=== PATIENT | male | born 1985 | race Caucasian/White ===

== ENCOUNTER 2018-10-12 03:17 | Emergency (ER) | payer BC, SELFPAY ==
[2018-10-12 03:19] VITALS: BP 129/82; PULSE 65; RESP 16; TEMP 36.4; O2SAT 100; BMI 25.7
--- NOTE | 2018-10-12 03:38 | EKG12_ITS ---
Test Reason : DIZZINESS Blood Pressure : / mmHG Vent. Rate : 054 BPM Atrial Rate : 054 BPM P-R Int : 188 ms QRS Dur : 098 ms QT Int : 406 ms P-R-T Axes : 065 078 052 degrees QTc Int : 385 ms Sinus bradycardia Early repolarization Otherwise normal ECG Confirmed by ALONSO SANDERS, SUNDAY ([id number]), tape editor SELENA JOSEPH ([id number]) on 10/14/2018 1:39:24 PM Referred By: GEENA Confirmed By:SUNDAY GUPTA MD
--- NOTE | 2018-10-12 03:41 | ED.RN ---
NO OLD EKGS IN MUSE
[2018-10-12 03:47] VITALS: BP 124/66; BP 125/67; BP 99/59; PULSE 58; PULSE 64; PULSE 65
[2018-10-12] MEDS: Cephalexin 250 MG Capsule 500 MG PO (03:52)
[2018-10-12] MEDS: Smz/Tmp Ds Tablet 1 TABLET PO (03:52)
[2018-10-12 03:56] LABS: Bedside Glucose 111 mg/dL (70-110)
--- NOTE | 2018-10-12 03:59 | ED.VISSUMM ---
- ER Visit Summary Date of Service: 10/12/18 Chief Complaint: Nausea History of Present Illness: The patient is a 33 M who presents with nausea and lumps in his right groin. While at the gym he noticed some lumps in his right groin. After getting home he began to complain of feeling dizzy and nauseated. He also noticed a small boil on his right thigh. Physical Examination: Afebrile vitals normal Resting comfortably no distress Moist mucous membranes Heart regular rate and rhythm Lungs clear Patient has tender right inguinal lymphadenopathy There is a small abscess in the medial right thigh Test Results: EKG shows normal sinus rhythm at a rate of 54. Blood glucose 111. Orthostatic vital signs negative. Emergency Department Course and Treatment: Patient was treated here with Keflex and Bactrim. He appears to have a small early abscess on his right thigh that I believe is a good candidate for antibiotic treatment alone. I do not believe there is sufficient fluctuance for incision and drainage. In regards to his dizziness EKG orthostatics and blood glucose are all normal. He was advised on supportive care. He was discharged. Treatment Plan: [] Disposition: Discharge Impression: Right thigh abscess Reactive lymphadenopathy Dizziness This note was generated with [employer] dictation software. It may contain incorrect words, spelling, and punctuation that were not noted in review of the chart prior to signing ED Disposition - Plan for ED Patient: Chief Complaint: Abd Pain Referrals: Natty Isaac PA [Primary Care Provider] -
--- NOTE | 2018-10-12 04:01 | ED.DEP ---
ED Disposition - Plan for ED Patient: Chief Complaint: Abd Pain Instructions: ED Staph Infec Abx Tx Only, ED Dizziness UKO Prescriptions: Cephalexin [Keflex] 500 mg PO Q6 #40 cap Smz/Tmp Ds [Bactrim Ds] 1 tab PO BID #14 tab Referrals: Natty Isaac PA [Primary Care Provider] -
[2018-10-12 04:35] VITALS: RESP 14
== END 2018-10-12 04:37 | disposition home or self-care (01) ==
PROVIDERS: Emergency Provider Emergency Medicine; Family Provider Physician Assistant; PCP Physician Assistant
DX: L02.415 Cutaneous abscess of right lower limb (principal); R42 Dizziness and giddiness; R59.1 Generalized enlarged lymph nodes
CPT/HCPCS: 82962; 93005; 99284

== ENCOUNTER 2018-10-13 14:07 | Emergency (ER) | payer BC, SELFPAY ==
[2018-10-12 03:19] VITALS: BMI 25.7
[2018-10-13 14:08] VITALS: BP 138/70; PULSE 83; RESP 16; TEMP 36.4; O2SAT 99; BMI 28.0
[2018-10-13] MEDS: Ondansetron 4 MG/2 ML Vial IV (14:44)
[2018-10-13 14:53] LABS: Absolute Lymphocyte Count 1.55 X10^3/ul (0.83-4.51); Absolute Neutrophil Count 4.2 X10^3/uL (2.0-7.7); Basophil# 0.01 X10^3/uL; Basophil% 0.2 % (0-1); Eosinophil# 0.03 X10^3/uL; Eosinophils% 0.5 % (0-5); Hematocrit 44.1 % (40-54); Hemoglobin 14.9 g/dl (13.0-16.5); Lymphocyte # 1.55 X10^3/ul (4.0); Lymphocyte % 24.4 % (19-41); Mean Corp Hgb Conc 33.8 g/gl (32-36); Mean Corpuscular Hgb 28.9 pg (27.0-32.0); Mean Corpuscular Volume 85.6 fL (80-94); Mean Platelet Vol. 9.3 fl (6.2-12.0); Monocyte% 9.4 % (0-10); Neutrophil # 4.16 X10^3/uL (2.7-7.7); Neutrophil % 65.3 % (47-70); Platelet Count 279 K/mm3 (150-450); RBC Distribution Width CV 13.8 % (11.6-14.6); RBC Distribution Width SD 43.3 fl (35.1-43.9); Red Blood Count 5.15 M/mm3 (4.6-6.2); White Blood Count 6.4 K/mm3 (4.4-11.0)
[2018-10-13 14:54] LABS: POSITIVE COUNT NO; POSITIVE DIFFERENTIAL NO; POSITIVE MORPHOLOGY NO
[2018-10-13 15:04] LABS: BUN 18 mg/dL (7-18); Creatinine, Serum 1.07 mg/dL (0.70-1.30); EST Glomerular Filtration Rate 86 mL/min (>60); Estimated Creatinine Clearance 93.52 ml/min; Glucose 97 mg/dL (74-106)
--- NOTE | 2018-10-13 15:04 | ED.DCSUM_ITS ---
- ER Visit Summary Date of Service: 10/13/18 Chief Complaint: Nausea, vomiting, diarrhea, and lightheadedness History of Present Illness: The patient is a 33 M who presents with nausea, vomiting, diarrhea, and lightheadedness that began today. Patient was seen here yesterday morning for an abscess in his right medial thigh. Patient was given a prescription for Keflex. Patient states he has been taking this as prescribed. Patient states he started developing nausea, vomiting, diarrhea today. Patient denies any melena or hematochezia. Patient admits to subjective fevers. Patient denies any dysuria or hematuria. Physical Examination: Vital signs are stable. Patient is afebrile. Patient is in no acute distress. Oral mucosa is pink and moist. Neck is supple. Trachea is midline. There is no JVD noted. Heart was regular rate and rhythm. Lungs are clear and equal bilateral. There is good respiratory effort noted. Abdomen is soft. Bowel sounds are normal. There is mild diffuse tenderness. There is no rebound or guarding noted. Skin is warm and dry. There is a small indurated area over the right medial thigh. There is no erythema. There is no fluctuance. There is no discharge or drainage. Cranial nerves II through XII are intact. There are no focal motor or sensory deficits noted. The remaining physical exam is within normal limits. Test Results: CBC and basic metabolic profile were obtained and were within normal limits. Emergency Department Course and Treatment: Patient was given Zofran here. Patient was given a prescription for Zofran. Patient was given a note for work for today. Patient was instructed to drink plenty of fluids. Patient was instructed to follow-up with his primary care physician in 5-7 days. Patient understood and was agreeable with the plan. All questions were answered. Disposition: Discharge home Impression: Nausea, vomiting, diarrhea This note was generated with [employer] dictation software. It may contain incorrect words, spelling, and punctuation that were not noted in review of the chart prior to signing ED Disposition - Plan for ED Patient: Disposition: Home or Assisted Living Chief Complaint: Abscess Diagnosis: Nausea vomiting and diarrhea Instructions: ED Diet Vomiting Diarrhea Prescriptions: Ondansetron [Zofran Odt] 4 mg PO Q8H PRN PRN #10 tab PRN Reason: Nausea Referrals: Natty Isaac PA [Primary Care Provider] -
[2018-10-13 15:05] LABS: Anion Gap 7 (5-15); BUN/Creat Ratio 16.8 RATIO (10-20); Chloride 106 mmol/L (98-107); Est Glom Filt Rate - Afr Amer 104 mL/min (>60); Potassium 4.2 mmol/L (3.5-5.1); Sodium Level 138 mmol/L (136-145)
== END 2018-10-13 15:47 | disposition home or self-care (01) ==
PROVIDERS: Emergency Provider Emergency Medicine; Family Provider Physician Assistant; PCP Physician Assistant
DX: R19.7 Diarrhea, unspecified (principal); R11.2 Nausea with vomiting, unspecified; R42 Dizziness and giddiness; L02.415 Cutaneous abscess of right lower limb; K21.9 Gastro-esophageal reflux disease without esophagitis; Z79.899 Other long term (current) drug therapy
CPT/HCPCS: 80048; 85025; 96374; 99283; A4216; J2405

== ENCOUNTER 2019-03-18 11:30 | Emergency (ER) | payer BC, SELFPAY ==
[2019-03-18 11:30] VITALS: BP 151/58; PULSE 52; RESP 16; TEMP 36.4; O2SAT 100; BMI 27.2
--- NOTE | 2019-03-18 11:49 | CT_ITS ---
STUDY: CT ABDOMEN AND PELVIS WITH CONTRAST REASON FOR EXAM: Male, 33 years old. Left lower quadrant pain and rectal bleeding for 2 days. RADIATION DOSAGE (If Supplied By Facility): CTDIvol = ( 11.50 ) mGy, DLP = ( 728.67 ) mGycm TECHNIQUE: Transaxial images were obtained from the dome of the diaphragm to the symphysis pubis with oral contrast. 100 IV/Oral Isovue 300 was administered. Sagittal and coronal images were reconstructed. Individualized dose optimization techniques were used for this CT. COMPARISON: None. FINDINGS: The visualized lung bases are unremarkable. The visualized portions of the heart are within normal limits. There is decreased attenuation of the liver consistent with steatosis. Normal gallbladder and extrahepatic biliary system. Normal spleen. Normal pancreas. Normal bilateral adrenal glands. Normal right kidney. Normal left kidney. There is a small hiatal hernia. Normal small intestine. There are multiple colonic diverticula consistent with diverticulosis. The appendix is visualized and appears normal. Normal abdominal aorta. Normal inferior vena cava. Normal retroperitoneum. Normal urinary bladder. Normal abdominal wall. Normal osseous structures. CT/Abdomen/Pelvis WITH Contrast IMPRESSION: Sigmoid diverticulosis. No radiologic evidence of diverticulitis. Electronically Signed: Jose Francisco Trotter, at 13:44 EDT , Service support ,
[2019-03-18] MEDS: 0.9% Normal Saline 1,000 ML 125 ML IV (12:20)
[2019-03-18 12:25] LABS: Absolute Lymphocyte Count 1.65 X10^3/ul (0.83-4.51); Absolute Neutrophil Count 3.2 X10^3/uL (2.0-7.7); Basophil# 0.01 X10^3/uL; Basophil% 0.2 % (0-1); Eosinophil# 0.04 X10^3/uL; Eosinophils% 0.8 % (0-5); Hematocrit 41.4 % (40-54); Lymphocyte # 1.65 X10^3/ul (4.0); Lymphocyte % 31.1 % (19-41); Mean Corp Hgb Conc 33.8 g/gl (32-36); Mean Corpuscular Hgb 28.8 pg (27.0-32.0); Mean Corpuscular Volume 85.2 fL (80-94); Mean Platelet Vol. 10.1 fl (6.2-12.0); Monocyte% 7.5 % (0-10); Neutrophil % 60.2 % (47-70); Platelet Count 236 K/mm3 (150-450); RBC Distribution Width CV 14.1 % (11.6-14.6); Red Blood Count 4.86 M/mm3 (4.6-6.2); White Blood Count 5.3 K/mm3 (4.4-11.0)
[2019-03-18 12:29] LABS: POSITIVE COUNT NO; POSITIVE DIFFERENTIAL NO; POSITIVE MORPHOLOGY NO
[2019-03-18 12:44] LABS: Anion Gap 6 (5-15); BUN 19 mg/dL (7-18); Chloride 109 mmol/L (98-107); Creatinine, Serum 0.95 mg/dL (0.70-1.30); EST Glomerular Filtration Rate 98 mL/min (>60); Est Glom Filt Rate - Afr Amer 118 mL/min (>60); Estimated Creatinine Clearance 116.33 ml/min; Glucose 95 mg/dL (74-106); Potassium 4.5 mmol/L (3.5-5.1); Sodium Level 141 mmol/L (136-145)
[2019-03-18] MEDS: Ondansetron 4 MG/2 ML Vial IV (13:10)
[2019-03-18 14:55] VITALS: BP 131/57; PULSE 60; RESP 16; O2SAT 100
--- NOTE | 2019-03-18 14:57 | ED.VISSUMM ---
- ER Visit Summary Date of Service: 03/18/19 Chief Complaint: Rectal bleeding [] History of Present Illness: The patient is a 33 M [presents the emergency department with rectal bleeding for 3 to 4 days. Patient states that he notices that when he goes to the bathroom there is bright red blood mixed in the toilet bowl and the stool as well as on the toilet paper. Patient also complains of some lower abdominal discomfort that is pretty uncomfortable. He denies any fevers. There is no family history of inflammatory bowel disease. He denies feeling lightheaded or dizzy. He denies recent antibiotic usage. Patient also states that he thinks he may have a little bit of a staph infection in the left groin as he has been seen for this in the past and was treated in the past with antibiotics.] Physical Examination: [HEENT-PERRLA, EOMI. Cranial nerves II through XII grossly intact. TMs clear. Mucous membranes moist. No adenopathy. Cardiovascular-regular rate and rhythm without murmur or ectopy Lungs-clear to auscultation, chest wall stable without crepitus or subcu emphysema Abdomen-normoactive bowel sounds, soft. Patient has diffuse tenderness over left lower quadrant with some guarding. There is no rebound, rigidity, or perineal signs. In the left inguinal area there is a small area of erythema when compressed small amount of purulent discharge expresses from it. Suspect patient may have a small abscess. Rectal exam-no masses palpated in the rectal vault. No hemorrhoids noted. There was brown stool in the rectal vault that was Hemoccult negative. Just lateral to the rectum on the left buttock there is a pinpoint area of defect in the skin that is oozing small amount of blood. Extremities-intact ?4, normal range of motion, normal pulses, atraumatic.] Test Results: [CBC with differential showing a 5.3, hemoglobin 14, hematocrit 41, placed 236. Chemistries unremarkable. Hemoccult was negative. CT flank showed sigmoid diverticulosis but no diverticulitis otherwise nothing acute.] Emergency Department Course and Treatment: [Patient initially was just given normal saline.] Treatment Plan: [Patient will be referred to general surgery for follow-up if symptoms do not resolve he may require colonoscopy. The small bleeding skin lesion etiology is unclear. It is unclear if this is a small vein that is eroded to the surface and is bleeding or potentially a small abscess that may be draining.] Disposition: Discharged home in stable condition. Patient advised to return if persistent heavy bleeding worsening abdominal pain, fever, or conditions worsen anyway.] Impression: [Rectal bleeding-stable Soft tissue abscess left lower abdomen] This note was generated with [employer] dictation software. It may contain incorrect words, spelling, and punctuation that were not noted in review of the chart prior to signing ED Disposition - Plan for ED Patient: Referrals: Natty Isaac PA [Primary Care Provider] -
--- NOTE | 2019-03-18 15:02 | ED.DEP ---
ED Disposition - Plan for ED Patient: Instructions: ED Hematochezia Stable Prescriptions: Clindamycin HCl [Cleocin] 300 mg PO Q6H #40 cap Referrals: Natty Isaac PA [Primary Care Provider] - Karely Brewer MD [STAFF PHYSICIAN] - 3-5 Days
[2019-03-18 15:16] VITALS: BP 131/57; PULSE 60; RESP 16; O2SAT 100
[2019-03-18] MEDS: Clindamycin HCl 150 MG Capsule 300 MG PO (15:18)
== END 2019-03-18 15:19 | disposition home or self-care (01) ==
PROVIDERS: Emergency Provider Emergency Medicine; Family Provider Physician Assistant; PCP Physician Assistant
DX: K62.5 Hemorrhage of anus and rectum (principal); K57.30 Diverticulosis of large intestine without perforation or abscess without bleeding; L02.211 Cutaneous abscess of abdominal wall
CPT/HCPCS: 74177; 80048; 82274; 85025; 96361; 96374; 99284; J7030; Q9967; A4216; J2405

== ENCOUNTER 2019-03-21 15:56 | Emergency (ER) | payer BC, SELFPAY ==
[2019-03-21 15:57] VITALS: BP 140/70; PULSE 72; RESP 18; TEMP 36.9; O2SAT 100; BMI 25.8
--- NOTE | 2019-03-21 17:17 | ED.VISSUMM ---
- ER Visit Summary Date of Service: 03/21/19 Chief Complaint: Abdominal pain and blood in stool History of Present Illness: The patient is a 33 M who presents for 5 days of lower abdominal pain, now with diarrhea that is black and concerning for blood in his stool. Patient was evaluated 3 days ago for the same complaint, except at that time he was having bright red blood per rectum. He was diagnosed with concern for a possible draining abscess at the rectal area and was placed on clindamycin. Patient states for the last 2 days he has had black diarrhea. He is not on any Pepto-Bismol. He uses naproxen daily for back pain. His abdominal pain is no different from when he presented initially. It is in the bilateral lower quadrants and the right lower back. Patient denies any medical problems. He has not followed up with a doctor for a colonoscopy. Physical Examination: Vital signs: afebrile, hemodynamically stable, no hypoxia on room air General: well nourished, well developed, in no distress Skin: warm, dry, no rash, no pallor HEENT: normocephalic and atraumatic; PERRL, EOMI, moist mucous membranes Cardiovascular: regular rate and rhythm without murmurs, no peripheral edema, 2+ pulses all distal extremities Respiratory: No increased work of breathing, lungs are clear to auscultation bilaterally, no rales, rhonchi or wheezing Abdominal: Abdomen is soft, tender in the lower quadrants r with normoactive bowel sounds, no guarding or rebound, no masses: Brown stool noted on glove, guaiac negative, no external hemorrhoids or fissures noted MSK: Moves all extremities, no deformities, normal strength Neuro: Awake and alert, oriented ?4. No facial droop, sensation and motor function intact and symmetric Test Results: Abnormal Lab Results 03/21/19 03/21/19 03/21/19 17:55 17:55 18:00 WBC 8.3 RBC 5.33 Hgb 15.6 Hct 45.5 MCV 85.4 MCH 29.3 MCHC 34.3 RDW 13.9 RDW Differential 43.5 Plt Count 290 MPV 10.0 Immature Gran % (Auto) 0.100 Neut % (Auto) 72.1 H Lymph % (Auto) 21.3 [place] % (Auto) 6.2 Eos % (Auto) 0.2 Baso % (Auto) 0.1 Absolute Neuts (auto) 6.0 Absolute Lymphs (auto) 1.78 Total Counted Not Reportable Sodium Cancelled Potassium Cancelled Chloride Cancelled Carbon Dioxide Cancelled Anion Gap Cancelled BUN Cancelled Creatinine Cancelled Estim Creat Clear Calc Cancelled Est GFR (MDRD) Af Amer Cancelled Est GFR (MDRD) Non-Af Cancelled BUN/Creatinine Ratio Cancelled Glucose Cancelled Calcium Cancelled Total Bilirubin Cancelled AST Cancelled ALT Cancelled Alkaline Phosphatase Cancelled Total Protein Cancelled Albumin Cancelled Globulin Cancelled Albumin/Globulin Ratio Cancelled Urine Color Yellow Urine Clarity Sl. Cloudy Urine pH 5.0 Ur Specific [place] 1.025 Urine Protein Negative Urine Glucose (UA) Normal Urine Ketones Negative Urine Occult Blood Negative Urine Nitrite Negative Urine Bilirubin Negative Urine Urobilinogen Normal Ur Leukocyte Esterase 25 H Urine RBC 0 SEEN Urine WBC 0-5 SEEN Ur Squamous Epith Cells 0-5 SEEN Urine Bacteria 0 SEEN Urine Mucus 1+ 03/21/19 18:37 WBC RBC Hgb Hct MCV MCH MCHC RDW RDW Differential Plt Count MPV Immature Gran % (Auto) Neut % (Auto) Lymph % (Auto) [place] % (Auto) Eos % (Auto) Baso % (Auto) Absolute Neuts (auto) Absolute Lymphs (auto) Total Counted Sodium 143 Potassium 4.1 Chloride 111 H Carbon Dioxide 26.0 Anion Gap 6 BUN 15 Creatinine 0.89 Estim Creat Clear Calc 124.17 Est GFR (MDRD) Af Amer 128 Est GFR (MDRD) Non-Af 106 BUN/Creatinine Ratio 16.9 Glucose 93 Calcium 8.6 Total Bilirubin 0.40 AST 13 L ALT 29 Alkaline Phosphatase 57 Total Protein 6.6 Albumin 4.0 Globulin 2.6 Albumin/Globulin Ratio 1.5 Urine Color Urine Clarity Urine pH Ur Specific [place] Urine Protein Urine Glucose (UA) Urine Ketones Urine Occult Blood Urine Nitrite Urine Bilirubin Urine Urobilinogen Ur Leukocyte Esterase Urine RBC Urine WBC Ur Squamous Epith Cells Urine Bacteria Urine Mucus Medications Given Discontinued Medications Dicyclomine HCl (Bentyl) 20 mg PO X1 ONE Stop: 03/21/19 17:17 Last Admin: 03/21/19 18:04 Dose: 20 mg Sodium Chloride () 1,000 mls @ 1,000 mls/hr IV .Q1H ONE Stop: 03/21/19 18:15 Last Admin: 03/21/19 18:03 Dose: 1,000 mls/hr Emergency Department Course and Treatment: Patient was given IV fluids and Bentyl for his abdominal pain. He had a CT scan at his prior visit that showed no acute findings. His stool is guaiac negative this time and there was no evidence of melena on his exam. CBC showed no decline in his hemoglobin. No other lab derangements. On reevaluation patient was feeling somewhat better. He was given a prescription for Zofran and Bentyl and was strongly encouraged to follow-up with surgery for colonoscopy, as he was advised at his prior visit. Patient was noted to be on clindamycin, and his diarrhea may be secondary to the antibiotic use. He has no findings on physical exam or based on his description of the diarrhea this is concerning for C. difficile. Patient was discharged home in improved condition. Treatment Plan: [] Disposition: [] Impression: Abdominal pain, diarrhea This note was generated with [employer] dictation software. It may contain incorrect words, spelling, and punctuation that were not noted in review of the chart prior to signing ED Disposition - Plan for ED Patient: Disposition: Home or Assisted Living Instructions: ED Abdominal Pain Unkn Cause, ED Vomiting Diarrhea Nonspecific Ad Prescriptions: Ondansetron [Zofran Odt] 4 mg PO Q8H PRN PRN #20 tab PRN Reason: Nausea RX: Dicyclomine HCl [Bentyl] 20 mg PO TIDAC #40 cap Referrals: Natty Isaac PA [Primary Care Provider] - As soon as possible Additional Instructions: Keep your appointment as you were previously referred with the surgeon for colonoscopy. Take the medications as needed for symptom control. Please follow-up with your doctor for further work-up of your ongoing abdominal pain. The antibiotic you are taking from your prior visit may be causing the diarrhea. If you have any worsening of your condition or any new concerning symptoms, please return immediately to the emergency department for another evaluation.
[2019-03-21] MEDS: 0.9% Normal Saline 1,000 ML 1000 ML IV (18:03)
[2019-03-21] MEDS: Dicyclomine 10 MG Capsule 20 MG PO (18:04)
[2019-03-21 18:09] LABS: Absolute Lymphocyte Count 1.78 X10^3/ul (0.83-4.51); Basophil# 0.01 X10^3/uL; Basophil% 0.1 % (0-1); Eosinophil# 0.02 X10^3/uL; Eosinophils% 0.2 % (0-5); Hematocrit 45.5 % (40-54); Hemoglobin 15.6 g/dl (13.0-16.5); Lymphocyte # 1.78 X10^3/ul (4.0); Lymphocyte % 21.3 % (19-41); Mean Corp Hgb Conc 34.3 g/gl (32-36); Mean Corpuscular Hgb 29.3 pg (27.0-32.0); Mean Corpuscular Volume 85.4 fL (80-94); Monocyte# 0.52 X10^3/uL; Monocyte% 6.2 % (0-10); Neutrophil % 72.1 % (47-70); Platelet Count 290 K/mm3 (150-450); RBC Distribution Width CV 13.9 % (11.6-14.6); RBC Distribution Width SD 43.5 fl (35.1-43.9); Red Blood Count 5.33 M/mm3 (4.6-6.2); White Blood Count 8.3 K/mm3 (4.4-11.0)
[2019-03-21 18:11] LABS: POSITIVE COUNT NO; POSITIVE DIFFERENTIAL NO; POSITIVE MORPHOLOGY NO
[2019-03-21 18:59] LABS: Bacteria 0 SEEN /hpf (None Seen); Red Blood Cells-Urine 0 SEEN /hpf (0-5)
[2019-03-21 19:03] LABS: Color, Urine Yellow (Yellow); Glucose, Dipstick Normal (Normal); Ketone-Dipstick Negative (Negative); Leukocyte Esterase-Dipstick 25 /ul (Negative); Nitrite-Dipstick Negative (Negative); Occult Blood-Urine Negative /ul (Negative); Protein-Dipstick Negative (Negative); Specific Gravity, Urine 1.025 (1.002-1.030); Urine Bilirubin Dipstick Negative (Negative); Urine Clarity Sl. Cloudy (Clear); Urine Urobilinogen Normal (Normal)
[2019-03-21 19:08] LABS: ALB/GLOB Ratio 1.5 RATIO (0.9-2.4); AST(SGOT) 13 U/L (15-37); Alanine Aminotransfer ALT/SGPT 29 U/L (16-61); Alkaline Phosphatase 57 U/L (45-117); Anion Gap 6 (5-15); BUN 15 mg/dL (7-18); BUN/Creat Ratio 16.9 RATIO (10-20); Calcium,Total 8.6 mg/dL (8.5-10.1); Chloride 111 mmol/L (98-107); Creatinine, Serum 0.89 mg/dL (0.70-1.30); EST Glomerular Filtration Rate 106 mL/min (>60); Est Glom Filt Rate - Afr Amer 128 mL/min (>60); Estimated Creatinine Clearance 124.17 ml/min; Globulin 2.6 g/dL (2.2-4.2); Glucose 93 mg/dL (74-106); Potassium 4.1 mmol/L (3.5-5.1); Protein, Total 6.6 g/dL (6.4-8.2); Sodium Level 143 mmol/L (136-145)
[2019-03-21 19:14] LABS: Mucous, Urine 1+ /hpf (<or=2+); Squamous Epithelial Cells - UA 0-5 SEEN /hpf (0-5); White Blood Cells 0-5 SEEN /hpf (0-5)
[2019-03-21 20:01] VITALS: BP 119/57; PULSE 51; RESP 17; O2SAT 99
== END 2019-03-21 20:02 | disposition home or self-care (01) ==
PROVIDERS: Emergency Provider Emergency Medicine; Family Provider Physician Assistant; PCP Physician Assistant
DX: R10.31 Right lower quadrant pain (principal); R10.32 Left lower quadrant pain; R19.7 Diarrhea, unspecified
CPT/HCPCS: 80053; 81001; 82274; 85025; 96360; 96361; 99285; J7030; A4216

== ENCOUNTER 2019-04-08 08:36 | Day surgery (SDC) | payer BC, SELFPAY ==
[2019-03-28 10:30] VITALS: BMI 25.8
--- NOTE | 2019-03-30 10:32 | HP_ITS ---
Intake Vital Signs 03/28/19 Body Mass Index (BMI) 25.8 03/28/19 Height 5 ft 10 in 03/28/19 Weight: 190 lb 03/28/19 Body Mass Index (BMI) 27.2 03/28/19 Blood Pressure 114/75 03/28/19 Blood Pressure Location Lt brachial 03/28/19 Blood Pressure Position Sitting 03/28/19 Respiratory Rate 18 Intake Visit Reasons: Hospital F/U 03/11 [facility] Blood in stool Top Screw Required: No Is patient in pain?: Yes (lower abdomen) Allergies sulfamethoxazole [From Bactrim] Allergy (Mild, Verified 03/28/19 10:28) Unknown trimethoprim [From Bactrim] Allergy (Mild, Verified 03/28/19 10:28) Unknown Medications Ondansetron [Zofran Odt] 4 mg PO Q8H PRN PRN #10 tab 10/13/18 [Rx Confirmed 03/28/19] Dicyclomine HCl [Bentyl] 20 mg PO TIDAC #40 cap 03/21/19 [Rx Confirmed 03/28/19] Ondansetron [Zofran Odt] 4 mg PO Q8H PRN PRN #20 tab 03/21/19 [Rx Confirmed 03/28/19] omeprazole 20 mg capsule,delayed release 20 mg PO DAILY #60 cap 03/28/19 [Rx Confirmed 03/28/19] sucralfate 1 gram tablet 1 g PO QACHS #120 tab 03/28/19 [Rx Confirmed 03/28/19] PFSH Medical History Abdominal pain (Acute) Acid reflux disease (Acute) Diarrhea (Acute) Nausea & vomiting (Acute) Surgical History Status post right knee surgery (Acute) Social History Smoking Status: Heavy Smoker (>10/day) alcohol intake: current alcohol intake frequency: a few times a week HPI HPI HPI: EULALIO JAMES, is a 33 M who presents to the office today for HPI HPI Surgical H&P: Yes HPI: EULALIO JAMES, is a 33 M who presents to the office today for abdominal pain. Patient reports he has had 2 weeks of bilateral lower quadrant pain. He is also experiencing diarrhea and cramping. He is also had blood in his stool and black tarry diarrhea. He said he has been taking a lot of ibuprofen for his back up to 2 times per day. This is been going on for a few months. ROS General General: Yes weight change and fatigue Musc Musculoskeletal: Yes back problems Cardio Cardiovascular: No murmur, pacemaker, heart disease, atrial fibrillation, high blood pressure, heart attack, heart stent, palpitations, shortness of breat with exertion or chest pain Psych Psychiatric: No depression or anxiety Resp Respiratory: Yes shortness of breath, No sleep apnea, No cough, No COPD, No asthma, No emphysema, No wheezing Gastro Gastrointestinal: Yes abdominal pain, Yes nausea or vomiting, Yes diarrhea, No constipation, Yes blood in stool, No acid reflux, No hemorrhoids, No ulcers, No gallbladder problem, Yes black,tarry stools Wang Hematologic: No blood thinners Exam Const General: cooperative Orientation: alert, oriented x3 Resp Effort & Inspection: normal respiratory effort Auscultation: clear to auscultation bilaterally Cardio Rate: regular rate Rhythm: regular rhythm Heart Sounds: no murmurs GI Inspection: non-distended Palpation: soft, tender in the LLQ and in the RLQ Assessment & Plan Problems 1. Gastrointestinal hemorrhage with melena K92.1 2. Melena K92.1 Plan The patient has history of ibuprofen use and alternating blood in his stool and melena. He also has left lower quadrant and right lower quadrant pain. I recommend EGD and colonoscopy to evaluate for peptic ulcer disease and other sources of GI bleeding. I also recommend the patient start taking Tylenol and stop taking ibuprofen. I have also started the patient on a PPI and Carafate. I explained endoscopy in detail to the patient. I explained the risks including but not limited to stroke or heart attack with anesthesia, perforation of the GI tract, bleeding, infection. I explained that any of these could necessitate further emergency surgery. The patient understands and all questions were answered sufficiently. The patient wishes to proceed with procedure. Harpreet Card MD Pager: [facility] [address] [place] [address], [address] [place] [address] Office: Orders Orders: Colonoscopy 03/28/19 K92.2 EGD 03/28/19 K92.2, T39.395A Medications New: omeprazole 20 mg PO DAILY 60 caps 1RF sucralfate (Carafate) 1 g PO QACHS 120 tabs 0RF Discontinued: esomeprazole magnesium Discontinued Reason: Discontinued by PCP/other physicians 20 mg PO DAILY clindamycin HCl Discontinued Reason: Duplicate Order 300 mg PO Q6H 40 caps 0RF Coding Level of Care Code Off vis,new,level 3 Diagnoses Gastrointestinal hemorrhage with melena K92.1 ??GI bleed type/associated pathology: melena Melena K92.1 03/30/19 0823 <Electronically signed by Harpreet Card MD> Date Harpreet Card MD I have re-examined the patient. There are no clinical changes since date of exam.
[2019-04-08] VITALS (7 sets, daily range): BP systolic 88–119; BP diastolic 39–53; PULSE 47–57; RESP 16–18; TEMP 36.1–36.6; O2SAT 97–100; BMI 25.9
--- NOTE | 2019-04-08 10:30 | IMM_PTH ---
PATIENT: EULALIO JAMES LOC: [facility] U#:[id number] AGE/SX: 33/M ROOM: RE04/08/[address]: Dr. Harpreet Card MD : 1985 BED: DIS: 04/08/2019 SPEC #: [id number] RECD: 04/08/19 15:20 STATUS: CRISSY RERafiq #: [id number] SHOAIB: 04/08/19 10:[address]: Harpreet Card DEPT: IMMUNOHISTOCHEMISTRY RECD BY: Tamara Ferro ENTERED: 04/08/19 15:20 SP TYPE: IMMUNO OTHR DR: JULITO Hannah Tissues: A - Stomach, NOS Procedures: H Pylori (initial) PHYSICIAN & INSTITUTION [place] [address] SPECIMEN INFORMATION: Tissue Source: A - Antrum biopsy Clinical Info: GI hemorrhage with melena Specimen Number: [id number] CPT code: 82166 METHODOLOGY: Deparaffinized sections of prefer/formalin-fixed tissue or PAP/DQ stained slides are incubated with monoclonal/polyclonal antibodies/oligonucleotide probes. Localization is made via biotin free immunoperoxidase method. Appropriate controls are performed and reacted as expected. Results on target cell population are indicated in the following table: RESULTS: ANTIBODY / CLONE RESULT Block A H Pylori (polyclonal) negative These tests were developed and their performance characteristics determined by [facility]. They may not have been cleared or approved by the U.S. Food and Drug Administration. The FDA has determined that such clearance or approval is not necessary. INTERPRETATION: A. Antrum biopsy: Negative for Helicobacter pylori organisms. AM:maggi 04/11/19
--- NOTE | 2019-04-08 10:30 | EGD_PTH ---
PATIENT: EULALIO JAMES LOC: EN U#:[id number] AGE/SX: 33/M ROOM: RE04/08/[address]: Dr. Harpreet Card MD : 1985 BED: DIS: 04/08/2019 SPEC #: [id number] RECD: 04/08/19 12:16 STATUS: CRISSY ERMA #: [id number] SHOAIB: 04/08/19 10:[address]: Harpreet Card DEPT: SURGICAL PATHOLOGY RECD BY: Declan Hernandez ENTERED: 04/08/19 14:49 SP TYPE: EGD BIOPSY OTHR DR: JULITO Hannah Tissues: A - Gastric mucous membrane B - Ileum, NOS C - COLON BIOPSY Procedures: Surgery Specimen Level IV HEADER OPERATION: Colonoscopy, EGD ([facility]) PRE-OP DIAGNOSIS: Gastrointestinal hemorrhage with melena TISSUE SUBMITTED: A - Antrum biopsy for H. pylori and path, B - Terminal ileum biopsy, C - Random colon biopsies MICROSCOPIC DIAGNOSIS A. Gastric antrum, biopsy: Mild chronic gastritis. See comment. B. Terminal ileum, biopsy: No pathologic diagnosis. C. Random colon biopsy: No pathologic diagnosis. See comment. AM:maggi 04/11/19 COMMENT A. The results of immunohistochemistry for Helicobacter pylori will be reported separately ([id number]). C. A single fragment of unremarkable small bowel is also present. Clinical correlation is suggested. MICROSCOPIC DESCRIPTION Slides are reviewed. GROSS DESCRIPTION A - Received in fixative is one container labeled with the patient's name and designated antrum biopsy. The specimen consists of one irregular fragment of light [place] soft tissue that measures 0.5 x 0.5 x 0.1 cm. The specimen is totally submitted in one cassette. B - Received in fixative is one container labeled with the patient's name and designated terminal ileum. The specimen consists of one irregular fragment of light [place] soft tissue that measures 0.5 x 0.2 x 0.1 cm. The specimen is totally submitted in one cassette. C - Received in fixative is one container labeled with the patient's name and designated random colon biopsy. The specimen consists of multiple irregular fragments of light [place] soft tissue that in aggregate measure 1 x 0.7 x 0.1 cm. The specimen is totally submitted in one cassette. / AM:maggi 04/08/19 TC:3 CPT: 76448 x3
--- NOTE | 2019-04-08 11:12 | OP.ENDO_ITS ---
04/08/2019 Natty Isaac Re : Upper GI endoscopy procedure for Chapito Isaac This procedure was performed on Monday, April 08, 2019. My impressions and recommendations are as follows: Impressions : - Normal esophagus. - Normal stomach. - Normal examined duodenum. - Biopsies were taken with a cold forceps for Helicobacter pylori testing. Recommendations : - Discharge patient to home. - Resume previous diet. - Continue present medications. My findings are described in the full procedure note, which is enclosed. If I can be of further assistance, please feel free to contact me at Doctor phone number(s): , Work: . Sincerely, Harpreet Card MD 04/08/2019 11:12:03 AM This report has been signed electronically.
--- NOTE | 2019-04-08 11:14 | OP.ENDO_ITS ---
04/08/2019 Natty Isaac Re : Colonoscopy procedure for Chapito Isaac This procedure was performed on Monday, April 08, 2019. My impressions and recommendations are as follows: Impressions : - The entire examined colon is normal on direct and retroflexion views. - Biopsies were taken with a cold forceps from the entire colon for evaluation of microscopic colitis. - Biopsy was performed in the terminal ileum. Recommendations : - Discharge patient to home. - Resume previous diet. - Continue present medications. - Await pathology results. - Repeat colonoscopy at age 52 for screening purposes. My findings are described in the full procedure note, which is enclosed. If I can be of further assistance, please feel free to contact me at Doctor phone number(s): , Work: . Sincerely, Harpreet Card MD 04/08/2019 11:14:09 AM This report has been signed electronically.
== END 2019-04-08 12:22 | disposition home or self-care (01) ==
LOC: EN 08:37 → AC 08:38
PROVIDERS: Family Provider Physician Assistant; PCP Physician Assistant; Referring Provider Physician Assistant; Visit Provider Surgery
PROC: 0DJD8ZZ Inspection of Lower Intestinal Tract, Via Natural or Artificial Opening Endoscopic (ICD-10-PCS; CPT 45378; principal; 2019-04-08 10:25)
DX: K29.50 Unspecified chronic gastritis without bleeding (principal); K92.1 Melena; R10.31 Right lower quadrant pain; R10.32 Left lower quadrant pain; K21.9 Gastro-esophageal reflux disease without esophagitis; Z87.891 Personal history of nicotine dependence
CPT/HCPCS: 43239; 45380; 88305; 88342; J7120; A4216

== ENCOUNTER → 2019-05-05 16:08 | Outpatient (CLI) | payer BC, SELFPAY ==
[2019-04-08 08:56] VITALS: BMI 25.9
--- NOTE | 2019-05-05 16:11 | US_ITS ---
HISTORY:TESTICLE AND GROIN PAIN AND SWELLING BILAT TESTICLE AND GROIN PAIN AND SWELLING BILAT EXAMINATION: US Scrotum (Contents) TECHNIQUE: Realtime ultrasound of the testicles was performed with grayscale, Color Doppler and spectral Doppler analysis. COMPARISON: None FINDINGS: RIGHT: TESTIS: 5.4 x 3.3 x 2.0 cm. Normal in size and echotexture, without focal lesion. COLOR DOPPLER: Normal arterial flow present in the testicle with monophasic waveforms. EPIDIDYMIS: Normal in size and echotexture, without focal lesion. It measures 1.0 x 1.1 x 0.8 cm Normal color Doppler flow pattern in the epididymis. HYDROCELE: None. VARICOCELE: None. LEFT: TESTIS: 4.6 x 2.5 x 1.9 cm. Normal in size and echotexture, without focal lesion. COLOR DOPPLER: Normal arterial flow present in the testicle with monophasic waveforms. EPIDIDYMIS: Normal in size and echotexture, without focal lesion. Measuring 0.9 x 1.1 x 0.8 cm Normal color Doppler flow pattern in the epididymis. HYDROCELE: None. VARICOCELE: None. Incidental note is made of bilateral inguinal lymph nodes the largest on the right measuring 1.6 x 0.6 x 0.3 cm and on the left measuring 0.9 x 0.8 x 0.3 cm US/Testicular with Arterial Flow IMPRESSION: Unremarkable bilateral testicular ultrasound. Enlarged right inguinal lymph nodes at 1909 Reported and signed by: Kendal Helms DO Electronically Signed: Kendal Helms DO at 19:08 EDT Tel , Service support ,
== END ==
LOC: US 16:10
PROVIDERS: Family Provider Physician Assistant; PCP Physician Assistant; Referring Provider Physician Assistant; Visit Provider Physician Assistant
DX: N50.819 Testicular pain, unspecified (principal); R10.30 Lower abdominal pain, unspecified
CPT/HCPCS: 76870; 93976

== ENCOUNTER 2019-06-02 06:14 | Day surgery (SDC) | payer BC, SELFPAY ==
[2019-05-24 14:54] VITALS: BMI 25.9
[2019-06-02] VITALS (8 sets, daily range): BP systolic 97–122; BP diastolic 54–77; PULSE 51–64; RESP 16–18; TEMP 36.3–36.7; O2SAT 96–100; BMI 27.5
--- NOTE | 2019-06-02 | LIP_PTH ---
PATIENT: EULALIO JAMES LOC: [facility] – [place] U#:[id number] AGE/SX: 33/M ROOM: RE06/02/[address]: Dr. Harpreet Card MD : 1985 BED: DIS: 06/02/2019 SPEC #: [id number] RECD: 06/02/19 12:35 STATUS: CRISSY ERMA #: [id number] SHOAIB: 06/02/19 00:[address]: Harpreet Card DEPT: SURGICAL PATHOLOGY RECD BY: Pascual Paez ENTERED: 06/02/19 12:36 SP TYPE: LIPOMA OTHR DR: JULITO Hannah Tissues: LIPOMA OF CORD Procedures: Surgery Specimen Level III HEADER OPERATION: Lap robotic bilateral inguinal hernia repair PRE-OP DIAGNOSIS: Right inguinal hernia TISSUE SUBMITTED: Lipoma of right upper cord MICROSCOPIC DIAGNOSIS Lipoma of right upper cord: Mature adipose tissue, consistent with lipoma. SJ:maggi 06/03/19 MICROSCOPIC DESCRIPTION Slides are reviewed. GROSS DESCRIPTION Received in fixative is one container labeled with the patient's name and designated lipoma of right upper cord. The specimen consists of yellow adipose tissue measuring 5.5 x 4.5 x 1 cm. Sections reveal yellow adipose cut surfaces without area of hemorrhage, necrosis or cystic degeneration. Deposition Reporter sections are submitted in one cassette. / SJ:rg 06/02/19 TC:1 CPT: 34222
--- NOTE | 2019-06-02 07:30 | HP.PCM_ITS ---
Problem List (1) Right inguinal hernia Status: Acute History and Physical Date of Admission: 06/02/19 Intake Vital Signs 05/24/19 Body Mass Index (BMI) 25.9 05/24/19 Height 5 ft 10 in 05/24/19 Weight: 190 lb 05/24/19 Body Mass Index (BMI) 27.2 05/24/19 Blood Pressure 112/70 05/24/19 Blood Pressure Location Rt brachial 05/24/19 Blood Pressure Position Sitting 05/24/19 Respiratory Rate 18 05/24/19 Pulse Rate 70 05/24/19 Pulse Source Monitor 05/24/19 Temperature 97.8 F 05/24/19 Temperature Source Oral 05/24/19 Pulse Ox 98 05/24/19 Oxygen Delivery Method room air 05/24/19 Body Mass Index (BMI) 25.9 Intake Visit Reasons: Inguinal Lymphadenopathy [facility] [place] 05/05 Home Care Manager Rn Required: No Is patient in pain?: No Allergies sulfamethoxazole [From Bactrim] Allergy (Mild, Verified 05/31/19 08:08) Unknown trimethoprim [From Bactrim] Allergy (Mild, Verified 05/31/19 08:08) Unknown Medications Ondansetron [Zofran Odt] 4 mg PO Q8H PRN PRN #10 tab 10/13/18 [Rx Confirmed 05/31/19] Dicyclomine HCl [Bentyl] 20 mg PO TIDAC #40 cap 03/21/19 [Rx Confirmed 05/31/19] omeprazole 40 mg capsule,delayed release 40 mg PO DAILY 05/24/19 [History Confirmed 05/31/19] rifaximin 200 mg tablet 200 mg PO TID 05/24/19 [History Confirmed 05/31/19] PFSH Medical History Anxiety (Acute) Abdominal pain (Acute) Acid reflux disease (Acute) Diarrhea (Acute) Nausea & vomiting (Acute) Surgical History Status post right knee surgery (Acute) Social History (Updated 06/02/19 @ 07:29 by Harpreet Card MD) Smoking Status: Former smoker alcohol intake: current alcohol intake frequency: a few times a week substance use type: does not use HPI HPI HPI: EULALIO JAMES, is a 33 M who presents to the office today for HPI HPI HPI: EULALIO JAMES, is a 33 M who presents to the office today for right groin pain. Patient also reports intermittent pain left groin. He says this is especially bad when lifting. He says he experiences bulging that he has to push back in. He says this started about 1 month ago. ROS General General: Yes weight change and fatigue; no appetite, colon cancer, breast cancer or weakness HEENT HEENT: No difficulty swallowing, eye injury, eye surgery, swollen glands or hoarseness Endo Endocrine: No thyroid disease, diabetes mellitus, thyroid cancer, Hair loss, heat intolerance or cold intolerance Skin Skin: No rash or changing moles Breast Breast: No left breast lump, right breast lump, nipple discharge, breast pain, abnormal mammogram, abnormal US or breast enlargement Musc Musculoskeletal: Yes back problems; no arthritis, rheumatoid arthritis, gout or joint pain Cardio Cardiovascular: No murmur, pacemaker, heart disease, atrial fibrillation, high blood pressure, heart attack, heart stent, palpitations, shortness of breat with exertion or chest pain Psych Psychiatric: Yes anxiety; no depression or hearing voices Resp Respiratory: No shortness of breath, No sleep apnea, Yes cough, No COPD, No asthma, No emphysema, No wheezing Gastro Gastrointestinal: Yes abdominal pain, Yes nausea or vomiting, Yes diarrhea, No constipation, No blood in stool, Yes acid reflux, No hemorrhoids, No ulcers, No gallbladder problem, No black,tarry stools Wang Hematologic: No blood thinners, No blood disorders, No bleeding, No anemia, No blood clots Neuro Neurologic: No system reviewed and no additional complaints, except as docu, No as per HPI, No abnormal walking, No abnormal hearing, No abnormal movements, No abnormal speech, No behavioral changes, No burning sensations, No confusion, No seizure-like activity, No unsteadiness, No dizziness, No localized weakness, No frequent falls, No headache(s), No lack of coordination, No loss of vision, No memory loss, No numbness, No other visual disturbances, No radiating pain, No restless legs, No sensory deficit, No fainting, No tingling, No tremor(s), No weakness, No other Exam Const General: cooperative Orientation: alert, oriented x3 Chest Breast Palpation: No nipple discharge Resp Effort & Inspection: normal respiratory effort Auscultation: clear to auscultation bilaterally Cardio Rate: regular rate Rhythm: regular rhythm Heart Sounds: no murmurs GI Inspection: non-distended Palpation: soft, nontender Other: The patient does appear to have herniated contents in the right groin and possibly in the left groin. This appears to be direct hernias bilaterally. Easily reducible. Assessment & Plan Problems 1. Bilateral inguinal hernia without obstruction or gangrene, recurrence not specified K40.20 Plan The patient is having pain in both inguinal regions. He has an appreciable direct hernia on the right side and possibly on the left. I explained robotic assisted laparoscopic inguinal hernia repair to the patient in detail. I explained that we would repair the right side and inspect the left. If the left side includes a hernia I would repair the other side at the same time. I explained the risks of the procedure including but not limited to bleeding, infection, chronic groin pain, recurrence of hernia, bowel or bladder injury. I also explained the placement of mesh in the inguinal region. Patient understands all the risks and is willing to proceed with surgery. Harpreet Card MD Pager: [facility] [address] [place] [address], [address] [place] [address] Office:
[2019-06-02] MEDS: Cefazolin 2 GM in 0.9% Normal Saline 100 ML IV (08:10)
[2019-06-02] MEDS: Bupivacaine 0.5% PF 10 ML VIAL (10:00)
--- NOTE | 2019-06-02 10:07 | PCM.OPRPT ---
Problem List (1) Right inguinal hernia Status: Acute Report of Operation Date of Procedure: 06/02/19 Pre-Operative Diagnosis: Right inguinal hernia Post-Operative Diagnosis: Bilateral inguinal hernias Surgery/Procedure Performed:: Robotic assisted laparoscopic bilateral inguinal hernia repair with mesh Description of Surgical Findings:: Patient had indirect defect bilaterally with large lipoma the cord on the left side Specimen's removed: Left cord lipoma Description of Procedure: Patient was brought back to the operating room and general anesthesia was induced. Abdomen was prepped and draped in usual sterile fashion. Incision was made superior to the umbilicus and deepened to the fascia. The fascia was grasped and elevated and a Veress needle was placed into the abdomen and a drop test was performed. The abdomen was insufflated to 15 mmHg. The Veress needle was removed and a camera port was placed into this incision. The camera was then placed this incision to inspect for any injuries and there were none. Next under direct visualization a right and left 8 mm port were placed in the lateral abdominal sidewalls. Next inspection of the inguinal canals was performed. Patient had an indirect hernia on the right side and a indirect hernia on the left. Next the patient was placed in steep Trendelenburg position and the robot was docked. Using scissors and cautery the right inguinal peritoneum was incised and dissected down to the hernia sac. The hernia sac was reduced and dissected free and dissection was carried posteriorly. Once there was a large enough pocket a piece of pro-experimental plastics fabricator mesh was trimmed and placed into the right inguinal canal and unfolded. This adequately cover the direct and indirect spaces. Next the peritoneum was reapproximated using a running 3-0V lock suture. There was a small hole in the peritoneum which was closed with a [id number] 4-0 Vicryl suture. Next attention was paid to the left side. In the same fashion the left inguinal peritoneum was incised and dissected free using electrocautery and scissors. The patient had a large lipoma in the left cord which was reduced into the abdomen and dissected free. This was placed in the pelvis. Pro-experimental plastics fabricator mesh was then placed in the left inguinal canal and unfolded and placed over the inguinal region. The left peritoneum was reapproximated using 3-0V lock suture. Both measures were completely covered at the end of the case and appeared with no folds or cramping. Next the robot was undocked and the camera port in the midline was removed. A Endo Catch bag was placed through this incision and the lipoma was placed into the bag. The lipoma was then removed using Endo Catch bag. Next the midline fascia was closed with a [id number]-tzjen 0 Vicryl suture. All the incisions were then anesthetized with lidocaine and the skin incisions were closed with interrupted 4-0 Monocryl sutures and Steri-Strips and bandages. Patient tolerated the procedure well was brought back in stable condition. Scrotum was checked at the end the case and testicles were present. Grafts/Implants Used: Pro-experimental plastics fabricator mesh bilaterally - Admit VTE Documentation VTE Mechan Device Prophylaxis: SCD's
--- NOTE | 2019-06-02 10:11 | PCM.DC.HER ---
Discharge Diet: Light diet - advance as tolerated Discharge Activity: Return to Normal Activity, May Not Drive - for 2-3 days or while taking narcotic pain meds., May Shower - with the bandage in place 1-2 days after surgery. Lifting Restrictions: 20 pounds for 4 weeks. Additional Activity Instructions:: Climbing stairs is fine, walking is encouraged. Sitting in bed may be uncomfortable. Sitting up using your lateral muscles (sitting up sideways) is usually more comfortable. Do not drive, work heavy equipment of sign legal documents for 24 hours. If your hernia repair was an ingunial repair, you may have scrotal swelling, an ice pack and/or athletic support can provide more comfort. Pain medications may cause nausea, you should typically eat light foods as you take your pain medications. Pain medications may also cause constipation. If you have difficulty with this, discuss with your doctor. Call your doctor if your incision/area has: Continuous Slow Oozing, Sudden Increased Bleeding, Increased Pain/ Swelling, Increased Redness, Foul Smelling Discharge Call your doctor if you observe: Fever of 101 or Higher Suture Line Care: Avoid Pulling/Pushing, Avoid Pinching/Bending Change Dressing in (Days):: 3 - Leave steri-strips for 1 week. May protect with a guaze bandaid. Cleanse incision/area with: Keep Dressing Clean & Dry Allergies/Adverse Reactions: Allergies sulfamethoxazole [From Bactrim] Allergy (Mild, Verified 05/31/19 08:08) Unknown trimethoprim [From Bactrim] Allergy (Mild, Verified 05/31/19 08:08) Unknown Medications to take at Discharge Ondansetron [Zofran Odt] 4 mg PO Q8H PRN PRN #10 tab 10/13/18 Dicyclomine HCl [Bentyl] 20 mg PO TIDAC #40 cap 03/21/19 omeprazole 40 mg capsule,delayed release 40 mg PO DAILY 05/24/19 rifaximin 200 mg tablet 200 mg PO TID 05/24/19 Oxycodone HCl/Acetaminophen [Percocet 5/325] 1 - 2 tablet PO Q4H PRN PRN 7 Days #20 tablet 06/02/19 The following prescriptions were given: Oxycodone HCl/Acetaminophen [Percocet 5/325] 1 - 2 tablet PO Q4H PRN PRN 7 Days #20 tablet PRN Reason: Pain Transmission Status: Sent to [facility] Primary Care Physician: Natty Isaac PA [Primary Care Provider] - Test Results: Test results from this visit will be discussed in further detail at your follow-up appointment, if applicable. Please Follow Up With: Harpreet Card MD When: Please call to schedule 2 week follow up appointment. [phone]
[2019-06-02] MEDS: Acetaminophen 325 MG Tablet PO (11:49)
[2019-06-02] MEDS: oxyCODONE 5 MG Tablet PO (11:49)
== END 2019-06-02 13:06 | disposition home or self-care (01) ==
LOC: SDC 06:14 → AC 06:15
PROVIDERS: Family Provider Physician Assistant; PCP Physician Assistant; Referring Provider Surgery; Visit Provider Surgery
PROC: (CPT 49650; principal; 2019-06-02 07:40)
DX: K40.20 Bilateral inguinal hernia, without obstruction or gangrene, not specified as recurrent (principal); D17.6 Benign lipomatous neoplasm of spermatic cord; K21.9 Gastro-esophageal reflux disease without esophagitis; Z87.891 Personal history of nicotine dependence
CPT/HCPCS: 00840; 49650; S2900; 88304; J7120; A4216; J2405

== ENCOUNTER 2019-06-05 00:16 | Emergency (ER) | payer BC, SELFPAY ==
[2019-06-02 06:39] VITALS: BMI 27.5
[2019-06-05 00:17] VITALS: BP 132/77; PULSE 80; RESP 15; TEMP 36.6; O2SAT 100; BMI 26.5
--- NOTE | 2019-06-05 00:44 | ED.VIS.GEN ---
History of Present Illness Chief Complaint: Abd Pain Informant: Patient Onset: Today Narrative: 3 days postop laparoscopic right inguinal hernia repair by Dr. Card. Presents with increasing abdominal pain throughout the day. Prescribed 20 tabs of Percocet 1-2 tabs every 4 hours last dose was this morning. Reports to use 800 mg of ibuprofen 4 hours ago. Pain worse with movement. Denies any increasing lifting or activities today. States pain medicines did help control his pain. No nausea or vomiting. Normal bowel movements. No fevers. Prior similar symptoms: No Past Medical History - Allergies and Home Meds Allergies/Adverse Reactions: Allergies sulfamethoxazole [From Bactrim] Allergy (Mild, Verified 06/05/19 00:20) Unknown trimethoprim [From Bactrim] Allergy (Mild, Verified 06/05/19 00:20) Unknown Primary Care Physician: Natty Isaac PA [Primary Care Provider] - Smoking Status: Former smoker Review of Systems General: Denies: Chills, Fever, Sweats Eyes: Denies: Visual changes - bilaterally, Diplopia ENT: Denies: Rhinorrhea, Sore throat Cardiovascular: Denies: Chest pain, Palpitations Respiratory: Denies: Dyspnea, Cough, Dyspnea on exertion Gastrointestinal: Reports: Abdominal pain. Denies: Nausea, Vomiting, Diarrhea, Melena, Hematochezia Genitourinary: Denies: Dysuria, Hematuria, Frequency Musculoskeletal: Denies: Back pain, Extremity Pain Skin: Denies: Rash, Wounds Neurological: Denies: Headache, Weakness, Numbness Physical Exam Vital Signs/Narrative: Vital Signs Temp Pulse Resp BP Pulse Ox 06/05/19 00:17 97.8 F 80 15 132/77 H 100 Inital Vital Signs reviewed: Yes General: Well nourished, Well developed, - - Uncomfortable, nontoxic Head: Normocephalic, Atraumatic Eyes: Perrl, EOMI ENT: Moist mucous membranes, No rhinorrhea Neck: Supple, Nontender Cardiovascular: Regular rate, Regular rhythm, No murmurs Respiratory: No distress, CTA bilaterally, Chest nontender Abdomen: Soft, Nondistended, Normal bowel sounds, - - 3 laparoscopic incision dressings upper abdomen, small dry blood, no soaked dressing, no exudates. Mild tenderness palpation of abdomen without guarding or rebound. Back: Nontender, Normal Inspection Extremities: Nontender, No edema Skin: Normal color, No rash Neurological: Alert, Oriented x3, Cranial nerves II-XII grossly intact, Normal Strength, Normal Sensation Psychological: Normal affect, Normal Mood Diagnostic/Tx/Re-eval - Medical Decision Making Patient present with postop pain, vitals stable with normal bowel movement no vomiting. Discussed with covering surgeon Dr. López at 0049, updated. To be written prescription for Percocet for 3 days, he will continue Motrin at 600 mg every 6 hours. He will follow-up as an outpatient. All questions were answered. ED Disposition - Plan for ED Patient: Disposition: Home or Assisted Living Diagnosis: Postoperative abdominal pain Instructions: POST OP WOUND CHECK, Pain Prescriptions: Oxycodone HCl/Acetaminophen [Percocet 5/325] 1 tablet PO Q6H PRN PRN 3 Days #12 tablet PRN Reason: Pain Referrals: Natty Isaac PA [Primary Care Provider] - Harpreet Card MD [STAFF PHYSICIAN] - 3-5 Days
[2019-06-05] MEDS: oxyCODONE 5 MG Tablet 10 MG PO (00:48)
== END 2019-06-05 01:40 | disposition home or self-care (01) ==
LOC: ED 01:37
PROVIDERS: Emergency Provider Emergency Medicine; Family Provider Physician Assistant; PCP Physician Assistant
DX: R10.9 Unspecified abdominal pain (principal); G89.18 Other acute postprocedural pain; Z87.891 Personal history of nicotine dependence
CPT/HCPCS: 99283

== ENCOUNTER → 2019-06-21 08:52 | Outpatient (CLI) | payer BC, SELFPAY ==
[2019-06-16 15:15] VITALS: BMI 26.5
--- NOTE | 2019-06-21 08:54 | CT_ITS ---
STUDY: CT ABDOMEN AND PELVIS WITH CONTRAST REASON FOR EXAM: Male, 33 years old. Groin pain following bilateral inguinal hernia repair. RADIATION DOSAGE (If Supplied By Facility): CTDIvol = ( 17.20 ) mGy, DLP = ( 1222.26 ) mGycm TECHNIQUE: Transaxial images were obtained from the dome of the diaphragm to the symphysis pubis with oral contrast. 100 IV/Oral Isovue 300 was administered. Sagittal and coronal images were reconstructed. Individualized dose optimization techniques were used for this CT. COMPARISON: March 27, 2019. FINDINGS: The visualized lung bases are unremarkable. The visualized portions of the heart are within normal limits. Normal liver. Normal gallbladder and extrahepatic biliary system. Normal spleen. Normal pancreas. Normal bilateral adrenal glands. Normal right kidney. Normal left kidney. Normal ureters. Normal visualized stomach. Normal small intestine. Normal colon. The appendix is visualized and appears normal. Normal abdominal aorta. Normal inferior vena cava. Normal retroperitoneum. Normal urinary bladder. Prostate is minimally enlarged with central calcifications. There are phleboliths in the pelvis without lymphadenopathy. No free air or free fluid is seen within the peritoneal cavity. There is a small right inguinal hernia of omental fat. Abdominal wall appears otherwise grossly unremarkable. Normal osseous structures. CT/Abdomen/Pelvis WITH Contrast IMPRESSION: 1. Small right inguinal hernia of omental fat. This appears essentially unchanged from previous examination. 2. No evidence for acute intra-abdominal or pelvic abnormality or other interval change. Electronically Signed: Cj Guzman DO at 17:06 EDT Tel [phone], Service support ,
== END ==
PROVIDERS: Family Provider Physician Assistant; PCP Physician Assistant; Referring Provider Surgery; Visit Provider Surgery
DX: R10.31 Right lower quadrant pain (principal); R10.32 Left lower quadrant pain
CPT/HCPCS: 74177; Q9967

== ENCOUNTER 2019-07-01 12:54 | Day surgery (SDC) | payer BC, SELFPAY ==
[2019-06-16 15:15] VITALS: BMI 26.5
--- NOTE | 2019-06-30 14:36 | PCM.HP.BLA ---
Problem List (1) Lipoma, spermatic cord Status: Acute History and Physical Date of Admission: 06/30/19 Intake Intake Visit Reasons: Recheck Hernia per Patient Chief Complaint: post hernia repair Allergies sulfamethoxazole [From Bactrim] Allergy (Mild, Verified 06/08/19 09:26) Unknown trimethoprim [From Bactrim] Allergy (Mild, Verified 06/08/19 09:26) Unknown [facility] Medical History (Updated 06/30/19 @ 14:32 by Harpreet Card MD) Abdominal pain (Acute) Acid reflux disease (Acute) Anxiety (Acute) Diarrhea (Acute) Nausea & vomiting (Acute) Surgical History (Updated 06/08/19 @ 09:26 by Leelee Middleton) History of right inguinal hernia repair (Acute) Status post right knee surgery (Acute) Social History (Updated 06/30/19 @ 14:34 by Harpreet Card MD) Smoking Status: Never smoker alcohol intake: current alcohol intake frequency: a few times a week substance use type: does not use HPI HPI HPI: EULALIO JAMES, is a 34 M who presents to the office today for HPI HPI HPI: EULALIO JAMES, is a 34 M who presents to the office today for right groin pain. The patient is now 4 weeks post robotic assisted laparoscopic bilateral inguinal hernia repair with mesh. The patient is complaining of right groin pain. He is also feeling a small bulge. He does not complain of any pain at the incisions or in the left groin. He has point tenderness over the bulge. ROS General General: No weight change or fatigue Cardio Cardiovascular: No murmur, pacemaker, heart disease, atrial fibrillation, high blood pressure, heart attack, heart stent, palpitations, shortness of breat with exertion or chest pain Psych Psychiatric: No depression or anxiety Resp Respiratory: No shortness of breath, No sleep apnea, No cough, No COPD, No asthma, No emphysema, No wheezing Gastro Gastrointestinal: Yes abdominal pain, No nausea or vomiting, No diarrhea, No constipation, No blood in stool, No acid reflux, No hemorrhoids, No ulcers, No gallbladder problem, No black,tarry stools Additional Details: Right groin pain Wang Hematologic: No blood thinners Exam Const General: cooperative Orientation: alert, oriented x3 Resp Effort & Inspection: normal respiratory effort Auscultation: clear to auscultation bilaterally Cardio Rate: regular rate Rhythm: regular rhythm Heart Sounds: no murmurs GI Inspection: non-distended Palpation: soft, nontender Assessment & Plan Problems 1. Bilateral inguinal hernia without obstruction or gangrene, recurrence not specified K40.20 2. 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 He reports now that most of his pain is gone and it is centered in the right groin where he is feeling a bulging. There is point tenderness. He had a CT scan which showed no recurrence of hernia but that he did still have a lipoma of the right cord. I explained that the patient may be having nerve entrapment and this may not be the cause of his pain. The patient would like it removed despite this fact if there is any chance that it may improve his pain. I explained that there was likely a chance that his pain would remain despite the lipoma being removed. I explained the risks of groin expiration such as bleeding, infection, nerve entrapment, spermatic cord injury, chronic groin pain. The patient understands and would like to proceed with lipoma excision. Harpreet Card MD Pager: [facility] [address] [place] [address], [address] [place] [address] Office:
--- NOTE | 2019-07-01 | IMM_PTH ---
PATIENT: EULALIO [place] [facility] [id number] AGE/SX: 34/M ROOM: RE07/01/[address]: Dr. Harpreet Card MD : 1985 BED: DIS: 07/01/2019 SPEC #: [id number] RECD: 07/05/19 12:24 STATUS: CRISSY ERMA #: [id number] SHOAIB: 07/01/19 00:[address]: Harpreet Card DEPT: IMMUNOHISTOCHEMISTRY RECD BY: Ambika Jorgensen ENTERED: 07/05/19 12:25 SP TYPE: IMMUNO OTHR DR: JULITO Hannah Tissues: LIPOMA OF CORD Procedures: CD138 (add) CD20 (add) CD3 (add) CD45 (add) CD5 (add) CD79A (add) Pankeratin (initial) PHYSICIAN & INSTITUTION [place] [id number] SPECIMEN INFORMATION: Tissue Source: Lipoma of right spermatic cord Clinical Info: Bilateral inguinal hernia Specimen Number: [id number] Block 2 CPT code: 50828, 31774 x6 METHODOLOGY: Deparaffinized sections of prefer/formalin-fixed tissue or PAP/DQ stained slides are incubated with monoclonal/polyclonal antibodies/oligonucleotide probes. Localization is made via biotin free immunoperoxidase method. Appropriate controls are performed and reacted as expected. Results on target cell population are indicated in the following table: RESULTS: ANTIBODY / CLONE RESULT Block 2 AE1-3 (AE1/AE3/PCK26) negative CD3 (PS1) positive CD5 (SP10) positive CD20 (L26) positive CD45 (RP2/18) positive CD79a (11E3) positive CD138 (B-A38) positive, focal These tests were developed and their performance characteristics determined by [facility]. They may not have been cleared or approved by the U.S. Food and Drug Administration. The FDA has determined that such clearance or approval is not necessary. INTERPRETATION: Lymph node in cored lipoma: - Polytypic (benign) lymphoid tissue AM:mark anthony 07/06/19 *
[2019-07-01 14:05] VITALS: BP 127/72; PULSE 63; RESP 16; TEMP 36.8; O2SAT 99; BMI 28.2
[2019-07-01] MEDS: Lactated Ringers 1,000 ML 75 ML IV (14:16)
[2019-07-01] MEDS: Cefazolin 2 GM in 0.9% Normal Saline 100 ML IV (14:30)
--- NOTE | 2019-07-01 14:30 | LIP_PTH ---
PATIENT: EULALIO JAMES [place] [facility] [place][id number] AGE/SX: 34/M ROOM: RE07/01/[address]: Dr. Harpreet Card MD : 1985 BED: DIS: 07/01/2019 SPEC #: [id number] RECD: 07/01/19 15:54 STATUS: CRISSY ERMA #: [id number] SHOAIB: 07/01/19 14:[address]: Harpreet Card DEPT: SURGICAL PATHOLOGY RECD BY: Declan Hernandez ENTERED: 07/04/19 12:58 SP TYPE: LIPOMA OTHR DR: JULITO Hannah Tissues: Spermatic cord, NOS Procedures: Surgery Specimen Level III HEADER OPERATION: Excision, lipoma, spermatic cord PRE-OP DIAGNOSIS: Bilateral inguinal hernia without obstruction or gangrene, recurrence not specified K4.20. Lipoma, spermatic cord D17.6 TISSUE SUBMITTED: Lipoma of right spermatic cord MICROSCOPIC DIAGNOSIS Soft tissue or right spermatic cord, excision: Mature adipose tissue consistent with lipoma of cord. Lymph node tissue with reactive change. See comment AM:nena 07/05/19 COMMENT Immunohistochemistry ([id number]) supports the above diagnosis. Case has been reviewed in consultation with Dr. Prasad who concurs with the above diagnosis. SANDRO:JALIL MICROSCOPIC DESCRIPTION Slides are reviewed. GROSS DESCRIPTION Received in fixative is one container labeled with the patient's name and designated lipoma right spermatic cord. The specimen consists of a piece of yellow-adipose tissue measuring 7 x 2.5 x 1 cm. Sections reveal yellow adipose cut surface without area of hemorrhage, necrosis or cystic degeneration. An indurated tissue fragment measuring 0.8 cm in greatest dimension is also present. Auditor Supervisor sections are submitted in 2 cassettes as follows: 1 - adipose tissue; 2 - Indurated tissue, submitted in entirety. /SJ:nena 07/04/19 TC: 1 CPT: 72827
--- NOTE | 2019-07-01 14:31 | PCM.DC.HER ---
Discharge Diet: Light diet - advance as tolerated Discharge Activity: Return to Normal Activity, May Not Drive - for 2-3 days or while taking narcotic pain meds., May Shower - with the bandage in place 1-2 days after surgery. Additional Activity Instructions:: Climbing stairs is fine, walking is encouraged. Sitting in bed may be uncomfortable. Sitting up using your lateral muscles (sitting up sideways) is usually more comfortable. Do not drive, work heavy equipment of sign legal documents for 24 hours. If your hernia repair was an ingunial repair, you may have scrotal swelling, an ice pack and/or athletic support can provide more comfort. Pain medications may cause nausea, you should typically eat light foods as you take your pain medications. Pain medications may also cause constipation. If you have difficulty with this, discuss with your doctor. Call your doctor if your incision/area has: Continuous Slow Oozing, Sudden Increased Bleeding, Increased Pain/ Swelling, Increased Redness, Foul Smelling Discharge Call your doctor if you observe: Fever of 101 or Higher Suture Line Care: Avoid Pulling/Pushing, Avoid Pinching/Bending Cleanse incision/area with: Soap & Water Allergies/Adverse Reactions: Allergies sulfamethoxazole [From Bactrim] Allergy (Mild, Verified 07/01/19 13:55) Unknown trimethoprim [From Bactrim] Allergy (Mild, Verified 07/01/19 13:55) Unknown Medications to take at Discharge Ondansetron [Zofran Odt] 4 mg PO Q8H PRN PRN #10 tab 10/13/18 omeprazole 40 mg capsule,delayed release 40 mg PO DAILY 05/24/19 gabapentin 300 mg capsule 300 mg PO BID #60 cap 06/16/19 Oxycodone HCl/Acetaminophen [Percocet 5/325] 1 - 2 tablet PO Q4H PRN PRN 4 Days #15 tablet 07/01/19 The following prescriptions were given: Oxycodone HCl/Acetaminophen [Percocet 5/325] 1 - 2 tablet PO Q4H PRN PRN 4 Days #15 tablet PRN Reason: Pain Transmission Status: Sent to [facility] Primary Care Physician: Natty Isaac PA [Primary Care Provider] - Test Results: Test results from this visit will be discussed in further detail at your follow-up appointment, if applicable. Please Follow Up With: Harpreet Card MD When: Please call to schedule 1 week follow up appointment. [phone]
[2019-07-01] MEDS: Bupivacaine Mpf 0.5% 30 ML VIAL (14:50)
[2019-07-01 15:05] VITALS: BP 127/72; BP 145/74; PULSE 79; RESP 16; TEMP 37.3; O2SAT 100
--- NOTE | 2019-07-01 15:08 | PCM.OPRPT ---
Problem List (1) Lipoma, spermatic cord Status: Acute Report of Operation Date of Procedure: 07/01/19 Pre-Operative Diagnosis: Lipoma of right spermatic cord and groin pain Post-Operative Diagnosis: Same Surgery/Procedure Performed:: Excision of right spermatic cord lipoma Specimen's removed: Right cord lipoma Description of Procedure: After obtaining signed consent the patient was brought back to the operating room and general anesthesia was induced. The right groin was prepped and draped in usual sterile fashion. An incision was made between the pubic symphysis and ASIS. This incision was then injected with Marcaine and an incision was made with a scalpel. Using electrocautery this was deepened to the external aponeurosis. The external aponeurosis was injected with Marcaine and a small ban was made with a scalpel. Hemostats were used to elevate both sides of it and scissors were used to divide the external aponeurosis down to the external opening of the inguinal canal. The spermatic cord was identified and elevated. The contents were inspected and there was a lipoma. The lipoma was dissected free to the internal ring. It was then amputated using electrocautery. The spermatic cord was then inspected. There was no indirect hernia sac. The floor the inguinal canal appeared intact with no direct hernia. The inguinal canal was irrigated and suctioned. The external hypnosis was then reapproximated starting at the lateral edge using a running 3-0 Vicryl suture. Next the subcutaneous tissue was closed with interrupted 3-0 Vicryl sutures. The skin was anesthetized once more and closed with a running 4-0 Monocryl suture and glue. Patient tolerated the procedure well. - Admit VTE Documentation VTE Mechan Device Prophylaxis: SCD's
[2019-07-01 15:15] VITALS: BP 121/60; BP 127/72; PULSE 75; RESP 16; O2SAT 100
[2019-07-01 15:30] VITALS: BP 127/72; BP 127/76; PULSE 58; RESP 16; O2SAT 100
[2019-07-01 15:36] VITALS: BP 127/72; BP 127/76; PULSE 58; RESP 16; TEMP 37.2; O2SAT 100
[2019-07-01 15:57] VITALS: BP 127/72
== END 2019-07-01 16:03 | disposition home or self-care (01) ==
LOC: SDC 12:55 → AC 12:56
PROVIDERS: Family Provider Physician Assistant; PCP Physician Assistant; Referring Provider Surgery; Visit Provider Surgery
PROC: (CPT 55520; principal; 2019-07-01 14:15)
DX: D17.6 Benign lipomatous neoplasm of spermatic cord (principal); K21.9 Gastro-esophageal reflux disease without esophagitis; Z87.891 Personal history of nicotine dependence
CPT/HCPCS: 00860; 55520; 88304; 88341; 88342; J7120; J2405

== ENCOUNTER 2019-07-04 17:06 | Emergency (ER) | payer BC, SELFPAY ==
[2019-07-04 17:07] VITALS: BP 113/59; PULSE 89; RESP 16; TEMP 36.7; O2SAT 97; BMI 28.2
--- NOTE | 2019-07-04 17:44 | ED.VIS.GEN ---
History of Present Illness Chief Complaint: Other, Pain/Inj Informant: Patient Onset: Days Context: Gradual Onset Timing: Continuous Current Severity: Moderate Maximum Severity: Moderate Narrative: The patient presents to the emergency department postoperative pain. Patient had a resection of a spermatic cord lipoma on Thursday with Dr. Mayers. He has been taking his Percocet as prescribed. His prescription ran out today. He states he is been having a lot of pain at the area. He denies any fevers or chills. He denies any nausea or vomiting. He states this is the same pain is had since the surgery. He is under difficulty with urination. He is otherwise been in his normal state of health. Prior similar symptoms: No Recent Illness/Hospitalization: No Past Medical History - Allergies and Home Meds Allergies/Adverse Reactions: Allergies sulfamethoxazole [From Bactrim] Allergy (Mild, Verified 07/04/19 17:11) Unknown trimethoprim [From Bactrim] Allergy (Mild, Verified 07/04/19 17:11) Unknown Primary Care Physician: Natty Isaac PA [Primary Care Provider] - Prior records reviewed: Yes Surgical History: herniorrhaphy Lives: With Family Smoking Status: Former smoker Alcohol: None Drugs: None Review of Systems General: Denies: Chills, Fever, Sweats Eyes: Denies: Visual changes - bilaterally, Diplopia ENT: Denies: Rhinorrhea, Sore throat Cardiovascular: Denies: Chest pain, Palpitations Respiratory: Denies: Dyspnea, Cough, Dyspnea on exertion Gastrointestinal: Reports: Abdominal pain. Denies: Nausea, Vomiting, Diarrhea, Melena, Hematochezia Genitourinary: Denies: Dysuria, Hematuria, Frequency Musculoskeletal: Denies: Back pain, Extremity Pain Skin: Denies: Rash, Wounds Neurological: Denies: Headache, Weakness, Numbness Physical Exam Vital Signs/Narrative: Vital Signs Temp Pulse Resp BP Pulse Ox 07/04/19 17:07 98.0 F 89 16 113/59 L 97 Inital Vital Signs reviewed: Yes General: Well nourished, Well developed, No Acute Distress Head: Normocephalic, Atraumatic Eyes: Perrl, EOMI ENT: Moist mucous membranes, No rhinorrhea Neck: Supple, Nontender Cardiovascular: Regular rate, Regular rhythm, No murmurs Respiratory: No distress, CTA bilaterally, Chest nontender Abdomen: Soft, Nondistended, Normal bowel sounds, Tender - Tenderness over the incision. No erythema. No fluctuance. Questionable seroma. No fevers or chills. Back: Nontender, Normal Inspection Extremities: Nontender, No edema Skin: Normal color, No rash Neurological: Alert, Oriented x3, Cranial nerves II-XII grossly intact, Normal Strength, Normal Sensation Psychological: Normal affect, Normal Mood Diagnostic/Tx/Re-eval The patient was discussed with Dr. Phillips from, on-call for Dr. Mayers. At this point, I really have no suspicion for postoperative infection. The patient has no evidence of bowel obstruction or drainage process. At this point, his pain will be addressed and he will be seen in the office tomorrow by his surgeon. He is comfortable with this plan of care. Impression 1. Postoperative incision pain ED Disposition - Plan for ED Patient: Instructions: POST OP WOUND CHECK, Pain Prescriptions: Oxycodone HCl/Acetaminophen [Percocet 5/325] 1 tab PO Q6H PRN PRN 3 Days #10 tab PRN Reason: Pain Prescription Printed Referrals: Harpreet Card MD [STAFF PHYSICIAN] - 1 Day
[2019-07-04] MEDS: oxyCODONE 5 MG Tablet 10 MG PO (17:58)
== END 2019-07-04 18:08 | disposition home or self-care (01) ==
LOC: ED 17:20
PROVIDERS: Emergency Provider Emergency Medicine; Family Provider Physician Assistant; PCP Physician Assistant
DX: G89.18 Other acute postprocedural pain (principal); Z87.891 Personal history of nicotine dependence
CPT/HCPCS: 99283

== ENCOUNTER → 2019-08-09 15:00 | Outpatient (CLI) | payer BC, SELFPAY ==
[2019-08-09 17:58] LABS: CRP < 2.90 mg/L (0.0-3.0)
[2019-08-11 20:07] LABS: Endomysial Antibody IgA Negative (Negative)
[2019-08-12 12:46] LABS: Immunoglobulin A 136 mg/dL (90-386); t-Transglutaminase IgA <2 U/mL (0-3)
== END ==
PROVIDERS: Family Provider Physician Assistant; PCP Physician Assistant; Referring Provider Internal Medicine Gastroenterology; Visit Provider Internal Medicine Gastroenterology
DX: R19.7 Diarrhea, unspecified (principal)
CPT/HCPCS: 36415; 82784; 83516; 86140; 86255

== ENCOUNTER → 2019-08-22 08:39 | Outpatient (CLI) | payer BC, SELFPAY ==
--- NOTE | 2019-08-22 08:42 | RAD_ITS ---
PROCEDURE: SMALL BOWEL SERIES DATE OF EXAMINATION: August 22, 2019. INDICATION: Male, 34 years old. 4 month history of abdominal pain and diarrhea. PHYSICIAN: Jose Francisco Trotter M.D. FLUOROSCOPY TIME (if supplied): (0:09) minutes/seconds TECHNIQUE: Radiographic and fluoroscopic images were taken of the small intestine following the ingestion of barium. COMPARISON: None. FINDINGS: A preliminary supine KUB was obtained. There is an unremarkable bowel gas pattern. Fecal material is present throughout the colon. Phleboliths are present within the pelvis. The lung bases are unremarkable. The osseous structures are normal. The patient orally ingested approximately 12 ounces of thin barium Normal visualized fundus, body, and antrum of the stomach. Normal duodenal bulb, C-loop, and proximal jejunum. Normal visualized mucosal folds of the jejunum and ileum. There are no demonstrated dilatations, strictures, or masses of the small intestine. There is no mass displacement of the loops of small intestine. There is a normal motor pattern with barium reaching the colon within approximately 45 minutes. Spot films under fluoroscopic observation demonstrated a normal terminal ileum and ileocecal valve. RAD/Small Bowel Series Only IMPRESSION: Normal small bowel series. Electronically Signed: Jose Francisco Trotter, at 11:03 EDT , Service support ,
== END ==
PROVIDERS: Family Provider Physician Assistant; PCP Physician Assistant; Referring Provider Internal Medicine Gastroenterology; Visit Provider Internal Medicine Gastroenterology
DX: R10.9 Unspecified abdominal pain (principal); R19.7 Diarrhea, unspecified
CPT/HCPCS: 74250

== ENCOUNTER 2019-09-26 14:17 | Emergency (ER) | payer BC, SELFPAY ==
[2019-09-26 14:18] VITALS: BP 151/80; PULSE 84; RESP 18; TEMP 36.4; O2SAT 97; BMI 25.8
--- NOTE | 2019-09-26 15:03 | US_ITS ---
STUDY: SCROTUM ULTRASOUND REASON FOR EXAM: Male, 34 years old. Inguinal hernia repair. Groin pain, lipoma removed on the right. Right-sided pain. TECHNIQUE: Ultrasound evaluation of the scrotum was performed with color Doppler and static wilson-scale imaging. COMPARISON: 05/05/2019. FINDINGS: RIGHT TESTICLE INTRATESTICULAR: There is a normal size of the right testicle. The right testicle measures 5.1 x 1.9 x 3.2 cm. There is a homogenous echotexture. There is normal arterial and normal venous vascularity. There is no demonstrated right testicular mass or cyst. EXTRATESTICULAR: The epididymis is normal in size. The epididymis head measures 0.8 x 0.8 x 1 cm. There is normal vascularity of the epididymis. There is no demonstrated epididymal cystic structure. There is no demonstrated hydrocele. There is no demonstrated varicocele. There is no demonstrated extratesticular mass or cyst. LEFT TESTICLE INTRATESTICULAR: There is a normal size of the left testicle. The left testicle measures 4.4 x 1.8 x 2.8 cm. There is a homogenous echotexture. There is normal arterial and normal venous vascularity. There is no demonstrated left testicular mass or cyst. EXTRATESTICULAR: The epididymis is normal in size. The epididymis head measures 1.2 x 0.7 x 0.9 cm. There is normal vascularity of the epididymis. There is no demonstrated epididymal cystic structure. There is no demonstrated hydrocele. There is no demonstrated varicocele. There is no demonstrated extratesticular mass or cyst. Scrotal wall is normal in thickness measuring 2 mm bilaterally. 1.3 x 0.4 x 1 cm node in the right groin is within normal limits. 0.9 x 0.4 x 0.6 cm node in the left groin is within normal limits. US/Testicular with Arterial Flow IMPRESSION: Normal bilateral testicles. Electronically Signed: Wendy Olsen MD at 17:10 EST Tel , Service support ,
--- NOTE | 2019-09-26 15:08 | ED.VIS.GEN ---
History of Present Illness Chief Complaint: Nausea/Vomiting/Diarrhea Detail of Chief Complaint: Pain, nausea, vomiting, diarrhea, back pain, right testicle pain Onset: - - Acute on chronic Current Severity: Moderate Maximum Severity: Moderate Narrative: Patient has had ongoing abdominal pain with nausea for some time. Has been following with GI doctors in [place] as well as recently with Dr. Villanueva. Patient states this flare worsened over the past several days. He is also had increased right testicle pain for the past couple of days. He had a right inguinal hernia repair and a spermatic cord lipoma removed 1 or [address] Card. Patient states he initially had improvement in his pain but now seems to be worsened again. Has had no difficulty with urination. No penile discharge or lesions. - Past Medical History (1) GERD (gastroesophageal reflux disease) Status: Chronic (2) Lipoma, spermatic cord Status: Chronic (3) Right inguinal hernia Status: Chronic Past Medical History - Allergies and Home Meds Allergies/Adverse Reactions: Allergies sulfamethoxazole [From Bactrim] Allergy (Mild, Verified 09/26/19 14:18) Unknown trimethoprim [From Bactrim] Allergy (Mild, Verified 09/26/19 14:18) Unknown Primary Care Physician: Natty Isaac PA [Primary Care Provider] - Doctors: Dr. Card, Dr. Villanueva Prior records reviewed: Yes Surgical History: herniorrhaphy Lives: With Family Smoking Status: Never smoker Review of Systems General: Denies: Chills, Fever Eyes: Denies: Visual changes - bilaterally ENT: Denies: Bilateral ear pain Cardiovascular: Denies: Chest pain Respiratory: Denies: Dyspnea, Cough Gastrointestinal: Reports: Abdominal pain, Nausea, Vomiting, Diarrhea Genitourinary: Denies: Dysuria, Hematuria Musculoskeletal: Reports: Back pain Skin: Denies: Rash Neurological: Denies: Headache, Weakness, Parasthesia Hematologic: Denies: Easy bruising Allergy: Denies: Uticaria Physical Exam Vital Signs/Narrative: Vital Signs Temp Pulse Resp BP Pulse Ox 09/26/19 14:18 97.6 F L 84 18 151/80 H 97 Inital Vital Signs reviewed: Yes General: Well nourished, Well developed Head: Normocephalic ENT: Moist mucous membranes Neck: Supple Cardiovascular: Regular rate, Regular rhythm Respiratory: No distress, CTA bilaterally Abdomen: Soft, Tender - Mid abdominal tenderness to palpation., Hypoactive bowel sounds. Negative for: Guarding, Rebound tenderness : - - Tenderness palpation along the inguinal canal. No masses appreciated. Skin: Normal color Neurological: Alert, Oriented x3 Psychological: Normal affect Diagnostic/Tx/Re-eval Impressions Testicular Ultrasound 09/26/19 15:03 IMPRESSION: Normal bilateral testicles. Electronically Signed: Wendy Olsen MD at 17:10 EST Tel , Service support , 09/26/19 15:03 US Testicular [Testicular with Arterial Flow] [US] Stat Laboratory Results 09/26/19 09/26/19 15:55 15:55 WBC 8.9 RBC 5.23 Hgb 15.0 Hct 45.1 MCV 86.2 MCH 28.7 MCHC 33.3 RDW Std Deviation 41.8 RDW Coeff of Giana 13.2 Plt Count 292 MPV 10.1 Immature Gran % (Auto) 0.300 Neut % (Auto) 76.6 H Lymph % (Auto) 16.1 L [place] % (Auto) 6.6 Eos % (Auto) 0.1 Baso % (Auto) 0.3 Absolute Neuts (auto) 6.8 Absolute Lymphs (auto) 1.43 Nucleated RBC % 0 Sodium 139 Potassium 3.9 Chloride 109 H Carbon Dioxide 23.0 Anion Gap 7 BUN 13 Creatinine 0.94 Estim Creat Clear Calc 116.49 Est GFR (MDRD) Af Amer 119 Est GFR (MDRD) Non-Af 98 BUN/Creatinine Ratio 13.8 Glucose 98 Calcium 9.5 Total Bilirubin 0.60 Direct Bilirubin 0.13 AST 20 ALT 38 Alkaline Phosphatase 73 Total Protein 7.6 Albumin 4.2 Globulin 3.4 Lipase 92 - Medical Decision Making Patient was given morphine and Zofran for pain and nausea. On repeat evaluation he still reports ongoing pain. He does take Viberzi which does block opioid receptors, however patient states he has not taken a dose since yesterday morning. He will be given a dose of Toradol and another dose of morphine. Test results are back at this time are discussed with the patient. Testicular ultrasound is unremarkable. He has a lymph node noted in the groin but is within normal limits. They do not see sign of abscess or hematoma. This is discussed with the patient. He may still have scar tissue and some inflammation in the area, but there is no sign of serious post surgical complication. Patient does have back pain with some radiation of pain to his testicle. We do need to check a urinalysis to make sure there is no evidence of hematuria which may indicate a kidney stone. This will be signed out to oncoming physician for repeat evaluation. ED Disposition - Plan for ED Patient: Referrals: Natty Isaac PA [Primary Care Provider] -
[2019-09-26] MEDS: 0.9% Normal Saline 1,000 ML 150 ML IV (15:58)
[2019-09-26] MEDS: Morphine 4 MG/ML Syringe IV ×2 (15:59→18:06)
[2019-09-26] MEDS: Ondansetron 4 MG/2 ML Vial IV (15:59)
[2019-09-26 16:36] LABS: AST(SGOT) 20 U/L (15-37); Alanine Aminotransfer ALT/SGPT 38 U/L (16-61); Albumin, Serum 4.2 g/dL (3.2-5.0); Alkaline Phosphatase 73 U/L (45-117); Anion Gap 7 (5-15); BUN 13 mg/dL (7-18); BUN/Creat Ratio 13.8 RATIO (10-20); Bilirubin, Direct 0.13 mg/dL (0.00-0.30); Calcium,Total 9.5 mg/dL (8.5-10.1); Chloride 109 mmol/L (98-107); Creatinine, Serum 0.94 mg/dL (0.70-1.30); EST Glomerular Filtration Rate 98 mL/min (>60); Est Glom Filt Rate - Afr Amer 119 mL/min (>60); Estimated Creatinine Clearance 116.49 ml/min; Globulin 3.4 g/dL (2.2-4.2); Glucose 98 mg/dL (74-106); Lipase 92 U/L (73-393); Potassium 3.9 mmol/L (3.5-5.1); Protein, Total 7.6 g/dL (6.4-8.2); Sodium Level 139 mmol/L (136-145)
[2019-09-26 16:49] LABS: Absolute Lymphocyte Count 1.43 X10^3/uL (0.83-4.51); Absolute Neutrophil Count 6.8 X10^3/uL (2.0-7.7); Basophil# 0.03 X10^3/uL; Basophil% 0.3 % (0-1); Eosinophil# 0.01 X10^3/uL; Eosinophils% 0.1 % (0-5); Hematocrit 45.1 % (40-54); Lymphocyte # 1.43 X10^3/ul (4.0); Lymphocyte % 16.1 % (19-41); Mean Corp Hgb Conc 33.3 g/dL (32-36); Mean Corpuscular Hgb 28.7 pg (27.0-32.0); Mean Corpuscular Volume 86.2 fL (80-94); Mean Platelet Vol. 10.1 fl (6.2-12.0); Monocyte# 0.59 X10^3/uL; Monocyte% 6.6 % (0-10); NRBC Flagged by Analyzer 0 % (0-5); Neutrophil % 76.6 % (47-70); Platelet Count 292 K/mm3 (150-450); RBC Distribution Width CV 13.2 % (11.6-14.6); RBC Distribution Width SD 41.8 fl (35.1-43.9); Red Blood Count 5.23 M/mm3 (4.6-6.2); White Blood Count 8.9 K/mm3 (4.4-11.0)
[2019-09-26] MEDS: proMETHazine 25 MG/ML Syringe 12.5 MG IV (18:05)
[2019-09-26] MEDS: Ketorolac 30 MG/ML Syringe IV (18:05)
[2019-09-26 18:17] VITALS: BP 129/73; PULSE 70; RESP 16; O2SAT 98
[2019-09-26 18:38] LABS: Bacteria 0 SEEN /hpf (None Seen); Color, Urine Yellow (Yellow); Glucose, Dipstick Normal (Normal); Ketone-Dipstick 5 mg/dl (Negative); Leukocyte Esterase-Dipstick Negative /ul (Negative); Nitrite-Dipstick Negative (Negative); Occult Blood-Urine Negative /ul (Negative); Protein-Dipstick Negative (Negative); Specific Gravity, Urine 1.025 (1.002-1.030); Squamous Epithelial Cells - UA 0 SEEN /hpf (0-5); Urine Bilirubin Dipstick Negative (Negative); Urine Clarity Clear (Clear); Urine Urobilinogen Normal (Normal); White Blood Cells 0 SEEN /hpf (0-5)
[2019-09-26 18:45] LABS: Mucous, Urine 2+ /hpf (<or=2+); Red Blood Cells-Urine 0-5 SEEN /hpf (0-5)
--- NOTE | 2019-09-26 19:17 | ED.VISSUMM ---
- ER Visit Summary Date of Service: 09/26/19 Chief Complaint: [] History of Present Illness: The patient is a 34 M [] Physical Examination: [] Test Results: [] Emergency Department Course and Treatment: [] Treatment Plan: [] Disposition: [] Impression: [] This note was generated with SumAllation software. It may contain incorrect words, spelling, and punctuation that were not noted in review of the chart prior to signing ED Disposition - Plan for ED Patient: Instructions: ABDOMINAL PAIN, Unkown Cause, (Male) Prescriptions: Hydrocodone Bitart/Apap 5-325 [[place] 5MG-325MG] 1 tablet PO Q4H PRN PRN 2 Days #10 tablet PRN Reason: Pain Referrals: Koby Villanueva MD [NON-STAFF] - As soon as possible Harpreet Card MD [STAFF PHYSICIAN] - 1-2 Weeks
== END 2019-09-26 19:54 | disposition home or self-care (01) ==
LOC: ED 15:09
PROVIDERS: Emergency Provider Emergency Medicine; Family Provider Physician Assistant; PCP Physician Assistant
DX: R10.9 Unspecified abdominal pain (principal); R11.2 Nausea with vomiting, unspecified; R19.7 Diarrhea, unspecified; N50.811 Right testicular pain; K21.9 Gastro-esophageal reflux disease without esophagitis
CPT/HCPCS: 76870; 80048; 80076; 81001; 83690; 85025; 93976; 96361; 96374; 96375; 96376; 99285; J7030; A4216; J2405

== ENCOUNTER → 2019-10-26 12:04 | Outpatient (CLI) | payer BC, SELFPAY ==
[2019-10-06 13:57] VITALS: BMI 25.8
== END ==
PROVIDERS: Family Provider Physician Assistant; PCP Physician Assistant; Referring Provider Internal Medicine Gastroenterology; Visit Provider Internal Medicine Gastroenterology
DX: K59.1 Functional diarrhea (principal); R11.2 Nausea with vomiting, unspecified

== ENCOUNTER → 2019-12-07 16:50 | Outpatient (CLI) | payer BC, SELFPAY ==
[2019-10-06 13:57] VITALS: BMI 25.8
== END ==
PROVIDERS: Family Provider Physician Assistant; PCP Physician Assistant; Referring Provider Internal Medicine Gastroenterology; Visit Provider Internal Medicine Gastroenterology
DX: R11.2 Nausea with vomiting, unspecified (principal); K59.1 Functional diarrhea

== ENCOUNTER → 2019-12-08 09:24 | Outpatient (CLI) | payer BC, SELFPAY ==
[2019-10-06 13:57] VITALS: BMI 25.8
[2019-12-09 19:29] LABS: Fats, Neutral Normal (.); Fats, Total Normal (.)
== END ==
PROVIDERS: PCP Physician Assistant; Referring Provider Internal Medicine Gastroenterology; Visit Provider Internal Medicine Gastroenterology
DX: R19.7 Diarrhea, unspecified (principal)
CPT/HCPCS: 82705

== ENCOUNTER → 2019-12-19 11:27 | Outpatient (CLI) | payer BC, SELFPAY ==
[2019-12-19 11:25] VITALS: BMI 25.8
--- NOTE | 2019-12-19 11:27 | RAD_ITS ---
STUDY: X-RAY CHEST REASON FOR EXAM: Male, 34 years old. COUGH, COLD LIKE SYMPTOMS X 2 WKS TECHNIQUE: PA and lateral views of the chest. COMPARISON: None. FINDINGS: The lungs are clear and expanded. Scattered calcified granulomas. There is no demonstrated pleural abnormality. Normal size heart. Normal mediastinum and gloria. Normal visualized pulmonary arteries. Normal visualized aortic arch and descending thoracic aorta. Normal visualized thoracic spine. Normal visualized ribs, clavicles, and shoulders. There is no demonstrated abnormality of the visualized soft tissue structures of the upper abdomen. RAD/Chest PA and Lateral IMPRESSION: Calcified granulomas. No acute abnormality is seen. Electronically Signed: Jose Francisco Trotter, at 12:35 EST , Service support ,
== END ==
PROVIDERS: PCP Physician Assistant; Referring Provider Physician Assistant Surgical; Visit Provider Physician Assistant Surgical
DX: R05 Cough (principal)
CPT/HCPCS: 71046

== ENCOUNTER 2021-06-12 07:24 | Emergency (ER) | payer SELFPAY ==
[2019-12-19 11:25] VITALS: BMI 25.8
[2021-06-12 07:25] VITALS: BP 146/92; PULSE 75; RESP 20; TEMP 36.6; O2SAT 100; BMI 27.2
--- NOTE | 2021-06-12 07:42 | RAD_ITS ---
STUDY: X-RAY - UNILATERAL RIBS ( RIGHT ) WITH CHEST REASON FOR EXAM: Male, 35 years old. injury TECHNIQUE - RIBS: 4 view(s) of the ribs. TECHNIQUE - CHEST: Single PA view of the chest. COMPARISON: None. FINDINGS: Cardiac silhouette unremarkable. Pulmonary vascularity unremarkable. Aorta unremarkable. No focal patchy airspace opacities. No pleural effusions. Upper abdomen unremarkable. Osseous structures intact. No pneumothorax. RAD/Ribs Uni Min 3V w/PA Chest IMPRESSION: No acute cardiopulmonary findings Ribs intact Electronically Signed: Salvatore Rangel DO at 8:32 EDT Tel , Service support ,
--- NOTE | 2021-06-12 07:43 | EDS_ITS ---
HPI History of Present Illness Chief Complaint: Chest Other Detail of Chief Complaint: Injury to right chest that occurred 5 days ago Informant: patient Onset/Context/Timing Mechanism/Context: Fall Current Severity: Severe Worsened by: Movement, cough, and deep breath Narrative Narrative: Patient presents to the emergency department complaint of right rib pain that started 5 days ago after a fall. Patient states that he was on a 6 foot ladder when he fell and landed with his ribs onto a dumbbell weight. Patient complains of pain with cough and movement. He states he is having hard time sleeping at night. Denies any shortness of breath. He denies hemoptysis. He denies fever. Denies recent illness. Denies any other injuries. [facility] Medical History (Updated 06/12/21 @ 08:[address] Willis Vargas DO) Abdominal pain Acid reflux disease Anxiety Diarrhea Nausea & vomiting Home Medications hydrocodone-acetaminophen 1 tab PO Q4H PRN PRN 2 Days #10 tablet 06/12/21 [Rx Last Taken Unknown] pantoprazole 40 mg PO DAILY 06/12/21 [History Last Taken Unknown] Allergy/AdvReac Type Severity Reaction Status Date / Time sulfamethoxazole Allergy Mild Unknown Verified 06/12/21 07:27 [From Bactrim] trimethoprim [From Bactrim] Allergy Mild Unknown Verified 06/12/21 07:27 Surgical History History of right inguinal hernia repair Status post right knee surgery Social History (Updated 12/19/19 @ 15:06 by JULITO Bullard) Smoking Status: Former smoker alcohol intake: current alcohol intake frequency: a few times a week substance use type: does not use ROS ROS ED Constitutional Constitutional ED: Reports systems reviewed and no addt'l complaints, except as documented; Denies body ache(s), change in weight or chills Eyes Eyes: Denies acute decrease in peripheral vision, change in vision, double vision or loss of vision ENT ENT ED: Reports none; Denies ear pain, lip swelling, loss taste/smell, neck pain, otalgia or sore throat Cardiovascular Cardiovascular: Reports none; Denies abdominal pain, chest pain with activity, leg edema, lightheadedness, palpitations, rapid heart rate or syncope Respiratory/Chest Respiratory/Chest: Reports none and other Details: Chest wall pain ; Denies change in mental status, dry cough, dyspnea, hemoptysis, shortness of breath at rest or shortness of breath with exertion Gastrointestinal Gastrointestinal: Reports none; Denies abdominal pain, change in stool character, diarrhea, hematemesis, hematochezia, melena, rectal bleeding or vomiting Genitourinary Genitourinary ED: Reports none; Denies abdominal discomfort, anuria, dysuria, genital pain or polyuria Musculoskeletal Musculoskeletal: Reports none; Denies arthralgias, back pain, difficulty walking, extremity pain, muscle weakness or myalgias Integumentary Reports none; Denies abscess or rash Neurologic Neurologic: Reports none; Denies abnormal gait, confusion, focal weakness, frequent falls, headache(s), loss of vision, numbness, paresthesias, radicular pain, vertigo or weakness Psychiatric Psychiatric: Reports systems reviewed and no addt'l complaints, except as documented and none; Denies behavioral changes, confusion, difficulty concentrating, hallucinations, suicidal ideation, tactile hallucinations or visual hallucinations Endocrine Endocrinology: Denies none, cold intolerance, excessive sweating, fatigue or heat intolerance Hematologic/Lymphatic Hematologic/Lymphatic: Reports none; Denies anemia, easy bleeding or easy bruising Allergic/Immunologic Allergic/Immunologic ED: Denies as per HPI, none, lip swelling, mouth swelling, throat swelling, tongue swelling or hives EXAM Physical Exam Const Vital Signs: 06/12/21 07:25 Temperature 97.9 F Temperature Source Temporal Pulse Rate 75 Respiratory Rate 20 H Blood Pressure 146/92 H Blood Pressure Mean 110 Pulse Ox 100 Oxygen Delivery Method Room Air Positive well nourished and well developed General Appearance ED: well developed and NAD HEENT Reports TM's clear and moist mucous membranes normocephalic and atraumatic; Negative for trauma or tenderness Tympanic Membrane ED: Yes TM's clear Eyes PERRL and EOMs intact bilaterally General Eye ED: Negative for pale conjunctiva or scleral icterus Neck no lymphadenopathy, supple and no JVD General: Negative for tenderness Chest Wall inspection of chest normal Chest Narrative: Patient has tenderness palpation over the right upper ribs in the midaxillary line. No crepitus or subcu emphysema noted. There is no ecchymosis or bruising noted. Chest: Negative for tenderness Resp normal respiratory effort and clear to auscultation bilaterally Effort and Inspection: Negative for respiratory distress or pain with movement Auscultation: Negative for rhonchi, wheezes or diminished lung sounds Cardio regular rate, regular rhythm, S1 normal heart sound, S2 normal heart sound and no murmurs Peripheral Pulses: pulses 2+ throughout GI normal to inspection, nondistended, normoactive bowel sounds, soft to palpation, non-tender, non-distended and no masses Back/Spine no CVA tenderness and no thoracic nor lumbar tenderness Extremity normal to inspection General Extremety ED: Negative for edema General Extremity: Negative for edema Neuro oriented x3, CN's II-XII intact bilaterally, no sensory deficits noted and gait normal Sensorium / Orientation: awake, alert, oriented to person, oriented to place and oriented to time Motor Exam: strength 5/5 throughout and strength abnormal Psych mental status grossly normal Skin no rashes or lesions noted and no wounds MDM MDM MDM Narrative Medical decision making narrative: Patient was given 1 [place] in the department. At this point I suspect chest wall contusion versus nondisplaced rib fracture. I advised to follow-up with primary care physician 5 to 7 days. Patient to return if worsening pain, increasing shortness of breath, hemoptysis, or condition should worsen anyway. Radiography Diagnostic Testing: Radiology Impression Ribs w/Chest X-Ray 06/12/21 07:42 IMPRESSION: No acute cardiopulmonary findings Ribs intact Electronically Signed: Salvatore Rangel DO at 8:32 EDT Tel , Service support , 4 view x-rays of right ribs and chest obtained interpreted by myself as no acute fractures and no evidence of pneumothorax. Radiology in agreement. Discharge Plan Triage Chief Complaint: Chest Other ED Provider: Willis Vargas Dx/Rx/DC Orders Clinical Impression: Chest wall contusion Instructions: ED Chest Wall Contusion Prescriptions: New hydrocodone-acetaminophen [hydrocodone-acetaminophen] 1 TABLET tablet 1 tab PO Q4H PRN PRN (Reason: Pain) 2 Days Qty: 10 RF: 0 No Action pantoprazole 40 mg Tablet,Delayed Release (Dr/Ec) 40 mg PO DAILY RF: 0 Primary Care Provider: Natty Isaac Referrals: Natty Isaac PA [Primary Care Provider] - 5-7 Days Disposition Disposition: Home, Self Care
[2021-06-12] MEDS: HYDROcodone Bitartrate/Apap 5/325 Tablet PO (08:13)
== END 2021-06-12 08:51 | disposition home or self-care (01) ==
PROVIDERS: Emergency Provider Emergency Medicine; PCP Physician Assistant
DX: S20.219A Contusion of unspecified front wall of thorax, initial encounter (principal); K21.9 Gastro-esophageal reflux disease without esophagitis; Z87.891 Personal history of nicotine dependence; Z79.899 Other long term (current) drug therapy; W19.XXXA Unspecified fall, initial encounter
CPT/HCPCS: 71101; 99283

== ENCOUNTER 2021-07-04 08:35 | Emergency (ER) | payer SELFPAY ==
[2021-07-04 08:36] VITALS: BP 126/77; PULSE 78; RESP 16; TEMP 36.5; O2SAT 100; BMI 28.4
[2021-07-04 09:02] VITALS: O2SAT 98
--- NOTE | 2021-07-04 09:50 | EDS_ITS ---
HPI HPI - Fall History of Present Illness Chief Complaint: Fall Informant: patient Narrative Narrative: Patient is a 36-year-old male who presents to the emergency department for laceration to lip. He states that he tripped yesterday hitting his face. He believes that the tooth caught his lower lip. He thought that it potentially would need a stitch today. He denies any loose teeth. No painful jaw opening. He denies a headache or loss of consciousness. No neck or back pain. He denies any other injury. [facility] Medical History Abdominal pain Acid reflux disease Anxiety Diarrhea Nausea & vomiting Home Medications pantoprazole 40 mg PO DAILY 06/12/21 [History Last Taken Unknown] Allergy/AdvReac Type Severity Reaction Status Date / Time sulfamethoxazole Allergy Mild Unknown Verified 07/04/21 08:35 [From Bactrim] trimethoprim [From Bactrim] Allergy Mild Unknown Verified 07/04/21 08:35 Surgical History History of right inguinal hernia repair Status post right knee surgery Social History Smoking Status: Former smoker alcohol intake: current alcohol intake frequency: a few times a week substance use type: does not use ROS ROS ED Constitutional Constitutional ED: Denies chills or fever(s) Eyes Eyes: Denies change in vision ENT ENT ED: Denies epistaxis or rhinorrhea Cardiovascular Cardiovascular: Denies chest pain Respiratory/Chest Respiratory/Chest: Denies cough or dyspnea Gastrointestinal Gastrointestinal: Denies abdominal pain, nausea or vomiting Musculoskeletal Musculoskeletal: Denies back pain or neck pain Integumentary Denies rash Neurologic Neurologic: Denies dizziness, headache(s) or weakness EXAM Physical Exam Const Vital Signs: 07/04/21 08:36 07/04/21 09:02 Temperature 97.7 F L Temperature Source Temporal Pulse Rate 78 Respiratory Rate 16 Respiratory Effort Normal Non-Labored Respiratory Depth Normal Respiratory Pattern Normal Blood Pressure 126/77 H Blood Pressure Mean 93 Pulse Ox 100 98 Oxygen Delivery Method Room Air Room Air Positive well nourished and well developed General Appearance ED: well developed and NAD HEENT Reports normocephalic and moist mucous membranes HEENT Narrative: 1 cm linear laceration to lower lip. No foreign body. This does appear to already start healing. No evidence of surrounding infection. Eyes PERRL and EOMs intact bilaterally Neck supple General: Negative for tenderness Chest Wall inspection of chest normal Resp normal respiratory effort and clear to auscultation bilaterally Auscultation: Negative for rales, rhonchi or wheezes Cardio regular rate, regular rhythm and no murmurs Extremity normal to inspection General Extremety ED: Negative for edema or tenderness General Extremity: Negative for edema Neuro oriented x3, CN's II-XII intact bilaterally and no sensory deficits noted Sensorium / Orientation: alert Motor Exam: strength 5/5 throughout Psych mental status grossly normal Skin no rashes or lesions noted MDM MDM MDM Narrative Medical decision making narrative: Patient presents the ED for lower lip laceration after fall yesterday. On arrival to the ED vital signs within normal limits. Laceration does not appear to need any repair. This will likely heal up well on its own. He is to monitor for evidence of infection. Return precautions are reviewed with him. He understands and is agreeable this plan. All questions answered. Discharge Plan Triage Chief Complaint: Fall ED Provider: Miles Villalobos Dx/Rx/DC Orders Clinical Impression: Laceration of lip Instructions: ED Laceration, Lip or Mouth Prescriptions: No Action pantoprazole 40 mg Tablet,Delayed Release (Dr/Ec) 40 mg PO DAILY RF: 0 Primary Care Provider: Natty Isaac Referrals: Natty Isaac PA [Primary Care Provider] - 1 Week Disposition Disposition: Home, Self Care Discharge Date/Time: 07/04/21 09:54
== END 2021-07-04 09:54 | disposition home or self-care (01) ==
LOC: ED 09:48
PROVIDERS: Emergency Provider Emergency Medicine; PCP Physician Assistant
DX: S01.511A Laceration without foreign body of lip, initial encounter (principal); K21.9 Gastro-esophageal reflux disease without esophagitis; W18.40XA Slipping, tripping and stumbling without falling, unspecified, initial encounter; Z87.891 Personal history of nicotine dependence; Z79.899 Other long term (current) drug therapy
CPT/HCPCS: 99282

== ENCOUNTER 2022-06-02 19:58 | Emergency (ER) | payer SELFPAY ==
[2022-06-02 19:59] VITALS: BP 124/62; PULSE 100; RESP 16; TEMP 36; O2SAT 100; BMI 25.8
--- NOTE | 2022-06-02 20:08 | RAD_ITS ---
EXAM: XR RIGHT FOOT COMPLETE, 3 OR MORE VIEWS CLINICAL INDICATION: INJURY TECHNIQUE: Frontal, lateral and oblique views of the right foot. This report was created using [employer] report generation technology. COMPARISON: None. FINDINGS: BONES/JOINTS: There is a fracture of the proximal fifth phalanx. Preservation of the joint space. No sclerotic or destructive changes observed. SOFT TISSUES: Unremarkable. No soft tissue swelling or gas. No radiopaque foreign body. RAD/Foot min 3 Views IMPRESSION: Fracture of the proximal fifth phalanx. Electronically Signed: Fredis Ragsdale MD at 20:49 EDT ,
--- NOTE | 2022-06-02 21:01 | ED.VIS.LOWEX ---
HPI History of Present Illness Chief Complaint: Lower Extremity Injury Informant: patient Narrative Narrative: 37-year-old male notes pain in his fifth toe and foot due to injury. Injury occurred yesterday. No open wounds. [facility] Medical History Abdominal pain Acid reflux disease Anxiety Diarrhea Nausea & vomiting Home Medications pantoprazole 40 mg tablet,delayed release 40 mg PO DAILY 06/12/21 [History Last Taken Unknown] hydrocodone-acetaminophen 5-325mg 5mg-325mg 1 tab PO Q6H PRN PRN Pain 3 days #12 TABLETS 06/02/22 [Rx Last Taken Unknown] Allergy/AdvReac Type Severity Reaction Status Date / Time sulfamethoxazole Allergy Mild Unknown Verified 06/02/22 20:01 [From Bactrim] trimethoprim [From Bactrim] Allergy Mild Unknown Verified 06/02/22 20:01 Surgical History History of right inguinal hernia repair Status post right knee surgery Social History Smoking Status: Former smoker alcohol intake: current alcohol intake frequency: a few times a week substance use type: does not use ROS ROS ED Constitutional Constitutional ED: Denies chills or weight loss Eyes Eyes: Denies change in vision or diplopia ENT ENT ED: Denies ear pain, rhinorrhea or sore throat Cardiovascular Cardiovascular: Denies chest pain, orthopnea, palpitations or racing heartbeat Respiratory/Chest Respiratory/Chest: Denies cough, dyspnea or orthopnea Gastrointestinal Gastrointestinal: Denies abdominal pain, diarrhea, nausea or vomiting Genitourinary Genitourinary ED: Denies dysuria, hematuria or urinary frequency Musculoskeletal Musculoskeletal: Reports other Details: See history of present illness ; Denies arthralgias or myalgias Integumentary Denies abscess or rash Neurologic Neurologic: Denies headache(s) or weakness Psychiatric Psychiatric: Denies anxiety, depression, suicidal ideation or suicidal thoughts Endocrine Endocrinology: Denies polydipsia, polyphagia or polyuria Allergic/Immunologic Allergic/Immunologic ED: Denies mouth swelling, tongue swelling or urticaria EXAM Physical Exam Const Vital Signs: 06/02/22 19:59 Temperature 96.8 F L Temperature Source Temporal Pulse Rate 100 Respiratory Rate 16 Blood Pressure 124/62 H Blood Pressure Mean 82 Pulse Ox 100 Oxygen Delivery Method Room Air Positive well nourished and well developed General Appearance ED: well developed HEENT Reports normocephalic, head/scalp atraumatic and moist mucous membranes Eyes PERRL and EOMs intact bilaterally Neck no lymphadenopathy, supple and no JVD Resp normal respiratory effort and clear to auscultation bilaterally Cardio regular rate, regular rhythm and no murmurs GI normal to inspection, nondistended, normoactive bowel sounds and non-tender Palpation: soft Back/Spine no CVA tenderness and normal ROM Extremity Extremity Narrative: Fifth toe tenderness and swelling ecchymosis. Neurovascularly intact. General Extremety ED: Negative for edema General Extremity: Negative for edema Neuro oriented x3 and CN's II-XII intact bilaterally Sensorium / Orientation: alert Motor Exam: strength 5/5 throughout Psych mental status grossly normal Mood & Affect: Negative for depressed or tearful Skin no rashes or lesions noted and no wounds MDM MDM MDM Narrative Medical decision making narrative: My interpretation of the x-ray is there is a fracture of the proximal phalanx. Patient will be placed in a postop shoe and given pain medication. Radiography Diagnostic Testing: Clinical Impression(s) from Imaging Studies Foot X-Ray 06/02/22 20:08 IMPRESSION: Fracture of the proximal fifth phalanx. Electronically Signed: Fredis Ragsdale MD at 20:49 EDT Reading Location ID and State: [facility] / [place] Tel , Service support , Discharge Plan Triage Chief Complaint: Lower Extremity Injury ED Provider: Cole Adam Dx/Rx/DC Orders Clinical Impression: Fracture of toe of right foot, Pain in toe of right foot Instructions: ED Fracture, Toe, Closed Prescriptions: New hydrocodone-acetaminophen [hydrocodone-acetaminophen] 1 TABLET tablet 1 tab PO Q6H PRN PRN (Reason: Pain) 3 Days Qty: 12 0RF No Action pantoprazole 40 mg Tablet,Delayed Release (Dr/Ec) 40 mg PO DAILY Primary Care Provider: Natty Isaac Referrals: Natty Isaac PA [Primary Care Provider] - 1-2 Weeks Disposition Disposition: Home, Self Care Discharge Date/Time: 06/02/22 21:38
== END 2022-06-02 21:38 | disposition home or self-care (01) ==
LOC: ED 21:18
PROVIDERS: Emergency Provider Emergency Medicine; PCP Physician Assistant; Visit Provider Emergency Medicine
DX: S92.911A Unspecified fracture of right toe(s), initial encounter for closed fracture (principal); Z87.891 Personal history of nicotine dependence; X58.XXXA Exposure to other specified factors, initial encounter
CPT/HCPCS: 73630; 99283

== ENCOUNTER 2023-02-17 13:35 | Emergency (ER) | payer SELFPAY ==
[2023-02-17 13:36] VITALS: BP 145/76; PULSE 86; RESP 18; TEMP 36.6; O2SAT 98; BMI 27.8
--- NOTE | 2023-02-17 13:56 | EDS_ITS ---
HPI <LESLIE Mancera - Last Filed: 02/17/23 14:20> History of Present Illness Chief Complaint: Upper Extremity Injury Narrative Narrative: Patient is a 37-year-old male with no significant medical history presents to the emergency department after sustaining a fall and head injury. Patient states he was carrying a TV when he tripped and fell injuring his right hand as well as his left side of his face. Patient has pain to his right thumb as well as to his left side of his nose. He does have some ecchymosis around his the left side of his nose. Patient denies any LOC. Patient is currently on a anticoagulation medicine. PFSH <LESLIE Mancera - Last Filed: 02/17/23 14:20> [facility] Medical History (Updated 02/17/23 @ 14:[address] Jr Jeffery MD) Abdominal pain Acid reflux disease Anxiety Diarrhea Nausea & vomiting Home Medications pantoprazole 40 mg tablet,delayed release 40 mg PO DAILY 06/12/21 [History Last Taken Unknown] hydrocodone-acetaminophen 5-325mg 5mg-325mg 1 tab PO Q6H PRN PRN Pain 3 days #12 TABLETS 06/02/22 [Rx Last Taken Unknown] naproxen 500 mg tablet (Naprosyn) 500 mg PO BID PRN pain #20 tabs 02/17/23 [Rx Last Taken Unknown] Allergy/AdvReac Type Severity Reaction Status Date / Time sulfamethoxazole Allergy Mild Unknown Verified 02/17/23 13:38 [From Bactrim] trimethoprim [From Bactrim] Allergy Mild Unknown Verified 02/17/23 13:38 Surgical History History of right inguinal hernia repair Status post right knee surgery Social History Smoking Status: Former smoker alcohol intake: current alcohol intake frequency: a few times a week substance use type: does not use ROS <LESLIE Mancera - Last Filed: 02/17/23 14:20> ROS ED ROS Narrative Constitutional: Negative for fever, chills, weight loss, weakness Eyes: Negative for vision loss, vision change, double vision ENT: Negative for any sore throat, ear pain, congestion. Positive for left- sided nasal pain Cardiovascular: Negative for any chest pain, tightness, palpitations Respiratory: Negative for any cough, sputum production, hemoptysis, dyspnea, dyspnea on exertion, orthopnea Gastrointestinal: Negative for any abdominal pain, nausea, vomiting, diarrhea, constipation, blood in stool, blood in vomit : Negative for any urinary frequency, dysuria, retention, blood in urine Muscle skeletal: Negative for any muscle joint pain, stiffness, myalgias, arthralgias, neck pain, back pain. Positive for right hand pain Neurological: Negative for any headache, syncope, numbness or tingling, dizziness Skin: Negative for any rashes, lumps, itching, abrasions, lacerations Psychiatric: Negative for any depression, anxiety, stress, suicidal ideation, homicidal ideation Hematologic: Negative for any easy bruising, excessive bruising, easy bleeding Allergies: Negative for any eczema, hives, rash EXAM <LESLIE Mancera - Last Filed: 02/17/23 14:20> Physical Exam Narrative Exam Narrative: Vital signs reviewed. HEET: Head normocephalic atraumatic, TMs clear bilaterally. Posterior pharynx is clear, moist mucous membranes. Nares clear bilaterally. Pupils are equal round react to light, patient does have a subconjunctival hemorrhage to the left lateral eye. Pupils are equal round reactive to light. Negative for any hemotympanum or galvez sign. Patient has slight ecchymosis underneath the left eye. No step-off deformity. Neck: Supple with no lymphadenopathy or tenderness. No signs of meningismus, negative jolt sign. Cardiac: Regular rate and rhythm no murmurs gallops or rubs, equal peripheral pulses bilaterally. Respiratory: Lungs clear to auscultation bilaterally. No chest tenderness. Abdomen: Soft, nontender, nondistended. No abdominal bruit or pulsatile masses. No hepatosplenomegaly Extremities: No peripheral edema, no signs of gross trauma or deformity. Active full range of motion of all extremities. Patient has full range of motion of left hand able to flex and extend however patient does have pain to palpation along the MCP joint. Patient has no snuffbox tenderness. No neurological focal deficit, +2 radial pulse. Neuro: Cranial nerves II through XII intact, no focal neurological deficits. Skin: Clean dry and intact with no rash, purpura, petechiae, vesicles or pustules. Backs/flank: No CVA tenderness, no midline spinal tenderness, no deformity. Psych: Normal mood and affect. No SI, HI or acute psychosis. Const Vital Signs: 02/17/23 13:36 Temperature 98 F Temperature Source Temporal Pulse Rate 86 Respiratory Rate 18 Blood Pressure 145/76 H Blood Pressure Mean 99 Pulse Ox 98 Oxygen Delivery Method Room Air Positive well nourished and well developed General Appearance ED: well developed [facility] <LESLIE Mancera - Last Filed: 02/17/23 14:20> [facility] Treatment and Re-Evaluation Narrative: All radiologic examinations were read, reviewed by the emergency department attending. From these reads, a plan of care will be put in place. Patient appears generally well, patient appears nontoxic, vital signs are stable. Patient presents emergency department after a fall as well as being struck by a TV to the left side of his face. Patient did receive x-rays of the right hand, these were negative for any acute osseous abnormality. However patient does have worsening pain along the ulnar collateral ligament. This is consistent with gamekeeper's thumb. Patient's facial x-rays was negative for any orbital bone fracture, no nasal bone fracture. At this time, patient was placed in a thumb spica, will be given a prescription for anti-inflammatories. He is happy with the plan of care, there is no evidence to suspect any orbital bone fracture, hand fracture. All questions answered. <Dr. Jr Jeffery MD - Last Filed: 02/17/23 14:25> [facility] Narrative Medical decision making narrative: I have personally performed a face to face assessment of the patient and have reviewed the ELYSE Note. I performed a substantive portion of the visit including all aspects of the following. My bah findings include: History is remarkable for blunt trauma to face and injury to right hand. Patient is right-hand dominant. He denies paresthesia, anesthesia or motor his in his right upper extremity. He denies loss of conscious. He denies change in vision. Eyes ringing's ears. Denies double vision. He denies numbness upper left teeth. He denies neck pain. He states injury is due to blunt trauma from TV to his face and fall down a flight of steps. Patient denies chest pain. No shortness of breath. He denies abdominal pain. Denies lower back pain. Immunization will need to be assessed. Exam is patient has no clinical signs of basilar skull fracture. There is no septal deviation or hematoma. There is no hyperesthesia of the infraorbital nerve. There is no step-off with palpation in the infraorbital rim on the left or right. He has no diplopia with central gaze or upward gaze. He does have a subconjunctival hemorrhage on the left. There is no TMJ tenderness. There is no evidence of dental trauma. Trachea is midline. There is no pain ovation of the posterior neck. Examination of right upper extremity reveals swelling of the right hand and specifically over the thenar eminence. Has pain ovation over the first metacarpal bone. There is no pain the patient over the distal radius or ulna. There is no pain ovation over the phalanges of the fingers. There is no subungual hematoma of any digit right hand. Median, radial and ulnar function intact. Radial pulses palpable. Lungs are clear to auscultation. There are symmetric breath sounds. Heart is regular. Abdomen soft nontender. There is no pain ovation of the pelvis. There is no injury to the left upper extremity or the lower extremities. GCS is 15. Medical Decision Making x-ray of the hand was obtained to evaluate for contusion versus fracture. X-ray of the face was obtained to evaluate for possible facial bone fracture. Suspect contusion. Other additions or changes: Three-view x-ray of the right hand reveals 2 metallic foreign bodies consistent with wire. Patient was unaware that he had wire in his finger and has had no recent injury. Suspect this is old. 3 views were obtained. There is no evidence of fracture, subluxation dislocation. 3 views of the facial bones were obtained. There is no evidence of fracture. There is no air-fluid level noted in the right or left maxillary sinus. This too was independently reviewed interpreted by me at 1418. Discharge Plan Triage Chief Complaint: Upper Extremity Injury ED Midlevel Provider: Keenan Angel ED Provider: Jr Jeffery Dx/Rx/DC Orders Clinical Impression: Fall, Head injury, Sprain of ulnar collateral ligament, Subconjunctival hemorrhage, Foreign body of right little finger Instructions: Treating?Strains and Sprains, Black Eye, ED Subconjunctival Hemorrhage Prescriptions: New naproxen [Naprosyn] 500 mg tablet 500 mg PO BID PRN (Reason: pain) Qty: 20 0RF No Action pantoprazole 40 mg Tablet,Delayed Release (Dr/Ec) 40 mg PO DAILY hydrocodone-acetaminophen [hydrocodone-acetaminophen] 1 TABLET tablet 1 tab PO Q6H PRN PRN (Reason: Pain) 3 Days Qty: 12 0RF Primary Care Provider: Natty Isaac Referrals: Natty Isaac PA [Primary Care Provider] - Activity Restrictions/Additional Instructions: Use the thumb spica as needed. Ensure to ice and elevate. Take anti- inflammatories as needed. Disposition Disposition: Home, Self Care
--- NOTE | 2023-02-17 14:05 | RAD_ITS ---
STUDY: X-RAY - FACIAL BONES REASON FOR STUDY: Male, 37 years old. Trauma TECHNIQUE: 3 view(s) of the facial bones. COMPARISON: None. FINDINGS: Normal bilateral frontozygomatic and zygomatic-temporal arches. Normal bilateral medial and inferior orbital strong. Normal bilateral orbits. Normal visualized nasal bones. Normal anterior nasal spine. The remaining visualized osseous structures are normal. Normal visualized paranasal sinuses. RAD/Facial Bones min 3 Views IMPRESSION: Normal x-ray examination of the facial bones. Electronically Signed: Joe Rivera MD at 14:17 EDT ,
--- NOTE | 2023-02-17 14:05 | RAD_ITS ---
STUDY: X-RAY - RIGHT HAND REASON FOR EXAM: Male, 37 years old. Injury TECHNIQUE: 3 view(s) of the hand. COMPARISON: None. FINDINGS: Normal radiocarpal articulation. Normal distal radioulnar joint. Normal visualized carpal bones. Normal carpal articulations Normal carpometacarpal articulation of the thumb. Normal second through fifth carpometacarpal joints. Normal metacarpi. Normal metacarpophalangeal joint of the thumb. Normal interphalangeal joint of the thumb. Normal proximal and distal phalanges of the thumb. Normal metacarpophalangeal joints of the second through fifth fingers. Normal proximal and distal interphalangeal joints of the second through fifth fingers. Normal phalanges of the second through fifth fingers. Radiopaque foreign bodies noted in the soft tissues lateral to the proximal and middle phalanx of the fifth digit. RAD/Hand Min 3 Views IMPRESSION: No demonstrated fracture or joint space abnormality Radiopaque foreign bodies in the soft tissues medial to the proximal and middle phalanx of the fifth digit with soft tissue swelling Electronically Signed: Joe Rivera MD at 14:17 EDT ,
== END 2023-02-17 15:30 | disposition home or self-care (01) ==
PROVIDERS: Emergency Provider Emergency Medicine; PCP Physician Assistant; Visit Provider Emergency Medicine
DX: S09.90XA Unspecified injury of head, initial encounter (principal); S53.441A Ulnar collateral ligament sprain of right elbow, initial encounter; H11.32 Conjunctival hemorrhage, left eye; S60.456A Superficial foreign body of right little finger, initial encounter; W01.0XXA Fall on same level from slipping, tripping and stumbling without subsequent striking against object, initial encounter; Z87.891 Personal history of nicotine dependence
CPT/HCPCS: 70150; 73130; 99282

== ENCOUNTER 2023-02-18 23:32 | Emergency (ER) | payer SELFPAY ==
[2023-02-18 23:32] VITALS: BP 138/95; PULSE 80; RESP 16; TEMP 36.4; O2SAT 99; BMI 28.3
--- NOTE | 2023-02-19 00:54 | EX.ED.GENINJ ---
HPI History of Present Illness Chief Complaint: Other, Pain/Inj Narrative Narrative: 37-year-old male presenting with priapism. He states he had an erection for about 24 hours. He took trazodone which is for sleep. Patient states he tried ice packs and cold baths. Nothing is worked. Denies using anything else that would cause an erection. PFSH PFS Medical History Abdominal pain Acid reflux disease Anxiety Diarrhea Nausea & vomiting Home Medications pantoprazole 40 mg tablet,delayed release 40 mg PO DAILY 06/12/21 [History Last Taken 02/17/23] hydrocodone-acetaminophen 5-325mg 5mg-325mg 1 tab PO Q6H PRN PRN Pain 3 days #12 TABLETS 06/02/22 [Rx Last Taken Unknown] naproxen 500 mg tablet (Naprosyn) 500 mg PO BID PRN pain #20 tabs 02/17/23 [Rx Last Taken Unknown] Allergy/AdvReac Type Severity Reaction Status Date / Time sulfamethoxazole Allergy Mild Unknown Verified 02/18/23 23:35 [From Bactrim] trimethoprim [From Bactrim] Allergy Mild Unknown Verified 02/18/23 23:35 Surgical History History of right inguinal hernia repair Status post right knee surgery Social History Smoking Status: Current every day smoker tobacco type: e-cigarettes alcohol intake: current alcohol intake frequency: a few times a week substance use type: does not use ROS ROS ED Constitutional Constitutional ED: Denies chills, fever(s) or sweats Eyes Eyes: Denies blurry vision or change in vision ENT ENT ED: Denies ear pain or sore throat Cardiovascular Cardiovascular: Denies chest pain, palpitations or racing heartbeat Respiratory/Chest Respiratory/Chest: Denies cough, dyspnea or sputum Gastrointestinal Gastrointestinal: Denies abdominal pain, constipation, diarrhea, nausea or vomiting Genitourinary Genitourinary ED: Reports other Details: Priapism ; Denies dysuria, hematuria or urinary frequency Musculoskeletal Musculoskeletal: Denies arthralgias, myalgias or neck pain Integumentary Denies abscess, Abrasions or rash Neurologic Neurologic: Denies headache(s), paresthesias or weakness Psychiatric Psychiatric: Denies anxiety, depression, suicidal ideation or suicidal thoughts Endocrine Endocrinology: Denies polydipsia or polyuria EXAM Physical Exam Const Vital Signs: 02/18/23 23:32 Temperature 97.6 F L Temperature Source Temporal Pulse Rate 80 Respiratory Rate 16 Blood Pressure 138/95 H Blood Pressure Mean 109 Pulse Ox 99 Oxygen Delivery Method Room Air Positive well nourished General Appearance ED: NAD HEENT atraumatic Resp normal respiratory effort Cardio regular rhythm Narrative: Erection noted. Neuro oriented x3 and CN's II-XII intact bilaterally Sensorium / Orientation: alert and oriented to person Motor Exam: strength 5/5 throughout Psych mental status grossly normal Skin no rashes or lesions noted MDM MDM MDM Narrative Medical decision making narrative: Patient presenting with priapism. He is tried at home relief without success. Dorsum of the penis was cleaned with Betadine. This was left dry. 2 injections made with lidocaine with epinephrine into the dorsal nerves bilaterally. Approximately 5 cc was instilled. After about 10 minutes patient's penis became flaccid. He states the pain is improved. Recommended to him that he stop using trazodone. He will be given follow-up with urology. Return precautions discussed. Impression: 1. Priapism Discharge Plan Triage Chief Complaint: Other, Pain/Inj ED Provider: Gabriele Nunez Dx/Rx/DC Orders Instructions: ED Priapism Prescriptions: No Action pantoprazole 40 mg Tablet,Delayed Release (Dr/Ec) 40 mg PO DAILY hydrocodone-acetaminophen [hydrocodone-acetaminophen] 1 TABLET tablet 1 tab PO Q6H PRN PRN (Reason: Pain) 3 Days Qty: 12 0RF naproxen [Naprosyn] 500 mg tablet 500 mg PO BID PRN (Reason: pain) Qty: 20 0RF Primary Care Provider: Natty Isaac Referrals: Dashawn Lemus MD [Med Staff - Active Staff] - Natty Isaac PA [Primary Care Provider] - Disposition Disposition: Home, Self Care
[2023-02-19] MEDS: Lidocaine 1% /Epi 1:100 (20ml) 20 ML Vial INFILT (01:08)
== END 2023-02-19 01:09 | disposition home or self-care (01) ==
PROVIDERS: Emergency Provider Student in an Organized Health Care Education/Training Program; PCP Physician Assistant; Visit Provider Student in an Organized Health Care Education/Training Program
DX: N48.30 Priapism, unspecified (principal); F17.290 Nicotine dependence, other tobacco product, uncomplicated
CPT/HCPCS: 99282

== ENCOUNTER 2023-03-23 16:06 | Inpatient (IN) | payer MEDICAID, SELFPAY ==
[2023-03-23 16:07] VITALS: BP 132/77; PULSE 61; RESP 24; TEMP 37.1; O2SAT 98; BMI 31.8
[2023-03-23 16:11] VITALS: BP 132/77
--- NOTE | 2023-03-23 16:34 | PCM.HP.STD ---
HPI - General General Date of Admission: 03/23/23 Date of Service: 03/23/23 HPI Narrative EULALIO JAMES, is a 37 M with a PMH as outlined who presents via the ED on 03/23/2023 for acute opioid withdrawal. He uses fentanyl and meth. He was originally using meth, but says he started using fentanyl as it was mixed in with the meth. He says he took a bit too much of the meth mixed with fentanyl a few days ago and said he overdosed, and had to be given Narcan. He said he realised he could from drugs and so went to [facility] for help. He was directed to the ED for help with fentanyl. He had no active complaints. Review of systems was otherwise negative. Vitals were temp of 96.8F, NJ of 61, BP of 132/77, RR of 24 and pulse ox of 98% on room air. CBC and BMP were unremarkable. Urine tox was positive for amphetamines and MDMA, and serum alcohol level was < 3. He is being admitted to be managed for acute opioid withdrawal. COUNTS INCLUDE 234 BEDS AT THE [facility] Medical History (Updated 03/23/23 @ 16:[address] Cristi Sullivan MD) Abdominal pain Acid reflux disease Anxiety Diarrhea Nausea & vomiting Home Medications pantoprazole 40 mg tablet,delayed release 40 mg PO DAILY GERD 06/12/21 [History Last Taken 02/17/23] trazodone 50 mg tablet 50 mg PO QHS ADJUSTMENT DISORDER 03/23/23 [History Last Taken Unknown] Allergy/AdvReac Type Severity Reaction Status Date / Time sulfamethoxazole Allergy Mild Unknown Verified 02/18/23 23:35 [From Bactrim] trimethoprim [From Bactrim] Allergy Mild Unknown Verified 02/18/23 23:35 Surgical History History of right inguinal hernia repair Status post right knee surgery Social History Smoking Status: Current every day smoker tobacco type: e-cigarettes alcohol intake: current alcohol intake frequency: a few times a week substance use type: does not use ROS Constitutional Constitutional: Denies anorexia, chills, fatigue, fever(s), malaise or night sweats Eyes Eyes: Denies change in vision ENT HEENT: Denies headache(s) Cardiovascular Cardiovascular: Denies chest pain, dyspnea on exertion, edema, lightheadedness, orthopnea, palpitations, rapid heart rate or syncope Respiratory/Chest Respiratory/Chest: Denies cough, productive cough, shortness of breath at rest or shortness of breath with exertion Gastrointestinal Gastrointestinal: Denies nausea or vomiting Genitourinary Genitourinary: Denies burning urination Neurologic Neurologic: Denies confusion, dizziness, focal weakness, headache(s), seizures or syncope Psychiatric Psychiatric: Denies anxiety or depression Vital Signs Vital Signs Vital Signs: 03/23/23 16:07 03/23/23 16:11 Temperature 98.8 F Temperature Source Temporal Pulse Rate 61 Respiratory Rate 24 H Blood Pressure 132/77 H 132/77 H Blood Pressure Mean 95 95 Pulse Ox 98 Oxygen Delivery Method Room Air Weight Weight: 221 lb 14.4 oz Body Mass Index (BMI) 31.8 Physical Exam Const alert, oriented x3 and no apparent distress HEENT normocephalic, head/scalp atraumatic, hearing grossly normal bilaterally and moist oral mucous membranes Mouth: oral and palatal mucosa normal Eyes PERRL, EOMs intact bilaterally and conjunctivae normal Neck no lymphadenopathy and supple Resp normal respiratory effort, no retractions, no use of accessory muscles and clear to auscultation bilaterally Cardio regular rate, regular rhythm, S1 normal heart sound, S2 normal heart sound and no murmurs GI normal to inspection, nondistended, normoactive bowel sounds, soft to palpation, non-tender and non-distended Extremity normal to inspection, full ROM and no clubbing, cyanosis or edema Neuro oriented x3, CN's II-XII intact bilaterally, moves all extremities and no focal motor deficits Sensorium / Orientation: awake and alert Motor Exam: strength 5/5 throughout Psych affect normal Results Lab / Micro Data Result Diagrams: 03/23/23 16:15 03/23/23 16:15 Assessment & Plan Assessment/Plan (1) Desire for detoxification: PLAN: Plan #Acute opioid withdrawal admit to med surg. start on opioid withdrawal protocol with buprenorphine adjunctive meds for symptomatic relief #Methamphetamine abuse counseled to quit. follow up at [facility] on outpatient basis #Nicotine dependence: says he vapes or smokes half a pack of cigarettes. Counseled to quit. Nicotine patch 21mg daily. DVT prophylaxis; low risk, encourage to quit Charges/Coding Visit Charges Inpatient E&M: 99694 Init Hosp L3
--- NOTE | 2023-03-23 16:35 | EX.ED.SAOD ---
HPI History of Present Illness Chief Complaint: Substance Abuse Informant: patient Narrative Narrative: Patient was referred by [facility] for fentanyl withdrawal treatment. Patient states he uses meth a lot. But it has fentanyl in it. He had an episode 2 weeks ago where he had to be brought back with Narcan. This scared him. He wants to get off fentanyl and meth. He does not drink alcohol. He states if it was just methamphetamine he would do this as an outpatient through [facility] but they recommended inpatient treatment for the fentanyl. Patient used to be on benzodiazepines but he tapered himself off this 1 or 2 months ago. He does inject the fentanyl and meth. He has never had an infection. He does not have fevers or chills. He does not drink alcohol. He does vape. [facility] Medical History (Updated 03/23/23 @ 16:[address] Cristi Sullivan MD) Abdominal pain Acid reflux disease Anxiety Diarrhea Nausea & vomiting Home Medications pantoprazole 40 mg tablet,delayed release 40 mg PO DAILY GERD 06/12/21 [History Last Taken 02/17/23] trazodone 50 mg tablet 50 mg PO QHS ADJUSTMENT DISORDER 03/23/23 [History Last Taken Unknown] Allergy/AdvReac Type Severity Reaction Status Date / Time sulfamethoxazole Allergy Mild Unknown Verified 02/18/23 23:35 [From Bactrim] trimethoprim [From Bactrim] Allergy Mild Unknown Verified 02/18/23 23:35 Surgical History History of right inguinal hernia repair Status post right knee surgery Social History Smoking Status: Current every day smoker tobacco type: e-cigarettes alcohol intake: current alcohol intake frequency: a few times a week substance use type: does not use ROS ROS ED ROS Narrative A complete review of systems was performed and is negative except as documented in the history of present illness. Some specific details below. Constitutional: No recent fevers or chills. No recent infections. EYE: No discharge, visual complaints ENT: No difficulty swallowing. No vomiting CV: No chest pain or palpitations. No history of valve infections. Respiratory: No coughing or trouble breathing. He does vape GI: No abdominal pain. No nausea vomiting diarrhea. No blood in stool. He has had diarrhea with withdrawal before but is not having any now. : No frequency dysuria or hematuria. Musculoskeletal: No recent trauma. No pains. No swelling. Skin: No rash. Nondiaphoretic. He has injection sites but none are inflamed or painful. Neuro: No weakness or numbness. Endocrine: No polyuria or polydipsia. EXAM Physical Exam Narrative Exam Narrative: CONSTITUTIONAL: Patient is nontoxic in appearance. The patient looks comfortable. Work of breathing looks normal. HEENT: No notable trauma. Mucous membranes moist. EYES: No conjunctival injection. No icterus noted NECK:No JVD. No stridor. CARDIOVASCULAR: Regular rate. Regular rhythm. No notable murmur. No JVD. RESPIRATORY: No respiratory distress. Breathing is unlabored. No wheezes. GASTROINTESTINAL: Not distended. Bowel sounds are normal. No tenderness. GENITOURINARY: No tenderness over the bladder. No CVA tenderness. MUSCULOSKELETAL: Atraumatic. No peripheral edema. He does have multiple injection sites scattered throughout the forearms. None of these look infected. NEUROLOGICAL: Patient is alert and appropriate. No focal deficit noted. SKIN: No noted rashes. No diaphoresis. PSYCHIATRIC: Patient is mildly anxious. But no flight of ideas. Const Vital Signs: 03/23/23 16:07 03/23/23 16:11 Temperature 98.8 F Temperature Source Temporal Pulse Rate 61 Respiratory Rate 24 H Blood Pressure 132/77 H 132/77 H Blood Pressure Mean 95 95 Pulse Ox 98 Oxygen Delivery Method Room Air MDM MDM MDM Narrative Medical decision making narrative: I did discuss the case in his history directly with the hospitalist. Plan will be admission but we will check some basic lab first to make sure there are not any marked abnormalities. These are pending at this time. Patient CBC shows no marked abnormalities. Patient's electrolytes are overall normal. Patient's liver function test are overall normal. Patient's alcohol level is less than 3. His talk screen is pending. Since he has overall normal blood work, he will be admitted to the floor at this time. Lab Data Attestation: I reviewed the patient's lab results. Labs: Laboratory Results - last 24 hr 03/23/23 03/23/23 03/23/23 16:15 16:15 16:15 WBC 10.6 RBC 5.18 Hgb 14.6 Hct 44.4 MCV 85.7 MCH 28.2 MCHC 32.9 RDW Std Deviation 45.5 H RDW Coeff of Giana 14.5 Plt Count 424 MPV 9.2 Immature Gran % (Auto) 0.200 Neut % (Auto) 73.9 H Lymph % (Auto) 18.7 L [place] % (Auto) 6.4 Eos % (Auto) 0.2 Baso % (Auto) 0.6 Absolute Neuts (auto) 7.9 H Absolute Lymphs (auto) 1.98 Nucleated RBC % 0 Sodium 137 Potassium 3.6 Chloride 103 Carbon Dioxide 22.0 Anion Gap 12 BUN 15 Creatinine 0.92 Estim Creat Clear Calc 115.72 Est GFR (MDRD) Af Amer 119 Est GFR (MDRD) Non-Af 99 BUN/Creatinine Ratio 16.3 Glucose 100 Calcium 9.4 Total Bilirubin 0.60 AST 10 L ALT 21 Alkaline Phosphatase 92 Total Protein 7.9 Albumin 4.3 Globulin 3.6 Albumin/Globulin Ratio 1.2 Ethyl Alcohol < 3.0 Management Discussion w/another healthcare provider: Hospitalist Discharge Plan Dx/Rx/DC Orders Clinical Impression: Opioid abuse, Methamphetamine abuse, Desire for detoxification Disposition Disposition: Acute Care Hospital [facility] Discharge Date/Time: 03/23/23 17:34
[2023-03-23 17:02] LABS: Absolute Lymphocyte Count 1.98 X10^3/uL (0.83-4.51); Absolute Neutrophil Count 7.9 X10^3/uL (2.0-7.7); Basophil# 0.06 X10^3/uL; Basophil% 0.6 % (0-1); Eosinophil# 0.02 X10^3/uL; Eosinophils% 0.2 % (0-5); Hematocrit 44.4 % (40-54); Hemoglobin 14.6 g/dL (13.0-16.5); Lymphocyte # 1.98 X10^3/ul (0.83-4.51); Lymphocyte % 18.7 % (19-41); Mean Corp Hgb Conc 32.9 g/dL (32-36); Mean Corpuscular Hgb 28.2 pg (27.0-32.0); Mean Corpuscular Volume 85.7 fL (80-94); Mean Platelet Vol. 9.2 fl (6.2-12.0); Monocyte# 0.68 X10^3/uL; Monocyte% 6.4 % (0-10); NRBC Flagged by Analyzer 0 % (0-5); Neutrophil # 7.85 X10^3/uL (2.7-7.7); Neutrophil % 73.9 % (47-70); Platelet Count 424 K/mm3 (150-450); RBC Distribution Width CV 14.5 % (11.6-14.6); RBC Distribution Width SD 45.5 fl (35.1-43.9); Red Blood Count 5.18 M/mm3 (4.6-6.2); White Blood Count 10.6 K/mm3 (4.4-11.0)
[2023-03-23 17:23] LABS: ALB/GLOB Ratio 1.2 RATIO (0.9-2.4); AST(SGOT) 10 U/L (15-37); Alanine Aminotransfer ALT/SGPT 21 U/L (16-61); Albumin, Serum 4.3 g/dL (3.2-5.0); Alkaline Phosphatase 92 U/L (45-117); Anion Gap 12 (5-15); BUN 15 mg/dL (7-18); BUN/Creat Ratio 16.3 RATIO (10-20); Calcium,Total 9.4 mg/dL (8.5-10.1); Chloride 103 mmol/L (98-107); Creatinine, Serum 0.92 mg/dL (0.70-1.30); EST Glomerular Filtration Rate 99 mL/min (>60); Est Glom Filt Rate - Afr Amer 119 mL/min (>60); Estimated Creatinine Clearance 115.72 ml/min; Globulin 3.6 g/dL (2.2-4.2); Glucose 100 mg/dL (74-106); Potassium 3.6 mmol/L (3.5-5.1); Protein, Total 7.9 g/dL (6.4-8.2); Sodium Level 137 mmol/L (136-145)
[2023-03-23 17:25] VITALS: BP 130/79; PULSE 68; RESP 18; TEMP 36.7; O2SAT 100
[2023-03-23 17:42] LABS: Alcohol, Blood (Medical)-Serum < 3.0 mg/dL
[2023-03-23 17:51] VITALS: BMI 26.2
[2023-03-23 18:22] VITALS: BP 135/77; PULSE 86; RESP 16; TEMP 36.6; O2SAT 100
[2023-03-23 18:50] LABS: Amphetamine Urine VISTA POSITIVE (<1000 ng/mL); Barbiturate Urine VISTA NEGATIVE (< 200 ng/mL); Benzodiazepine Urine VISTA NEGATIVE (< 200 ng/mL); Cocaine Urine VISTA NEGATIVE (< 300 ng/mL); Ecstacy Urine VISTA POSITIVE (< 500 ng/mL); Methadone Urine VISTA NEGATIVE (< 300 ng/mL); PCP Urine VISTA NEGATIVE (< 25 ng/mL); THC Urine VISTA NEGATIVE (< 50 ng/mL); Vista UDS pH Range 5
[2023-03-23 20:28] VITALS: BP 134/75; PULSE 82; RESP 16; TEMP 36.6; O2SAT 100
[2023-03-24 00:37] VITALS: BP 116/43; PULSE 71; RESP 16; TEMP 36.7; O2SAT 100
[2023-03-24 05:21] VITALS: BP 131/71; PULSE 75; RESP 16; TEMP 36.4; O2SAT 100
--- NOTE | 2023-03-24 07:21 | PCM.PN.HOSP ---
Reason for Visit Reason for Visit: Opiate detox Subjective Subjective Patient is a 37-year-old white male who presents emergency department was prehospital on 03/23/2023 requesting opiate detox. He was referred by [facility] for fentanyl withdrawal. Patient states he uses a lot of meth and it has fentanyl in it. He reported on presentation he had a an overdose about 2 weeks ago at which time he had a be given Narcan. This event scared him and that made him decide want to get off drugs. He used to utilize benzodiazepines but tapered himself off of these about 1 to 2 months ago. His uses IV. Signs were unremarkable upon presentation. Labs were unremarkable. Toxicology screen was positive for amphetamines. Alcohol level was negative. He was admitted to medical floor and started on a Subutex taper per [facility] protocol along with supportive medication for withdrawal symptom treatment. Patient states he is now starting to get some withdrawal symptoms including anxiety, some mild nausea, and some myalgias. Objective Data Objective Data Vital Signs: Vital Signs Temp Pulse Resp BP Pulse Ox O2 Del Method 97.5 F L 75 16 131/71 H 100 Room Air 03/24/23 05:21 03/24/23 05:21 03/24/23 05:21 03/24/23 05:21 03/24/23 05:21 03/24/23 05:21 Oxygen Delivery Method Room Air Weight: 82.9 kg Body Mass Index (BMI) 26.2 Intake & Output: Intake and Output for Last 24 Hours 03/22/23 03/23/23 03/24/23 23:59 23:59 23:59 Intake Total 1400 / 1400 Balance 1400 / 1400 Lab / Micro Data Result Diagrams: 03/23/23 16:15 03/23/23 16:15 Labs: Laboratory Results - last 24 hr 03/23/23 16:15: WBC 10.6, RBC 5.18, Hgb 14.6, Hct 44.4, MCV 85.7, MCH 28.2, MCHC 32.9, RDW Std Deviation 45.5 H, RDW Coeff of Giana 14.5, Plt Count 424, MPV 9.2, Immature Gran % (Auto) 0.200, Neut % (Auto) 73.9 H, Lymph % (Auto) 18.7 L, [place] % (Auto) 6.4, Eos % (Auto) 0.2, Baso % (Auto) 0.6, Absolute Neuts (auto) 7.9 H, Absolute Lymphs (auto) 1.98, Nucleated RBC % 0 03/23/23 16:15: Sodium 137, Potassium 3.6, Chloride 103, Carbon Dioxide 22.0, Anion Gap 12, BUN 15, Creatinine 0.92, Estim Creat Clear Calc 115.72, Est GFR (MDRD) Af Amer 119, Est GFR (MDRD) Non-Af 99, BUN/Creatinine Ratio 16.3, Glucose 100, Calcium 9.4, Total Bilirubin 0.60, AST 10 L, ALT 21, Alkaline Phosphatase 92, Total Protein 7.9, Albumin 4.3, Globulin 3.6, Albumin/Globulin Ratio 1.2 03/23/23 16:15: Ethyl Alcohol < 3.0 03/23/23 18:17: Urine Opiates Screen NEGATIVE, Urine Methadone Screen NEGATIVE, Ur Barbiturates Screen NEGATIVE, Ur Phencyclidine Scrn NEGATIVE, Ur Amphetamines Screen POSITIVE H, MDMA (Ecstasy) Screen POSITIVE H, U Benzodiazepines Scrn NEGATIVE, Urine Cocaine Screen NEGATIVE, U Cannabinoids Screen NEGATIVE, Ur Drug Screen Comment Physical Exam Const alert, oriented x3, no apparent distress, average body habitus, healthy appearing and well nourished Constitutional Narrative: Pleasant, middle-aged, white male, lying in bed, appears comfortable nontoxic HEENT head/scalp atraumatic and moist oral mucous membranes Head and Scalp: normocephalic Resp normal respiratory effort, no retractions, no use of accessory muscles and clear to auscultation bilaterally Auscultation: Negative for rales, rhonchi or wheezes Cardio regular rate, regular rhythm, S1 normal heart sound, S2 normal heart sound, no murmurs, no rub, no gallops and no clicks GI normal to inspection, nondistended, normoactive bowel sounds and soft to palpation Extremity no clubbing, cyanosis or edema Neuro oriented x3, moves all extremities and no focal motor deficits Speech: speech normal Psych affect normal Psych Narrative: Eye contact is good, patient is pleasant and appropriate Assessment & Plan Assessment/Plan (1) Opioid abuse: PLAN: Plan Acute opiate withdrawal/opiate abuse -Predominant use is fentanyl -Continue Subutex taper per [facility] protocol -Continue supportive medication for symptomatic relief -Check HIV and Hepatitis C status -[facility] consultation for recommendations with regards to disposition and discharge Hepatitis C infection -Antibody positive -Check viral load to see if patient has cleared infection Methamphetamine abuse -Recommend cessation -[facility] follow-up at discharge History of polysubstance abuse -See above Tobacco abuse -Continue nicotine patch but decrease from 21 mics to 14 mics daily as he only smokes half a pack of cigarettes daily DVT prophylaxis -Low risk -Early ambulation protocol CODE STATUS -Full code Charges/Coding Visit Charges Inpatient E&M: 27319 Subs Hosp L2
[2023-03-24] MEDS: Methocarbamol 750 MG Tablet 1500 MG PO ×2 (09:10→21:02)
[2023-03-24] MEDS: hydrOXYzine PAM 25 MG Capsule 50 MG PO ×2 (09:10→17:10)
[2023-03-24] MEDS: Dicyclomine 10 MG Capsule 20 MG PO ×2 (09:10→17:10)
[2023-03-24] MEDS: Gabapentin 300 MG Capsule PO ×2 (09:10→17:10)
[2023-03-24] MEDS: Pantoprazole Sodium 40 MG Tablet PO (09:11)
[2023-03-24 09:27] LABS: HIV - WCH Non-Reactive (Nonreactive); Hepatitis C Antibody Preliminary Reactive (Nonreactive)
[2023-03-24] MEDS: Buprenorphine HCl 2 MG TAB.SUBL SL ×2 (10:13→17:10)
--- NOTE | 2023-03-24 11:26 | ADDICTION ---
This verse writer met with PT to conduct ASAM, MSE, AUDIT, DUDIT assessments and to plan for d/c. PT A+Ox4 and participated actively. All assessments completed and placed in PT's chart. PT plans to f/u with [facility] for follow-up in patient treatment services on or Thursday morning, whenever he is ready. [facility] will transport to treatment.
[2023-03-24 13:27] VITALS: BP 129/72; PULSE 76; RESP 18; TEMP 37; O2SAT 100
--- NOTE | 2023-03-24 14:27 | CHAPLAIN ---
Type of Pastoral Visit _x__ Initial Visit ___ Follow-up Visit ___ On-call Visit ___ General Patient Visit ___ Spiritual Assessment ___ Family Conference ___ Bereavement ___ Rapid Response ___ Code Blue ___ Other (describe below) Pastoral Care Referral From _x__ Patient ___ Family ___ Nurse ___ Physician ___ Chemical Production Engineer ___ Manufacturer ___ Other (describe below) Sacrament/Intervention _x__ Active listening ___ Anointing ___ Jew ___ Bereavement ___ Communion _x__ Becka exploration ___ _x__ Life review _x__ Prayer ___ Reconciliation ___ Sacrament of Sick _x__ Supportive presence ___ Wedding ___ Other (describe below) Pastoral Comments patient is very welcoming and identifies self as a Religion that relapsed after four years of being clean; pt has had recent divorce which has had impact on his decisions to use again; pt was very talkative and open about his life and had many questions on spiritual and emotional level; pt was tearful at times; pt speaks of many inner struggles and personal note which directs conversation toward finding more healing than just through addiction recovery; pt asks about spiritual growth; pt welcomes prayer and would accept a Bible; pt requests a follow up visit before he is discharged
[2023-03-24 17:11] VITALS: BP 125/61; PULSE 70; RESP 18; TEMP 36.7; O2SAT 100
[2023-03-24 20:53] VITALS: BP 134/68; PULSE 68; RESP 18; TEMP 36.6; O2SAT 99
[2023-03-24] MEDS: cloNIDine HCl 0.1 MG Tablet PO (21:02)
[2023-03-25] MEDS: traZODone 50 MG Tablet PO ×2 (00:34→23:58)
[2023-03-25] MEDS: Ondansetron 8 MG Tablet PO (00:34)
[2023-03-25] MEDS: Buprenorphine HCl 2 MG TAB.SUBL SL ×3 (00:34→17:40)
[2023-03-25] MEDS: hydrOXYzine PAM 25 MG Capsule 50 MG PO ×2 (00:34→19:03)
[2023-03-25 02:45] VITALS: BP 111/54; PULSE 68; RESP 18; TEMP 36.3; O2SAT 93
[2023-03-25 09:13] VITALS: BP 91/41; PULSE 74; RESP 16; TEMP 36.7; O2SAT 96
[2023-03-25] MEDS: Pantoprazole Sodium 40 MG Tablet PO (09:21)
--- NOTE | 2023-03-25 09:46 | PCM.PN.HOSP ---
Subjective Subjective Well, no issues overnight Cina score of 4 Objective Data Objective Data Vital Signs: Vital Signs Temp Pulse Resp BP Pulse Ox O2 Del Method 98.1 F 74 16 91/41 L 96 Room Air 03/25/23 09:13 03/25/23 09:13 03/25/23 09:13 03/25/23 09:13 03/25/23 09:13 03/25/23 09:13 Oxygen Delivery Method Room Air Weight: 182 lb 12.211 oz Body Mass Index (BMI) 26.2 Intake & Output: Intake and Output for Last 24 Hours 03/24/23 03/25/23 03/26/23 03:59 03:59 03:59 Intake Total 1000 / 1000 3050 / 3050 1000 / 1000 Balance 1000 / 1000 3050 / 3050 1000 / 1000 Lab / Micro Data Result Diagrams: 03/23/23 16:15 03/23/23 16:15 Physical Exam Narrative General: Alert, Oriented x3, Cooperative, No apparent distress HEENT: Atraumatic, PERRLA, EOMI, Normocephalic Oral: Moist Mucosa Neck: Supple, No JVD Lungs: Clear to auscultation, Normal air movement, No rhonchi, No wheeze, No rales Cardiovascular: Regular rate, Regular Rhythm, Normal S1, Normal S2, No murmurs Abdomen: Soft, Non Tender, Non-Distended, No Hepato-splenomegaly Extremities: No edema, Capillary Refill Less than 3 Seconds Skin: No rashes, No breakdown Musculoskeletal: No Tenderness to Palpation of Joints or Extremities Neurological: Cranial nerves II-XII grossly intact, Motor Exam 5/5 strength throughout, Sensory exam intact to light touch and pain Psych/Mental Status: Normal Affect, Appropriate Assessment & Plan Assessment/Plan (1) Desire for detoxification: PLAN: Plan 1. Acute opiate withdrawal/methamphetamine abuse/hepatitis C infection/polysubstance abuse/tobacco abuse ? Continue with the opiate withdrawal protocol ? We will check hepatitis C panel ? Continue with [facility], plan for inpatient treatment on discharge ? Counseled tobacco and methamphetamine cessation ? Continue with nicotine patch DVT: Ambulation Charges/Coding Visit Charges Inpatient E&M: 83351 Subs Hosp L2
[2023-03-25 14:12] VITALS: BP 125/69; PULSE 79; RESP 16; TEMP 37; O2SAT 96
[2023-03-25] MEDS: Dicyclomine 10 MG Capsule 20 MG PO (14:22)
[2023-03-25] MEDS: Gabapentin 300 MG Capsule PO ×2 (14:22→23:58)
[2023-03-25 16:10] LABS: HCV Quant. RNA PCR HCV Not Detected IU/mL (.)
[2023-03-25 20:00] VITALS: BP 98/77; PULSE 80; RESP 16; TEMP 37.2; O2SAT 94
[2023-03-25] MEDS: Methocarbamol 750 MG Tablet 1500 MG PO (23:58)
[2023-03-26] MEDS: Buprenorphine HCl 2 MG TAB.SUBL SL ×2 (01:32→09:43)
[2023-03-26 05:14] VITALS: BP 109/69; PULSE 81; RESP 16; TEMP 37.1; O2SAT 96
[2023-03-26 06:56] VITALS: BP 122/63; PULSE 79; RESP 16; TEMP 37.1; O2SAT 100
[2023-03-26] MEDS: Pantoprazole Sodium 40 MG Tablet PO (09:43)
[2023-03-26] MEDS: Methocarbamol 750 MG Tablet 1500 MG PO (09:52)
[2023-03-26] MEDS: Gabapentin 300 MG Capsule PO (09:52)
[2023-03-26] MEDS: hydrOXYzine PAM 25 MG Capsule 50 MG PO (09:52)
[2023-03-26 09:55] VITALS: BP 108/67; PULSE 74; RESP 16; TEMP 36.9; O2SAT 98
--- NOTE | 2023-03-26 11:25 | DCINST_ITS ---
Discharge Instructions Diet Discharge Diet: No restrictions Activity Discharge Activity: Return to Normal Activity Dressing / Incision Call your doctor if you observe: Fever of 101 or Higher, Shortness of breath, Dizziness, Fainting spells, Swelling in the ankles, Chest pain and Increased palpitations (irregular heartbeat) Follow Up Care Test Results: Test results from this visit will be discussed in further detail at your follow- up appointment, if applicable. Discharge Plan Admission Admit Date/Time: 03/23/23 16:51 Attending Provider: Korey Guerrier Primary Care Provider: Natty Isaac Consulting Providers: Denice Bueno ; Geovanna Rivas Discharge Orders/Prescriptions Prescriptions: Continued pantoprazole 40 mg Tablet,Delayed Release (Dr/Ec) 40 mg PO DAILY trazodone 50 mg tablet 50 mg PO QHS Label Comments: TAKE 1 TABLET BY MOUTH AT BEDTIME NEEDED FOR INSOMNIA Referrals / Follow Up: Natty Isaac PA [Primary Care Provider] - Disposition Disposition (needs filled in before D/C Order can be placed): DC/Tx to Another Type of HCF
--- NOTE | 2023-03-26 11:26 | DS.PCM_ITS ---
Providers Date of Admission: 03/23/23 Primary Care Physician: JULITO Hannah Reason For Visit: ACUTE OPOID WITHDRAWAL Diagnosis Discharge Diagnosis (1) Desire for detoxification: Status: Acute Plan 1. Acute opiate withdrawal/methamphetamine abuse/hepatitis C infe ction/polysubstance abuse/tobacco abuse ? Continue with the opiate withdrawal protocol ? We will check hepatitis C panel ? Continue with [facility], plan for inpatient treatment on discharge ? Counseled tobacco and methamphetamine cessation ? Continue with nicotine patch DVT: Ambulation Medications at Discharge Home Medications pantoprazole 40 mg tablet,delayed release 40 mg PO DAILY GERD 06/12/21 trazodone 50 mg tablet 50 mg PO QHS ADJUSTMENT DISORDER 03/23/23 Hospital Course Operations None Procedures None Summary of Care Provided Minutes Spent on Discharge: 32 Hospital Course: Per HPI: EULALIO JAMES, is a 37 M with a PMH as outlined who presents via the ED on 03/23/2023 for acute opioid withdrawal. He uses fentanyl and meth. He was originally using meth, but says he started using fentanyl as it was mixed in with the meth. He says he took a bit too much of the meth mixed with fentanyl a few days ago and said he overdosed, and had to be given Narcan. He said he realised he could from drugs and so went to [facility] for help. He was directed to the ED for help with fentanyl. He had no active complaints. Review of systems was otherwise negative. Vitals were temp of 96.8F, OH of 61, BP of 132/77, RR of 24 and pulse ox of 98% on room air. CBC and BMP were unremarkable. Urine tox was positive for amphetamines and MDMA, and serum alcohol level was < 3. He is being admitted to be managed for acute opioid withdrawal. Hospital Course: 1. Acute opiate withdrawal/methamphetamine abuse/hepatitis C infection/polysubstance abuse/tobacco abuse?37-year-old male presents to the hospital requesting detox. He has gone through detox before but has agreed that he needs to go to an inpatient facility in order to be successful. Today his Cina score was 3 and he was ready to be discharged. Discussed the case with [facility] who will be able to accept him to their inpatient detox facility this afternoon. He did have hepatitis C infection in the past and his antibodies are still positive however hepatitis C RNA was negative indicating no current infection at this time. We did counseling on tobacco cessation and he did require nicotine patch while in this facility which will likely be [facility] at the [facility] as [facility]. I discussed with him the plan for discharge today he expressed understanding of the risk benefits going to detox and would like to go today. Physical Exam Narrative General: Alert, Oriented x3, Cooperative, No apparent distress HEENT: Atraumatic, PERRLA, EOMI, Normocephalic Oral: Moist Mucosa Neck: Supple, No JVD Lungs: Clear to auscultation, Normal air movement, No rhonchi, No wheeze, No rales Cardiovascular: Regular rate, Regular Rhythm, Normal S1, Normal S2, No murmurs Abdomen: Soft, Non Tender, Non-Distended, No Hepato-splenomegaly Extremities: No edema, Capillary Refill Less than 3 Seconds Skin: No rashes, No breakdown Musculoskeletal: No Tenderness to Palpation of Joints or Extremities Neurological: Cranial nerves II-XII grossly intact, Motor Exam 5/5 strength throughout, Sensory exam intact to light touch and pain Psych/Mental Status: Normal Affect, Appropriate Weight / BMI Weight Weight: 182 lb 12.211 oz Body Mass Index (BMI) 26.2 ABG / Lab / Microbiology Data Result Diagrams: 03/23/23 16:15 03/23/23 16:15 Laboratory: Laboratory Results - last 24 hr 03/23/23 16:15: HCV RNA Quant (PCR) HCV Not Detected, HCV RNA (PCR) IU log10 TNP, HCV RNA PCR Test Info Comment D/C Instructions Discharge Diet: No restrictions Call your doctor if you observe: Fever of 101 or Higher, Shortness of breath, Dizziness, Fainting spells, Swelling in the ankles, Chest pain and Increased palpitations (irregular heartbeat) Meaningful Use Info Meaningful Use Diagnoses (Choose all that apply): None applicable Discharge Plan Admission Admit Date/Time: 03/23/23 16:51 Attending Provider: Korey Guerrier Primary Care Provider: Natty Isaac Consulting Providers: Denice Bueno ; Geovanna Rivas Discharge Orders/Prescriptions Prescriptions: Continued pantoprazole 40 mg Tablet,Delayed Release (Dr/Ec) 40 mg PO DAILY trazodone 50 mg tablet 50 mg PO QHS Label Comments: TAKE 1 TABLET BY MOUTH AT BEDTIME NEEDED FOR INSOMNIA Referrals / Follow Up: Isaac,Natty PA, PA [Primary Care Provider] - Disposition Disposition (needs filled in before D/C Order can be placed): DC/Tx to Another Type of HCF Charges/Coding Visit Charges Inpatient E&M: 37765 Disch Hosp >30min
[2023-03-26 12:28] VITALS: BP 116/75; PULSE 84; RESP 16; TEMP 36.6; O2SAT 97
== END 2023-03-26 12:28 | DRG 773 ==
LOC: ED 17:09 → MS3 17:29
PROVIDERS: Internal Medicine; Admitting Provider Student in an Organized Health Care Education/Training Program; Emergency Provider Emergency Medicine; PCP Physician Assistant; Visit Provider Family Medicine
DX: F11.23 Opioid dependence with withdrawal (principal); B19.20 Unspecified viral hepatitis C without hepatic coma; F15.10 Other stimulant abuse, uncomplicated; F17.210 Nicotine dependence, cigarettes, uncomplicated; F17.290 Nicotine dependence, other tobacco product, uncomplicated
CPT/HCPCS: 36415; 80053; 80307; 82077; 85025; 86703; 86803; 87522; 97802; 99283

== ENCOUNTER 2025-02-04 18:25 | Emergency (ER) | payer OTHER, MEDICAID, SELFPAY ==
[2025-02-04 18:25] VITALS: PULSE 82; RESP 16; TEMP 36.6; O2SAT 100; BMI 26.4
[2025-02-04 18:30] VITALS: BP 111/71
--- NOTE | 2025-02-04 18:42 | CT_ITS ---
PROCEDURE: ABDOMEN/PELVIS W IV CONT ONLY 02/04/2025 REASON FOR EXAM: LOWER ABD AND SUPRAPUBIC PAIN TECHNIQUE: Abdomen and pelvis CT with intravenous contrast. Coronal and Sagittal reconstruction series were provided. One or more dose reduction techniques were used (e.g., Automated exposure control, adjustment of the mA and/or kV according to patient size, use of iterative reconstruction technique. COMPARISON: 06/21/2019 FINDINGS: Lower chest: Unremarkable. Liver: Unremarkable. Biliary/gallbladder: Unremarkable. Pancreas: Unremarkable. Spleen: Unremarkable. Adrenal glands: Unremarkable. Kidneys: Unremarkable. Gastrointestinal/peritoneum: No acute abnormality.The appendix is unremarkable.No free air or free fluid. Vascular: Unremarkable. Lymph nodes: No enlarged lymph nodes by CT size criteria. Pelvic organs: Unremarkable. Bladder: The bladder is minimally distended, which limits evaluation. Bones: Unremarkable. Soft tissues: Unremarkable. CT/Abdomen/Pelvis W IV Cont ONLY IMPRESSION: No acute abnormality of the abdomen and pelvis. Reading Location: [facility]
--- NOTE | 2025-02-04 18:46 | EX.ED.DYSGE1 ---
HPI <LESLIE Mancera - Last Filed: 02/04/25 20:43> History of Present Illness Chief Complaint: Abd Pain Narrative Narrative: Patient is a 39-year-old male with history of drug abuse, GERD, history of hernia repair presenting to the emergency department with complaints of lower abdominal pain. Pay states 4 days ago he was doing curls at the gym, he then felt a pain to his lower abdomen. Pay states it was not as bad have the last 24 hours the pain is getting increasingly worse. Patient states the pain is now making him nauseous, he is here for evaluation. PFS <LESLIE Mancera - Last Filed: 02/04/25 20:43> [facility] Medical History (Updated 02/04/25 @ 23:[address] Renan Fuentes DO) Methamphetamine abuse Opioid abuse Anxiety Diarrhea Nausea & vomiting Acid reflux disease Abdominal pain Home Medications ?Medication ?Instructions ?Recorded ?Last Taken ?Type pantoprazole 40 mg tablet,delayed 40 mg PO DAILY GERD 06/12/21 02/17/23 History release doxycycline hyclate 100 mg capsule 100 mg PO BID #14 caps 02/04/25 Unknown Rx Allergy/AdvReac Type Severity Reaction Status Date / Time sulfamethoxazole (From Allergy Mild Unknown Verified 02/04/25 18:26 Bactrim) trimethoprim (From Bactrim) Allergy Mild Unknown Verified 02/04/25 18:26 Surgical History History of right inguinal hernia repair Status post right knee surgery Social History Smoking Status: Current every day smoker tobacco type: e-cigarettes alcohol intake: current alcohol intake frequency: a few times a week substance use type: does not use ROS <LESLIE Mancera - Last Filed: 02/04/25 20:43> ROS ED ROS Narrative Constitutional: Negative for fever, chills, weight loss, weakness Eyes: Negative for vision loss, vision change, double vision ENT: Negative for any sore throat, ear pain, congestion Cardiovascular: Negative for any chest pain, tightness, palpitations Respiratory: Negative for any cough, sputum production, hemoptysis, dyspnea, dyspnea on exertion, orthopnea Gastrointestinal: Negative for any nausea, vomiting, diarrhea, constipation, blood in stool, blood in vomit. Positive for lower abdominal pain : Negative for any urinary frequency, dysuria, retention, blood in urine Muscle skeletal: Negative for any neck pain, back pain Neurological: Negative for any headache, syncope, dizziness Skin: Negative for any rashes, itching, abrasions, lacerations Psychiatric: Negative for any depression, anxiety, stress, suicidal ideation, homicidal ideation Hematologic: Negative for any excessive bruising, easy bleeding EXAM <LESLIE Mancera - Last Filed: 02/04/25 20:43> Physical Exam Narrative Exam Narrative: Vital signs reviewed. HEET: Head normocephalic atraumatic, TMs clear bilaterally. Posterior pharynx is clear, moist mucous membranes. Nares clear bilaterally. Neck: Supple with no lymphadenopathy or tenderness. No signs of meningismus. Cardiac: Regular rate and rhythm no murmurs gallops or rubs, equal peripheral pulses bilaterally. Respiratory: Lungs clear to auscultation bilaterally. No chest tenderness. Abdomen: Soft, patient does have pain to the lower abdomen more to the suprapubic area worse on the right side.. No abdominal bruit or pulsatile masses. No hepatosplenomegaly. I did have the patient stand up, patient does have slight more puffiness to the right suprapubic area no significant change when coughing. Patient's testicles are unremarkable, there is no significant testicle swelling, there is no signs of erythema, no peritoneal signs. Extremities: No peripheral edema, no signs of gross trauma or deformity. Active full range of motion of all extremities. Neuro: Cranial nerves II through XII intact, no focal neurological deficits. Skin: Clean dry and intact with no rash, purpura, petechiae, vesicles or pustules. Backs/flank: No CVA tenderness, no midline spinal tenderness, no deformity. Psych: Normal mood and affect. No SI, HI or acute psychosis. Const Vital Signs: 02/04/25 18:25 02/04/25 18:30 02/04/25 20:10 Temperature 98 F Temperature Source Oral Pulse Rate 82 78 Respiratory Rate 16 16 Blood Pressure 111/71 110/70 Blood Pressure Mean 84 83 Pulse Ox 100 98 Oxygen Delivery Method Room Air Room Air 02/04/25 20:51 Temperature 98.1 F Temperature Source Pulse Rate 56 L Respiratory Rate 18 Blood Pressure 107/60 Blood Pressure Mean 75 Pulse Ox 100 Oxygen Delivery Method <Dr. Renan Fuentes DO - Last Filed: 02/04/25 23:54> Physical Exam Const Vital Signs: 02/04/25 18:25 02/04/25 18:30 02/04/25 20:10 Temperature 98 F Temperature Source Oral Pulse Rate 82 78 Respiratory Rate 16 16 Blood Pressure 111/71 110/70 Blood Pressure Mean 84 83 Pulse Ox 100 98 Oxygen Delivery Method Room Air Room Air 02/04/25 20:51 Temperature 98.1 F Temperature Source Pulse Rate 56 L Respiratory Rate 18 Blood Pressure 107/60 Blood Pressure Mean 75 Pulse Ox 100 Oxygen Delivery Method MDM <KATHERINE ManceraC - Last Filed: 02/04/25 20:43> [facility] Lab Data Labs: Laboratory Results - last 24 hr 02/04/25 02/04/25 18:54 18:58 WBC 11.5 H RBC 5.19 Hgb 15.0 Hct 44.2 MCV 85.2 MCH 28.9 MCHC 33.9 RDW Std Deviation 42.4 RDW Coeff of Giana 13.5 Plt Count 377 MPV 9.4 Immature Gran % (Auto) 0.300 Neut % (Auto) 58.9 Lymph % (Auto) 33.1 Rock % (Auto) 6.9 Eos % (Auto) 0.4 Baso % (Auto) 0.4 Absolute Neuts (auto) 6.7 Absolute Lymphs (auto) 3.79 Nucleated RBC % 0 Sodium 141 Potassium 4.0 Chloride 106 Carbon Dioxide 22.7 Anion Gap 12 BUN 18 Creatinine 0.96 Estim Creat Clear Calc 108.78 Est GFR (MDRD) Non-Af 105 BUN/Creatinine Ratio 18.4 Glucose 90 Calcium 9.6 Total Bilirubin 0.18 AST 21 ALT 15 Alkaline Phosphatase 62 Total Protein 6.9 Albumin 4.4 Globulin 2.5 Albumin/Globulin Ratio 1.7 Urine Color Yellow Urine Clarity Clear Urine pH 6.0 Ur Specific [place] 1.020 Urine Protein 30 H Urine Glucose (UA) Normal Urine Ketones Negative Urine Occult Blood Negative Urine Nitrite Negative Urine Bilirubin Negative Urine Urobilinogen Normal Ur Leukocyte Esterase 100 H Urine RBC 0-5 SEEN Urine WBC 10-25 SEEN Ur Squamous Epith Cells 0 SEEN Urine Bacteria RARE Urine Mucus 0 SEEN Radiography Diagnostic Testing: Clinical Impression(s) from Imaging Studies Abdomen/Pelvis CT 02/04/25 18:42 IMPRESSION: No acute abnormality of the abdomen and pelvis. Reading Location: [facility] Testicular Ultrasound 02/04/25 18:49 IMPRESSION: NORMAL SCROTAL ULTRASOUND. Reading Location: [facility] Treatment and Re-Evaluation :: Differential diagnosis includes however is not limited to: Epididymitis, inguinal hernia, stomach wall strain, GC/chlamydia, hydrocele, diverticulitis, appendicitis Patient appears generally well, vital signs are stable, patient is nontoxic-appearing. Presenting to the emergency department for complaints of lower abdominal pain, testicular pain. This has been ongoing for the last 3 to 4 days much worse over the last 24 hours. Patient will receive a CT scan of the pelvis with IV contrast as well as a ultrasound of the testicles. Basic laboratory values will be drawn. Patient be given IV Toradol. All radiologic examinations were read, reviewed by the emergency department attending. From these reads, a plan of care will be put in place. Patient CBC shows slight leukocytosis with white blood count 1.5, chemistries are unremarkable. Patient's urinalysis was positive for 10-25 white blood cells, underside leukoesterase, 30 protein. Secondary the patient having new sexual partners, the patient did have GC/chlamydia sent for culture, as well as a urine culture. CT scan of the abdomen pelvis shows no acute abnormality of the abdomen and pelvis. Testicular ultrasound shows normal scrotal ultrasound. At this time, is no evidence of any epididymitis, torsion, ruptured hernia. Patient will be diagnosed with lower abdominal strain. He is instructed return for any worsening symptoms, stable for discharge. Second of the patient's positive white blood cells in the urine, patient will receive IM Rocephin as well as 100 mg doxycycline. Will take the entire dose of doxycycline. <Dr. Renan Fuentes, DO - Last Filed: 02/04/25 23:54> [facility] Lab Data Labs: Laboratory Results - last 24 hr 02/04/25 02/04/25 18:54 18:58 WBC 11.5 H RBC 5.19 Hgb 15.0 Hct 44.2 MCV 85.2 MCH 28.9 MCHC 33.9 RDW Std Deviation 42.4 RDW Coeff of G[place] 13.5 Plt Count 377 MPV 9.4 Immature Gran % (Auto) 0.300 Neut % (Auto) 58.9 Lymph % (Auto) 33.1 Rock % (Auto) 6.9 Eos % (Auto) 0.4 Baso % (Auto) 0.4 Absolute Neuts (auto) 6.7 Absolute Lymphs (auto) 3.79 Nucleated RBC % 0 Sodium 141 Potassium 4.0 Chloride 106 Carbon Dioxide 22.7 Anion Gap 12 BUN 18 Creatinine 0.96 Estim Creat Clear Calc 108.78 Est GFR (MDRD) Non-Af 105 BUN/Creatinine Ratio 18.4 Glucose 90 Calcium 9.6 Total Bilirubin 0.18 AST 21 ALT 15 Alkaline Phosphatase 62 Total Protein 6.9 Albumin 4.4 Globulin 2.5 Albumin/Globulin Ratio 1.7 Urine Color Yellow Urine Clarity Clear Urine pH 6.0 Ur Specific [place] 1.020 Urine Protein 30 H Urine Glucose (UA) Normal Urine Ketones Negative Urine Occult Blood Negative Urine Nitrite Negative Urine Bilirubin Negative Urine Urobilinogen Normal Ur Leukocyte Esterase 100 H Urine RBC 0-5 SEEN Urine WBC 10-25 SEEN Ur Squamous Epith Cells 0 SEEN Urine Bacteria RARE Urine Mucus 0 SEEN Radiography Diagnostic Testing: Clinical Impression(s) from Imaging Studies Abdomen/Pelvis CT 02/04/25 18:42 IMPRESSION: No acute abnormality of the abdomen and pelvis. Reading Location: [facility] Testicular Ultrasound 02/04/25 18:49 IMPRESSION: NORMAL SCROTAL ULTRASOUND. Reading Location: [facility] Treatment and Re-Evaluation :: Differential diagnosis includes however is not limited to: Epididymitis, inguinal hernia, stomach wall strain, GC/chlamydia, hydrocele, diverticulitis, appendicitis Patient appears generally well, vital signs are stable, patient is nontoxic-appearing. Presenting to the emergency department for complaints of lower abdominal pain, testicular pain. This has been ongoing for the last 3 to 4 days much worse over the last 24 hours. Patient will receive a CT scan of the pelvis with IV contrast as well as a ultrasound of the testicles. Basic laboratory values will be drawn. Patient be given IV Toradol. All radiologic examinations were read, reviewed by the emergency department attending. From these reads, a plan of care will be put in place. Patient CBC shows slight leukocytosis with white blood count 1.5, chemistries are unremarkable. Patient's urinalysis was positive for 10-25 white blood cells, underside leukoesterase, 30 protein. Secondary the patient having new sexual partners, the patient did have GC/chlamydia sent for culture, as well as a urine culture. CT scan of the abdomen pelvis shows no acute abnormality of the abdomen and pelvis. Testicular ultrasound shows normal scrotal ultrasound. At this time, is no evidence of any epididymitis, torsion, ruptured hernia. Patient will be diagnosed with lower abdominal strain. He is instructed return for any worsening symptoms, stable for discharge. Second of the patient's positive white blood cells in the urine, patient will receive IM Rocephin as well as 100 mg doxycycline. Will take the entire dose of doxycycline. Attending note: I have personally performed a face to face assessment of the patient and have reviewed the ELYSE note. I personally made/approved the management plan and take responsibility for the patient management. I performed a substantive portion of the visit including all aspects of the following. My bah findings include: 3-day history of pain right testicle rating up to his groin into his abdomen worse in the last couple days. No fevers. Normal bowel movements. Urine discomfort. Sexually active multiple apartments. No history of STDs. Exam right middle tenderness no inguinal hernias palpated. Right lower quadrant tenderness. Nontoxic. Treated for symptoms CT scan with a normal appendix ultrasound negative clinically with epididymitis GC chlamydia pending. Urine with leukocytes and slight WBCs culture sent. Sexually active multiple partners risk factors. Discussed treatment for STDs for which she agreed. Rocephin IM doxycycline for 7 days. Discharge Plan Triage Chief Complaint: Abd Pain ED Midlevel Provider: Keenan Angel ED Provider: Renan Fuentes Dx/Rx/DC Orders Clinical Impression: Abdominal muscle pain, Bacteria in urine, Urethritis, Epididymitis, right Instructions: Urethritis in Men, ED Pain, Acute, Uncertain Cause Prescriptions: New doxycycline hyclate 100 mg capsule 100 mg PO BID Qty: 14 0RF No Action pantoprazole 40 mg Tablet,Delayed Release (Dr/Ec) 40 mg PO DAILY Primary Care Provider: Natty Isaac Referrals: Natty Isaac PA [Primary Care Provider] - Activity Restrictions/Additional Instructions: Please take the antibiotics until finished. Print Language: Bulgarian Disposition Disposition: Home, Self Care Discharge Date/Time: 02/04/25 21:16
--- NOTE | 2025-02-04 18:49 | US_ITS ---
PROCEDURE: TESTICULAR WITH ARTERIAL FLOW 02/04/2025 REASON FOR EXAM: RIGHT SCROTAL PAIN TECHNIQUE: Ash scale imaging of the scrotum with color and spectral Doppler analysis. COMPARISON: 09/26/2019 FINDINGS: RIGHT testicle: 4.7 x 3.6 x 2.1 cm Normal echotexture and vascularity. Normal arterial/venous spectral Doppler waveforms. Right epididymis: 0.9 x 1.0 x 0.8 cm Normal echotexture and vascularity. LEFT testicle: 4.3 x 2.3 x 2.1 cm Normal echotexture and vascularity. Normal arterial/venous spectral Doppler waveforms. Left epididymis: 0.6 x 1.0 x 0.9 cm. Normal echotexture and vascularity. Other findings: No hydrocele or large varicocele. US/Testicular with Arterial Flow IMPRESSION: NORMAL SCROTAL ULTRASOUND. [facility]
[2025-02-04] MEDS: Ketorolac 15 MG/ML Vial IV (18:57)
[2025-02-04] MEDS: Ondansetron 4 MG/2 ML Vial IV ×2 (18:57→20:06)
[2025-02-04 19:05] LABS: Absolute Lymphocyte Count 3.79 X10^3/uL (0.83-4.51); Absolute Neutrophil Count 6.7 X10^3/uL (2.0-7.7); Basophil# 0.05 X10^3/uL; Basophil% 0.4 % (0-1); Eosinophil# 0.05 X10^3/uL; Eosinophils% 0.4 % (0-5); Hematocrit 44.2 % (40-54); Lymphocyte # 3.79 X10^3/ul (0.83-4.51); Lymphocyte % 33.1 % (19-41); Mean Corp Hgb Conc 33.9 g/dL (32-36); Mean Corpuscular Hgb 28.9 pg (27.0-32.0); Mean Corpuscular Volume 85.2 fL (80-94); Mean Platelet Vol. 9.4 fl (6.2-12.0); Monocyte# 0.79 X10^3/uL; Monocyte% 6.9 % (0-10); NRBC Flagged by Analyzer 0 % (0-5); Neutrophil # 6.74 X10^3/uL (2.7-7.7); Neutrophil % 58.9 % (47-70); Platelet Count 377 K/mm3 (150-450); RBC Distribution Width CV 13.5 % (11.6-14.6); RBC Distribution Width SD 42.4 fl (35.1-43.9); Red Blood Count 5.19 M/mm3 (4.6-6.2); White Blood Count 11.5 K/mm3 (4.4-11.0)
[2025-02-04 19:07] LABS: Mucous, Urine 0 SEEN /hpf (<or=2+); Squamous Epithelial Cells - UA 0 SEEN /hpf (0-5)
[2025-02-04 19:24] LABS: ALB/GLOB Ratio 1.7 RATIO (0.9-2.4); AST(SGOT) 21 U/L (<=37); Alanine Aminotransfer ALT/SGPT 15 U/L (<=46); Albumin, Serum 4.4 g/dL (3.5-5.0); Alkaline Phosphatase 62 U/L (40-129); Anion Gap 12 (5-15); BUN 18 mg/dL (4-19); BUN/Creat Ratio 18.4 RATIO (10-20); Calcium,Total 9.6 mg/dL (7.6-11.0); Carbon Dioxide 22.7 mmol/L (21.0-32.0); Chloride 106 mmol/L (98-108); Creatinine, Serum 0.96 mg/dL (0.70-1.20); EST Glomerular Filtration Rate 105 (>60); Estimated Creatinine Clearance 108.78 ml/min (50-250); Globulin 2.5 g/dL (2.2-4.2); Glucose 90 mg/dL (70-99); Protein, Total 6.9 g/dL (5.9-8.4); Sodium Level 141 mmol/L (133-145); Total Bilirubin 0.18 mg/dL (0.00-1.30)
[2025-02-04 19:28] LABS: Color, Urine Yellow (Yellow); Glucose, Dipstick Normal (Normal); Ketone-Dipstick Negative (Negative); Leukocyte Esterase-Dipstick 100 /ul (Negative); Nitrite-Dipstick Negative (Negative); Occult Blood-Urine Negative /ul (Negative); Protein-Dipstick 30 mg/dl (Negative); Urine Bilirubin Dipstick Negative (Negative); Urine Clarity Clear (Clear); Urine Urobilinogen Normal (Normal)
[2025-02-04 19:37] LABS: Bacteria RARE /hpf (None Seen); Red Blood Cells-Urine 0-5 SEEN /hpf (0-5); White Blood Cells 10-25 SEEN /hpf (0-5)
[2025-02-04] MEDS: Morphine 4 MG/ML Syringe IV (20:05)
[2025-02-04 20:10] VITALS: BP 110/70; PULSE 78; RESP 16; O2SAT 98
[2025-02-04] MEDS: Doxycycline 100 MG CAPSULE PO (20:47)
[2025-02-04 20:51] VITALS: BP 107/60; PULSE 56; RESP 18; TEMP 36.7; O2SAT 100
[2025-02-04] MEDS: Ceftriaxone 500 MG Vial IM (20:52)
== END 2025-02-04 21:16 | disposition home or self-care (01) ==
PROVIDERS: Nurse Practitioner; Emergency Provider Emergency Medicine; PCP Physician Assistant; Visit Provider Emergency Medicine
DX: R10.30 Lower abdominal pain, unspecified (principal); R82.71 Bacteriuria; N34.2 Other urethritis; N45.1 Epididymitis; F17.290 Nicotine dependence, other tobacco product, uncomplicated; Z79.899 Other long term (current) drug therapy
CPT/HCPCS: 74177; 76870; 80053; 81001; 85025; 87086; 87491; 87591; 93976; 96372; 96374; 96375; 96376; 99284; Q9967; A4216; J2405

== ENCOUNTER 2025-05-18 21:14 | Inpatient (IN) | payer BC, SELFPAY ==
[2025-05-18 21:15] VITALS: BP 120/90; PULSE 75; RESP 18; TEMP 36.1; O2SAT 100; BMI 25.4
[2025-05-18 23:01] LABS: Barbiturate Urine NEGATIVE (< 200 ng/mL); Benzodiazepine Urine NEGATIVE (< 200 ng/mL); PCP Urine NEGATIVE (< 25 ng/mL); THC Urine PRESUMPTIVE POSITIVE (< 50 ng/mL)
[2025-05-18 23:02] LABS: Alcohol, Blood (Medical)-Serum < 10.1 mg/dL (<=10.0)
[2025-05-18 23:03] LABS: AST(SGOT) 17 U/L (<=37); Alanine Aminotransfer ALT/SGPT 21 U/L (<=46); Albumin, Serum 4.1 g/dL (3.5-5.0); Alkaline Phosphatase 69 U/L (40-129); Anion Gap 11 (5-15); BUN 21 mg/dL (4-19); BUN/Creat Ratio 25.5 RATIO (10-20); Calcium,Total 9.4 mg/dL (7.6-11.0); Carbon Dioxide 21.6 mmol/L (21.0-32.0); Chloride 107 mmol/L (98-108); Estimated Creatinine Clearance 125.82 ml/min (50-250); Globulin 2.5 g/dL (2.2-4.2); Glucose 101 mg/dL (70-99); Potassium 4.3 mmol/L (3.3-5.1)
--- NOTE | 2025-05-18 23:11 | EDS_ITS ---
HPI History of Present Illness Chief Complaint: Substance Abuse Detail of Chief Complaint: Fentanyl and amphetamine use Informant: patient Onset/Context/Timing Onset: Month(s) Context: Sudden Onset Timing: Continuous Quality: Daily use of fentanyl and amphetamine Location: Snorts Current Severity: Patient has no symptoms of withdrawal presently Worsened by: Not applicable Relieved by: Nothing Associated Symptoms Associated Symptoms: Nausea and diarrhea Narrative Narrative: Patient is a 39-year-old male. He has history of drug dependency. He has been through the [email or web address] program.He underwent detox he underwent detox March 2023. He was treated at [facility] for fentanyl withdrawal. Today he presents because of using fentanyl and amphetamine for the past several months. He snorts. He last snorted fentanyl and amphetamine this morning. He denies headache. He denies double vision blurred vision loss of vision. Nu[place] trouble with speech or swallowing. He denies paresthesia, anesthesia or motor weakness upper or lower extremity. He does endorse nausea and diarrhea. Prior similar symptoms: Yes Recent Illness/Hospitalization: No [facility] Medical History (Updated 05/18/25 @ 23:[address] Jr Jeffery MD) Methamphetamine abuse Opioid abuse Anxiety Diarrhea Nausea & vomiting Acid reflux disease Abdominal pain Home Medications ?Medication ?Instructions ?Recorded ?Last Taken ?Type pantoprazole 40 mg tablet,delayed 40 mg PO DAILY GERD 06/12/21 02/17/23 History release Allergy/AdvReac Type Severity Reaction Status Date / Time sulfamethoxazole (From Allergy Mild Unknown Verified 05/18/25 21:15 Bactrim) trimethoprim (From Bactrim) Allergy Mild Unknown Verified 05/18/25 21:15 Surgical History History of right inguinal hernia repair Status post right knee surgery Social History Smoking Status: Current every day smoker tobacco type: e-cigarettes alcohol intake: current alcohol intake frequency: a few times a week substance use type: does not use ROS ROS ED Constitutional Constitutional ED: Denies chills, fever(s), subjective, sweats or weight loss Eyes Eyes: Denies blurry vision or change in vision ENT ENT ED: Denies ear pain, rhinorrhea or sore throat Cardiovascular Cardiovascular: Denies chest pain or palpitations Respiratory/Chest Respiratory/Chest: Denies cough, dyspnea or dyspnea on exertion Gastrointestinal Gastrointestinal: Reports abdominal pain, diarrhea and nausea; Denies constipation, melena or vomiting Genitourinary Genitourinary ED: Denies dysuria, hematuria or urinary frequency Musculoskeletal Musculoskeletal: Denies arthralgias, back pain or myalgias Integumentary Denies abscess or rash Neurologic Neurologic: Denies headache(s) or paresthesias Hematologic/Lymphatic Hematologic/Lymphatic: Reports systems reviewed and no addt'l complaints, except as documented EXAM Physical Exam Const Vital Signs: 05/18/25 21:15 Temperature 97 F L Temperature Source Temporal Pulse Rate 75 Respiratory Rate 18 Blood Pressure 120/90 H Blood Pressure Mean 100 Pulse Ox 100 Oxygen Delivery Method Room Air Positive well nourished and well developed Constitutional Narrative: Vital signs are unremarkable. General Appearance ED: well developed and NAD; Negative for pallor HEENT Reports moist mucous membranes HEENT Narrative: Head is atraumatic and normocephalic. Ears are normal. Nares are patent. Posterior pharynx is normal. Eyes PERRL and EOMs intact bilaterally General Eye ED: Negative for pale conjunctiva or scleral icterus Neck no lymphadenopathy, supple and no JVD Chest Wall inspection of chest normal Resp normal respiratory effort and clear to auscultation bilaterally Cardio regular rate, regular rhythm, S1 normal heart sound, S2 normal heart sound and no murmurs GI normal to inspection, nondistended, normoactive bowel sounds, non-tender, non- distended and no masses; Negative for hepatosplenomegaly Back/Spine no CVA tenderness Extremity normal to inspection General Extremety ED: Negative for edema General Extremity: Negative for edema Neuro oriented x3 and CN's II-XII intact bilaterally Sensorium / Orientation: alert Psych mental status grossly normal Skin no rashes or lesions noted, no wounds and skin turgor normal General Skin Exam: elasticity normal; Negative for jaundice or pallor MDM MDM MDM Narrative Medical decision making narrative: Patient states he does speedball this morning. He uses fentanyl and amphetamine. He was through detox program. He started using that several months ago. He presents to detox from opiates specifically fentanyl and amphetamine. He has no history of hepatitis C. He has no history of HIV. Order set for ED addiction medicine was initiated. CBC was obtained to assess w conner count differential as well as H&H. Comprehensive metabolic panel to assess renal function electrolytes. Talk screen was obtained as well. Lab Data Attestation: I reviewed the patient's lab results. Lab results narrative: Comprehensive metabolic panel is remarkable slight elevated glucose of 101 otherwise normal. Tox screen was positive presumptively for fentanyl, amphetamines and cannabis. Alcohol was nondetected. Labs: Laboratory Results - last 24 hr 05/18/25 05/18/25 21:32 22:11 Sodium 140 Potassium 4.3 Chloride 107 Carbon Dioxide 21.6 Anion Gap 11 BUN 21 H Creatinine 0.83 Estim Creat Clear Calc 125.82 Est GFR (MDRD) Non-Af 115 BUN/Creatinine Ratio 25.5 H Glucose 101 H Calcium 9.4 Total Bilirubin 0.18 AST 17 ALT 21 Alkaline Phosphatase 69 Total Protein 6.6 Albumin 4.1 Globulin 2.5 Albumin/Globulin Ratio 1.7 Urine Opiates Screen NEGATIVE U Buprenorphine Qual NEGATIVE Ur Oxycodone Screen NEGATIVE Urine Methadone Screen NEGATIVE Urine Fentanyl Screen PRESUMPTIVE POSITIVE Ur Barbiturates Screen NEGATIVE Ur Phencyclidine Scrn NEGATIVE Ur Amphetamines Screen PRESUMPTIVE POSITIVE U Benzodiazepines Scrn NEGATIVE Urine Cocaine Screen NEGATIVE U Cannabinoids Screen PRESUMPTIVE POSITIVE Ethyl Alcohol < 10.1 Management Discussion w/another healthcare provider: Hospitalist (Dr. Blanco was paged for admission to [facility] for detox. Will discuss case and inform of patient's history physical and laboratory results.) Discharge Plan Dx/Rx/DC Orders Clinical Impression: Fentanyl use disorder, mild, abuse, Opiate dependence, Amphetamine use, Cannabis use disorder Disposition Disposition: Acute Care Hospital [facility]
[2025-05-18 23:15] VITALS: BP 119/69
--- NOTE | 2025-05-18 23:24 | PCM.HP.STD ---
HPI - General General Date of Admission: 05/18/25 Date of Service: 05/18/25 Chief Complaint: Opiate detox HPI Narrative EULALIO JAMES, is a 39 M who presented to [facility] ED on 05/18/2025 for opiate detox. I saw the patient at bedside in the ED. Patient last went through opiate detox here back in March 2023. States he had been doing well until a few months ago when he hurt his shoulder and began using opiates again. He has been snorting fentanyl and amphetamines now on a regular basis. Last use was this morning. He is reporting some withdrawal symptoms currently. States he tolerated the Subutex taper well last time he was here. He denies any other pain or discomfort currently. Will be admitted for further management. [facility] Medical History (Updated 05/18/25 @ 23:[address] Jr Jeffery MD) Methamphetamine abuse Opioid abuse Anxiety Diarrhea Nausea & vomiting Acid reflux disease Abdominal pain Home Medications ?Medication ?Instructions ?Recorded ?Last Taken ?Type pantoprazole 40 mg tablet,delayed 40 mg PO DAILY GERD 06/12/21 02/17/23 History release Allergy/AdvReac Type Severity Reaction Status Date / Time sulfamethoxazole (From Allergy Mild Unknown Verified 05/18/25 21:15 Bactrim) trimethoprim (From Bactrim) Allergy Mild Unknown Verified 05/18/25 21:15 Surgical History History of right inguinal hernia repair Status post right knee surgery Social History Smoking Status: Current every day smoker tobacco type: e-cigarettes alcohol intake: current alcohol intake frequency: a few times a week substance use type: does not use ROS Constitutional Constitutional: Reports fatigue; Denies chills, fever(s) or weakness Eyes Eyes: Denies change in vision Cardiovascular Cardiovascular: Denies chest pain Respiratory/Chest Respiratory/Chest: Denies shortness of breath at rest Gastrointestinal Gastrointestinal: Reports nausea; Denies abdominal pain or vomiting Musculoskeletal Musculoskeletal: Reports myalgias; Denies arthralgias Vital Signs Vital Signs Vital Signs: 05/18/25 21:15 Temperature 97 F L Temperature Source Temporal Pulse Rate 75 Respiratory Rate 18 Blood Pressure 120/90 H Blood Pressure Mean 100 Pulse Ox 100 Oxygen Delivery Method Room Air Weight Weight: 80.6 kg Body Mass Index (BMI) 25.4 Physical Exam Const alert, oriented x3, no apparent distress, average body habitus, healthy appearing and well nourished Constitutional Narrative: Young middle-age male, mildly fatigued appearing but otherwise sitting back comfortably in bed, conversing normally, in no acute distress. General Appearance: cooperative, comfortable, well kempt and well developed HEENT normocephalic, head/scalp atraumatic, hearing grossly normal bilaterally, nasal mucous membranes and turbinates normal and moist oral mucous membranes Eyes PERRL, EOMs intact bilaterally and conjunctivae normal Neck full ROM Chest inspection of chest normal Resp normal respiratory effort, normal air movement, no use of accessory muscles and clear to auscultation bilaterally Cardio regular rate, regular rhythm, no murmurs and peripheral pulses 2+ throughout GI normal to inspection, nondistended, normoactive bowel sounds, soft to palpation, non-tender and non-distended Back/Spine normal ROM Extremity normal to inspection, full ROM and no pedal edema Skin no rashes or lesions noted Psych mental status grossly normal Mood & Affect: anxious Results Lab / Micro Data 05/18/25 22:11 Labs: Laboratory Results - last 24 hr 05/18/25 21:32: Urine Opiates Screen NEGATIVE, U Buprenorphine Qual NEGATIVE, Ur Oxycodone Screen NEGATIVE, Urine Methadone Screen NEGATIVE, Urine Fentanyl Screen PRESUMPTIVE POSITIVE, Ur Barbiturates Screen NEGATIVE, Ur Phencyclidine Scrn NEGATIVE, Ur Amphetamines Screen PRESUMPTIVE POSITIVE, U Benzodiazepines Scrn NEGATIVE, Urine Cocaine Screen NEGATIVE, U Cannabinoids Screen PRESUMPTIVE POSITIVE 05/18/25 22:11: Sodium 140, Potassium 4.3, Chloride 107, Carbon Dioxide 21.6, Anion Gap 11, BUN 21 H, Creatinine 0.83, Estim Creat Clear Calc 125.82, Est GFR (MDRD) Non-Af 115, BUN/Creatinine Ratio 25.5 H, Glucose 101 H, Calcium 9.4, Total Bilirubin 0.18, AST 17, ALT 21, Alkaline Phosphatase 69, Total Protein 6.6, Albumin 4.1, Globulin 2.5, Albumin/Globulin Ratio 1.7, Ethyl Alcohol < 10.1 Assessment & Plan Assessment/Plan (1) Opiate dependence: (2) Desire for detoxification: PLAN: Plan Patient is a 39-year-old male who presented to [facility] ED on 05/18/2025 for opiate detox. 1. Opiate abuse with withdrawal and desire for detox, polysubstance abuse ? Admit under inpatient status to [facility]. Case management consulted. Urine drug screen positive for opiates, fentanyl and amphetamines. Has been snorting fentanyl and amphetamines, last use on morning of admission. Will treat with Subutex taper and other as needed medications per opiate withdrawal order set. 2. GERD ? Continue home PPI. DVT prophylaxis: Low risk, ambulate CODE STATUS: Full code, unverified Expected disposition: TBD Total clinical time spent by myself addressing the patient's medical issues, reviewing all the data, and collaborating with patient's care team: 55 minutes. Charges/Coding Visit Charges Inpatient E&M: 90012 Init Hosp L2
[2025-05-18 23:34] LABS: Hematocrit 41.1 % (40-54); Hemoglobin 14.2 g/dL (13.0-16.5); Immature Granulocytes Count 0.040 X10^3/uL (0.0-0.0); Mean Corp Hgb Conc 34.5 g/dL (32-36); Mean Corpuscular Volume 84.4 fL (80-94); Mean Platelet Vol. 9.8 fl (6.2-12.0); NRBC Flagged by Analyzer 0 % (0-5); Platelet Count 349 K/mm3 (150-450); RBC Distribution Width CV 13.5 % (11.6-14.6); RBC Distribution Width SD 41.8 fl (35.1-43.9); Red Blood Count 4.87 M/mm3 (4.6-6.2); White Blood Count 10.0 K/mm3 (4.4-11.0)
[2025-05-18 23:39] VITALS: BP 119/69; PULSE 61; RESP 16; TEMP 35.1; O2SAT 97
--- OUTSIDE RECORDS SUMMARY | 2025-05-18 23:45 | XMS RPT_ITS | CCD ---
Author Organization [facility] Care Team Providers Care Spot Welder Line Name Role Phone ISAAC, NATTY J Unavailable Unavailable ISAAC, NATTY J Unavailable Unavailable ISAAC, NATTY J Unavailable Unavailable ISAAC, NATTY J Unavailable Unavailable PROVIDER, UNKNOWN Unavailable Unavailable JEVON, ROGER E Unavailable Unavailable JEVON, ROGER E Unavailable Unavailable ISAAC, NATTY J Unavailable Unavailable JEVON, ROGER E Unavailable Unavailable ISAAC, NATTY J Unavailable Unavailable PROVIDER, UNKNOWN Unavailable Unavailable ISAAC, NATTY J Unavailable Unavailable ISAAC, NATTY J Unavailable Unavailable ISAAC, NATTY J Unavailable Unavailable ISAAC, NATTY J Unavailable Unavailable PROVIDER, UNKNOWN Unavailable Unavailable JEVON, ROGER E Unavailable Unavailable JEVON, ROGER E Unavailable Unavailable JEVON, ROGER E Unavailable Unavailable ISAAC, NATTY J Unavailable Unavailable PROVIDER, UNKNOWN Unavailable Unavailable CATY RODRIGUEZ Attending Unavailable SYSTEM, PROVIDER NOT IN Primary Care Unavaila Kenan Jolly Primary Care Provider Kenan Bailey Primary Care Provider KENAN BAILEY Primary Care Jannette BAILEY, KENAN ZULUAGA Primary Care Natty Jesus Primary Care Provider [phone] Dr. Renan Fuentes DO Emergency Provider Renan Fuentes Attending Unavailable Natty Gallegos Primary Care Unavailable Allergies Allergy Classification Reported Allergen(s) Allergy Type Date of Onset Reaction(s) Facility (7 sources) Sulfamethoxazole; Translations: [SULFAMETHOXAZOLE] Drug Allergy 9 Unknown [facility] (7 sources) Trimethoprim; Translations: [TRIMETHOPRIM] Drug Allergy 9 Unknown [facility] (3 sources) Sulfamethoxazole / Trimethoprim; Translations: [SULFAMETHOXAZOLE-TR IMETHOPRIM] Drug Allergy 9 [facility] (1 source) Sulfamethoxazole Drug Allergy 5 [facility] Repository (1 source) Trimethoprim Drug Allergy 5 [facility] Repository Medications Current Medications Medication Drug Class(es) Dates Sig (Normalized) Sig (Original) acetaminophen 325 mg / HYDROcodone bitartrate 5 mg oral tablet (7 sources) Opioid Agonist Start: 06-02-2022 take 1 tablet by mouth every six hours as needed Hydrocodone-Aceta minophen Active 1 TABLET PO EVERY 6 HOURS NEEDED 12 3 June 02, 2022 Start: 09-26-2019 End: 09-28-2019 Hydrocodone-Acetaminophen 1 TABLET tablet Discontinued 1 {tbl} PO EVERY 4 HOURS NEEDED as needed for Pain 10 September 26, 2019 September 27, 2019 1:00am September 28, 2019 1:08am Start: 09-26-2019 End: 09-28-2019 take 1 tablet by mouth every four hours as needed Hydrocodone-Acetaminophen Discontinued 1 TABLET PO EVERY 4 HOURS NEEDED 10 2 September 26, 2019 September 28, 2019 1:08am doxycycline hyclate 100 mg oral capsule (2 sources) Tetracycline-class Drug Start: 02-04-2025 take 1 capsule by mouth twice daily Doxycycline Hyclate 100 mg capsule Active 100 mg PO TWICE A DAY February 04, 2025 12:00am Start: 10-21-2023 End: 10-28-2023 take 1 tablet by mouth twice daily doxycycline (VIBRA-TABS) 100 mg tablet Indications: Sinobronchitis Take 1 tablet by mouth two times a day for 7 days. 14 tablet 0 10/21/2023 10/28/2023 Active Comment on above: Take 1 tablet by haylie two times a day for 7 days. naproxen 500 mg oral tablet (2 sources) Nonsteroidal Anti-inflammatory Drug Start: 02-18-20 23 take 1 tablet by mouth twice daily Naproxen (Naprosyn) 500 mg tablet Active 500 MG PO TWICE A DAY February 17, 2023 12:00am pantoprazole 40 mg delayed release oral tablet (4 sources) Proton Pump Inhibitor Start: 06-12-20 21 take 1 tablet by mouth once daily Pantoprazole 40 mg Tablet,Delayed Release (Dr/Ec) Active 40 mg PO DAILY June 12, 2021 12:00am predniSONE 10 mg oral tablet (1 source) Start: 10-21-20 End: 10-30-20 predniSONE (DELTASONE) 10 mg tablet Indications: Sinobronchitis Take 4 tabs daily for 3 days, then 2 tabs daily for 3 days, then 1 tab daily for 3 days with food. 21 tablet 0 10/21/2023 10/30/2023 Active Comment on above: Take 4 tabs daily fo r 3 days, then 2 tabs daily for 3 days, then 1 tab daily for 3 days with food. Completed/Discontinued Medications Medication Drug Class(es) Dates Sig (Normalized) Sig (Original) acetaminophen 325 mg / oxyCODONE hydrochloride 5 mg oral tablet (16 sources) Opioid Agonist Start: 07-04-2019 End: 07-09-2019 Oxycodone-Acetamino phen 1 TABLET tablet Discontinued 1 {tbl} PO EVERY 6 HOURS NEEDED as needed for Pain 10 3 July 04, 2019 July 06, 2019 12:00am July 09, 2019 12:09am Start: 07-04-2019 End: 07-09-2019 take 1 tablet by mouth every six hours as needed Oxycodone-Acetaminophen Discontinued 1 TABLET PO EVERY 6 HOURS NEEDED 10 July 04, 2019 July 09, 2019 12:09am Start: 07-01-2019 End: 07-09-2019 Oxycodone-Acetaminophen 1 TA BLET tablet Discontinued 1 - 2 {tbl} PO EVERY 4 HOURS NEEDED as needed for Pain 15 4 July 01, 2019 July 04, 2019 12:00am July 09, 2019 12:08am Start: 07-01-2019 End: 07-09-2019 take 1 tablet by mouth every four hours as needed Oxycodone-Acetaminophen Discontinued 1 - 2 TABLET PO EVERY 4 HOURS NEEDED 15 July 01, 2019 July 09, 2019 12:08am Start: 06-05-2019 End: 06-11-2019 Oxycodone-Acetaminophen 1 TA BLET tablet Discontinued 1 {tbl} PO EVERY 6 HOURS NEEDED as needed for Pain 12 3 June 05, 2019 June 07, 2019 12:00am June 11, 2019 12:08am Start: 06-05-2019 End: 06-11-2019 take 1 tablet by mouth every six hours as needed Oxycodone-Acetaminophen Discontinued 1 TABLET PO EVERY 6 HOURS NEEDED 12 June 05, 2019 June 11, 2019 12:08am Start: 06-02-2019 End: 06-11-2019 Oxycodone-Acetaminophen 1 TA BLET tablet Discontinued 1 - 2 {tbl} PO EVERY 4 HOURS NEEDED as needed for Pain 28 05June 02, 2019 June 08, 2019 12:00am June 11, 2019 12:08am Start: 06-02-2019 End: 06-11-2019 take 1 tablet by mouth every four hours as needed Oxycodone-Acetaminophen Discontinued 1 - 2 TABLET PO EVERY 4 HOURS NEEDED 28 05June 02, 2019 June 11, 2019 12:08am amoxicillin 875 mg / clavulanate 125 mg oral tablet (4 sources) Penicillin-class Antibacterial Start: 12-13-2019 End: 12-23-2019 Amoxicillin-Pot Clavulanate (Augmentin) 875-125 mg tablet Discontinued 1 {tbl} PO Q12H 28 08December 13, 2019 1:00am December 22, 2019 1:00am December 23, 2019 1:09am amylase [id number] unt / lipase [id number] unt / protease [id number] unt delayed release oral capsule (4 sources) Start: 09-26-2019 End: 12-19-2019 Dejjgl-Ftnuowmc-Khkrjg e 1 EACH capsule,delayed release(DR/EC) Discontinued 1 NMA PO THREE TIMES A DAY September 26, 2019 1:00am December 19, 2019 12:27pm Start: 09-26-2019 End: 12-19-2019 Lfsywd-Tgrckuyl-Atqcbdu Disc ontinued 1 EACH PO THREE TIMES A DAY September 26, 2019 1:00am December 19, 2019 12:27pm azithromycin 250 mg oral tablet (4 sources) Macrolide Antimicrobial Start: 10-06-2019 End: 12-13-2019 Azithromycin 250 mg tablet Discontinued 0 PO .COMPLEX October 06, 2019 1:00am December 13, 2019 3:22pm Take two tablets by mouth on day one then one tablet by mouth on days 2-5 cephalexin 500 mg oral capsule (4 sources) Cephalosporin Antibacterial Start: 10-12-2018 End: 03-28-2019 take 1 capsule by mouth every six hours Cephalexin 500 MG capsule Discontinued 500 mg PO EVERY 6 HOURS October 12, 2018 1:00am March 28, 2019 10:29am clindamycin 300 mg oral capsule (4 sources) Lincosamide Antibacterial Start: 03-18-2019 End: 03-28-2019 take 1 capsule by mouth every six hours Clindamycin Hcl 300 MG capsule Discontinued 300 mg PO EVERY 6 HOURS 40 March 18, 2019 12:00am March 28, 2019 10:35am dicyclomine hydrochloride 10 mg oral capsule (4 sources) Anticholinergic Start: 09-26-2019 End: 12-19-2019 take 1 capsule by mouth three times daily before mealtime Dicyclomine 10 MG capsule Discontinued 10 mg PO THREE TIMES DAILY BEFORE MEALS September 26, 2019 1:00am December 19, 2019 12:27pm eluxadoline 75 mg oral tablet (4 sources) mu-Opioid Receptor Agonist Start: 09-26-2019 End: 10-06-2019 take 1 tablet by mouth once daily Eluxadoline 75 MG tablet Discontinued 75 mg PO DAILY September 26, 2019 1:00am October 06, 2019 2:44pm esomeprazole 20 mg delayed release oral capsule (4 sources) Proton Pump Inhibitor Start: 10-12-2018 End: 03-28-2019 take 1 capsule by mouth once daily Esomeprazole Magnesium 20 MG capsule,delayed release(DR/EC) Discontinued 20 mg PO DAILY October 12, 2018 1:00am March 28, 2019 10:35am FLUoxetine 10 mg oral capsule (2 sources) Serotonin Reuptake Inhibitor Start: 06-05-2023 FLUoxetine (PROZAC) 10 mg capsule fluticasone propionate 0.05 mg/actuat metered dose nasal spray (1 source) Corticosteroid Start: 10-21-2023 take 2 spray(s) by mouth once daily fluticasone (FLONASE) 50 mcg/actuation nasal spray Indications: Sinobronchitis Use 2 Sprays in each nostril once daily. Rinse mouth after use. 1 Each 0 10/21/2023 Active Comment on above: Use 2 Sprays in each nostril once daily. Rinse mouth after use. methylPREDNISolone 4 mg oral tablet (8 sources) Corticosteroid Start: 12-19-2019 End: 12-24-2019 take 1 tablet by mouth once Methylprednisolone (Medrol (Jakob)) 4 mg tablets,dose pack Discontinued 4 mg PO per package directions 21 5 December 19, 2019 1:00am December 23, 2019 1:00am December 24, 2019 1:09am Start: 10-06-2019 End: 12-13-2019 take 1 tablet by mouth once Methylprednisolone (Medrol (Jakob)) 4 mg tablets,dose pack Discontinued 0 PO per package directions October 06, 2019 1:00am December 13, 2019 3:22pm PO PER PKG DIR omeprazole 40 mg delayed release oral capsule (8 sources) Proton Pump Inhibitor Start: 05-24-2019 End: 12-19-2019 take 1 capsule by mouth once daily Omeprazole 40 mg capsule,delayed release(DR/EC) Discontinued 40 mg PO DAILY May 24, 2019 12:00am December 19, 2019 12:27pm Start: 03-28-2019 End: 05-24-2019 take 1 capsule by mouth once daily Omeprazole 20 mg capsule,delayed release(DR/EC) Discontinued 20 mg PO DAILY March 28, 2019 12:00am May 24, 2019 2:52pm ondansetron 4 mg disintegrating oral tablet (4 sources) Serotonin-3 Receptor Antagonist Start: 10-13-2018 End: 12-19-2019 take 1 tablet by mouth every eight hours as needed for nausea Ondansetron 4 MG tablet Discontinued 4 mg PO EVERY 8 HOURS NEEDED as needed for Nausea October 13, 2018 1:00am December 19, 2019 12:27pm promethazine hydrochloride 25 mg oral tablet (4 sources) Phenothiazine Start: 09-26-2019 End: 12-19-2019 take 1 tablet by mouth four times daily as needed for nausea Promethazine 25 MG tablet Discontinued 25 mg PO 4 TIMES DAILY NEEDED as needed for Nausea September 26, 2019 1:00am December 19, 2019 12:27pm propranolol hydrochloride 10 mg oral tablet (2 sources) beta-Adrenergic Awais Start: 06-11-2023 propranolol (INDERAL) 10 mg tablet QUEtiapine 200 mg oral tablet (2 sources) Atypical Antipsychotic Start: 06-11-2023 QUEtiapine (SEROQUEL) 200 mg tablet rifAXIMin 550 mg oral tablet (4 sources) Rifamycin Antibacterial Start: 09-26-2019 End: 10-06-2019 take 1 tablet by mouth three times daily Rifaximin 550 MG tablet Discontinued 550 mg PO THREE TIMES A DAY September 26, 2019 1:00am October 06, 2019 2:44pm sucralfate 1000 mg oral tablet (4 sources) Aluminum Complex Start: 03-28-2019 End: 05-24-2019 take 1 tablet by mouth at bedtime Sucralfate (Carafate) 1 gram tablet Discontinued 1 g PO before meals and at bedtime 120 March 28, 2019 12:00am May 24, 2019 2:53pm sulfamethoxazole 800 mg / trimethoprim 160 mg oral tablet (4 sources) Dihydrofolate Reductase Inhibitor Antibacterial, Sulfonamide Antimicrobial Start: 10-12-2018 End: 03-28-2019 Sulfamethoxazole- Trimethoprim 1 TABLET tablet Discontinued 1 {tbl} PO TWICE A DAY October 12, 2018 1:00am March 28, 2019 10:30am Start: 10-12-2018 End: 03-28-2019 take 1 tablet by mouth twice daily Sulfamethoxazole-Trimethoprim Discontinu ed 1 TABLET PO TWICE A DAY October 12, 2018 1:00am March 28, 2019 10:30am traZODone hydrochloride 50 mg oral tablet (1 source) Serotonin Reuptake Inhibitor Start: 03-23-2023 End: 02-04-2025 take 1 tablet by mouth at bedtime Trazodone 50 mg tablet Discontinued 50 mg PO AT BEDTIME March 23, 2023 12:00am February 04, 2025 7:25pm Problems Problem Classification Problem Date Documented Da te Episodic/Chronic Abdominal hernia (8 sources) Right inguinal hernia ; Translations: [Unilateral inguinal hernia, without obstruction or gangrene, not specified as recurrent] 09-26-2019 Episodic Abdominal pain (12 sources) Right upper quadrant pain; Translations: [Right lower quadrant pain] Onset: 8 06-06-2019 Episodic Acute bronchitis (4 sources) Acute bronchitis; Translations: [Acute bronchitis, unspecified] 12-19-2019 Episodic E Codes: Fall (3 sources) Fall; Translations: [Unspecified fall, initial encounter] 02-17-2023 Episodic Esophageal disorders (4 sources) Gastroesophageal reflux disease; Translations: [Gastro-esophageal reflux disease without esophagitis] 09-26-2019 Chronic Fluid and electrolyte disorders (1 source) Dehydration; Translations: [Dehydration] Onset: 8 Episodic Fracture of lower limb (4 sources) Fracture of phalanx of foot; Translations: [Unspecified fracture of right toe(s), initial encounter for closed fracture] 06-02-2022 Episodic Genitourinary symptoms and ill-defined conditions (1 source) Bacteriuria; Translations: [Bacteriuria] 02-04-2025 Episodic Immunizations and screening for infectious disease (1 source) Contact with or exposure to other viral diseases; Translations: [Suspected COVID-19 virus infection] Episodic Nausea and vomiting (4 sources) Nausea, vomiting and diarrhea; Translations: [Nausea with vomiting, unspecified] 10-14-2018 Episodic Open wounds of head; neck; and trunk (4 sources) Laceration of lip ; Translations: [Laceration without foreign body of lip, initial encounter] 07-04-2021 Episodic Other and unspecified benign neoplasm (4 sources) Lipoma of spermatic cord; 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] 09-26-2019 Episodic Other connective tissue disease (4 sources) Pain in toe; Translations: [Pain in right toe(s)] 06-10-2022 Episodic Other connective tissue disease (1 source) Abdominal muscle pain; Translations: [Myalgia, other site] 02-04-2025 Episodic Other ear and sense organ disorders (1 source) Impacted cerumen in left ear; Translations: [Impacted cerumen, left ear] 07-20-2023 Episodic Other eye disorders (3 sources) Subconjunctival hemorrhage; Translations: [Conjunctival hemorrhage, unspecified eye] 02-17-2023 Episodic Other gastrointestinal disorders (2 sources) Diarrhea, unspecified; Translations: [Diarrhea, unspecified] Onset: Episodic Other injuries and conditions due to external causes (3 sources) Injury of head; Translations: [Unspecified injury of head, initial encounter] 02-17-2023 Episodic Other lower respiratory disease (4 sources) Cough; Translations: [Cough] 12-19-2019 Episodic Other upper respiratory infections (1 source) Chronic sinusitis; Translations: [Chronic sinusitis, unspecified] 10-21-2023 Chronic Other upper respiratory infections (4 sources) Acute sinusitis; Translations: [Acute sinusitis, unspecified] 12-13-2019 Episodic Otitis media and related conditions (1 source) Dysfunction of left eustachian tube; Translations: [Unspecified Eustachian tube disorder, left ear] 10-21-2023 Episodic Sprains and strains (3 sources) Sprain, elbow joint, medial collateral ligament; Translations: [Ulnar collateral ligament sprain of unspecified elbow, initial encounter] 02-17-2023 Episodic Substance-related disorders (3 sources) Nicotine dependence, unspecified, uncomplicated; Translations: [Methamphetamine abuse] Onset: 8 04-03-2023 Chronic Superficial injury; contusion (7 sources) Contusion of chest; Translations: [Contusion of unspecified front wall of thorax, initial encounter] 06-12-2021 Episodic Unclassified (1 source) Readiness finding 03-23-2023 Urinary tract infections (1 source) Urethritis; Translations: [Other urethritis] 02-04-2025 Episodic Results Test Name Value Interpretation Reference Range Facility Urine Cultureon 02-05-2025 [facility] Culture exhibits no growth. Normal [facility] Comment on above: Performed By: #### M 100.2200 #### [facility] Laboratory [address] [place], [place], [address] Abdomen/Pelvis W IV Cont ONL Yon 02-04-2025 Abdomen/Pelvis W IV Cont ONLY [facility] Services [address] [place], [place] [id number] Abdomen/Pelvis W IV Cont ONLY MR#: [id number] Acct: [id number] Name: EULALIO JAMES Rep #: [id number] : 1985 M 39 From: Edyta Gagnon MD PCP: JULITO Hannah Status: REG ER Study: Abdomen/Pelvis W IV Cont ONLY Date of Exam: Exam# [id number] Ordering Dr: Keenan Angel [employer]SEM[employer] BENCH-C PROCEDURE: ABDOMEN/PELVIS W IV CONT ONLY 02/04/2025 REASON FOR EXAM: LOWER ABD AND SUPRAPUBIC PAIN TECHNIQUE: Abdomen and pelvis CT with intravenous contrast. Coronal and Sagittal reconstruction series were provided. One or more dose reduction techniques were used (e.g., Automated exposure control, adjustment of the mA and/or kV according to patient size, use of iterative reconstruction technique. COMPARISON: 06/21/2019 FINDINGS: Lower chest: Unremarkable. Liver: Unremarkable. Biliary/gallbladder: Unremarkable. Pancreas: Unremarkable. Spleen: Unremarkable. Adrenal glands: Unremarkable. Kidneys: Unremarkable. Gastrointestinal/periton eum: No acute abnormality.The appendix is unremarkable.No free air or free fluid. Vascular: Unremarkable. Lymph nodes: No enlarged lymph nodes by CT size criteria. Pelvic organs: Unremarkable. Bladder: The bladder is minimally distended, which limits evaluation. Bones: Unremarkable. Soft tissues: Unremarkable. CT/Abdomen/Pelvis W IV Cont ONLY IMPRESSION: No acute abnormality of the abdomen and pelvis. Reading Location: [facility] CC: LESLIE Angel; UJLITO [facility] [employer] Breakfast Attendant: Signed Normal [facility] Absolute neutrophil countOrd ered By: Keenan Angel on 02-04-2025 Neutrophils (Bld) [#/Vol] 6.7 10*3/uL 2.0-7.7 [facility] Anion gap in Serum or Plasma Ordered By: Keenan Angel on 02-04-2025 Anion gap [Moles/Vol] 12 mmol/L 5-15 [facility] BUN/creatinine ratioOrdered By: Keenan Angel on 02-04-2025 Urea nitrogen/Creatinine [Mass ratio] 18.4 mg/mg 10-20 [facility] Bacteria LM.HPF (Urine sed) [#/Area]Ordered By: Keenan Angel on 02-04-2025 Urine Bacteria RARE /hpf None Seen [facility] Basophil percentageOrdered B y: Keenan Angel on 02-04-2025 Basophils/100 WBC (Bld) 0.4 % 0-1 [facility] Bilirubin Test strip Ql (U)O rdered By: Keenan Angel on 02-04-2025 Bilirubin Ql (U) Negative Negative [facility] Bilirubin, totalOrdered By: Keenan Angel on 02-04-2025 Bilirubin [Mass/Vol] 0.18 mg/dL 0.00-1.30 [facility] CBC W/Diff, Automatedon 01-08 Absolute Lymph 3.79 X10 3/uL Normal 0.83-4.51 [facility] Comment on above: Performed By: #### L 500.4050, L100.0100 #### [facility] Laboratory [facility] [place], [address] Absolute Neut 6.7 X10 3/uL Normal 2.0-7.7 [facility] Comment on above: Performed By: #### L 500.4050, L100.0100 #### [facility] [address] [place], [address] Basophils/100 WBC (Bld) 0.4 % Normal 0-1 [facility] Comment on above: Performed By: #### L 500.4050, L100.0100 #### [facility] [address] [place], [address] Eosinophils/100 WBC (Bld) 0.4 % Normal 0-5 [facility] Comment on above: Performed By: #### L 500.4050, L100.0100 #### [facility] [address] [place], [address] Erythrocyte distribution width (RBC) [Ratio] 13.5 % Normal 11.6-14.6 [facility] Comment on above: Performed By: #### L 500.4050, L100.0100 #### [facility] [address] [place], [address] Hematocrit (Bld) [Volume fraction] 44.2 % Normal 40-54 [facility] Comment on above: Performed By: #### L [id number], L100.0100 #### [facility] [address] [place], [address] Hemoglobin (Bld) [Mass/Vol] 15.0 g/dL Normal 13.0-16.5 [facility] Comment on above: Performed By: #### L 500.4050, L100.0100 #### [facility] [address] [place], [address] IG% 0.300 Normal 0.0-0.9 [facility] Comment on above: Result Comment: IG% - Immature Granulocytes (promyelocytes, myelocytes and metamyelocytes) > 1% indicates that a LEFT SHIFT is Present. Performed By: #### L 500.4050, L100.0100 #### [facility] [address] [place], [address] Lymphocytes/100 WBC (Bld) 33.1 % Normal 19-41 [facility] Comment on above: Performed By: #### L 500.4050, L100.0100 #### [facility] [address] [place], [address] MCH (RBC) [Entitic mass] 28.9 pg Normal 27.0-32.0 [facility] Comment on above: Performed By: #### L [id number], L100.0100 #### [facility] [address] [place], [address] MCHC (RBC) [Mass/Vol] 33.9 g/dL Normal 32-36 [facility] Comment on above: Performed By: #### L 500.4050, L100.0100 #### [facility] [address] [place], [address] MCV (RBC) [Entitic vol] 85.2 fL Normal 80-94 [facility] Comment on above: Performed By: #### L 500.4050, L100.0100 #### [facility] [address] [place], [address] Monocytes/100 WBC (Bld) 6.9 % Normal 0-10 [facility] Comment on above: Performed By: #### L 500.4050, L100.0100 #### [facility] [address] [place], [address] Neutrophils/100 WBC (Bld) 58.9 % Normal 47-70 [facility] Comment on above: Performed By: #### L 500.4050, L100.0100 #### [facility] [address] [place], [address] Nucleated RBC (Bld) [#/Vol] 0 10*3/uL Normal 0-5 [facility] Comment on above: Performed By: #### L 500.4050, L100.0100 #### [facility] [address] [place], [address] Platelet mean volume (Bld) [Entitic vol] 9.4 fL Normal 6.2-12.0 [facility] Comment on above: Performed By: #### L 500.4050, L100.0100 #### [facility] [address] [place], [address] Platelets (Bld) [#/Vol] 377 10*3/uL Normal 150-450 [facility] Comment on above: Performed By: #### L 500.4050, L100.0100 #### [facility] [address] [place], [address] RBC (Bld) [#/Vol] 5.19 10*6/uL Normal 4.6-6.2 [facility] Comment on above: Performed By: #### L 500.4050, L100.0100 #### [facility] [address] [place], [address] RDW SD 42.4 fl Normal 35.1-43.9 [facility] Comment on above: Performed By: #### L 500.4050, L100.0100 #### [facility] [address] [place], [address] WBC (Bld) [#/Vol] 11.5 10*3/uL High 4.4-11.0 [facility] Comment on above: Performed By: #### L 500.4050, L100.0100 #### [facility] [address] [place], [address] Carbon dioxide, total [Moles /volume] in Central venous bloodOrdered By: Keenan Angel on 02-04-2025 CO2 [Moles/Vol] 22.7 mmol/L 21.0-32.0 [facility] Chlamydia and Neisseria gono rrhoeae detection by PCROrdered By: Renan Fuentes on 02-04-2025 Chlamydia/Neisseria (PCR) [facility] Chloride assayOrdered By: Julito Angel on 02-04-2025 Chloride [Moles/Vol] 106 mmol/L 98-108 [facility] Comprehensive Metabolic Prof ilon 02-04-2025 Albumin [Mass/Vol] 4.4 g/dL Normal 3.5-5.0 [facility] Comment on above: Performed By: #### L 500.4050, L100.0100 #### [facility] [address] [place], [address] Albumin/Globulin [Mass ratio] 1.7 {ratio} Normal 0.9-2.4 [facility] Comment on above: Performed By: #### L 500.4050, L100.0100 #### [facility] [address] [place], [address] ALK PHOS 62 U/L Normal 40-129 [facility] Comment on above: Performed By: #### L 500.4050, L100.0100 #### [facility] [address] [place], [address] ALT [Catalytic activity/Vol] 15 U/L Normal <=46 [facility] Comment on above: Performed By: #### L 500.4050, L100.0100 #### [facility] [address] [place], [address] AST [Catalytic activity/Vol] 21 U/L Normal <=37 [facility] Comment on above: Performed By: #### L 500.4050, L100.0100 #### [facility] [address] [place], [address] Bilirubin [Mass/Vol] 0.18 mg/dL Normal 0.00-1.30 [facility] Comment on above: Performed By: #### L 500.4050, L100.0100 #### [facility] [address] [place], [address] BUN/CRE 18.4 RATIO Normal 10-20 [facility] Comment on above: Performed By: #### L 500.4050, L100.0100 #### [facility] [address] [place], [address] Calcium [Mass/Vol] 9.6 mg/dL Normal 7.6-11.0 [facility] Comment on above: Performed By: #### L 500.4050, L100.0100 #### [facility] [address] [place], [address] Chloride [Moles/Vol] 106 mmol/L Normal 98-108 [facility] Comment on above: Performed By: #### L 500.4050, L100.0100 #### [facility] [address] [place], [address] CO2 [Moles/Vol] 22.7 mmol/L Normal 21.0-32.0 [facility] Comment on above: Performed By: #### L 500.4050, L100.0100 #### [facility] [address] [place], [address] Creatinine [Mass/Vol] 0.96 mg/dL Normal 0.70-1.20 [facility] Comment on above: Performed By: #### L 500.4050, L100.0100 #### [facility] [address] [place], [address] ECRCL 108.78 ml/min Normal 50-250 [facility] Comment on above: Performed By: #### L 500.4050, L100.0100 #### [facility] [address] [place], [address] GAP 12 Normal 5-15 [facility] Comment on above: Performed By: #### L 500.4050, L100.0100 #### [facility] [address] [place], [address] GFR/1.73 sq M.predicted among non-blacks MDRD (S/P/Bld) [Vol rate/Area] 105 mL/min/{1.73_m2} Normal >60 [facility] Comment on above: Result Comment: mL/m in/1.73m2 CKD-EPI Creatinine Equation (2020) Performed By: #### L 500.4050, L100.0100 #### [facility] [address] [place], [address] Globulin (S) [Mass/Vol] 2.5 g/dL Normal 2.2-4.2 [facility] Comment on above: Performed By: #### L 500.4050, L100.0100 #### [facility] [address] [place], [address] Glucose [Mass/Vol] 90 mg/dL Normal 70-99 [facility] Comment on above: Performed By: #### L 500.4050, L100.0100 #### [facility] [address] [place], [address] Potassium [Moles/Vol] 4.0 mmol/L Normal 3.3-5.1 [facility] Comment on above: Performed By: #### L 500.4050, L100.0100 #### [facility] [address] [place], [address] Sodium [Moles/Vol] 141 mmol/L Normal 133-145 [facility] Comment on above: Performed By: #### L 500.4050, L100.0100 #### [facility] [address] [place], [address] T PROT 6.9 g/dL Normal 5.9-8.4 [facility] Comment on above: Performed By: #### L 500.4050, L100.0100 #### [facility] [address] [place], [place], [address] Urea nitrogen [Mass/Vol] 18 mg/dL Normal 4-19 [facility] Comment on above: Performed By: #### L 500.4050, L100.0100 #### [facility] [address] [place], [address] Emergency Department Summary on 02-04-2025 Emergency Department Summary [facility] Medical Records Department [address] [facility] [place] [address] Emergency Department Summary 02/04/25 MR#: [id number] Acct: [id number] Name: EULALIO JAMES Rep #: [id number] : 1985 39 From: Renan Franco PCP: JULITO Hannah Status:DEP ER Location: ED HPI History of Present Illness Chief Complaint: Abd Pain Narrative Narrative: Patient is a 39-year-old male with history of drug abuse, GERD, history of hernia repair presenting to the emergency department with complaints of lower abdominal pain. Pay states 4 days ago he was doing curls at the gym, he then felt a pain to his lower abdomen. Pay states it was not as bad have the last 24 hours the pain is getting increasingly worse. Patient states the pain is now making him nauseous, he is here for evaluation. [facility] Medical History (Updated 02/04/25 @ 23:[address] Renan Fuentes DO) Methamphetamine abuse Opioid abuse Anxiety Diarrhea Nausea vomiting Acid reflux disease Abdominal pain Home Medications ???Medication ???Instructions ???Recorded ???Last Taken ???Type pantoprazole 40 mg tablet,delayed 40 mg PO DAILY GERD 06/12/2102/07 History release doxycycline hyclate 100 mg capsule 100 mg PO BID #14 caps 02/04/25 Unknown Rx Allergy/AdvReac Type Severity Reaction Status Date / Time sulfamethoxazole (From Allergy Mild Unknown Verified 02/04/25 18:26 Bactrim) trimethoprim (From Bactrim) Allergy Mild Unknown Verified 02/04/25 18:26 Surgical History History of right inguinal hernia repair Status post right knee surgery Social History Smoking Status: Current every day smoker tobacco type: e-cigarettes alcohol intake: current alcohol intake frequency: a few times a week substance use type: does not use ROS ROS ED ROS Narrative Constitutional: Negative for fever, chills, weight loss, weakness Eyes: Negative for vision loss, vision change, double vision ENT: Negative for any sore throat, ear pain, congestion Cardiovascular: Negative for any chest pain, tightness, palpitations Respiratory: Negative for any cough, sputum production, hemoptysis, dyspnea, dyspnea on exertion, orthopnea Gastrointestinal: Negative for any nausea, vomiting, diarrhea, constipation, blood in stool, blood in vomit. Positive for lower abdominal pain : Negative for any urinary frequency, dysuria, retention, blood in urine Muscle skeletal: Negative for any neck pain, back pain Neurological: Negative for any headache, syncope, dizziness Skin: Negative for any rashes, itching, abrasions, lacerations Psychiatric: Negative for any depression, anxiety, stress, suicidal ideation, homicidal ideation Hematologic: Negative for any excessive bruising, easy bleeding EXAM Physical Exam Narrative Exam Narrative: Vital signs reviewed. HEET: Head normocephalic atraumatic, TMs clear bilaterally. Posterior pharynx is clear, moist mucous membranes. Nares clear bilaterally. Neck: Supple with no lymphadenopathy or tenderness. No signs of meningismus. Cardiac: Regular rate and rhythm no murmurs gallops or rubs, equal peripheral pulses bilaterally. Respiratory: Lungs clear to auscultation bilaterally. No chest tenderness. Abdomen: Soft, patient does have pain to the lower abdomen more to the suprapubic area worse on the right side.. No abdominal bruit or pulsatile masses. No hepatosplenomegaly. I did have the patient stand up, patient does have slight more puffiness to the right suprapubic area no significant change when coughing. Patient's testicles are unremarkable, there is no significant testicle swelling, there is no signs of erythema, no peritoneal signs. Extremities: No peripheral edema, no signs of gross trauma or deformity. Active full range of motion of all extremities. Neuro: Cranial nerves II through XII intact, no focal neurological deficits. Skin: Clean dry and intact with no rash, purpura, petechiae, vesicles or pustules. Backs/flank: No CVA tenderness, no midline spinal tenderness, no deformity. Psych: Normal mood and affect. No SI, HI or acute psychosis. Const Vital Signs: 02/04/25 18:25 02/04/25 18:30 02/04/25 20:10 Temperature 98 F Temperature Source Oral Pulse Rate 82 78 Respiratory Rate 16 16 Blood Pressure 111/71 110/70 Blood Pressure Mean 84 83 Pulse Ox 100 98 Oxygen Delivery Method Room Air Room Air 02/04/25 20:51 Temperature 98.1 F Temperature Source Pulse Rate 56 L Respiratory Rate 18 Blood Pressure 107/60 Blood Pressure Mean 75 Pulse Ox 100 Oxygen Delivery Method Physical Exam Const Vital Signs: 02/04/25 18:25 02/04/25 18:30 02/04/25 20:10 Temperature 98 F Mcdermitt (more content not included)... Normal [facility] Eosinophil percentageOrdered By: Keenan Angel on 02-04-2025 Eosinophils/100 WBC (Bld) 0.4 % 0-5 [facility] Epithelial cells.squamous LM Ql (Urine sed)Ordered By: Keenan Angel on 02-04-2025 Epithelial cells.squamous LM.HPF (Urine sed) [#/Area] 0 /[HPF] 0-5 [facility] Erythrocyte distribution wid th ratioOrdered By: Keenan Angel on 02-04-2025 Erythrocyte distribution width (RBC) [Ratio] 13.5 % 11.6-14.6 [facility] Erythrocyte distribution wid th standard deviationOrdered By: Keenan Angel on 02-04-2025 Erythrocyte distribution width (RBC) [Entitic vol] 42.4 fL 35.1-43.9 [facility] Estimation of creatinine richar aranceOrdered By: Keenan Angel on 02-04-2025 Estimated Creatinine Clearance Calc 108.78 ml/min 50-250 [facility] GFR/1.73 sq M.predicted oksana g non-blacks MDRD (S/P/Bld) [Vol rate/Area]Ordered By: Keenan Angel on 02-04-2025 Estimated GFR (MDRD) Non-Af Amer 105 >60 [facility] Comment on above: mL/min/1.73m2 CKD-EP I Creatinine Equation (2020) Glucose Ql (U)Ordered By: Julito Angel on 02-04-2025 Urine Glucose (UA) Normal mg/dl Normal [facility] Hematocrit Auto (Bld) [Volum e fraction]Ordered By: Keenan Angel on 02-04-2025 Hematocrit (Bld) [Volume fraction] 44.2 % 40-54 [facility] Hemoglobin measurementOrdere d By: Keenan Angel on 02-04-2025 Hemoglobin (Bld) [Mass/Vol] 15.0 g/dL 13.0-16.5 [facility] Immature granulocytes/100 WB C Auto (Bld)Ordered By: Keenan Angel on 02-04-2025 Immature granulocytes/100 WBC (Bld) 0.300 % 0.0-0.9 [facility] Comment on above: IG% - Immature Granu locytes (promyelocytes, myelocytes and metamyelocytes) > 1% indicates that a LEFT SHIFT is Present. Ketones Test strip Ql (U)Ord ered By: Keenan Angel on 02-04-2025 Ketones Ql (U) Negative Negative [facility] Laboratory - Chemistry and C hemistry - challengeOrdered By: Keenan Angel on 02-04-2025 AST [Catalytic activity/Vol] 21 U/L <38 [facility] Lymphocytes Auto (Unsp spec) [#/Vol]Ordered By: Keenan Angel on 02-04-2025 Lymphocytes (Bld) [#/Vol] 3.79 10*3/uL 0.83-4.51 [facility] Lymphocytes/100 WBC Auto (Un sp spec)Ordered By: Keenan Angel on 02-04-2025 Lymphocytes/100 WBC (Bld) 33.1 % 19-41 [facility] M8200.2203on 02-04-2025 M8200.2203 Pending Chlamydia Trachomatis PCR NEGATIVE for Chlamydia trachomatis N. gonorrhoeae PCR Negative for N. gonorrhoeae Normal [facility] Comment on above: Performed By: #### M 8200.2203 #### [facility] [address] [place], [address] MCV (mean corpuscular volume ) determinationOrdered By: Keenan Angel on 02-04-2025 MCV (RBC) [Entitic vol] 85.2 fL 80-94 [facility] Mean corpuscular hemoglobin (MCH) determinationOrdered By: Keenan Angel on 02-04-2025 MCH (RBC) [Entitic mass] 28.9 pg 27.0-32.0 [facility] Mean corpuscular hemoglobin concentration (MCHC) determinationOrdered By: Keenan Angel on 02-04-2025 MCHC (RBC) [Mass/Vol] 33.9 g/dL 32-36 [facility] Mean platelet volume determi nationOrdered By: Keenan Angel on 02-04-2025 Platelet mean volume (Bld) [Entitic vol] 9.4 fL 6.2-12.0 [facility] Microscopic analysis of urin e for red blood cells (RBC)Ordered By: Keenan Angel on 02-04-2025 Urine RBC 0-5 SEEN /hpf 0-5 [facility] Monocyte percentageOrdered B y: Keenan Angel on 02-04-2025 Monocytes/100 WBC (Bld) 6.9 % 0-10 [facility] Mucus LM Ql (Urine sed)Order ed By: Keenan Angel on 02-04-2025 Mucus Ql (Urine sed) 0 SEEN /hpf [facility] Neutrophil percentageOrdered By: Keenan Angel on 02-04-2025 Neutrophils/100 WBC (Bld) 58.9 % 47-70 [facility] Nitrite Test strip Ql (U)Ord ered By: Keenan Angel on 02-04-2025 Nitrite Ql (U) Negative Negative [facility] Nucleated red blood cell per centageOrdered By: Keenan Angel on 02-04-2025 Nucleated RBC/100 WBC (Bld) [Ratio] 0 % 0-5 [facility] Platelet countOrdered By: Julito Angel on 02-04-2025 Platelets (Bld) [#/Vol] 377 10*3/uL 150-450 [facility] Potassium (Unsp spec) [Mass/ Vol]Ordered By: Keenan Angel on 02-04-2025 Potassium [Moles/Vol] 4.0 mmol/L 3.3-5.1 [facility] Protein Test strip Ql (U)Ord ered By: Keenan Angel on 02-04-2025 Protein Ql (U) 30 mg/dl High Negative [facility] RBC Auto (Bld) [#/Vol]Ordere d By: Keenan Angel on 02-04-2025 RBC (Bld) [#/Vol] 5.19 10*6/uL 4.6-6.2 [facility] Serum creatinine measurement (mass/volume)Ordered By: Keenan Angel on 02-04-2025 Creatinine [Mass/Vol] 0.96 mg/dL 0.70-1.20 [facility] Serum globulin measurementOr dered By: Keenan Angel on 02-04-2025 Globulin (S) [Mass/Vol] 2.5 g/dL 2.2-4.2 [facility] Serum glucose measurement (m ass/volume)Ordered By: Keenan Angel on 02-04-2025 Glucose [Mass/Vol] 90 mg/dL 70-99 [facility] Serum or plasma alanine monroe otransferase (ALT) measurementOrdered By: Keenan Angel on 02-04-2025 ALT [Catalytic activity/Vol] 15 U/L <47 [facility] Serum or plasma albumin joey urement (mass/volume)Ordered By: Keenan Angel on 02-04-2025 Albumin [Mass/Vol] 4.4 g/dL 3.5-5.0 [facility] Serum or plasma albumin/glob ulin mass ratioOrdered By: Keenan Angel on 02-04-2025 Albumin/Globulin [Mass ratio] 1.7 {ratio} 0.9-2.4 [facility] Serum or plasma alkaline christie sphatase measurementOrdered By: Keenan nAgel on 02-04-2025 ALP [Catalytic activity/Vol] 62 U/L 40-129 [facility] Serum or plasma calcium joey urement (mass/volume)Ordered By: Keenan Angel on 02-04-2025 Calcium [Mass/Vol] 9.6 mg/dL 7.6-11.0 [facility] Serum or plasma urea nitroge n measurement (mass/volume)Ordered By: Keenan Angel on 02-04-2025 Urea nitrogen [Mass/Vol] 18 mg/dL 4-19 [facility] Sodium levelOrdered By: Keenan Angel on 02-04-2025 Sodium [Moles/Vol] 141 mmol/L 133-145 [facility] Testicular with Arterial Dylan won 02-04-2025 Testicular with Arterial Flow [facility] Imaging Services [address] [place], [place] [address] Testicular with Arterial Flow MR#: [id number] Acct: [id number] Name: EULALIO JAMES Rep #: [id number] : 1985 M 39 From: Edyta Gagnon MD PCP: JULITO Hannah Status: REG ER Study: Testicular with Arterial Flow Date of Exam: Exam# [id number] Ordering Dr: Renan Fuentes DO PROCEDURE: TESTICULAR WITH ARTERIAL FLOW 02/04/2025 REASON FOR EXAM: RIGHT SCROTAL PAIN TECHNIQUE: Ash scale imaging of the scrotum with color and spectral Doppler analysis. COMPARISON: 09/26/2019 FINDINGS: RIGHT testicle: 4.7 x 3.6 x 2.1 cm Normal echotexture and vascularity. Normal arterial/venous spectral Doppler waveforms. Right epididymis: 0.9 x 1.0 x 0.8 cm Normal echotexture and vascularity. LEFT testicle: 4.3 x 2.3 x 2.1 cm Normal echotexture and vascularity. Normal arterial/venous spectral Doppler waveforms. Left epididymis: 0.6 x 1.0 x 0.9 cm. Normal echotexture and vascularity. Other findings: No hydrocele or large varicocele. US/Testicular with Arterial Flow IMPRESSION: NORMAL SCROTAL ULTRASOUND. [facility] CC: Dr. Renan Fuentes DO; JULITO Hannah [employer] Attendant: Signed Normal [facility] Total proteinOrdered By: Radha Angel on 02-04-2025 Protein [Mass/Vol] 6.9 g/dL 5.9-8.4 [facility] Urinalysis, Completeon 02-04 BACTERIA RARE Normal None Seen [facility] Comment on above: Order Comment: CLEAN CATCH Performed By: #### L 400.0001 #### [facility] Laboratory [address] [place], [address] RBC 0-5 SEEN Normal 0-5 [facility] Comment on above: Order Comment: CLEAN CATCH Performed By: #### L 400.0001 #### [facility] [address] [place], [address] WBC 10-25 SEEN Normal 0-5 [facility] Comment on above: Order Comment: CLEAN CATCH Performed By: #### L 400.0001 #### [facility] [address] [place], [address] EPI,SQUAMOUS 0 SEEN Normal 0-5 [facility] Comment on above: Order Comment: CLEAN CATCH Performed By: #### L 400.0001 #### [facility] [address] [place], [address] Mucus Ql (Urine sed) 0 SEEN Normal [facility] Comment on above: Order Comment: CLEAN CATCH Performed By: #### L 400.0001 #### [facility] [address] [place], [address] Urine blood detectionOrdered By: Keenan Angel on 02-04-2025 Urine Occult Blood Negative Negative [facility] Urine clarityOrdered By: Radha Angel on 02-04-2025 Clarity (U) Clear Clear [facility] Urine color determinationOrd ered By: Keenan Angel on 02-04-2025 Color (U) Yellow Yellow [facility] Urine leukocyte esterase det ection by dipstickOrdered By: Keenan Angel on 02-04-2025 Leukocyte esterase Test strip Ql (U) 100 /ul High Negative [facility] Urine pHOrdered By: Keenan clemons on 02-04-2025 pH (U) 6.0 [pH] 5.0 - 8.0 [facility] Urine specific gravity measu rementOrdered By: Keenan Angel on 02-04-2025 Specific gravity (U) [Rel density] 1.020 1.002-1.030 [facility] Urobilinogen Ql (U)Ordered B y: Keenan Angel on 02-04-2025 Urine Urobilinogen Normal mg/dl Normal [facility] White blood cell (WBC) count Ordered By: Keenan Angel on 02-04-2025 WBC (Bld) [#/Vol] 11.5 10*3/uL High 4.4-11.0 [facility] White blood cell countOrdere d By: Keenan Angel on 02-04-2025 Urine WBC 10-25 SEEN /hpf 0-5 [facility] CNOVon 10-21-2023 CNOV Office Visit (UCWSTR ) -------- EULALIO JAMES ([id number]) 1985 M Date Time Provider Department 10/21/23 1:[address] [facility] During your visit today, we recorded the following information about you: Temperature Pulse Respiration Blood pressure 98.9 degrees 88/minute 16/minute 122/80 Weight 98 kg Renetta Gonzalez APRN.FINANCIAL ASSISTANT 10/21/2023 2:06 PM Signed Subjective HPI HPI Eulalio James is a 38 year old male who presents today for CC of sinus pressure, cough, left ear popping. This started 3 weeks ago. Has tried otc medication for relief. Symptoms are worsened by nothing. Risk factors smoker. .Patient presents with: Sinus Problem: sinus pressure, drainage, ear pressure and cough x 3 weeks No past medical history on file. No past surgical history on file. ALLERGIES Sulfamethoxazole-Trimeth oprim, Sulfamethoxazole, and Trimethoprim MEDICATIONS FLUoxetine (PROZAC) 10 mg capsule (Patient not taking: Reported on 10/21/2023) QUEtiapine (SEROQUEL) 200 mg tablet (Patient not taking: Reported on 10/21/2023) propranolol (INDERAL) 10 mg tablet No family history on file. Social History Tobacco Use Smoking status: Every Day Types: Pipe Passive exposure: Current Smokeless tobacco: Never Review of Systems Constitutional: Negative for fever. HENT: Positive for congestion, ear pain and sinus pain. Negative for ear discharge, nosebleeds and sore throat. Respiratory: Positive for cough and sputum production. Negative for shortness of breath and wheezing. Musculoskeletal: Negative for neck pain. Neurological: Positive for headaches. Objective Blood pressure 122/80, pulse 88, temperature 37.2 ?C (98.9 ?F), resp. rate 16, weight 98 kg (216 lb), SpO2 97%. Physical Exam Constitutional: General: He is not in acute distress. Appearance: He is not toxic-appearing or diaphoretic. HENT: Head: Normocephalic and atraumatic. Right Ear: Hearing, tympanic membrane, ear canal and external ear normal. Left Ear: Hearing, tympanic membrane, ear canal and external ear normal. Nose: Right Sinus: Frontal sinus tenderness present. Mouth/Throat: Pharynx: Uvula midline. No pharyngeal swelling, oropharyngeal exudate, posterior oropharyngeal erythema or uvula swelling. Eyes: General: Lids are normal. No scleral icterus. Right eye: No discharge. Left eye: No discharge. Conjunctiva/sclera: Conjunctivae normal. Pupils: Pupils are equal, round, and reactive to light. Neck: Trachea: Trachea normal. Cardiovascular: Rate and Rhythm: Normal rate and regular rhythm. Heart sounds: Normal heart sounds. Pulmonary: Effort: Pulmonary effort is normal. Breath sounds: Wheezing (scattered bilat) present. No decreased breath sounds, rhonchi or rales. Musculoskeletal: Cervical back: Normal range of motion and neck supple. Lymphadenopathy: Cervical: No cervical adenopathy. Right cervical: No superficial cervical adenopathy. Left cervical: No superficial cervical adenopathy. Skin: Findings: No rash. Neurological: Mental Status: He is alert and oriented to person, place, and time. ASSESSMENT/PLAN: 1. Sinobronchitis - ICD9: 473.9, 490, ICD10: J32.9, J40 (primary diagnosis) - Will begin treatment with as per antibiotic as written, see orders - Supportive care with plenty of fluids, rest, and analgesia prn. - Follow up in 3-5 days if symptoms persist or worsen. - DOXYCYCLINE HYCLATE 100 MG TABLET - PREDNISONE 10 MG TABLET - FLUTICASONE PROPIONATE 50 MCG/ACTUATION NASAL SPRAY,SUSPENSION 2. Dysfunction of left eustachian tube - ICD9: 381.81, ICD10: H69.92 -use medication as prescribed -follow up if symptoms persist, worsen, change Smoking cessation discussed Renetta Gonzalez APRN.CNP Allergies As of Date: 10/21/2023 Noted Allergy Reaction SULFAMETHOXAZOLE-TRIMETH OPRIM 04/15/2019 8 - GI Upset SULFAMETHOXAZOLE 04/06/2019 16 - Unknown TRIMETHOPRIM 04/06/2019 16 - Unknown Date Reviewed: 10/21/2023 Reviewed by: Renetta Gonzalez APRN.CNP - Fully Assessed Reason for Visit: Sinus Problem [99] Cmt: sinus pressure, drainage, ear pressure and cough x 3 weeks Primary Visit Diagnosis:Sinobronchitis [J32.9, J40] Other Visit Diagnosis:Dysfunction of left eustachian tube [H69.92] Order(s):doxycycline (VIBRA-TABS) 100 mg tabletTake 1 tablet by mouth two times a day for 7 days.Disp: 14 tabletRfl: 0 predniSONE (DELTASONE) 10 mg tabletTake 4 tabs daily for 3 days, then 2 tabs daily for 3 days, then 1 tab daily for 3 days with food.Disp: 21 tabletRfl: 0 fluticasone (FLONASE) 50 mcg/actuation nasal sprayUse 2 Sprays in each nostril once daily. Rinse mouth after use.Disp: 1 EachRfl: 0 Prescriptions as of 10/21/2023 - doxycycline (VIBRA-TABS) 100 mg tablet Take 1 tablet by mouth two times a day for 7 days. - predniSONE (DELTASONE) 10 mg tablet Take 4 tabs daily for 3 days, then 2 tabs daily for 3 (more content not included)... Normal [facility] CNOVon 07-20-2023 CNOV Office Visit (UCWSTR ) -------- EULALIO JAMES ([id number]) 1985 M Date Time Provider Department 07/20/23 12:45 PM RENETTA GONZALEZ During your visit today, we recorded the following information about you: Temperature Pulse Respiration Blood pressure 97.9 degrees 67/minute 21/minute 120/78 Weight 99.4 kg Kelley Calix MA 07/20/2023 1:06 PM Signed Ambulatory Ear Lavage Pre-treatment: Warm water Treatment: Left ear Equipment and Irrigation solution and Volume used: Single use syringe with single use irrigation tip Water Return flow appearance: Brown Patient tolerated procedure: yes Tympanic membrane assessment: Tympanic membrane assessed by LIP pre and post procedure Renetta Gonzalez APRN.Renetta Vasques APRN.CNP 07/20/2023 1:39 PM Signed Subjective HPI HPI Eulalio James is a 38 year old male who presents today for CC of left hear wax buildup, sounds crackly. This started few days ago after using qtips. Has tried otc medications for relief. Symptoms are worsened by nothing. Risk factors uses qtips in ears. Denies recent uri. .Patient presents with: Earwax: Left ear build up No past medical history on file. No past surgical history on file. ALLERGIES Sulfamethoxazole-Trimeth oprim, Sulfamethoxazole, and Trimethoprim MEDICATIONS FLUoxetine (PROZAC) 10 mg capsule QUEtiapine (SEROQUEL) 200 mg tablet propranolol (INDERAL) 10 mg tablet No family history on file. Social History Tobacco Use Smoking status: Every Day Types: Pipe Passive exposure: Current Smokeless tobacco: Never Review of Systems Constitutional: Negative for fever. HENT: Negative for congestion, ear discharge and ear pain. Respiratory: Negative for cough, shortness of breath and wheezing. Musculoskeletal: Negative for neck pain. Skin: Negative for itching and rash. Objective Blood pressure 120/78, pulse 67, temperature 36.6 ?C (97.9 ?F), resp. rate 21, weight 99.4 kg (219 lb 3.2 oz), SpO2 98 %. Physical Exam Constitutional: General: He is not in acute distress. Appearance: He is not toxic-appearing or diaphoretic. HENT: Head: Normocephalic and atraumatic. Right Ear: Hearing, tympanic membrane, ear canal and external ear normal. Left Ear: Hearing and external ear normal. Ears: Comments: Initially unable to see left tm d/t cerumen impaction. Procedure: Nurse/lavage After procedure left canal clear and left tm normal Nose: Nose normal. Pulmonary: Effort: Pulmonary effort is normal. No accessory muscle usage or respiratory distress. Lymphadenopathy: Cervical: No cervical adenopathy. Right cervical: No superficial cervical adenopathy. Left cervical: No superficial cervical adenopathy. Neurological: Mental Status: He is alert and oriented to person, place, and time. ASSESSMENT/PLAN: 1. Impacted cerumen of left ear - ICD9: 380.4, ICD10: H61.22 Successful lavage of left canal Discussed proper ear hygiene F/u for continued s/s. - AMBULATORY EAR LAVAGE/IRRIGATION Renetta Gonzalez APRN.FINANCIAL ASSISTANT Allergies As of Date: 07/20/2023 Noted Allergy Reaction SULFAMETHOXAZOLE-TRIMETH OPRIM 04/15/2019 8 - GI Upset SULFAMETHOXAZOLE 04/06/2019 16 - Unknown TRIMETHOPRIM 04/06/2019 16 - Unknown Date Reviewed: 07/20/2023 Reviewed by: Kelley Calix MA - Fully Assessed Reason for Visit: Earwax [1178] Cmt: Left ear build up Primary Visit Diagnosis:Impacted cerumen of left ear [H61.22] Order(s):AMBULATORY EAR LAVAGE/IRRIGATION [22060ZTA] Order #: [id number] Prescriptions as of 07/20/2023 - FLUoxetine (PROZAC) 10 mg capsule - QUEtiapine (SEROQUEL) 200 mg tablet - propranolol (INDERAL) 10 mg tablet Problem List As Of Date: 07/20/2023 (None) Visit Notes: >> Kelley Calix MA [facility] Jul 20, 2023 1:04 PM Status: Signed Ambulatory Ear Lavage Pre-treatment: Warm water Treatment: Left ear Equipment and Irrigation solution and Volume used: Single use syringe with single use irrigation tip Water Return flow appearance: Brown Patient tolerated procedure: yes Tympanic membrane assessment: Tympanic membrane assessed by LIP pre and post procedure Renetta Gonzalez APRN.FINANCIAL ASSISTANT Encounter Status:Closed by RENETTA GONZALEZ on 07/20/23 Normal [facility] XR FOREARM LEFT 2 VIEWSon XR FOREARM LEFT 2 VIEWS EXAMINATION: XR FOREARM LEFT 2 VIEWS 06/14/2020 3:39 pm HISTORY: Trauma. COMPARISON: None. FINDINGS: No acute fracture or dislocation. The visualized alignment appears grossly unremarkable. No large elbow joint effusion. IMPRESSION: No acute osseous injury noted at the left forearm. If there is persistent clinical concern for underlying acute osseous abnormality, recommend repeat exam in 7-10 days. /ajay Workstation ID: [id number] Dictated by: YAEL HAWKINS on ThuJun 14, 2020 6:52:45 PM EDT Transcribed by: LEANDRO COMBS on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 THE NATIONAL KIDNEY DISEASE EDUCATION PROGRAM(NKDE), A NORMAL eGFRIS A VALUE GREATER THAN OR EQUAL TO 60 ML/MIN/1.73 SQ METERS.CHRONIC KIDNEY DISEASE: <60mL/MIN/1.73 SQ METERSKIDNEY FAILURE: <15mL/MIN/1.73 SQ METERSTHIS TEST SHOULD ONLY BE USED FOR PATIENTS 18 YEARS OF AGE AND OLDER. eGFR (non-black) Normal [facility] Comment on above: Result Comment: COMP REHENSIVE METABOLIC PANEL Performed By: #### 2 65744 ####[facility],[address] [place], [place] [phone] Globulin 2.3 g/dL Normal 1.5 - 3.8 [facility] Comment on above: Performed By: #### 2 94276 ####[facility],[address] [place], [place] [phone] Glucose mass conc 98 mg/dL Normal 74 - 106 [facility] Comment on above: Performed By: #### 2 35784 ####[facility],[address] [place] [address] 00092 Potassium molar conc 4.1 mmol/L Normal 3.5 - 5.1 [facility] Comment on above: Performed By: #### 2 39277 ####[facility],[address] [place] [address] 96701 Protein 6.6 g/dL Normal 6.4 - 8.3 [facility] Comment on above: Performed By: #### 2 87081 ####[facility],[address] [place] [address] 02883 Sodium 134 mmol/L Low 136 - 145 [facility] Comment on above: Performed By: #### 2 17151 ####[facility],[address] [place] [address] 40399 Urea nitrogen 12 mg/dL Normal 6 - 20 [facility] Comment on above: Performed By: #### 2 21911 ####[facility],[address] [place] [address] ABDOMEN/PELVIS Won 2017 CT ABDOMEN/PELVIS [place] [address] Patient: EULALIO JAMES Phone#: : 1985 Age: 32 Gender: M Pt. Type: ER Account: [id number] Location: [facility] Ordering: ROGER ESCOTO Exam Date: 02/28/2018/8:07 Family Phys: NATTY ISAAC Charge Code: 361911 Physician: [place] Order #: [id number] DLP Dose#: PROCEDURE: CT ABDOMEN/PELVIS WITH CONTRAST COMPARISON: None. INDICATIONS: Abdominal pain TECHNIQUE: After obtaining the patient's consent, CT images were created with non-ionic intravenous contrast material. All CT scans at this facility use dose modulation, iterative reconstruction, and/or weight based dosing when appropriate to reduce radiation dose to as low as reasonably achievable. IV CONTRAST: Omnipaque 350,80ml TOTAL DOSE: 13.00 CTDIvol(mGy) FINDINGS: LIVER: No enlargement, atrophy, or significant focal lesion. Focal fatty infiltration adjacent to falciform ligament. BILIARY: The gallbladder is present. PANCREAS: Normal. No lesion, fluid collection, ductal dilatation, or atrophy. SPLEEN: Normal. No enlargement or focal lesion. KIDNEYS: Kidneys enhance and excrete contrast symmetrically. No hydronephrosis. ADRENALS: Normal. No mass or enlargement. AORTA/VASCULAR: No aortic aneurysm. RETROPERITONEUM: Normal. No mass or adenopathy. BOWEL/MESENTERY: No bowel obstruction or dilatation. Fluid is seen within loops of small bowel and throughout the colon. The appendix is unremarkable containing air. There are scattered reactive mesenteric lymph nodes. ABDOMINAL WALL: Normal. No mass or hernia. URINARY BLADDER: Urinary bladder is partially distended Continued Report - Page 2 of 2 Patient: EULALIO JAMES Phone#: : 1985 Age: 32 Gender: M Pt. Type: ER Account: [id number] Location: [facility] Ordering: ROGER ESCOTO Exam Date: 02/28/2018/8:07 Family Phys: NATTY ISAAC Charge Code: [id number] Physician: [place] Order #: [id number] DLP Dose#: PELVIC NODES: Normal. No adenopathy. PELVIC ORGANS: Unremarkable BONES: Normal. No bony lesion or fracture. LUNG BASES: Normal. No visible pulmonary or pleural disease. OTHER: Negative. CONCLUSION: 1. Diffusely fluid filled colon without distention. There are multiple loops of fluid-filled small bowel. Correlate for symptoms of enterocolitis. Dictated by: Montse Jacques MD on 03/01/2018 at 15:46 Approved by: Montse Jacques MD on 03/01/2018 at 15:46 Normal [facility] LIPASEon 02-28-2018 Lipase 21.0 U/L Normal 18.0 - 51.0 [facility] Comment on above: Performed By: #### 2 74955 ####[facility],[address] [place] [address] URINALYSISon 02-28-2018 Bilirubin (total) Negative Normal NORMAL: NEGATIVE [facility] Comment on above: Performed By: #### 2 51301 ####[facility],[address] [place] [address],[facility] [address] Blood Negative Normal NORMAL: NEGATIVE [facility] Comment on above: Performed By: #### 2 41046 ####[facility],[address] [place] [address] 25070 Glucose mass conc NORM Normal NORMAL: NORMAL [facility] Comment on above: Performed By: #### 2 75513 ####[facility],[address] [place] [address] 65057 Ketone 5 Abnormal NORMAL: NEGATIVE [facility] Comment on above: Performed By: #### 2 39054 ####[facility],[address] [place] [address] 74677 Microscopic NOT INDICATED Normal [facility] Comment on above: Performed By: #### 2 23951 ####[facility],[address] [place], [place] [address] pH of blood 6.5 [pH] Normal NORMAL: 5.0-8.0 [facility] Comment on above: Performed By: #### 2 18214 ####[facility],[address] [place] [address] 25929 Protein 30 g/dL Abnormal NORMAL: NEGATIVE [facility] Comment on above: Performed By: #### 2 24675 ####[facility],[address] [place] [address] 25331 Sp Kelley 1.010 Normal NORMAL: 1.010-1.030 [facility] Comment on above: Performed By: #### 2 87155 ####[facility],[address] [place] [address] 11705 Specimen Type Void Normal [facility] Comment on above: Performed By: #### 2 71648 ####[facility],[address] [place] [address] 09684 URINALYSIS Normal [facility] Comment on above: Result Comment: URIN ALYSIS Performed By: #### 2 13117 ####[facility],[address] [place], [place] [id number] Urine, clarity clear Normal NORMAL: CLEAR [facility] Comment on above: Performed By: #### 2 89065 ####[facility],[address] [place] [address] 46159 Urine, color yellow Normal NORMAL: YELLOW [facility] Comment on above: Performed By: #### 2 93594 ####[facility],[address] [place] [address] Urine, nitrite presence Negative Normal NORM AL: NEGATIVE [facility] Comment on above: Performed By: #### 2 22872 ####[facility],[address] [place], [place] [address] Urobilinog NORM Normal NORMAL: NORMAL [facility] Comment on above: Performed By: #### 2 05550 ####[facility],[address] [place] [address] WBC (Leukocytes) Negative Normal NORMAL: NEGATIVE [facility] Comment on above: Performed By: #### 2 73751 ####[facility],[address] [place] [address] CHEST PA/LATon 09-23-2017 [place] [address] Patient: EULALIO JAMES Phone#: : 1985 Age: 32 Gender: M Pt. Type: Out Account: [id number] Location: Ordering: [facility] Exam Date: 09/23/2017/11:18 Family Phys: Charge Code: [id number] Physician: [place] Order #: [id number] DLP Dose#: PROCEDURE: X-RAY CHEST PA/LAT 2 VIEWS COMPARISON: None. INDICATIONS: Cough FINDINGS: LUNGS: Normal. No significant pulmonary parenchymal abnormalities. VASCULATURE: Normal. Unremarkable pulmonary vasculature. CARDIAC: Normal. No cardiac silhouette abnormality or cardiomegaly. MEDIASTINUM: Normal. No visible mass or adenopathy. PLEURA: Normal. No effusion or pleural thickening. BONES: Normal. No fracture or visible bony lesion. OTHER: Negative. CONCLUSION: No acute disease. Dictated by: Montse Jacques MD on 09/23/2017 at 12:39 Approved by: Montse Jacques MD on 09/23/2017 at 12:39 Normal [facility] Vital Signs Date Time Vital Sign Value Performing Clinician Facility 02-04-2025 20:51-0400 Body temperature 98.1 [degF] Natty Isaac PA Work Phone: [phone] [place] [address] 02-04-2025 20:51-0400 Diastolic blood pressure 60 mm[Hg] Natty Isaac PA Work Phone: 5(209)[phone] [place] [address] 02-04-2025 20:51-0400 Heart rate 56 /min Natty Isaac PA Work Phone: 7(959)144-044190 [place] [address] 02-04-2025 20:51-0400 Respiratory rate 18 /min Natty Isaac PA Work Phone: 2(459)994-524290 [place] [address] 02-04-2025 20:51-0400 SaO2% (BldA) [Mass fraction] 100 % Natty Isaac PA Work Phone: 7(440)344-585190 [place] [address] 02-04-2025 20:51-0400 Systolic blood pressure 107 mm[Hg] Natty Isaac PA Work Phone: 9(680)587-355610 [place] [address] 02-04-2025 18:25-0400 Body height 177.8 cm Natty Isaac PA Work Phone: 7(072)678-274090 [place] [address] 02-04-2025 18:25-0400 Body mass index (BMI) [Ratio] 26.4 kg/m2 Natty Isaac PA Work Phone: 5(212)339-424910 [place] [address] 02-04-2025 18:25-0400 Body weight 83.41 kg Natty Isaac PA Work Phone: 7(339)[phone] [place] [address] 10-21-2023 13:42-0500 Body temperature 98.91 [degF] Renetta Gonzalez APRN.CNP Work Phone: [facility] 10-21-2023 13:42-0500 Body weight 97.98 kg Renetta Carlos [employer] FIELD AGENT.FINANCIAL ASSISTANT Work Phone: [facility] 10-21-2023 13:42-0500 Diastolic blood pressure 80 mm[Hg] Renetta Carlos FBI FIELD AGENT.FINANCIAL ASSISTANT Work Phone: [facility] 10-21-2023 13:42-0500 Heart rate 88 /min Renetta Carlos [employer] FIELD AGENT.FINANCIAL ASSISTANT Work Phone: [facility] 10-21-2023 13:42-0500 Respiratory rate 16 /min Renetta Carlos FBI FIELD AGENT.FINANCIAL ASSISTANT Work Phone: [facility] 10-21-2023 13:42-0500 SaO2% (BldA) [Mass fraction] 97 % Renetta Carlos FBI FIELD AGENT.FINANCIAL ASSISTANT Work Phone: [facility] 10-21-2023 13:42-0500 Systolic blood pressure 122 mm[Hg] Renetta Carlos FBI FIELD AGENT.FINANCIAL ASSISTANT Work Phone: [facility] 07-20-2023 12:53-0400 Body temperature 97.9 [degF] Renetta Carlos FBI FIELD AGENT.FINANCIAL ASSISTANT Work Phone: [facility] 07-20-2023 12:53-0400 Body weight 99.43 kg Renetta Carlos FBI FIELD AGENT.FINANCIAL ASSISTANT Work Phone: [facility] 07-20-2023 12:53-0400 Diastolic blood pressure 78 mm[Hg] Renetta Carlos FBI FIELD AGENT.FINANCIAL ASSISTANT Work Phone: [facility] 07-20-2023 12:53-0400 Heart rate 67 /min Renetta Carlos FBI FIELD AGENT.FINANCIAL ASSISTANT Work Phone: [facility] 07-20-2023 12:53-0400 Respiratory rate 21 /min Renetta Carlos FBI FIELD AGENT.FINANCIAL ASSISTANT Work Phone: [facility] 07-20-2023 12:53-0400 SaO2% (BldA) [Mass fraction] 98 % Renetta Carlos FBI FIELD AGENT.FINANCIAL ASSISTANT Work Phone: [facility] 07-20-2023 12:53-0400 Systolic blood pressure 120 mm[Hg] Renetta Gonzalez APRCASEY Work Phone: [facility] 02-18-2023 23:32-0400 Body height 177.8 cm [facility] 02-18-2023 23:32-0400 Body mass index (BMI) [Ratio] 28.3 kg/m2 [facility] 02-18-2023 23:32-0400 Body temperature 97.6 [degF] [facility] 02-18-2023 23:32-0400 Body weight 89.7 kg [facility] 02-18-2023 23:32-0400 Diastolic blood pressure 95 mm[Hg] [facility] 02-18-2023 23:32-0400 Heart rate 80 /min [facility] 02-18-2023 23:32-0400 Respiratory rate 16 /min [facility] 02-18-2023 23:32-0400 SaO2% (BldA) [Mass fraction] 99 % [facility] 02-18-2023 23:32-0400 Systolic blood pressure 138 mm[Hg] [facility] 02-17-2023 13:36-0400 Body height 177.8 cm [facility] 02-17-2023 13:36-0400 Body mass index (BMI) [Ratio] 27.8 kg/m2 [facility] 02-17-2023 13:36-0400 Body temperature 98 [degF] [facility] 02-17-2023 13:36-0400 Body weight 87.99 kg [facility] 02-17-2023 13:36-0400 Diastolic blood pressure 76 mm[Hg] [facility] 02-17-2023 13:36-0400 Heart rate 86 /min [facility] 02-17-2023 13:36-0400 Respiratory rate 18 /min [facility] 02-17-2023 13:36-0400 SaO2% (BldA) [Mass fraction] 98 % [facility] 02-17-2023 13:36-0400 Systolic blood pressure 145 mm[Hg] [facility] 06-02-2022 19:59-0400 Body height 177.8 cm [facility] Work Phone: 06-02-2022 19:59-0400 Body mass index (BMI) [Ratio] 25.8 kg/m2 [facility] Work Phone: 06-02-2022 19:59-0400 Body temperature 96.8 [degF] [facility] Work Phone: 06-02-2022 19:59-0400 Body weight 81.64 kg [facility] Work Phone: 06-02-2022 19:59-0400 Diastolic blood pressure 62 mm[Hg] [facility] Work Phone: 06-02-2022 19:59-0400 Heart rate 100 /min [facility] Work Phone: 06-02-2022 19:59-0400 Respiratory rate 16 /min [facility] Work Phone: 06-02-2022 19:59-0400 SaO2% (BldA) [Mass fraction] 100 % [facility] Work Phone: 06-02-2022 19:59-0400 Systolic blood pressure 124 mm[Hg] [facility] Work Phone: Encounters Encounter Date Encounter Type Care Provider Facility Start: 02-04-2025 End: 02-04-2025 Emergency department patient visit Natty VILA Work Phone: -Emergency Department Work Phone: Start: 10-21-2023 End: 10-21-2023 ambulatory KENAN BAILEY Facility:[facility] Start: 10-21-2023 End: 10-21-2023 Patient encounter procedure Renetta Gonzalez APRN.CNP Work Phone: [facility] Comment on above: Sinobronchitis (Prim sly Dx); Dysfunction of left eustachian tube Start: 07-20-2023 End: 07-20-2023 ambulatory KENAN BAILEY Facility:[facility] Start: 07-20-2023 End: 07-20-2023 Patient encounter procedure Renetta Gonzalez FINANCIAL ASSISTANT Work Phone: [facility] Comment on above: Impacted cerumen of left ear (Primary Dx) Start: 02-18-2023 End: 02-19-2023 Emergency department patient visit [facility]-Emergency Department Start: 02-17-2023 End: 02-17-2023 Emergency department patient visit [facility]Emergency Department Start: 06-02-2022 End: 06-02-2022 Emergency department patient visit [facility]Emergency Department Start: 02-14-2021 End: 02-14-2021 Telephone encounter Natty (Fernie) Gloria Work Phone: [facility] Comment on above: [facility] Start: 06-14-2020 End: 06-14-2020 Emergency department patient visit [facility] Start: 03-01-2018 End: 03-01-2018 Ambulatory [facility] Start: 02-28-2018 End: 02-28-2018 Emergency department patient visit [facility] Start: 09-23-2017 End: 09-23-2017 Ambulatory NATTY Oviedo [facility] Procedures Date Procedure Procedure Detail Performing Clinician Start: 02-04-2025 Ultrasound of scrotu m with Doppler and color flow imaging Natty VILA Work Phone: Start: 02-04-2025 Computed tomography of abdomen and pelvis with intravenous contrast Natty VILA Work Phone: Start: 02-04-2025 Polymerase chain ileana ction analysis Natty VILA Work Phone: Start: 02-17-2023 Diagnostic radiograp hy of facial bones Start: 02-17-2023 Plain x-ray of hand Start: 06-02-2022 X-ray of both feet Plan of Treatment Date Care Activity Detail Author Start: 02-04-2025 [facility] Start: 02-04-2025 [facility] Start: 02-04-2025 Bacteria identified in Urine by Culture Urine Culture [facility] Start: 07-10-2023 Covid-19 Vaccine () Covid-19 Vaccine () [facility] Start: 07-10-2023 Influenza vaccination C [facility] Start: 11-09-2022 DEPRESSION ASSESSMENT DEPRESSION ASS ESSMENT [facility] Start: 2022 Lipid panel Lipid Screening [facility] Start: 2022 LIPID SCREEN LIPID SCREEN [facility] Start: 07-10-2021 Influenza vaccination INFLUENZ A (Season Ended) [facility] Start: 05-24-2021 COVID-19 VACCINE (3 - Pfizer series) COVID-19 VACCINE (3 - Pfizer series) [facility] Start: 02-14-2021 End: 02-28-2021 2019 CORONAVIRUS 2019 CORONAVIRUS Microbiology Routine Suspected COVID-19 virus infection Expected: 02/14/2021, Expires: 02/28/2021 [facility] Comment on above: Expected: 02/14/2021 , Expires: 02/28/2021 Start: 2006 Urine microalbumin profile [facility] Start: 2005 HEPATITIS C SCREENING HEPATITIS C [facility] Start: 2005 Hepatitis C screening Hepatitis C [facility] Start: 2005 HIV SCREENING HIV SCREENING [facility] Start: 2005 HIV screening HIV Screening [facility] Start: 1999 Adult depression screening assessment DEPRESSION SCREENING [facility] Start: 1993 PNEUMOCOCCAL (1 - PCV) PNEUMOCOCCAL (1 - PCV) [facility] Start: 1993 Pneumococcal vaccination Pneumococcal Vaccine (1 - PCV) [facility] Start: 1987 HEPATITIS B (1 of 3 - 3-dose series) HEPATITIS B (1 of 3 - 3-dose series) [facility] Patient Education [facility] Work Phone: Patient referral [facility] Work Phone: Removal impacted cerumen irrigation/lvg unilat AMBULATORY EAR LAVAGE/IRRIGATION Procedures Routine Impacted cerumen of left ear Ordered: 07/20/2023 [facility] Work Phone: Comment on above: Ordered: 07/20/2023 Urine culture [facility] Immunizations Immunization Date Immunization Notes Care Provider Pauline sahu 09-12-2021 influenza virus vacc ine, unspecified formulation Renetta Gonzalez APRN.CNP Work Phone: [facility] Payers Date Payer Category Payer Self-pay [id number] 2023 Medicaid [id number] 2023 Private Health Insurance HUMANA HUMANA MEDICAID [facility] [id number] 2023-Present [address] [address] [place] [address] Medicaid [id number] 2020 Unknown [id number] 1987 Unknown [id number] Private Health Insurance [facility] [id number] Unknown [id number] Unknown [id number] Unknown [id number] Unknown [id number] Social History Date Type Detail Facility Tobacco smoking stat NHIS Unknown if ever smoked [facility] Start: 1985 Sex Assigned At Not on file [facility] Start: 06-02-2022 End: 02-18-2023 Tobacco smoking status NHIS Unknown if ever smoked [facility] Start: 07-04-2019 None [facility] Start: 09-26-2019 With Family [facility] Start: 09-26-2019 Vapor [facility] Start: 1985 Sex Assigned At Male [facility] Start: 07-20-2023 End: 02-04-2025 Tobacco smoking status NHIS Smokes tobacco daily [facility] History of tobacco use Pipe Smoker [facility] History of tobacco use Passive smoker [facility] Start: 07-20-2023 Tobacco use and exposure Smokeless tobacco non-user [facility] Start: 02-15-2021 End: 07-20-2023 History of Social function [facility] Start: 02-15-2021 End: 07-20-2023 Tobacco use panel [facility] National Score (1-100), lower number is lower risk Not on file [facility] Start: 02-04-2025 Sex Male (finding) [facility] Medical Equipment Procedure Code Equipment Code Equipment Origin al Text Equipment Identifier Dates MESH,SELF FIX [id number] FDA Start: 06-02-2019 MESH,SELF FIX [id number] FDA Start: 06-02-2019 MESH,SELF FIX [id number] FDA Start: 06-02-2019 MESH,SELF FIX [id number] FDA Start: 06-02-2019 MESH,SELF FIX [id number] FDA Start: 06-02-2019 MESH,SELF FIX [id number] FDA Start: 06-02-2019 MESH,SELF FIX [id number] FDA Start: 06-02-2019 MESH,SELF FIX [id number] FDA Start: 06-02-2019 Clinical Notes 02-17-2023 to 02-04-2025 Renetta Gonzalez APRN.FINANCIAL ASSISTANT - 10/21/2023 1:46 PM Renetta Moore APRN.CNP - 07/20/2023 1:31 PM Kelley De Leon MA - 07/20/2023 1:04 PM EDT Note Date & Type Note Facility 02-04-2025 Radiology Diagnostic study note [facility] Imaging Services [address] [place], [place] [address] Testicular with Arterial Flow MR#: [id number] Acct: [id number] Name: EULALIO JAMES Rep #: [id number] : 1985 M 39 From: Monica Gagnon MD PCP: JULITO Hannah Status: REG ER Study:Testicular with Arterial Flow Date of E xam: 02/04/25 Exam# [id number] Ordering Dr: Renan Fuentes DO PROCEDURE: TESTICULAR WITH ARTERIAL FLOW 02/04/2025 REASON FOR EXAM: RIGHT SCROTAL PAIN TECHNIQUE: Ash scale imaging of the scrotum with color and spectral Doppler analysis. COMPARISON: 09/26/2019 FINDINGS: RIGHT testicle: 4.7 x 3.6 x 2.1 cm Normal echotexture and vascularity. Normal arterial/venous spectral Doppler waveforms. Right epididymis: 0.9 x 1.0 x 0.8 cm Normal echotexture and vascularity. LEFT testicle: 4.3 x 2.3 x 2.1 cm Normal echotexture and vascularity. Normal arterial/venous spectral Doppler waveforms. Left epididymis: 0.6 x 1.0 x 0.9 cm. Normal echotexture and vascularity. Other findings: No hydrocele or large varicocele. US/Testicular with Arterial Flow IMPRESSION: NORMAL SCROTAL ULTRASOUND. [facility] CC: Dr. Renan Fuentes DO; JULITO Hannah ~ Hotel Breakfast Attendant: Signed [facility] 02-04-2025 Radiology Diagnostic study note [facility] Imaging Services [address] [place] [id number] Abdomen/Pelvis W IV Cont ONLY MR#: [id number] Acct: [id number] Name: EULALIO JAMES Rep #: [id number] : 1985 M 39 From: Monica Gagnon MD PCP: JULITO Hannah Status: REG ER Study:Abdomen/Pelvis W IV Cont ONLY Date of E xam: 02/04/25 Exam# [id number] Ordering Dr: Keenan Cifuentes [employer] PROCEDURE: ABDOMEN/PELVIS W IV CONT ONLY 02/04/2025 REASON FOR EXAM: LOWER ABD AND SUPRAPUBIC PAIN TECHNIQUE: Abdomen and pelvis CT with intravenous contrast. Coronal and Sagittal reconstruction series were provided. One or more dose reduction techniques were used (e.g., Automated exposure control, adjustment of the mA and/or kV according to patient size, use of iterative reconstruction technique. COMPARISON: 06/21/2019 FINDINGS: Lower chest: Unremarkable. Liver: Unremarkable. Biliary/gallbladder: Unremarkable. Pancreas: Unremarkable. Spleen: Unremarkable. Adrenal glands: Unremarkable. Kidneys: Unremarkable. Gastrointestinal/peritoneum: No acute abnormality.The appendix is unremarkable.No free air or free fluid. Vascular: Unremarkable. Lymph nodes: No enlarged lymph nodes by CT size criteria. Pelvic organs: Unremarkable. Bladder: The bladder is minimally distended, which limits evaluation. Bones: Unremarkable. Soft tissues: Unremarkable. CT/Abdomen/Pelvis W IV Cont ONLY IMPRESSION: No acute abnormality of the abdomen and pelvis. Reading Location: [facility] CC: LESLIE Angel; JULITO Hannah ~ Hotel Breakfast Attendant: Signed [facility] 10-21-2023 Note HNO ID: [id number] Author: Renetta Gonzalez APRN.FINANCIAL ASSISTANT Service: ? Author Type: Nurse Practitioner Type: Progress Notes Filed: 10/21/2023 2:06 PM Note Text: Subjective HPI HPI Eulalio James is a 38 year old male who presents today for CC of sinus pressure, cough, left ear popping. This started 3 weeks ago. Has tried otc medication for relief. Symptoms are worsened by nothing. Risk factors smoker. .Patient presents with: Sinus Problem: sinus pressure, drainage, ear pressure and cough x 3 weeks No past medical history on file. No past surgical history on file. ALLERGIES Sulfamethoxazole-Trimethoprim, Sulfamethoxazole, and Trimethoprim MEDICATIONS FLUoxetine (PROZAC) 10 mg capsule (Patient not taking: Reported on 10/21/2023) QUEtiapine (SEROQUEL) 200 mg tablet (Patient not taking: Reported on 10/21/2023) propranolol (INDERAL) 10 mg tablet No family history on file. Social History Tobacco Use Smoking status: Every Day Types: Pipe Passive exposure: Current Smokeless tobacco: Never Review of Systems Constitutional: Negative for fever. HENT: Positive for congestion, ear pain and sinus pain. Negative for ear discharge, nosebleeds and sore throat. Respiratory: Positive for cough and sputum production. Negative for shortness of breath and wheezing. Musculoskeletal: Negative for neck pain. Neurological: Positive for headaches. Objective Blood pressure 122/80, pulse 88, temperature 37.2 ?C (98.9 ?F), resp. rate 16, weight 98 kg (216 lb), SpO2 97%. Physical Exam Constitutional: General: He is not in acute distress. Appearance: He is not toxic-appearing or diaphoretic. HENT: Head: Normocephalic and atraumatic. Right Ear: Hearing, tympanic membrane, ear canal and external ear normal. Left Ear: Hearing, tympanic membrane, ear canal and external ear normal. Nose: Right Sinus: Frontal sinus tenderness present. Mouth/Throat: Pharynx: Uvula midline. No pharyngeal swelling, oropharyngeal exudate, posterior oropharyngeal erythema or uvula swelling. Eyes: General: Lids are normal. No scleral icterus. Right eye: No discharge. Left eye: No discharge. Conjunctiva/sclera: Conjunctivae normal. Pupils: Pupils are equal, round, and reactive to light. Neck: Trachea: Trachea normal. Cardiovascular: Rate and Rhythm: Normal rate and regular rhythm. Heart sounds: Normal heart sounds. Pulmonary: Effort: Pulmonary effort is normal. Breath sounds: Wheezing (scattered bilat) present. No decreased breath sounds, rhonchi or rales. Musculoskeletal: Cervical back: Normal range of motion and neck supple. Lymphadenopathy: Cervical: No cervical adenopathy. Right cervical: No superficial cervical adenopathy. Left cervical: No superficial cervical adenopathy. Skin: Findings: No rash. Neurological: Mental Status: He is alert and oriented to person, place, and time. ASSESSMENT/PLAN: 1. Sinobronchitis - ICD9: 473.9, 490, ICD10: J32.9, J40 (primary diagnosis) - Will begin treatment with as per antibiotic as written, see orders - Supportive care with plenty of fluids, rest, and analgesia prn. - Follow up in 3-5 days if symptoms persist or worsen. - DOXYCYCLINE HYCLATE 100 MG TABLET - PREDNISONE 10 MG TABLET - FLUTICASONE PROPIONATE 50 MCG/ACTUATION NASAL SPRAY,SUSPENSION 2. Dysfunction of left eustachian tube - ICD9: 381.81, ICD10: H69.92 -use medication as prescribed -follow up if symptoms persist, worsen, change Smoking cessation discussed Renetta Gonzalez APRN.[facility] 10-21-2023 History of Present illness Narrative Subjective HPI HPI Eulalio James is a 38 year old male who presents today for CC of sinus pressure, cough, left ear popping. This started 3 weeks ago. Has tried otc medication for relief. Symptoms are worsened by nothing. Risk factors smoker. .Patient presents with: Sinus Problem: sinus pressure, drainage, ear pressure and cough x 3 weeks No past medical history on file. No past surgical history on file. ALLERGIES Sulfamethoxazole-Trimethoprim, Sulfamethoxazole, and Trimethoprim MEDICATIONS FLUoxetine (PROZAC) 10 mg capsule (Patient not taking: Reported on 10/21/2023) QUEtiapine (SEROQUEL) 200 mg tablet (Patient not taking: Reported on 10/21/2023) propranolol (INDERAL) 10 mg tablet No family history on file. Social History Tobacco Use Smoking status: Every Day Types: Pipe Passive exposure: Current Smokeless tobacco: Never Review of Systems Constitutional: Negative for fever. HENT: Positive for congestion, ear pain and sinus pain. Negative for ear discharge, nosebleeds and sore throat. Respiratory: Positive for cough and sputum production. Negative for shortness of breath and wheezing. Musculoskeletal: Negative for neck pain. Neurological: Positive for headaches. Objective Blood pressure 122/80, pulse 88, temperature 37.2 C (98.9 F), resp. rate 16, weight 98 kg (216 lb), SpO2 97%. Physical Exam Constitutional: General: He is not in acute distress. Appearance: He is not toxic-appearing or diaphoretic. HENT: Head: Normocephalic and atraumatic. Right Ear: Hearing, tympanic membrane, ear canal and external ear normal. Left Ear: Hearing, tympanic membrane, ear canal and external ear normal. Nose: Right Sinus: Frontal sinus tenderness present. Mouth/Throat: Pharynx: Uvula midline. No pharyngeal swelling, oropharyngeal exudate, posterior oropharyngeal erythema or uvula swelling. Eyes: General: Lids are normal. No scleral icterus. Right eye: No discharge. Left eye: No discharge. Conjunctiva/sclera: Conjunctivae normal. Pupils: Pupils are equal, round, and reactive to light. Neck: Trachea: Trachea normal. Cardiovascular: Rate and Rhythm: Normal rate and regular rhythm. Heart sounds: Normal heart sounds. Pulmonary: Effort: Pulmonary effort is normal. Breath sounds: Wheezing (scattered bilat) present. No decreased breath sounds, rhonchi or rales. Musculoskeletal: Cervical back: Normal range of motion and neck supple. Lymphadenopathy: Cervical: No cervical adenopathy. Right cervical: No superficial cervical adenopathy. Left cervical: No superficial cervical adenopathy. Skin: Findings: No rash. Neurological: Mental Status: He is alert and oriented to person, place, and time. ASSESSMENT/PLAN: 1. Sinobronchitis - ICD9: 473.9, 490, ICD10: J32.9, J40 (primary diagnosis) - Will begin treatment with as per antibiotic as written, see orders - Supportive care with plenty of fluids, rest, and analgesia prn. - Follow up in 3-5 days if symptoms persist or worsen. - DOXYCYCLINE HYCLATE 100 MG TABLET - PREDNISONE 10 MG TABLET - FLUTICASONE PROPIONATE 50 MCG/ACTUATION NASAL SPRAY,SUSPENSION 2. Dysfunction of left eustachian tube - ICD9: 381.81, ICD10: H69.92 -use medication as prescribed -follow up if symptoms persist, worsen, change Smoking cessation discussed Renetta Gonzalez APRN.FINANCIAL ASSISTANT documented in this encounter [facility] 07-20-2023 Note HNO ID: [id number] Author: Renetta Gonzalez APRN.FINANCIAL ASSISTANT Service: ? Author Type: Nurse Practitioner Type: Progress Notes Filed: 07/20/2023 1:39 PM Note Text: Subjective HPI HPI Eulalio James is a 38 year old male who presents today for CC of left hear wax buildup, sounds crackly. This started few days ago after using qtips. Has tried otc medications for relief. Symptoms are worsened by nothing. Risk factors uses qtips in ears. Denies recent uri. .Patient presents with: Earwax: Left ear build up No past medical history on file. No past surgical history on file. ALLERGIES Sulfamethoxazole-Trimethoprim, Sulfamethoxazole, and Trimethoprim MEDICATIONS FLUoxetine (PROZAC) 10 mg capsule QUEtiapine (SEROQUEL) 200 mg tablet propranolol (INDERAL) 10 mg tablet No family history on file. Social History Tobacco Use Smoking status: Every Day Types: Pipe Passive exposure: Current Smokeless tobacco: Never Review of Systems Constitutional: Negative for fever. HENT: Negative for congestion, ear discharge and ear pain. Respiratory: Negative for cough, shortness of breath and wheezing. Musculoskeletal: Negative for neck pain. Skin: Negative for itching and rash. Objective Blood pressure 120/78, pulse 67, temperature 36.6 ?C (97.9 ?F), resp. rate 21, weight 99.4 kg (219 lb 3.2 oz), SpO2 98 %. Physical Exam Constitutional: General: He is not in acute distress. Appearance: He is not toxic-appearing or diaphoretic. HENT: Head: Normocephalic and atraumatic. Right Ear: Hearing, tympanic membrane, ear canal and external ear normal. Left Ear: Hearing and external ear normal. Ears: Comments: Initially unable to see left tm d/t cerumen impaction. Procedure: Nurse/lavage After procedure left canal clear and left tm normal Nose: Nose normal. Pulmonary: Effort: Pulmonary effort is normal. No accessory muscle usage or respiratory distress. Lymphadenopathy: Cervical: No cervical adenopathy. Right cervical: No superficial cervical adenopathy. Left cervical: No superficial cervical adenopathy. Neurological: Mental Status: He is alert and oriented to person, place, and time. ASSESSMENT/PLAN: 1. Impacted cerumen of left ear - ICD9: 380.4, ICD10: H61.22 Successful lavage of left canal Discussed proper ear hygiene F/u for continued s/s. - AMBULATORY EAR LAVAGE/IRRIGATION Renetta Gonzalez APRN.[facility] 07-20-2023 History of Present illness Narrative Subjective HPI HPI Eulalio James is a 38 year old male who presents today for CC of left hear wax buildup, sounds crackly. This started few days ago after using qtips. Has tried otc medications for relief. Symptoms are worsened by nothing. Risk factors uses qtips in ears. Denies recent uri. .Patient presents with: Earwax: Left ear build up No past medical history on file. No past surgical history on file. ALLERGIES Sulfamethoxazole-Trimethoprim, Sulfamethoxazole, and Trimethoprim MEDICATIONS FLUoxetine (PROZAC) 10 mg capsule QUEtiapine (SEROQUEL) 200 mg tablet propranolol (INDERAL) 10 mg tablet No family history on file. Social History Tobacco Use Smoking status: Every Day Types: Pipe Passive exposure: Current Smokeless tobacco: Never Review of Systems Constitutional: Negative for fever. HENT: Negative for congestion, ear discharge and ear pain. Respiratory: Negative for cough, shortness of breath and wheezing. Musculoskeletal: Negative for neck pain. Skin: Negative for itching and rash. Objective Blood pressure 120/78, pulse 67, temperature 36.6 C (97.9 F), resp. rate 21, weight 99.4 kg (219 lb 3.2 oz), SpO2 98 %. Physical Exam Constitutional: General: He is not in acute distress. Appearance: He is not toxic-appearing or diaphoretic. HENT: Head: Normocephalic and atraumatic. Right Ear: Hearing, tympanic membrane, ear canal and external ear normal. Left Ear: Hearing and external ear normal. Ears: Comments: Initially unable to see left tm d/t cerumen impaction. Procedure: Nurse/lavage After procedure left canal clear and left tm normal Nose: Nose normal. Pulmonary: Effort: Pulmonary effort is normal. No accessory muscle usage or respiratory distress. Lymphadenopathy: Cervical: No cervical adenopathy. Right cervical: No superficial cervical adenopathy. Left cervical: No superficial cervical adenopathy. Neurological: Mental Status: He is alert and oriented to person, place, and time. ASSESSMENT/PLAN: 1. Impacted cerumen of left ear - ICD9: 380.4, ICD10: H61.22 Successful lavage of left canal Discussed proper ear hygiene F/u for continued s/s. - AMBULATORY EAR LAVAGE/IRRIGATION Renetta Gonzalez APRN.FINANCIAL ASSISTANT documented in this encounter [facility] 07-20-2023 Nurse Note Ambulatory Ear Lavage Pre-treatment: Warm water Treatment: Left ear Equipment and Irrigation solution and Volume used: Single use syringe with single use irrigation tip Water Return flow appearance: Brown Patient tolerated procedure: yes Tympanic membrane assessment: Tympanic membrane assessed by LIP pre and post procedure Renetta Gonzalez APRN.FINANCIAL ASSISTANT documented in this encounter [facility] 02-17-2023 Discharge summary Note Date/Time February 17, 2023 2:01pm [facility] Medical Records Department [address] [place] [address] Emergency Department Summary 02/17/23 MR#: [id number] Acct: [id number] Name: EULALIO JAMES Rep #:[id number] : 1985 37 From: Keenan NELSON PCP: JULITO Hannah Status:REG ER Location: ED HPI <LESLIE Mancera - Last Filed: 02/17/23 14:20> History of Present Illness Chief Complaint: Upper Extremity Injury Narrative Narrative: Patient is a 37-year-old male with no significant medical history presents to the emergency department after sustaining a fall and head injury. Patient states he was carrying a TV when he tripped and fell injuring his right hand as well as his left side of his face. Patient has pain to his right thumb as well as to his left side of his nose. He does have some ecchymosis around his the left side of his nose. Patient denies any LOC. Patient is currently on a anticoagulation medicine. [facility] <LESLIE Mancera - Last Filed: 02/17/23 14:20> [facility] Medical History (Updated 02/17/23 @ 14:[address] Jr Jeffery MD) Abdominal pain Acid reflux disease Anxiety Diarrhea Nausea & vomiting Home Medications pantoprazole 40 mg tablet,delayed release 40 mg PO DAILY 06/12/21 [History Last Taken Unknown] hydrocodone-acetaminophen 5-325mg 5mg-325mg 1 tab PO Q6H PRN PRN Pain 3 days #12TABLETS 06/02/22 [Rx Last Taken Unknown] naproxen 500 mg tablet (Naprosyn) 500 mg PO BID PRN pain #20 tabs 02/17/23 [Rx Last Taken Unknown] Allergy/AdvReac Type Severity Reaction Status Date / Time sulfamethoxazole Allergy Mild Unknown Verified 02/17/23 13:38 [From Bactrim] trimethoprim [From Bactrim] Allergy Mild Unknown Verified 02/17/23 13:38 Surgical History History of right inguinal hernia repair Status post right knee surgery Social History Smoking Status: Former smoker alcohol intake: current alcohol intake frequency: a few times a week substance use type: does not use ROS <LESLIE Mancera - Last Filed: 02/17/23 14:20> ROS ED ROS Narrative Constitutional: Negative for fever, chills, weight loss, weakness Eyes: Negative for vision loss, vision change, double vision ENT: Negative for any sore throat, ear pain, congestion. Positive for left-sided nasal pain Cardiovascular: Negative for any chest pain, tightness, palpitations Respiratory: Negative for any cough, sputum production, hemoptysis, dyspnea, dyspnea on exertion, orthopnea Gastrointestinal: Negative for any abdominal pain, nausea, vomiting, diarrhea, constipation, blood in stool, blood in vomit : Negative for any urinary frequency, dysuria, retention, blood in urine Muscle skeletal: Negative for any muscle joint pain, stiffness, myalgias, arthralgias, neck pain, back pain. Positive for right hand pain Neurological: Negative for any headache, syncope, numbness or tingling, dizziness Skin: Negative for any rashes, lumps, itching, abrasions, lacerations Psychiatric: Negative for any depression, anxiety, stress, suicidal ideation, homicidal ideation Hematologic: Negative for any easy bruising, excessive bruising, easy bleeding Allergies: Negative for any eczema, hives, rash EXAM <LESLIE Mancera - Last Filed: 02/17/23 14:20> Physical Exam Narrative Exam Narrative: Vital signs reviewed. HEET: Head normocephalic atraumatic, TMs clear bilaterally. Posterior pharynx is clear, moist mucous membranes. Nares clear bilaterally. Pupils are equal round react to light, patient does have a subconjunctival hemorrhage to the leftlateral eye. Pupils are equal round reactive to light. Negative for any hemotympanum or galvez sign. Patient has slight ecchymosis underneath the left eye. No step-off deformity. Neck: Supple with no lymphadenopathy or tenderness. No signs of meningismus, negative jolt sign. Cardiac: Regular rate and rhythm no murmurs gallops or rubs, equal peripheral pulses bilaterally. Respiratory: Lungs clear to auscultation bilaterally. No chest tenderness. Abdomen: Soft, nontender, nondistended. No abdominal bruit or pulsatile masses. No hepatosplenomegaly Extremities: No peripheral edema, no signs of gross trauma or deformity. Activefull range of motion of all extremities. Patient has full range of motion of left hand able to flex and extend however patient does have pain to palpation along the MCP joint. Patient has no snuffbox tenderness. No neurological focaldeficit, +2 radial pulse. Neuro: Cranial nerves II through XII intact, no focal neurological deficits. Skin: Clean dry and intact with no rash, purpura, petechiae, vesicles or pustules. Backs/flank: No CVA tenderness, no midline spinal tenderness, no deformity. Psych: Normal mood and affect. No SI, HI or acute psychosis. Const Vital Signs: 02/17/23 13:36 Temperature 98 F Temperature Source Temporal Pulse Rate 86 Respiratory Rate 18 Blood Pressure 145/76 H Blood Pressure Mean 99 Pulse Ox 98 Oxygen Delivery Method Room Air Positive well nourished and well developed General Appearance ED: well developed MDM <LESLIE Mancera - Last Filed: 02/17/23 14:20> [facility] Treatment and Re-Evaluation Narrative: All radiologic examinations were read, reviewed by the emergency department attending. From these reads, a plan of care will be put in place. Patient appears generally well, patient appears nontoxic, vital signs are stable. Patient presents emergency department after a fall as well as being struck by a TV to the left side of his face. Patient did receive x-rays of the right hand, these were negative for any acute osseous abnormality. However patient does have worsening pain along the ulnar collateral ligament. This is consistent with gamekeeper's thumb. Patient's facial x-rays was negative for any orbital bone fracture, no nasal bone fracture. At this time, patient was placed in a thumb spica, will be given a prescription for anti-inflammatories. He is happy with the plan of care, there is no evidence to suspect any orbital bone fracture, hand fracture. All questions answered. <Dr. Jr Jeffery MD - Last Filed: 02/17/23 14:25> [facility] Narrative Medical decision making narrative: I have personally performed a face to face assessment of the patient and have reviewed the ELYSE Note. I performed a substantive portion of the visit including all aspects of the following. My bah findings include: History is remarkable for blunt trauma to face and injury to right hand. Patient is right-hand dominant. He denies paresthesia, anesthesia or motor his in his right upper extremity. He denies loss of conscious. He denies change invision. Eyes ringing's ears. Denies double vision. He denies numbness upper left teeth. He denies neck pain. He states injury is due to blunt trauma from TV to his face and fall down a flight of steps. Patient denies chest pain. No shortness of breath. He denies abdominal pain. Denies lower back pain. Immunization will need to be assessed. Exam is patient has no clinical signs of basilar skull fracture. There is no septal deviation or hematoma. There is no hyperesthesia of the infraorbital nerve. There is no step-off with palpation in the infraorbital rim on the left or right. He has no diplopia with central gaze or upward gaze. He does have a subconjunctival hemorrhage on the left. There is no TMJ tenderness. There is no evidence of dental trauma. Trachea is midline. There is no pain ovation of the posterior neck. Examination of right upper extremity reveals swelling of the right hand and specifically over the thenar eminence. Has pain ovation overthe first metacarpal bone. There is no pain the patient over the distal radius or ulna. There is no pain ovation over the phalanges of the fingers. There is no subungual hematoma of any digit right hand. Median, radial and ulnar function intact. Radial pulses palpable. Lungs are clear to auscultation. There are symmetric breath sounds. Heart is regular. Abdomen soft nontender. There is no pain ovation of the pelvis. There is no injury to the left upper extremity or the lower extremities. GCS is 15. Medical Decision Making x-ray of the hand was obtained to evaluate for contusionversus fracture. X-ray of the face was obtained to evaluate for possible facialbone fracture. Suspect contusion. Other additions or changes: Three-view x-ray of the right hand reveals 2 metallic foreign bodies consistent with wire. Patient was unaware that he had wire in his finger and has had no recent injury. Suspect this is old. 3 views were obtained. There is no evidence of fracture, subluxation dislocation. 3 views of the facial bones were obtained. There is no evidence of fracture. There is no air-fluid level noted in the right or left maxillary sinus. This too was independently reviewed interpreted by me at 1418. Discharge Plan Triage Chief Complaint: Upper Extremity Injury ED Midlevel Provider: Keenan Angel ED Provider: Jr Jeffery Dx/Rx/DC Orders Clinical Impression: Fall, Head injury, Sprain of ulnar collateral ligament, Subconjunctival hemorrhage, Foreign body of right little finger Instructions: Treating?Strains and Sprains, Black Eye, ED Subconjunctival Hemorrhage Prescriptions: New naproxen [Naprosyn] 500 mg tablet 500 mg PO BID PRN (Reason: pain) Qty: 20 0RF No Action pantoprazole 40 mg Tablet,Delayed Release (Dr/Ec) 40 mg PO DAILY hydrocodone-acetaminophen [hydrocodone-acetaminophen] 1 TABLET tablet 1 tab PO Q6H PRN PRN (Reason: Pain) 3 Days Qty: 12 0RF Primary Care Provider: Natty Isaac Referrals: Natty Isaac, JULITO [Primary Care Provider] - Activity Restrictions/Additional Instructions: Use the thumb spica as needed. Ensure to ice and elevate. Take anti-inflammatories as needed. Disposition Disposition: Home, Self Care What to do if you have Problems For any increased pain, shortness of breath, bleeding, nausea or vomiting, chestpain, or any unexpected problems, contact your Primary Care Provider. Call [facility] ([phone]) or report to the closest Emergency Room. Call 911 if necessary. 02/17/23 1420 <Electronically signed by Keenan Angel PRECISION ASSEMBLER BENCH-C> Cosigner Signature (if applicable): 02/17/23 1425 <Electronically signed by aJde SANDERS> CC: JULITO Isaac ~ Signed [facility] Work Phone: Discharge summary Author Dr. Nunez [facility] February 19, 2023 12:58am Note Date/Time February 19, 2023 12: 58am [facility] Medical Records Department [address] [place] [address] Emergency Department Summary 02/19/23 MR#: [id number] Acct: [id number] Name: BREAMANDAEULALIO Rep #:[id number] : 1985 37 From: Gabriele Nunez DO PCP: JULITO Hannah Status:REG ER Location: ED HPI History of Present Illness Chief Complaint: Other, Pain/Inj Narrative Narrative: 37-year-old male presenting with priapism. He states he had an erection for about 24 hours. He took trazodone which is for sleep. Patient states he tried ice packs and cold baths. Nothing is worked. Denies using anything else that would cause an erection. PFSH PFSH Medical History Abdominal pain Acid reflux disease Anxiety Diarrhea Nausea & vomiting Home Medications pantoprazole 40 mg tablet,delayed release 40 mg PO DAILY 06/12/21 [History Last Taken 02/17/23] hydrocodone-acetaminophen 5-325mg 5mg-325mg 1 tab PO Q6H PRN PRN Pain 3 days #12TABLETS 06/02/22 [Rx Last Taken Unknown] naproxen 500 mg tablet (Naprosyn) 500 mg PO BID PRN pain #20 tabs 02/17/23 [Rx Last Taken Unknown] Allergy/AdvReac Type Severity Reaction Status Date / Time sulfamethoxazole Allergy Mild Unknown Verified 02/18/23 23:35 [From Bactrim] trimethoprim [From Bactrim] Allergy Mild Unknown Verified 02/18/23 23:35 Surgical History History of right inguinal hernia repair Status post right knee surgery Social History Smoking Status: Current every day smoker tobacco type: e-cigarettes alcohol intake: current alcohol intake frequency: a few times a week substance use type: does not use ROS ROS ED Constitutional Constitutional ED: Denies chills, fever(s) or sweats Eyes Eyes: Denies blurry vision or change in vision ENT ENT ED: Denies ear pain or sore throat Cardiovascular Cardiovascular: Denies chest pain, palpitations or racing heartbeat Respiratory/Chest Respiratory/Chest: Denies cough, dyspnea or sputum Gastrointestinal Gastrointestinal: Denies abdominal pain, constipation, diarrhea, nausea or vomiting Genitourinary Genitourinary ED: Reports other Details: Priapism ; Denies dysuria, hematuria or urinary frequency Musculoskeletal Musculoskeletal: Denies arthralgias, myalgias or neck pain Integumentary Denies abscess, Abrasions or rash Neurologic Neurologic: Denies headache(s), paresthesias or weakness Psychiatric Psychiatric: Denies anxiety, depression, suicidal ideation or suicidal thoughts Endocrine Endocrinology: Denies polydipsia or polyuria EXAM Physical Exam Const Vital Signs: 02/18/23 23:32 Temperature 97.6 F L Temperature Source Temporal Pulse Rate 80 Respiratory Rate 16 Blood Pressure 138/95 H Blood Pressure Mean 109 Pulse Ox 99 Oxygen Delivery Method Room Air Positive well nourished General Appearance ED: NAD HEENT atraumatic Resp normal respiratory effort Cardio regular rhythm Narrative: Erection noted. Neuro oriented x3 and CN's II-XII intact bilaterally Sensorium / Orientation: alert and oriented to person Motor Exam: strength 5/5 throughout Psych mental status grossly normal Skin no rashes or lesions noted MDM MDM MDM Narrative Medical decision making narrative: Patient presenting with priapism. He is tried at home relief without success. Dorsum of the penis was cleaned with Betadine. This was left dry. 2 injectionsmade with lidocaine with epinephrine into the dorsal nerves bilaterally. Approximately 5 cc was instilled. After about 10 minutes patient's penis becameflaccid. He states the pain is improved. Recommended to him that he stop usingtrazodone. He will be given follow-up with urology. Return precautions discussed. Impression: 1. Priapism Discharge Plan Triage Chief Complaint: Other, Pain/Inj ED Provider: Gabriele Nunez Dx/Rx/DC Orders Instructions: ED Priapism Prescriptions: No Action pantoprazole 40 mg Tablet,Delayed Release (Dr/Ec) 40 mg PO DAILY hydrocodone-acetaminophen [hydrocodone-acetaminophen] 1 TABLET tablet 1 tab PO Q6H PRN PRN (Reason: Pain) 3 Days Qty: 12 0RF naproxen [Naprosyn] 500 mg tablet 500 mg PO BID PRN (Reason: pain) Qty: 20 0RF Primary Care Provider: Natty Isaac Referrals: Dashawn Lemus MD [Med Staff - Active Staff] - Natty Isaac PA [Primary Care Provider] - Disposition Disposition: Home, Self Care What to do if you have Problems For any increased pain, shortness of breath, bleeding, nausea or vomiting, chestpain, or any unexpected problems, contact your Primary Care Provider. Call [facility] ([phone]) or report to the closest Emergency Room. Call 911 if necessary. 02/19/23 0058 <Electronically signed by Gabriele Nunez DO> Cosigner Signature (if applicable): CC: JULITO Isaac ~ Signed [facility] Work Phone: Evaluation noteNo assessment information available [facility] Work Phone: Evaluation note* Diagnosis Impacted cerumen of left ear- Primary Impacted cerumen [facility] Diagnosis Sinobronchitis- Primary Unspecified sinusitis (chronic) Dysfunction of left eustachian tube Dysfunction of Eustachian tube [facility] Additional Instructions Use the thumb spica as needed. Ensure to ice and elevate. Take anti- inflammatories as needed.[facility] Work Phone: Hospital Discharge instructions Additional Instructions Please take the antibiotics until finished.[facility] Work Phone: Reason for referral (narrative)No reason for referral information availableWAkron [facility] Work Phone: Summary Purpose Family History No Family History Records FoundNo Family History Records FoundNo Family History Records FoundNo Family History Records FoundNo Family History Records Found Advance Directives No Advanced Directives Records Found Advance Directive Response Recorded Date/ Time Living Will No June 02, 2022 8:53pm Power of Kiln Stoker No June 02 8:53pm Advance Directive Response Recorded Date/ Time Living Will No February 17, 2023 2:24pm Power of Kiln Stoker No February 17 2:24pm Advance Directive Response Recorded Date/ Time Living Will No February 18, 2023 11:36pm Power of Kiln Stoker No February 18 11:36pm Advance Directive Response Recorded Date/ Time Living Will No February 04, 2025 6:34pm Do you have a Healthcare Power of Kiln Stoker? No February 04, 2025 6:34pm Assessments Diagnosis Suspected COVID-19 virus infection- Primary Chief Complaint and Reason for Visit Chief Complaint RIGHT GREAT TOE/FOOT INJURY Chief Complaint RIGHT ARM INJURY Chief Complaint RIGHT ARM INJURY ERECTION PROBLEMS Chief Complaint Admit Date RIGHT GROIN PAIN February 04, 2025 6:2 5pm Additional Source Comments (unrecognized sect ion and content) No Status Records FoundNo Status Records FoundNo Status Records FoundNo Status Records FoundNo Status Records Found INFORMATION SOURCE (unrecogn ized section and content) DATE CREATED AUTHOR 04/28/2018 [facility] DATE CREATED AUTHOR AUTHOR'S ORGANIZ ATION 09/14/2019 [facility] ([place]) DATE CREATED AUTHOR AUTHOR'S ORGANIZ ATION 06/20/2020 [facility] DATE CREATED AUTHOR AUTHOR'S ORGANIZ ATION 10/24/2023 [facility] DATE CREATED AUTHOR AUTHOR'S ORGANIZ ATION 02/18/2025 [facility] Source Comments (unrecognize d section and content) In the event this informatio n is protected by the Federal Confidentiality of Alcohol and Drug Abuse Patient Records regulations: The Federal rules restrict any use of the information to criminally investigate or prosecute any alcohol or drug abuse patient.[facility] the event this information is protected by the Federal Confidentiality of Alcohol and Drug Abuse Patient Records regulations: The Federal rules restrict any use of the information to criminally investigate or prosecute any alcohol or drug abuse patient.[facility] Hospital[facility] the event this information is protected by the Federal Confidentiality of Alcohol and Drug Abuse Patient Records regulations: The Federal rules restrict any use of the information to criminally investigate or prosecute any alcohol or drug abuse patient.[facility] Reason for Visit (unrecogniz ed section and content) Reason Comments [facility] COVID Outreach Reason Comments Earwax Left ear build up Reason Comments Sinus Problem sinus pressure, drai nage, ear pressure and cough x 3 weeks Telephone Encounter - Natty Castro (Industrial Electrical Engineer), [employer] FIELD AGENT.FINANCIAL ASSISTANT - 02/14/2021 2:05 PM EDT Miscellaneous Notes (unrecog nized section and content) COVID-19 (Novel Coronavirus): Eulalio calls today with concerns for COVID19. Symptoms: N/V/D, fever chills, cough. You are being tested for COVID-19. You will be notified within 2 days of testing if your test comes back positive. You will be contacted at the number verified to coordinate a testing appointment. While awaiting these results, please refer to the following recommendations from the CDC regarding isolation precautions: Kenan Bailey MD has been cc'd to receive Eulalio's results. Steps to Follow: Isolation: You should follow the prevention steps below until a healthcare provider or local or state health department says you can return to your normal activities. Stay home except to get medical care People who are mildly ill with COVID-19 are able to isolate at home during their illness. You should restrict activities outside your home, except for getting medical care. Do not go to work, school, or public areas. Avoid using public transportation, ride-sharing, taxis, or public air travel. Separate yourself from other people and animals in your home People: As much as possible, you should stay in a specific room and away from other people in your home. Also, you should use a separate bathroom, if available. Animals: You should restrict contact with pets and other animals while you are sick with COVID-19, just like you would around other people. Although there have not been reports of pets or other animals becoming sick with COVID-19, it is still recommended that people sick with COVID-19 limit contact with animals until more information is known about the virus. When possible, have another member of your household care for your animals while you are sick. If you are sick with COVID-19, avoid contact with your pet, including petting, snuggling, being kissed or licked, and sharing food. If you must care for your pet or be around animals while you are sick, wash your hands before and after you interact with pets and wear a facemask. See COVID-19 and Animals for more information. Call ahead before visiting your doctor If you have a medical appointment, call the healthcare provider and tell them that you have or may have COVID-19. This will help the healthcare provider's office take steps to keep other people from getting infected or exposed. Personal Protection: You should wear a facemask when you are around other people (e.g., sharing a room or vehicle) or pets. If you are not able to wear a facemask (for example, because it causes trouble breathing), then people who live with you should not stay in the same room with you, or they should wear a facemask if they enter your room. Cover your coughs and sneezes Cover your mouth and nose with a tissue when you cough or sneeze. Throw used tissues in a lined trash can. Immediately wash your hands with soap and water for at least 20 seconds or, if soap and water are not available, clean your hands with an alcohol-based hand sitecore developer that contains at least 60% alcohol. Wash your hands often with soap and water for at least 20 seconds, especially after blowing your nose, coughing, or sneezing; going to the bathroom; and before eating or preparing food. If soap and water are not readily available, use an alcohol- based hand sitecore developer with at least 60% alcohol, covering all surfaces of your hands and rubbing them together until they feel dry. Soap and water are the best option if hands are visibly dirty. Avoid touching your eyes, nose, and mouth with unwashed hands. Avoid sharing personal household items You should not share dishes, drinking glasses, cups, eating utensils, towels, or bedding with other people or pets in your home. After using these items, they should be washed thoroughly with soap and water. Clean all High-touch surfaces everyday High touch surfaces include counters, tabletops, doorknobs, bathroom fixtures, toilets, phones, keyboards, tablets, and bedside tables. Use a household cleaning spray or wipe, according to the label instructions. Labels contain instructions for safe and effective use of the cleaning product including precautions you should take when applying the product, such as wearing gloves and making sure you have good ventilation during use of the product. Monitor your symptoms: Seek prompt medical attention if your illness is worsening (e.g., difficulty breathing). Before seeking care, call your healthcare provider and tell them that you have, or are being evaluated for, COVID-19. Put on a facemask before you enter the facility. These steps will help the healthcare provider's office to keep other people in the office or waiting room from getting infected or exposed. If you have a medical emergency and need to call 911, notify the dispatch personnel that you have, or are being evaluated for COVID-19. If possible, put on a facemask before emergency medical services arrive. Discontinuing home isolation: Patients with confirmed COVID-19 should remain under home isolation precautions until the risk of secondary transmission to others is thought to be low. The decision to discontinue home isolation precautions should be made on a [id number] basis, in consultation with healthcare providers and state and local health departments. Close contacts (household members, intimate partners, and caregivers) should follow these recommendations: Close contacts should monitor their health; they should call their healthcare provider right away if they develop symptoms suggestive of COVID-19 (e.g., fever, cough, shortness of breath) (see Interim [place] Guidance for Risk Assessment and Public Health Management of Persons with Potential Coronavirus Disease 2019 (COVID-19) Exposure in Travel-associated or Community Settings.) Make sure that you understand and can help the patient follow their healthcare provider's instructions for medication(s) and care. You should help the patient with basic needs in the home and provide support for getting groceries, prescriptions, and other personal needs. Monitor the patient's symptoms. If the patient is getting sicker, call their healthcare provider and tell them that the patient is being tested for COVID-19. This will help the healthcare provider's office take steps to keep other people in the office or waiting room from getting infected. Ask the healthcare provider to call the local or state health department for additional guidance. If the patient has a medical emergency and you need to call 911, notify the dispatch personnel that the patient has, or is being evaluated for COVID-19. Household members should stay in another room or be from the patient as much as possible. Household members should use a separate bedroom and bathroom, if available. Prohibit visitors who do not have an essential need to be in the home. Make sure that shared spaces in the home have good air flow, such as by an air conditioner or an opened window, weather permitting. Perform hand hygiene frequently. Wash your hands often with soap and water for at least 20 seconds or use an alcohol-based hand sitecore developer that contains 60 to 95% alcohol, covering all surfaces of your hands and rubbing them together until they feel dry. Soap and water should be used preferentially if hands are visibly dirty. Avoid touching your eyes, nose, and mouth with unwashed hands. The patient should wear a facemask when around other people. If the patient is not able to wear a facemask (for example, because it causes trouble breathing), you, as the caregiver, should wear a mask when you are in the same room as the patient. Wear a disposable facemask and gloves when you touch or have contact with the patient's blood, stool, or body fluids, such as saliva, sputum, nasal mucus, vomit, urine. o Throw out disposable facemasks and gloves after using them. Do not reuse. o When removing personal protective equipment, first remove and dispose of gloves. Then, immediately clean your hands with soap and water or alcohol-based hand sitecore developer. Next, remove and dispose of facemask, and immediately clean your hands again with soap and water or alcohol-based hand sitecore developer. Avoid sharing household items with the patient. You should not share dishes, drinking glasses, cups, eating utensils, towels, bedding, or other items. After the patient uses these items, you should wash them thoroughly Wash laundry thoroughly. o Immediately remove and wash clothes or bedding that have blood, stool, or body fluids on them. o Wear disposable gloves while handling soiled items and keep soiled items away from your body. Clean your hands (with soap and water or an alcohol-based hand sitecore developer) immediately after removing your gloves. o Read and follow directions on labels of laundry or clothing items and detergent. In general, using a normal laundry detergent according to washing machine instructions and dry thoroughly using the warmest temperatures recommended on the clothing label. Place all used disposable gloves, facemasks, and other contaminated items in a lined container before disposing of them with other household waste. Clean your hands (with soap and water or an alcohol-based hand sitecore developer) immediately after handling these items. Soap and water should be used preferentially if hands are visibly dirty. Discuss any additional questions with your state or local health department or healthcare provider. Additional information Home healthcare personnel should refer to Interim Infection Prevention and Control Recommendations for Patients with Known or Patients Under Investigation for Coronavirus Disease 2019 (COVID-19) in a Healthcare Setting. Close contact is defined as a) being within approximately 6 feet (2 meters) of a COVID-19 case for a prolonged period of time; close contact can occur while caring for, living with, visiting, or sharing a health care waiting area or room with a COVID-19 case or b) having direct contact with infectious secretions of a COVID-19 case (e.g., being coughed on). documented in this encounter Goals (unrecognized section and content) Goals may be documented in a n alternate sectionGoals may be documented in an alternate sectionGoals may be documented in an alternate sectionGoals may be documented in an alternate section Care Teams (unrecognized sec tion and content) Team Status: Active Member Role Status Dates JULITO Martinez Family Provider Active JULITO Martinez Primary Care Provider Active Team Status: Inactive Member Role Status Dates JULITO Martinez Primary Care Provider Active Dr. Jr Jeffery MD Emergency Provider Active Team Status: Inactive Member Role Status Dates JULITO Martinez Primary Care Provider Active Dr. Gabriele Nunez DO Emergency Provider Active Spot Welder Line Relationship Specialty Start Date End Date Kenan Bailey [address] [place] [address] [place] [address] PCP - General 11/27/03 Spot Welder Line Relationship Specialty Start Date End Date Kenan Bailey [address] [facility] [place] [address] PCP - General 11/27/03 Team Status: Active Member Role Status Dates JULITO Martinez Primary Care Provider Active Team Status: Inactive Member Role Status Dates JULITO Martinez Primary Care Provider Active Start: February 04, 2025 End: February 04, 2025 Dr. Renan Fuentes DO Emergency Provider Active Start : February 04, 2025 End: February 04, 2025 FOR RECORDS PERTAINING TO PATIENTS WHO ARE OR HAVE BEEN ENROLLED IN A CHEMICAL DEPENDENCY/SUBSTANCEABUSE PROGRAM, SOME INFORMATION MAY BE OMITTED. This clinical summary was aggregated from multiple sources. Caution should be exercised in using it in the provision of clinical care. This summary normalizes information from multiple sources, and as a consequence, information in this document may materially change the coding, format and clinical context of patient data. In addition, data may be omitted in some cases. CLINICAL DECISIONS SHOULD BE BASED ON THE PRIMARY CLINICAL RECORDS. [facility] [employer] [facility]. provides no warranty or guarantee of the accuracy or completeness of information in this document.
[2025-05-19 00:52] VITALS: BMI 24.5
[2025-05-19 00:54] VITALS: BP 125/77; PULSE 54; RESP 16; TEMP 36.4; O2SAT 100
[2025-05-19 02:31] VITALS: BP 124/62; PULSE 58; RESP 16; TEMP 36.6; O2SAT 97
[2025-05-19] MEDS: hydrOXYzine PAM 25 MG Capsule 50 MG PO ×2 (02:34→10:12)
--- NOTE | 2025-05-19 07:04 | PN.HOSP_ITS ---
Reason for Visit Reason for Visit: Diagnoses Opioid dependence, uncomplicated (05/18/25) Subjective Subjective Patient's with no acute events overnight per self and per nursing report. He notes feeling significantly improved since initial ED arrival although does state he still has some mild abdominal cramping but was able to tolerate breakfast without issue. He notes withdrawal symptoms have significantly improved. Patient denies fevers, chills, nausea, emesis, chest pain or dyspnea. Objective Data Objective Data Vital Signs: Vital Signs Temp Pulse Resp BP Pulse Ox O2 Del Method 97.8 F 58 L 16 124/62 H 97 Room Air 05/19/25 02:31 05/19/25 02:31 05/19/25 02:31 05/19/25 02:31 05/19/25 02:31 05/19/25 02:31 Oxygen Delivery Method Room Air Weight: 171 lb Body Mass Index (BMI) 24.5 Lab / Micro Data 05/18/25 22:11 05/18/25 22:11 Labs: Laboratory Results - last 24 hr 05/18/25 21:32: Urine Opiates Screen NEGATIVE, U Buprenorphine Qual NEGATIVE, Ur Oxycodone Screen NEGATIVE, Urine Methadone Screen NEGATIVE, Urine Fentanyl Screen PRESUMPTIVE POSITIVE, Ur Barbiturates Screen NEGATIVE, Ur Phencyclidine Scrn NEGATIVE, Ur Amphetamines Screen PRESUMPTIVE POSITIVE, U Benzodiazepines Scrn NEGATIVE, Urine Cocaine Screen NEGATIVE, U Cannabinoids Screen PRESUMPTIVE POSITIVE 05/18/25 22:11: WBC 10.0, RBC 4.87, Hgb 14.2, Hct 41.1, MCV 84.4, MCH 29.2, MCHC 34.5, RDW Std Deviation 41.8, RDW Coeff of Giana 13.5, Plt Count 349, MPV 9.8, Immature Gran % (Auto) 0.400, Neut % (Auto) 65.9, Lymph % (Auto) 24.2, [place] % (Auto) 8.7, Eos % (Auto) 0.4, Baso % (Auto) 0.4, Absolute Neuts (auto) 6.6, Absolute Lymphs (auto) 2.41, Nucleated RBC % 0, Sodium 140, Potassium 4.3, Chloride 107, Carbon Dioxide 21.6, Anion Gap 11, BUN 21 H, Creatinine 0.83, Estim Creat Clear Calc 125.82, Est GFR (MDRD) Non-Af 115, BUN/Creatinine Ratio 25.5 H, Glucose 101 H, Calcium 9.4, Total Bilirubin 0.18, AST 17, ALT 21, Alkaline Phosphatase 69, Total Protein 6.6, Albumin 4.1, Globulin 2.5, Albumin/Globulin Ratio 1.7, Ethyl Alcohol < 10.1 Physical Exam Narrative Physical Examination: General: Awake, alert, oriented x 3 and cooperative, laying in MS bed, notes improved withdrawal symptoms since initial ED arrival. Skin: Normal color, normal turgor, no icterus, no cyanosis except occasional abrasion, ecchymoses, several tattoos. HEENT: AT/NC, EOMI, PERRLA, MMM. Lungs: CTA bilaterally, moderate effort, mild decrease BL bases, no rales, ronchi or wheezing. Heart: Mildly bradycardic with regular rhythm; no gallop, rub audible. Abdomen: Soft, mild generalized discomfort but no rebound or guarding, no marked distention, mildly hyperactive BS. Extremities: No cyanosis, clubbing, or edema. Neurological: Patient awake, alert, oriented as noted,cognitive function intact; pupils equally reactive to light and accommodation, cranial nerves grossly normal, moving all 4 extremities, no focal deficits, strength mildly globally decreased. Psychiatric: Affect appears fatigued otherwise normal, no acute evidence of depressive or anxiety feelings. Assessment & Plan Assessment/Plan (1) Opiate dependence: (2) Desire for detoxification: PLAN: Plan The patient is a 39 y/o M w/ PMHx: Polysubstance abuse (amphetamine, opiate, fentanyl), GERD, Anxiety and Depression, Vaping Tobacco use who presents to the [facility] ED on 05/18/2025 with history of unfortunate recent history of being sober since March 2023 until a few months prior hurting his shoulder at which point he began using opiates again eventually transition is starting fentanyl and amphetamine regularly with last use a.m. on day of presentation requesting detoxification. #1. Acute Opiate Withdrawal with polysubstance abuse history: Admitted to medical surgical floor, initiated and maintained on tapering course of Subutex, as needed tylenol, ibuprofen, bowel regimen, gabapentin, Bentyl, Vistaril, methocarbamol, clonidine, PRN nightly trazodone for insomnia, IV fluids, IV antiemetics. Case management consulted for transition to next level of rehabilitation care. #2. Anxiety and depression: Likely contributing greatly also to polysubstance abuse, not on regimen per current list, encourage continued outpatient follow- up, case management consulted as noted. #3. Tobacco Abuse: Encouraged cessation, inpatient consultation per RT, NR if desired. #4. GERD: Will continue PPI. #5. DVT prophylaxis: Low risk, encourage ambulation. Charges/Coding Visit Charges Inpatient E&M: 13854 Subs Hosp L2
[2025-05-19 10:05] VITALS: BP 129/59; PULSE 46; RESP 16; TEMP 36.4; O2SAT 100
[2025-05-19] MEDS: Ensure Plus High Protein 120 ML LIQUID PO ×4 (10:12→23:11)
--- NOTE | 2025-05-19 13:28 | ADDICTION ---
This underwriter met with PT to conduct ASAM, MSE, DUDIT assessments and to plan for d/c. PT A+Ox4 and participated actively. All assessments completed. PT plans to f/u with [facility] for in patient treatment services on Thursday, pending approval. [facility] will transport to treatment.
[2025-05-19 14:26] VITALS: BP 110/60; PULSE 54; RESP 16; TEMP 36.5; O2SAT 97
[2025-05-19 18:29] VITALS: BP 116/56; PULSE 62; RESP 16; TEMP 36.6; O2SAT 96
[2025-05-19 23:05] VITALS: BP 91/59; PULSE 52; RESP 16; TEMP 36.3; O2SAT 98
[2025-05-20] VITALS (7 sets, daily range): BP systolic 88–108; BP diastolic 34–71; PULSE 50–94; RESP 16–18; TEMP 36.3–36.7; O2SAT 94–100
--- NOTE | 2025-05-20 07:14 | PCM.PN.HOSP ---
Reason for Visit Reason for Visit: Diagnoses Opioid dependence, uncomplicated (05/18/25) Subjective Subjective Patient with no acute events overnight per self and per nursing report. He notes withdrawal symptoms have significantly abated and are nearly resolved except he still does have abdominal cramping and occasional bloating sensation. Discussed usage of Bentyl which is as needed and will give him a dose now. Also noted intention to add scheduled simethicone to which he is amenable. Patient denies fevers, chills, nausea, emesis, chest pain or dyspnea. Objective Data Objective Data Vital Signs: Vital Signs Temp Pulse Resp BP Pulse Ox O2 Del Method 97.5 F L 94 16 101/71 97 Room Air 05/20/25 04:51 05/20/25 04:51 05/20/25 04:51 05/20/25 04:51 05/20/25 04:51 05/20/25 04:51 Oxygen Delivery Method Room Air Weight: 171 lb Body Mass Index (BMI) 24.5 Intake & Output: Intake and Output for Last 24 Hours 05/18/25 05/19/25 05/20/25 23:59 23:59 23:59 Intake Total 500 / 500 Balance 500 / 500 Medical Nutrition Assessment Dietitian: Malnutrition Criteria Met Start: 05/19/25 10:31 Freq: Status: Active Protocol: Document 05/19/25 10:31 JESSIE (Rec: 05/19/25 10:31 JESSIE [id number]) Nutrition Malnutrition Evidence of Yes Malnutrition Exists Malnutrition (severe Social/Behavioral/Environmental ): Evidenced By Suboptimal Energy Intake (Severe),Weight Loss (Severe) Clinical Problem Chronic Disease or Condition Related Malnutrition Etiology related to relapse into drug use and inadequate energy intake Signs/Symptoms as evidenced by 9.9% unintended wt loss and po intake meeting <75% of estimated nutritional needs 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 Lab / Micro Data 05/18/25 22:11 05/18/25 22:11 Physical Exam Narrative Physical Examination: General: Awake, alert, oriented x 3 and cooperative, laying in MS bed, denies any marked withdrawal symptoms aside from abdominal cramping/bloating sensation. Skin: Normal color, normal turgor, no icterus, no cyanosis except occasional abrasion, ecchymoses, several tattoos. HEENT: AT/NC, EOMI, PERRLA, MMM. Lungs: CTA bilaterally, moderate effort, mild decrease BL bases, no rales, ronchi or wheezing. Heart: Mildly bradycardic with regular rhythm; no gallop, rub audible. Abdomen: Soft, improved, no marked distention, no tympany, continued hyperactive BS. Extremities: No cyanosis, clubbing, or edema. Neurological: Patient awake, alert, oriented as noted,cognitive function intact; pupils equally reactive to light and accommodation, cranial nerves grossly normal, moving all 4 extremities, no focal deficits, strength improved, preserved Psychiatric: Affect appears normal, no acute evidence of depressive or anxiety feelings. Assessment & Plan Assessment/Plan (1) Opiate dependence: (2) Desire for detoxification: PLAN: Plan The patient is a 39 y/o M w/ PMHx: Polysubstance abuse (amphetamine, opiate, fentanyl), GERD, Anxiety and Depression, Vaping Tobacco use who presents to the [facility] ED on 05/18/2025 with history of unfortunate recent history of being sober since March 2023 until a few months prior hurting his shoulder at which point he began using opiates again eventually transition is starting fentanyl and amphetamine regularly with last use a.m. on day of presentation requesting detoxification. #1. Acute Opiate Withdrawal with polysubstance abuse history: Admitted to medical surgical floor, initiated and maintained on tapering course of Subutex, as needed tylenol, ibuprofen, bowel regimen, gabapentin, Bentyl, Vistaril, methocarbamol, clonidine, PRN nightly trazodone for insomnia, IV fluids, IV antiemetics. Case management consulted for transition to next level of rehabilitation care. 05/20/2025 will add scheduled simethicone and will give a x 1 dose of Bentyl now in addition to reminding patient that he has as needed Bentyl available given abdominal cramping/bloating sensation. #2. Anxiety and depression: Likely contributing greatly also to polysubstance abuse, not on regimen per current list, encourage continued outpatient follow-up, case management consulted as noted. #3. Tobacco Abuse: Encouraged cessation, inpatient consultation per RT, NR if desired. #4. GERD: Will continue PPI. #5. DVT prophylaxis: Low risk, encourage ambulation. Charges/Coding Visit Charges Inpatient E&M: 71583 Subs Hosp L2
[2025-05-20] MEDS: hydrOXYzine PAM 25 MG Capsule 50 MG PO (08:35)
--- NOTE | 2025-05-20 13:02 | DCINST_ITS ---
Discharge Instructions DC O2, CPAP, BIPAP needs Home O2 Discharge instructions: No Dressing / Incision Discharge Activity: Return to Normal Activity May resume sexual activity in: No Restrictions Weight Bearing Status: Weight bearing as tolerated Dressing / Incision Call your doctor if you observe: - (Recurrent concerning opiate withdrawal symptoms. Please contact your primary care physician.) Follow Up Care Test Results: Test results from this visit will be discussed in further detail at your follow- up appointment, if applicable. Discharge Plan Admission Admit Date/Time: 05/18/25 23:24 Primary Reason for Your Visit: Acute Opiate Withdrawal, Polysubstance abuse Attending Provider: Elaine Stout Primary Care Provider: Natty Isaac Consulting Providers: Adam Blanco Instructions Patient Instructions: Meth Abuse Addiction, Opioids Risks, ED Opiate Abuse Discharge Orders/Prescriptions Prescriptions: Continued pantoprazole 40 mg Tablet,Delayed Release (Dr/Ec) 40 mg PO DAILY Referrals / Follow Up: Natty Isaac, PA [Primary Care Provider] - (Follow-up within 1-2 weeks to review admission. Call earlier if concerns arise.) Disposition Disposition (needs filled in before D/C Order can be placed): Home, Self Care
[2025-05-21 04:25] VITALS: BP 98/63; PULSE 53; RESP 16; TEMP 36.3; O2SAT 98
--- NOTE | 2025-05-21 07:11 | PCM.PN.HOSP ---
Reason for Visit Reason for Visit: Diagnoses Opioid dependence, uncomplicated (05/18/25) Subjective Subjective Patient with no acute events overnight per self and per nursing report. He notes with Bentyl dose x 1 and scheduled simethicone he has less abdominal cramping and notes he feels as though he is back to his baseline. He denies any withdrawal symptoms. Discussed plan of care with transition out to more long-term withdrawal treatment protocol/program 05/22/2025 with last dose early in the morning noted. Patient denies fevers, chills, nausea, emesis, abdominal pain, chest pain or dyspnea. Objective Data Objective Data Vital Signs: Vital Signs Temp Pulse Resp BP Pulse Ox O2 Del Method 97.4 F L 53 L 16 98/63 98 Room Air 05/21/25 04:05/21/25 04:05/21/25 04:25 05/21/25 04:05/21/25 04:05/21/25 04:25 Oxygen Delivery Method Room Air Weight: 171 lb Body Mass Index (BMI) 24.5 Intake & Output: Intake and Output for Last 24 Hours 05/19/25 05/20/25 05/21/25 23:59 23:59 23:59 Intake Total 500 / 500 800 / 800 500 / 500 Balance 500 / 500 800 / 800 500 / 500 Medical Nutrition Assessment Dietitian: Malnutrition Criteria Met Start: 05/19/25 10:31 Freq: Status: Active Protocol: Document 05/19/25 10:31 JESSIE (Rec: 05/19/25 10:31 JESSIE [id number]) Nutrition Malnutrition Evidence of Yes Malnutrition Exists Malnutrition (severe Social/Behavioral/Environmental ): Evidenced By Suboptimal Energy Intake (Severe),Weight Loss (Severe) Clinical Problem Chronic Disease or Condition Related Malnutrition Etiology related to relapse into drug use and inadequate energy intake Signs/Symptoms as evidenced by 9.9% unintended wt loss and po intake meeting <75% of estimated 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 Lab / Micro Data 05/18/25 22:11 05/18/25 22:11 Physical Exam Narrative Physical Examination: General: Awake, alert, oriented x 3 and cooperative, laying in MS bed, notes improved, no abdominal complaints. Skin: Normal color, normal turgor, no icterus, no cyanosis except occasional abrasion, ecchymoses, several tattoos. HEENT: AT/NC, EOMI, PERRLA, MMM. Lungs: CTA bilaterally, moderate effort, mild decrease BL bases, no rales, ronchi or wheezing. Heart: Mildly bradycardic with regular rhythm; no gallop, rub audible. Abdomen: Soft, NTTP, ND, normal BS. Extremities: No cyanosis, clubbing, or edema. Neurological: Patient awake, alert, oriented as noted,cognitive function intact; pupils equally reactive to light and accommodation, cranial nerves grossly normal, moving all 4 extremities, no focal deficits, strength preserved. Psychiatric: Affect appears normal, no acute evidence of depressive or anxiety feelings. Assessment & Plan Assessment/Plan (1) Opiate dependence: (2) Desire for detoxification: PLAN: Plan The patient is a 39 y/o M w/ PMHx: Polysubstance abuse (amphetamine, opiate, fentanyl), GERD, Anxiety and Depression, Vaping Tobacco use who presents to the [facility] ED on 05/18/2025 with history of unfortunate recent history of being sober since March 2023 until a few months prior hurting his shoulder at which point he began using opiates again eventually transition is starting fentanyl and amphetamine regularly with last use a.m. on day of presentation requesting detoxification. #1. Acute Opiate Withdrawal with polysubstance abuse history: Admitted to medical surgical floor, initiated and maintained on tapering course of Subutex, as needed tylenol, ibuprofen, bowel regimen, gabapentin, Bentyl, Vistaril, methocarbamol, clonidine, PRN nightly trazodone for insomnia, IV fluids, IV antiemetics. Case management consulted for transition to next level of rehabilitation care. 05/20/2025 added scheduled simethicone, Bentyl dose x 1 with continued as needed Bentyl, resolution of abdominal cramping/bloating sensation. 05/21/2025 discussed plan of care for completion of tapering protocol 05/22/2020 5 AM and discharged to more long-term withdrawal treatment program/protocol already arranged per CM/180. #2. Anxiety and depression: Likely contributing greatly also to polysubstance abuse, not on regimen per current list, encourage continued outpatient follow-up, case management consulted as noted. #3. Tobacco Abuse: Encouraged cessation, inpatient consultation per RT, NR if desired. #4. GERD: Will continue PPI. #5. DVT prophylaxis: Low risk, encourage ambulation. Charges/Coding Visit Charges Inpatient E&M: 05322 Subs Hosp L2
[2025-05-21 07:34] VITALS: BP 100/52; PULSE 49; RESP 16; TEMP 36.4; O2SAT 100
[2025-05-21] MEDS: Ensure Plus High Protein 120 ML LIQUID PO ×4 (07:38→20:54)
[2025-05-21 07:52] VITALS: O2SAT 93
[2025-05-21 08:08] VITALS: BP 100/53; PULSE 50; RESP 18; TEMP 36.6; O2SAT 98
[2025-05-21 13:50] VITALS: BP 119/57; PULSE 63; RESP 18; TEMP 36.9; O2SAT 99
[2025-05-21] MEDS: hydrOXYzine PAM 25 MG Capsule 50 MG PO (16:02)
[2025-05-21 20:51] VITALS: BP 116/62; PULSE 56; RESP 18; TEMP 36.4; O2SAT 100
[2025-05-22 06:44] VITALS: BP 107/62; PULSE 57; RESP 16; TEMP 36.5; O2SAT 97
[2025-05-22] MEDS: hydrOXYzine PAM 25 MG Capsule 50 MG PO (06:50)
[2025-05-22 08:08] VITALS: O2SAT 94
--- NOTE | 2025-05-22 08:35 | PCM.DC.SUM ---
Providers Date of Admission: 05/18/25 Date of Discharge: 05/22/25 Primary Care Physician: JULITO Hannah Reason For Visit: OPIATE DETOX Diagnosis Discharge Diagnosis (1) Opiate dependence: Status: Acute Code(s): F11.20 - Opioid dependence, uncomplicated (2) Desire for detoxification: Status: Acute Medications at Discharge Home Medications pantoprazole 40 mg tablet,delayed release 40 mg PO DAILY GERD 06/12/21 Hospital Course Summary of Care Provided Minutes Spent on Discharge: 32 Hospital Course: Patient is a 39-year-old gentleman admitted with acute opioid withdrawal 1. 1. Acute opioid withdrawal - Patient has been admitted to regular nursing floor, managed buprenorphine taper along with other adjunctive medications for medical stabilization 2. Depression with anxiety ? Patient to follow-up with primary care physician for subsequent management 3. Tobacco dependence ? Counseled on cessation, offered nicotine patch for tobacco cravings 4. GERD ? On PPI 5.Severe protein calorie malnutrition ? As evidenced by suboptimal energy intake and weight loss. Patient was seen in consultation by dietitian 6. DVT prophylaxis ? Subcu Lovenox Physical Exam Narrative GENERAL: cooperative HEENT: Atraumatic; normocephalic EYES; Anicteric, Normal Conjunctiva NECK; supple, normal thyroid, RESPIRATORY: Diminished to auscultation CARDIOVASCULAR: Regular S1 S2, GI: soft, normoactive bowel sounds, : No Renal angle tenderness; EXTREMITIES: No edema, no clubbing, MUSCULOSKELETAL: no muscle wasting NEURO: Awake; no lateralizing signs. SKIN: No Rash PSYCH; Flat affect Medical Records Data Medical Nutrition Assessment Dietitian: Malnutrition Criteria Met Start: 05/19/25 10:31 Freq: Status: Active Protocol: Document 05/19/25 10:31 JESSIE (Rec: 05/19/25 10:31 JESSIE [id number]) Nutrition Malnutrition Evidence of Yes Malnutrition Exists Malnutrition (severe Social/Behavioral/Environmental ): Evidenced By Suboptimal Energy Intake (Severe),Weight Loss (Severe) Clinical Problem Chronic Disease or Condition Related Malnutrition Etiology related to relapse into drug use and inadequate energy intake Signs/Symptoms as evidenced by 9.9% unintended wt loss and po intake meeting <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 Weight / BMI Weight Weight: 77.564 kg Body Mass Index (BMI) 24.5 ABG / Lab / Microbiology Data 05/18/25 22:11 05/18/25 22:11 D/C Instructions Discharge Activity: Return to Normal Activity May resume sexual activity in: No Restrictions Weight Bearing Status: Weight bearing as tolerated Call your doctor if you observe: - (Recurrent concerning opiate withdrawal symptoms. Please contact your primary care physician.) DC O2, CPAP, BIPAP Needs Home O2 Discharge instructions: No Meaningful Use Info Meaningful Use Meaningful Use Diagnoses (Choose all that apply): None applicable Discharge Plan Admission Admit Date/Time: 05/18/25 23:24 Primary Reason for Your Visit: Acute Opiate Withdrawal, Polysubstance abuse Attending Provider: Joaquim Neville Primary Care Provider: Natty Isaac Consulting Providers: Adam Blanco; Elaine Stout Instructions Patient Instructions: Meth Abuse Addiction, Opioids Risks, ED Opiate Abuse Discharge Orders/Prescriptions Prescriptions: Continued pantoprazole 40 mg Tablet,Delayed Release (Dr/Ec) 40 mg PO DAILY Referrals / Follow Up: Natty Isaac PA [Primary Care Provider] - (Follow-up within 1-2 weeks to review admission. Call earlier if concerns arise.) Disposition Disposition (needs filled in before D/C Order can be placed): Home, Self Care Charges/Coding Visit Charges Inpatient E&M: 69935 Disch Hosp >30min
== END 2025-05-22 11:14 | disposition home or self-care (01) | DRG 897 ==
LOC: ED 23:18 → MS3 23:37
PROVIDERS: Admitting Provider Hospitalist; Emergency Provider Emergency Medicine; PCP Physician Assistant; Visit Provider Internal Medicine
DX: F11.23 Opioid dependence with withdrawal (principal); E46 Unspecified protein-calorie malnutrition; F32.A Depression, unspecified; K21.9 Gastro-esophageal reflux disease without esophagitis; F41.9 Anxiety disorder, unspecified; F17.290 Nicotine dependence, other tobacco product, uncomplicated; Z79.899 Other long term (current) drug therapy; Z68.25 Body mass index [BMI] 25.0-25.9, adult
CPT/HCPCS: 80053; 80307; 82077; 85025; 97802; 99283

== ENCOUNTER 2025-07-13 13:24 | Inpatient (IN) | payer SELFPAY ==
[2025-07-13] VITALS (7 sets, daily range): BP systolic 127–142; BP diastolic 66–88; PULSE 63–78; RESP 15–16; TEMP 36.6–36.8; O2SAT 98–100; BMI 25.4
[2025-07-13 14:27] LABS: Hematocrit 44.9 % (40-54); Hemoglobin 15.3 g/dL (13.0-16.5); Immature Granulocytes Count 0.020 X10^3/uL (0.0-0.0); Mean Corp Hgb Conc 34.1 g/dL (32-36); Mean Corpuscular Volume 83.9 fL (80-94); Mean Platelet Vol. 10.1 fl (6.2-12.0); NRBC Flagged by Analyzer 0 % (0-5); Platelet Count 374 K/mm3 (150-450); RBC Distribution Width CV 14.0 % (11.6-14.6); RBC Distribution Width SD 43.0 fl (35.1-43.9); Red Blood Count 5.35 M/mm3 (4.6-6.2); White Blood Count 9.6 K/mm3 (4.4-11.0)
[2025-07-13 14:54] LABS: Alcohol, Blood (Medical)-Serum < 10.1 mg/dL (<=10.0); Anion Gap 14 (5-15); BUN 13 mg/dL (4-19); BUN/Creat Ratio 15.1 RATIO (10-20); Calcium,Total 9.7 mg/dL (7.6-11.0); Carbon Dioxide 18.9 mmol/L (21.0-32.0); Chloride 106 mmol/L (98-108); Estimated Creatinine Clearance 120.25 ml/min (50-250); Glucose 93 mg/dL (70-99); Potassium 4.2 mmol/L (3.3-5.1)
[2025-07-13 14:55] LABS: Barbiturate Urine NEGATIVE (< 200 ng/mL); Benzodiazepine Urine NEGATIVE (< 200 ng/mL); PCP Urine NEGATIVE (< 25 ng/mL); THC Urine PRESUMPTIVE POSITIVE (< 50 ng/mL)
--- NOTE | 2025-07-13 15:34 | EDS_ITS ---
HPI History of Present Illness Chief Complaint: Substance Abuse Narrative Narrative: Patient is a 32-year-old male with past medical history of polysubstance abuse who presented to the emergency department wanting detox. He states that he last used fentanyl around 10 AM yesterday and notes that he uses approximately half a gram per day. He states that he intent to wean himself from the fentanyl and use methamphetamine. Patient denies recent IV drug use states that he has not done this for many years. He states that he wants to go through detox and go to the treatment afterwards as well. [facility] Medical History (Updated 07/13/25 @ 15:[address] Ishan Mckay, DO) Methamphetamine abuse Opioid abuse Anxiety Diarrhea Nausea & vomiting Acid reflux disease Abdominal pain Home Medications ?Medication ?Instructions ?Recorded ?Last Taken ?Type omeprazole 20 mg capsule,delayed 20 mg PO DAILY Unknown History release Allergy/AdvReac Type Severity Reaction Status Date / Time sulfamethoxazole (From Allergy Mild Unknown Verified 07/13/25 13:26 Bactrim) trimethoprim (From Bactrim) Allergy Mild Unknown Verified 07/13/25 13:26 Surgical History History of right inguinal hernia repair Status post right knee surgery Social History Smoking Status: Current every day smoker tobacco type: e-cigarettes alcohol intake: current alcohol intake frequency: a few times a week substance use type: does not use ROS ROS ED ROS Narrative Constitutional: Denies fever, chills, headaches Cardiovascular: Denies chest pain Respiratory: Denies shortness of breath Abdomen: Denies nausea vomit diarrhea : Denies urinary symptoms Neurological: Denies numbness, wheeze, tingling Musculoskeletal: Denies back pain Skin: Denies any rashes or lesions EXAM Physical Exam Narrative Exam Narrative: General: Patient was lying in bed rest comfortably did not appear to be in acute distress Head: Atraumatic, normocephalic Eyes: PERRL bilaterally, EOMI bilateral, no conjunctival injection noted Neck: Soft, supple, trachea midline Cardiovascular: Regular rate and rhythm no murmurs gallops rubs are noted Respiratory: Clear to auscultation bilaterally no rales rhonchi or wheeze noted Abdomen: Soft, nondistended, no tenderness to palpation Extremities: +5/5 strength noted in the bilateral upper and lower extremities, radial pulses +2/4 in the bilateral extremities, no pedal edema on exam Neurological: Patient following commands knew that he was at [facility] year is 2024 Skin: Warm, dry, tact no rashes or lesions noted Const Vital Signs: 07/13/25 13:25 07/13/25 15:25 07/13/25 15:32 Temperature 97.8 F 97.8 F Temperature Source Oral Pulse Rate 78 75 75 Respiratory Rate 16 16 16 Blood Pressure 136/76 H 141/78 H 141/78 H Blood Pressure Mean 96 99 99 Pulse Ox 100 100 100 Oxygen Delivery Method Room Air Room Air MDM MDM MDM Narrative Medical decision making narrative: Patient is a 40-year-old male who presents to the emergency department the chief complaint of wanting detox. On the differential diagnosis includes but not limited to fentanyl use, methamphetamine use, polysubstance abuse. Patient is CBC reviewed and showed no evidence leukocytosis white blood count normal at 9.6, he was 15.3, platelet count 374. Patient sodium was 130, potassium normal at 4.2, creatinine normal at 0.86. Patient drug screen was presumptive positive for fentanyl as well as amphetamines and cannabis. Alcohol level less than 10. Discussed case with hospitalist Dr. Villa for admission for detox. She will except the patient for admission patient is notified is agreeable to plan all question concerns answered. Lab Data Labs: Laboratory Results - last 24 hr 07/13/25 14:08 WBC 9.6 RBC 5.35 Hgb 15.3 Hct 44.9 MCV 83.9 MCH 28.6 MCHC 34.1 RDW Std Deviation 43.0 RDW Coeff of Giana 14.0 Plt Count 374 MPV 10.1 Immature Gran % (Auto) 0.200 Neut % (Auto) 76.0 H Lymph % (Auto) 16.9 L [place] % (Auto) 6.4 Eos % (Auto) 0.2 Baso % (Auto) 0.3 Absolute Neuts (auto) 7.3 Absolute Lymphs (auto) 1.63 Nucleated RBC % 0 Sodium 138 Potassium 4.2 Chloride 106 Carbon Dioxide 18.9 L Anion Gap 14 BUN 13 Creatinine 0.86 Estim Creat Clear Calc 120.25 Est GFR (MDRD) Non-Af 114 BUN/Creatinine Ratio 15.1 Glucose 93 Calcium 9.7 Urine Opiates Screen NEGATIVE U Buprenorphine Qual NEGATIVE Ur Oxycodone Screen NEGATIVE Urine Methadone Screen NEGATIVE Urine Fentanyl Screen PRESUMPTIVE POSITIVE Ur Barbiturates Screen NEGATIVE Ur Phencyclidine Scrn NEGATIVE Ur Amphetamines Screen PRESUMPTIVE POSITIVE U Benzodiazepines Scrn NEGATIVE Urine Cocaine Screen NEGATIVE U Cannabinoids Screen PRESUMPTIVE POSITIVE Ethyl Alcohol < 10.1 Discharge Plan Triage Chief Complaint: Substance Abuse ED Provider: Ishan Mckay Dx/Rx/DC Orders Clinical Impression: GERD (gastroesophageal reflux disease), Fentanyl use disorder, mild, abuse, Amphetamine use Prescriptions: No Action omeprazole 20 mg capsule,delayed release(DR/EC) 20 mg PO DAILY Primary Care Provider: Natty Isaac Referrals: Natty Isaac PA [Primary Care Provider] - Print Language: Mohawk Disposition Disposition: Acute Care Hospital [facility]
--- NOTE | 2025-07-13 16:01 | HP.PCM.HOS_ITS ---
HPI - General General Date of Admission: 07/13/25 Date of Service: 07/13/25 Chief Complaint: Opioid detox HPI Narrative EULALIO JAMES, is a 40 M with a history of tobacco use, fentanyl use, amphetamine use, GERD presented [facility] ED 08/03 requesting detox from fentanyl. Patient snorts fentanyl with last use yesterday at 10 AM, uses about half a gram a day. Used meth yesterday try to help to detox but reports it did not help, today he feels he is withdrawing and feels unwell so he came to the ED. In the ED BP 141/78, respiratory rate 16 pulse ox 100% on room air, patient afebrile. Hemoglobin white blood cell count and platelets within normal limits, kidney function within normal limits, UDS positive for amphetamines, benzos, cannabinoids. Hospitalist contacted for admission. Patient evaluated at bedside, reports history as above. Presently having bodyaches, headache, lacrimation, nasal congestion, sweats and chills with abdominal pain and diarrhea. [facility] Medical History (Updated 07/13/25 @ 15:[address] Ishan Mckay DO) Abdominal pain Acid reflux disease Anxiety Diarrhea Methamphetamine abuse Nausea & vomiting Opioid abuse Home Medications ?Medication ?Instructions ?Recorded ?Last Taken ?Type omeprazole 20 mg capsule,delayed 20 mg PO DAILY Unknown History release Allergy/AdvReac Type Severity Reaction Status Date / Time sulfamethoxazole (From Allergy Mild Unknown Verified 07/13/25 13:26 Bactrim) trimethoprim (From Bactrim) Allergy Mild Unknown Verified 07/13/25 13:26 Surgical History History of right inguinal hernia repair Status post right knee surgery Social History Smoking Status: Current every day smoker tobacco type: e-cigarettes alcohol intake: current alcohol intake frequency: a few times a week substance use type: does not use ROS ROS Narrative General: Denies fever, some chills and sweats HENT: Does have a headache and stuffy nose denies sore throat EYES: Denies changes in vision Resp: Denies cough, denies shortness of breath Cardiac: Denies chest pain GI: Some abdominal upset with diarrhea : Denies changes in urination Extremity: Denies swelling MSK: Denies weakness, has diffuse body aches Neuro: Denies any numbness/tingling Heme: Denies any bleeding or bruising Skin: Denies rashes Psychiatric: No complaints voiced, just feels unwell Vital Signs Vital Signs Vital Signs: 07/13/25 13:25 07/13/25 15:25 07/13/25 15:32 Temperature 97.8 F 97.8 F Temperature Source Oral Pulse Rate 78 75 75 Respiratory Rate 16 16 16 Blood Pressure 136/76 H 141/78 H 141/78 H Blood Pressure Mean 96 99 99 Pulse Ox 100 100 100 Oxygen Delivery Method Room Air Room Air Weight Weight: 80.331 kg Body Mass Index (BMI) 25.4 Physical Exam Narrative General: Alert, oriented, appears uncomfortable HEENT: Atraumatic, normocephalic Eyes: Anicteric, normal conjunctiva, extraocular movements grossly intact Neck: Supple Respiratory: Clear to auscultation bilaterally, normal respiratory effort Cardiovascular: Regular rate and rhythm GI: Soft, nontender, nondistended Extremities: No edema, does have visible goosebumps Musculoskeletal: Moving all extremities Neuro: No overt focal neurological deficits Skin: No rashes appreciated Psych: Cooperative Results Lab / Micro Data 07/13/25 14:08 07/13/25 14:08 Labs: Laboratory Results - last 24 hr 07/13/25 14:08: WBC 9.6, RBC 5.35, Hgb 15.3, Hct 44.9, MCV 83.9, MCH 28.6, MCHC 34.1, RDW Std Deviation 43.0, RDW Coeff of Giana 14.0, Plt Count 374, MPV 10.1, Immature Gran % (Auto) 0.200, Neut % (Auto) 76.0 H, Lymph % (Auto) 16.9 L, [place] % (Auto) 6.4, Eos % (Auto) 0.2, Baso % (Auto) 0.3, Absolute Neuts (auto) 7.3, Absolute Lymphs (auto) 1.63, Nucleated RBC % 0, Sodium 138, Potassium 4.2, Chloride 106, Carbon Dioxide 18.9 L, Anion Gap 14, BUN 13, Creatinine 0.86, Estim Creat Clear Calc 120.25, Est GFR (MDRD) Non-Af 114, BUN/Creatinine Ratio 15.1, Glucose 93, Calcium 9.7, Urine Opiates Screen NEGATIVE, U Buprenorphine Qual NEGATIVE, Ur Oxycodone Screen NEGATIVE, Urine Methadone Screen NEGATIVE, Urine Fentanyl Screen PRESUMPTIVE POSITIVE, Ur Barbiturates Screen NEGATIVE, Ur Phencyclidine Scrn NEGATIVE, Ur Amphetamines Screen PRESUMPTIVE POSITIVE, U Benzodiazepines Scrn NEGATIVE, Urine Cocaine Screen NEGATIVE, U Cannabinoids Screen PRESUMPTIVE POSITIVE, Ethyl Alcohol < 10.1 Assessment & Plan Assessment/Plan (1) Opiate dependence: PLAN: Plan #Acute opiate withdrawal - Subutex taper initiated - As needed Tylenol, ibuprofen, bowel regimen, gabapentin, Bentyl, Vistaril, methocarbamol, clonidine - As needed trazodone nightly - As needed antiemetics -Once patient begins to clinically improve will discuss further discharge planning # Amphetamine use - Advise cessation #Tobacco use -Advise cessation -Nicotine replacement available if desired #GERD -Continue PPI #DVT ppx: Low risk, ambulatory Claudette Villa MD Charges/Coding Visit Charges Inpatient E&M: 91617 Init Hosp L1
--- NOTE | 2025-07-13 16:09 | CM.ED ---
Addendum entered by Tisha Parisi 07/13/25 19:56: Social work Linnea was able to see patient while patient was still in the ED. REBECCA Ahmadi, [employer] Original Note: Social work Per [facility] Registration Ghislaine, patient voiced desire to apply for Medicaid again. called Linnea with [facility] (ext [phone]) and requested this. Linnea stated intent to meet with patient tonight or first thing tomorrow morning. REBECCA Ahmadi, [employer]
[2025-07-13] MEDS: Nicotine (PBKC) 21 MG Patch TD (17:52)
[2025-07-13] MEDS: hydrOXYzine PAM 25 MG Capsule 50 MG PO (17:52)
--- OUTSIDE RECORDS SUMMARY | 2025-07-13 21:36 | XMS RPT_ITS | CCD ---
Author Organization [facility] CliniSymd Care Team Providers Care Mail Sorter And Delivery Name Role Phone ISAAC, NATTY J Unavailable [...] Unavailable Unavailable JEVON, ROGER E Unavailable Unavailable JEVNO, ROGER E Unavailable Unavailable ISAAC, NATTY J Unavailable Unavailable PROVIDER, UNKNOWN Unavailable Unavailable CATY RODRIGUEZ Attending Unavailable SYSTEM, PROVIDER NOT IN Primary Care Unavailhallie Canas, Kenan Mullins Primary Care Provider Vaccarimaya, Kenan Mullins Primary Care Provider VACCLOURDES, KENAN MULLINS Primary Care Jannette del cid VACCLOURDES, KENAN MULLINS Primary Care Jannette VILA, Natty Primary Care Provider Dr. Renan Fuentes DO Emergency Provider [phone] Renan Fuentes DO Attending Provider Dr. Jr Jeffery MD Emergency Provider Dr. Adam Blanco DO Admit Provider Dr. Adam Blanco DO Attending Provider Dr. Adam Blanco DO Other Provider [phone] Dr. Caty Neville MD Attending Provider Unavaila Dr. Elaine Martines MD Other Provider Argelia SANDERS, Dr. Elaine Bray Attending Provider Dr. Caty Neville MD Other Provider Unavailable Isaac JULITO, [place] [facility] Unavailable Elaine Stout Attending Unavailable Mosteller, Adam Consulting Unavailable Mosteller, Adam Admitting Unavailable Elaine Stout Consulting Unavailable Isaac PA, Natty Primary Care Unavailable Mosteller, Adam Admitting Unavailable Mosteller, Adam Consulting Unavailable Caty Neville Attending Unavailable Elaine Stout Consulting Unavailable [facility], [place] [facility] Unavailable Renan Fuentes Attending Unavailable Ctay Neville Attending Unavailable Caty Neville Consulting Unavailable Francis, Adam Attending Unavailable Unavailable Primary Care Provider UnavailHOLLAND Pichardo Attending Unavailable HOLLAND STONE Admitting Unavailable [facility] Primary Care Provider [phone] Dr. Ishan Mckay DO Emergency Provider Allen SANDERS, Dr. Wilkins Admit Provider [phone] Allen SANDERS, Dr. Wilkins Attending Provider [phone] Allergies Allergy Classification Reported Allergen(s) Allergy Type Date of Onset Reaction(s) Facility (10 sources) Sulfamethoxazole; Translations: [SULFAMETHOXAZOLE] Drug Allergy 9 Unknown [facility] (10 sources) Trimethoprim; Translations: [TRIMETHOPRIM] Drug Allergy 9 Unknown [facility] (5 sources) Sulfamethoxazole / Trimethoprim; Translations: [SULFAMETHOXAZOLE-TR IMETHOPRIM] Drug Allergy 9 [facility] (1 source) Sulfamethoxazole Drug Allergy 5 [facility] Repository (1 source) Trimethoprim Drug Allergy 5 [facility] Rep[facility] Medications Current Medications Medication Drug Class(es) Dates Sig (Normalized) Sig (Original) acetaminophen 325 mg / HYDROcodone bitartrate 5 mg oral tablet (10 sources) Opioid Agonist Start: 06-02-2022 take 1 tablet by mouth every six hours as needed Hydrocodone-Aceta minophen Active 1 TABLET PO EVERY 6 HOURS NEEDED 12 3 June 02, 2022 Start: 09-26-2019 End: 09-28-2019 Hydrocodone-Acetaminophen 1 TABLET tablet Discontinued 1 {tbl} PO EVERY 4 HOURS NEEDED as needed for Pain 10 2 0 September 26, 2019 September 27, 2019 1:00am September 28, 2019 1:08am Abdominal pain Unspecified abdominal pain Start: 09-26-2019 End: 09-28-2019 take 1 tablet by mouth every four hours as needed Hydrocodone-Acetaminophen Discontinued 1 TABLET PO EVERY 4 HOURS NEEDED 10 2 September 26, 2019 September 28, 2019 1:08am naproxen 500 mg oral tablet (2 sources) Nonsteroidal Anti-inflammatory Drug Start: 02-17-2023 take 1 tablet by mouth twice daily Naproxen (Naprosyn) 500 mg tablet Active 500 MG PO TWICE A DAY February 17, 2023 12:00am omeprazole 20 mg delayed release oral capsule (15 sources) Proton Pump Inhibitor Start: 07-13-2025 take 1 capsule by mouth once daily Omeprazole 20 mg capsule,delayed release(DR/EC) Active 20 mg PO DAILY July 13, 2025 12:00am Start: 05-24-2019 End: 12-19-2019 take 1 capsule by mouth once daily Omeprazole 40 mg capsule,delayed release(DR/EC) Discontinued 40 mg PO DAILY May 24, 2019 12:00am December 19, 2019 12:27pm Start: 03-28-2019 End: 05-24-2019 take 1 capsule by mouth once daily Omeprazole 20 mg capsule,delayed release(DR/EC) Discontinued 20 mg PO DAILY 60 March 28, 2019 12:00am May 24, 2019 2:52pm predniSONE 10 mg oral tablet (1 source) Start: 10-21-2023 End: 10-30-2023 predniSONE (DELTASONE) 10 mg tablet Indications: Sinobronchitis [...] Sig (Normalized) Sig (Original) acetaminophen 325 mg oral tablet (2 sources) Start: 07-11-2025 End: 07-11-2025 take 1 tablet by mouth every six hours as needed for pain and pain and headache and fever 650 mg, Oral, Every 6 hours PRN, mild pain (1-3), moderate pain (4-6), headaches, fever, severe pain (7-10), Starting on Thu07/11/25 at 1838 acetaminophen 325 mg / oxyCODONE hydrochloride 5 mg oral tablet (20 sources) Opioid Agonist Start: 07-04-2019 End: 07-09-2019 Oxycodone-Acetamino phen 1 TABLET tablet Discontinued 1 {tbl} PO EVERY 6 HOURS NEEDED as needed for Pain 10 3 0 July 04, 2019 July 06, 2019 12:00am July 09, 2019 12:09am 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 Start: 07-04-2019 End: 07-09-2019 take 1 tablet by mouth every six hours as needed Oxycodone-Acetaminophen Discontinued 1 TABLET PO EVERY 6 HOURS NEEDED 10 3 July 04, 2019 July 09, 2019 12:09am Start: 07-01-2019 End: 07-09-2019 Oxycodone-Acetaminophen 1 TA BLET tablet Discontinued 1 - 2 {tbl} PO EVERY 4 HOURS NEEDED as needed for Pain 15 4 0 July 01, 2019 July 04, 2019 12:00am July 09, 2019 12:08am 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 Start: 07-01-2019 End: 07-09-2019 take 1 tablet by mouth every four hours as needed Oxycodone-Acetaminophen Discontinued 1 - 2 TABLET PO EVERY 4 HOURS NEEDED 15 4 July 01, 2019 July 09, 2019 12:08am Start: 06-05-2019 End: 06-11-2019 Oxycodone-Acetaminophen 1 TA BLET tablet Discontinued 1 {tbl} PO EVERY 6 HOURS NEEDED as needed for Pain 12 3 0 June 05, 2019 June 07, 2019 12:00am June 11, 2019 12:08am Postoperative abdominal pain Unspecified abdominal pain Start: 06-05-2019 End: 06-11-2019 take 1 tablet by mouth every six hours as needed Oxycodone-Acetaminophen Discontinued 1 TABLET PO EVERY 6 HOURS NEEDED 12 3 June 05, 2019 June 11, 2019 12:08am Start: 06-02-2019 End: 06-11-2019 Oxycodone-Acetaminophen 1 TA BLET tablet Discontinued 1 - 2 {tbl} PO EVERY 4 HOURS NEEDED as needed for Pain 20 7 0 June 02, 2019 June 08, 2019 12:00am June 11, 2019 12:08am Right inguinal hernia Start: 06-02-2019 End: 06-11-2019 take 1 tablet by mouth every four hours as needed Oxycodone-Acetaminophen Discontinued 1 - 2 TABLET PO EVERY 4 HOURS NEEDED 20 7 June 02, 2019 June 11, 2019 12:08am aluminum hydroxide 40 mg/ml / magnesium hydroxide 40 mg/ml / simethicone 4 mg/ml oral suspension (2 sources) Start: 07-11-2025 End: 07-11-2025 take 10 mL by mouth three times daily as needed 10 mL, Oral, 3 times daily PRN, indigestion, Starting on Thu07/11/25 at 1838 amoxicillin 875 mg / clavulanate 125 mg oral tablet (7 sources) Penicillin-class Antibacterial Start: 12-13-2019 End: 12-23-2019 Amoxicillin-Pot Clavulanate (Augmentin) 875-125 mg tablet Discontinued 1 {tbl} PO Q12H 20 10 0 December 13, 2019 1:00am December 22, 2019 1:00am December 23, 2019 1:09am Acute sinusitis, unspecified amylase [id number] unt / lipase [id number] unt / protease [id number] unt delayed release oral capsule (7 sources) Start: 09-26-2019 End: 12-19-2019 Jdrbfg-Bpvjryvd-Sw ylase 1 EACH capsule,delayed release(DR/EC) Discontinued 1 NMA PO THREE TIMES A DAY September 26, 2019 1:00am December 19, 2019 12:27pm Start: 09-26-2019 End: 12-19-2019 Evdgzq-Keawsdhd-Djpkgaw Disc ontinued 1 EACH PO THREE TIMES A DAY September 26, 2019 1:00am December 19, 2019 12:27pm azithromycin 250 mg oral tablet (7 sources) Macrolide Antimicrobial Start: 10-06-2019 End: 12-13-2019 Azithromycin 250 mg tablet Discontinued 0 PO .COMPLEX 6 0 October 06, 2019 1:00am December 13, 2019 3:22pm Take two tablets by mouth on day one then one tablet by mouth on days 2-5 baclofen 10 mg oral tablet (2 sources) gamma-Aminobutyric Acid-ergic Agonist Start: 07-11-2025 End: 07-11-2025 take 1 tablet by mouth every eight hours 10 mg, Oral, Every 8 hours, First dose on Thu07/11/25 at 1840 cephalexin 500 mg oral capsule (7 sources) Cephalosporin Antibacterial Start: 10-12-2018 End: 03-28-2019 take 1 capsule by mouth every six hours Cephalexin 500 MG capsule Discontinued 500 mg PO EVERY 6 HOURS 40 0 October 12, 2018 1:00am March 28, 2019 10:29am clindamycin 300 mg oral capsule (7 sources) Lincosamide Antibacterial Start: 03-18-2019 End: 03-28-2019 take 1 capsule by mouth every six hours Clindamycin Hcl 300 MG capsule Discontinued 300 mg PO EVERY 6 HOURS 40 0 March 18, 2019 12:00am March 28, 2019 10:35am cloNIDine hydrochloride 0.1 mg oral tablet (2 sources) Central alpha-2 Adrenergic Agonist Start: 07-11-2025 End: 07-11-2025 take 1 tablet by mouth every eight hours 0.1 mg, Oral, Every 8 hours, First dose on Thu07/11/25 at 1840, HOLD if SBP dicyclomine hydrochloride 10 mg oral capsule (9 sources) Anticholinergic Start: 07-11-2025 End: 07-11-2025 take 20 mg by mouth three times daily as needed 20 mg, Oral, 3 times daily PRN, abdominal cramps, Starting on Thu07/11/25 at 1838 Start: 09-26-2019 End: 12-19-2019 take 1 capsule by mouth three times daily before mealtime Dicyclomine 10 MG capsule Discontinued 10 mg PO THREE TIMES DAILY BEFORE MEALS September 26, 2019 1:00am December 19, 2019 12:27pm doxycycline hyclate 100 mg oral capsule (5 sources) Tetracycline-class Drug Start: 02-04-2025 End: 05-18-2025 take 1 capsule by mouth twice daily Doxycycline Hyclate 100 mg capsule Discontinued 100 mg PO TWICE A DAY 14 0 February 04, 2025 12:00am May 18, 2025 9:39pm Start: 10-21-2023 End: 10-28-2023 take 1 tablet by mouth twice daily doxycycline (VIBRA-TABS) 100 mg tablet Indications: Sinobronchitis Take 1 tablet by mouth two times a day for 7 days. 14 tablet 0 10/21/2023 10/28/2023 Active Comment on above: Take 1 tablet by [facility] two times a day for 7 days. eluxadoline 75 mg oral tablet (7 sources) mu-Opioid Receptor Agonist Star t: 09-09 End: 09-10 take 1 tablet by mouth once daily Eluxadoline 75 MG tablet Discontinued 75 mg PO DAILY September 26, 2019 1:00am October 06, 2019 2:44pm esomeprazole 20 mg delayed release oral capsule (7 sources) Proton Pump Inhibitor Star t: 02-26 End: 03-10 take 1 capsule by mouth once daily Esomeprazole Magnesium 20 MG capsule,delayed release(DR/EC) Discontinued 20 mg PO DAILY October 12, 2018 1:00am March 28, 2019 10:35am FLUoxetine 10 mg oral capsule (2 sources) Serotonin Reuptake Inhibitor Star t: 05-10 FLUoxetine (PROZAC) 10 mg capsule fluticasone propionate 0.05 mg/actuat metered dose nasal spray (1 source) Corticosteroid Star t: 10-09 take 2 spray(s) by mouth once daily fluticasone (FLONASE) 50 mcg/actuation nasal spray Indications: Sinobronchitis Use 2 Sprays in each nostril once daily. Rinse mouth after use. 1 Each 0 10/21/2023 Active Comment on above: Use 2 Sprays in each nostril once daily. Rinse mouth after use. hydrOXYzine pamoate 25 mg oral capsule (2 sources) Antihistamine Star t: 12-29 End: 12-29 take 1 capsule by mouth every six hours as needed for anxiety 50 mg, Oral, Every 6 hours PRN, anxiety, allergies, Starting on Thu07/11/25 at 1838 1 ml ketorolac tromethamine 30 mg/ml cartridge (2 sources) Nonsteroidal Anti-inflammatory Drug, Cyclooxygenase Inhibitor Star t: 12-29 End: 12-29 inject 30 mg by intramuscular injection once as needed for pain 30 mg, IntraMUSCular, Once PRN, moderate pain (4-6), mild pain (1-3), Starting on Thu07/11/25 at 1438, For 1 dose magnesium hydroxide 80 mg/ml oral suspension (2 sources) Star t: 12-29 End: 12-29 take 30 mL by mouth twice daily as needed for constipation 30 mL, Oral, 2 times daily PRN, constipation, Starting on Thu07/11/25 at 1838 methylPREDNISolone 4 mg oral tablet (14 sources) Corticosteroid Star t: 12-10 End: 12-10 take 1 tablet by mouth once Methylprednisolone (Medrol (Jakob)) 4 mg tablets,dose pack Discontinued 4 mg PO per package directions 21 5 0 December 19, 2019 1:00am December 23, 2019 1:00am December 24, 2019 1:09am Acute bronchitis, unspecified Start: 10-06-2019 End: 12-13-2019 take 1 tablet by mouth once Methylprednisolone (Medrol (Jakob)) 4 mg tablets,dose pack Discontinued 0 PO per package directions October 06, 2019 1:00am December 13, 2019 3:22pm PO PER PKG DIR ondansetron 4 mg disintegrating oral tablet (11 sources) Serotonin-3 Receptor Antagonist Start: 07-11-2025 End: 07-11-2025 take 1 tablet by mouth every eight hours as needed for nausea and vomiting 4 mg, Oral, Every 8 hours PRN, nausea, vomiting, Starting on Thu07/11/25 at 1838 Start: 07-11-2025 End: 07-11-2025 take 4 mg by mouth once as needed for nausea 4 mg, Oral, Once PRN, nausea, vomiting, Starting on Thu07/11/25 at 1438, For 1 dose Start: 10-13-2018 End: 12-19-2019 take 1 tablet by mouth every eight hours as needed for nausea Ondansetron 4 MG tablet Discontinued 4 mg PO EVERY 8 HOURS NEEDED as needed for Nausea October 13, 2018 1:00am December 19, 2019 12:27pm pantoprazole 40 mg delayed release oral tablet (7 sources) Proton Pump Inhibitor Start: 06-12-2021 End: 07-13-2025 take 1 tablet by mouth once daily Pantoprazole 40 mg Tablet,Delayed Release (Dr/Ec) Discontinued 40 mg PO DAILY June 12, 2021 12:00am July 13, 2025 2:04pm GERD promethazine hydrochloride 25 mg oral tablet (7 sources) Phenothiazine Start: 09-26-2019 End: 12-19-2019 take [...] mg tablet rifAXIMin 550 mg oral tablet (7 sources) Rifamycin Antibacterial Start: 09-26-2019 End: 10-06-2019 take 1 tablet by mouth three times daily Rifaximin 550 MG tablet Discontinued 550 mg PO THREE TIMES A DAY September 26, 2019 1:00am October 06, 2019 2:44pm sucralfate 1000 mg oral tablet (7 sources) Aluminum Complex Start: 03-28-2019 End: 05-24-2019 take 1 tablet by mouth at bedtime Sucralfate (Carafate) 1 gram tablet Discontinued 1 g PO before meals and at bedtime 120 0 March 28, 2019 12:00am May 24, 2019 2:53pm sulfamethoxazole 800 mg / trimethoprim 160 mg oral tablet (7 sources) Dihydrofolate Reductase Inhibitor Antibacterial, Sulfonamide Antimicrobial Start: 10-12-2018 End: 03-28-2019 Sulfamethoxazole-Tr imethoprim 1 TABLET tablet Discontinued 1 {tbl} PO TWICE A DAY 14 0 October 12, 2018 1:00am March 28, 2019 10:30am Start: 10-12-2018 End: 03-28-2019 take 1 tablet by mouth twice daily Sulfamethoxazole-Trimethoprim Discontinu ed 1 TABLET PO TWICE A DAY October 12, 2018 1:00am March 28, 2019 10:30am traMADol (2 sources) Opioid Agonist Start: 07-11-2025 End: 07-11-2025 take 1 tablet by mouth every four hours traMADol (Ultram) tablet 100 mg traZODone hydrochloride 100 mg oral tablet (6 sources) Serotonin Reuptake Inhibitor Start: 07-11-2025 End: 07-11-2025 take 100 mg by mouth once daily as needed for sleep 100 mg, Oral, Nightly PRN, sleep, Starting on Thu07/11/25 at 1838 Start: 03-23-2023 End: 02-04-2025 take 1 tablet by mouth at bedtime Trazodone 50 mg tablet Discontinued 50 mg PO AT BEDTIME March 23, 2023 12:00am February 04, 2025 7:25pm ADJUSTMENT DISORDER Problems Active Problems Problem Classification Problem Date Documented Da te Episodic/Chronic Abdominal hernia (14 sources) Right inguinal hernia ; Translations: [Unilateral inguinal hernia, without obstruction or gangrene, not specified as recurrent] 09-26-2019 Episodic Abdominal pain (15 sources) Right upper quadrant pain; Translations: [Right lower quadrant pain] Onset: 8 06-06-2019 Episodic Acute bronchitis (7 sources) Acute bronchitis; Translations: [Acute bronchitis, unspecified] 12-19-2019 Episodic E Codes: Fall (6 sources) Fall; Translations: [Unspecified fall, initial encounter] 02-17-2023 Episodic Esophageal disorders (7 sources) Gastroesophageal reflux disease; Translations: [Gastro-esophageal reflux disease without esophagitis] 09-26-2019 Chronic Fluid and electrolyte disorders (1 source) Dehydration; Translations: [Dehydration] Onset: 8 Episodic Fracture of lower limb (7 sources) Fracture of phalanx of foot; Translations: [Unspecified fracture of right toe(s), initial encounter for closed fracture] 06-02-2022 Episodic Genitourinary symptoms and ill-defined conditions (4 sources) Bacteriuria; Translations: [Bacteriuria] 02-04-2025 Episodic Immunizations and screening for infectious disease (1 source) Contact with or exposure to other viral diseases; Translations: [Suspected COVID-19 virus infection] Episodic Inflammatory conditions of male genital organs (3 sources) Epididymitis; Translations: [Epididymitis] 02-12-2025 Episodic Nausea and vomiting (7 sources) Nausea, vomiting and diarrhea; Translations: [Nausea with vomiting, unspecified] 10-14-2018 Episodic Open wounds of head; neck; and trunk (7 sources) Laceration of lip ; Translations: [Laceration without foreign body of lip, initial encounter] 07-04-2021 Episodic Other and unspecified benign neoplasm (7 sources) Lipoma of spermatic cord; 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] 09-26-2019 Episodic Other connective tissue disease (7 sources) Pain in toe; Translations: [Pain in right toe(s)] 06-10-2022 Episodic Other connective tissue disease (4 sources) Abdominal muscle pain; Translations: [Myalgia, other site] 02-04-2025 Episodic Other ear and sense organ disorders (1 source) Impacted cerumen in left ear; Translations: [Impacted cerumen, left ear] 07-20-2023 Episodic Other eye disorders (6 sources) Subconjunctival hemorrhage; Translations: [Conjunctival hemorrhage, unspecified eye] 02-17-2023 Episodic Other gastrointestinal disorders (2 sources) Diarrhea, unspecified; Translations: [Diarrhea, unspecified] Onset: 8 Episodic Other injuries and conditions due to external causes (6 sources) Injury of head; Translations: [Unspecified injury of head, initial encounter] 02-17-2023 Episodic Other lower respiratory disease (7 sources) Cough; Translations: [Cough] 12-19-2019 Episodic Other upper respiratory infections (1 source) Chronic sinusitis; Translations: [Chronic sinusitis, unspecified] 10-21-2023 Chronic Other upper respiratory infections (7 sources) Acute sinusitis; Translations: [Acute sinusitis, unspecified] 12-13-2019 Episodic Otitis media and related conditions (1 source) Dysfunction of left eustachian tube; Translations: [Unspecified Eustachian tube disorder, left ear] 10-21-2023 Episodic Sprains and strains (6 sources) Sprain, elbow joint, medial collateral ligament; Translations: [Ulnar collateral ligament sprain of unspecified elbow, initial encounter] 02-17-2023 Episodic Substance-related disorders (20 sources) Nicotine dependence, unspecified, uncomplicated; Translations: [Methamphetamine abuse] Onset: 8 04-03-2023 Chronic Substance-related disorders (14 sources) Finding related to substance use; Translations: [Other stimulant use, unspecified, uncomplicated] Onset: 5 05-18-2025 Episodic Superficial injury; contusion (13 sources) Contusion of chest; Translations: [Contusion of unspecified front wall of thorax, initial encounter] 06-12-2021 Episodic Unclassified (2 sources) Follow-up within 1-2 weeks to review admission. Call earlier if concerns arise. Urinary tract infections (4 sources) Urethritis; Translations: [Other urethritis] 02-04-2025 Episodic Past or Other Problems Problem Classification Problem Date Documented Da te Episodic/Chronic Unclassified (7 sources) Readiness finding 03-23-2023 Results Test Name Value Interpretation Reference Range Facility Absolute lymphocyte countOrd ered By: Ishan Mckay on 07-13-2025 Lymphocytes Auto (Unsp spec) [#/Vol] 1.63 10*3/uL 0.83-4.51 [facility] Absolute neutrophil countOrd ered By: Ishan Mckay on 07-13-2025 Neutrophils (Bld) [#/Vol] 7.3 10*3/uL 2.0-7.7 [facility] Amphetamine detection with 1 000 ng/mL as cutoffOrdered By: Ishan Mckay on 07-13-2025 Amphetamines Screen method >1000 ng/mL Ql (U) Positive <1000 ng/mL [facility] Comment on above: If confirmation test ing is needed, a separate order will be required to send out testing to the reference laboratory. Amphetamines Screen method >1000 ng/mL Ql (U) Negative < 200 ng/mL [facility] Anion gap in Serum or Plasma Ordered By: Ishan Mckay on 07-13-2025 Anion gap [Moles/Vol] 14 mmol/L 5-15 [facility] Automated lymphocyte count a s percentage of total leukocytesOrdered By: Ishan Mckay on 07-13-2025 Lymphocytes/100 WBC Auto (Unsp spec) 16.9 % Low 19-41 [facility] BUN/creatinine ratioOrdered By: Ishan Mckay on 07-13-2025 Urea nitrogen/Creatinine [Mass ratio] 15.1 mg/mg 10-20 [facility] Basophil percentageOrdered B y: Ishan Mckay on 07-13-2025 Basophils/100 WBC (Bld) 0.3 % 0-1 [facility] Carbon dioxide, total [Moles /volume] in Central venous bloodOrdered By: Ishan Mckay on 07-13-2025 CO2 [Moles/Vol] 18.9 mmol/L Low 21.0-32.0 [facility] Chloride assayOrdered By: Fidel Mckay on 07-13-2025 Chloride [Moles/Vol] 106 mmol/L 98-108 [facility] Eosinophil percentageOrdered By: Ishan Mckay on 07-13-2025 Eosinophils/100 WBC (Bld) 0.2 % 0-5 [facility] Erythrocyte distribution wid th ratioOrdered By: Ishan Mckay on 07-13-2025 Erythrocyte distribution width (RBC) [Ratio] 14.0 % 11.6-14.6 [facility] Erythrocyte distribution wid th standard deviationOrdered By: Ishan Mckay on 07-13-2025 Erythrocyte distribution width (RBC) [Ratio] 43.0 fl 35.1-43.9 [facility] Glomerular filtration rate ( GFR) estimation/1.73 sq m using serum, plasma, or whole bOrdered By: Ishan Mckay on 07-13-2025 GFR/1.73 sq M.predicted among non-blacks MDRD (S/P/Bld) [Vol rate/Area] 114 mL/min/{1.73_m2} >60 [facility] Comment on above: mL/min/1.73m2 CKD-EP I Creatinine Equation (2020) Hematocrit Auto (Bld) [Volum e fraction]Ordered By: Ishan Mckay on 07-13-2025 Hematocrit (Bld) [Volume fraction] 44.9 % 40-54 [facility] Hemoglobin measurementOrdere d By: Ishan Mckay on 07-13-2025 Hemoglobin (Bld) [Mass/Vol] 15.3 g/dL 13.0-16.5 [facility] Immature granulocytes/100 WB C Auto (Bld)Ordered By: Ishan Mckay on 07-13-2025 Immature granulocytes/100 WBC (Bld) 0.200 % 0.0-0.9 [facility] Comment on above: IG% - Immature Granu locytes (promyelocytes, myelocytes and metamyelocytes) > 1% indicates that a LEFT SHIFT is Present. MCV (mean corpuscular volume ) determinationOrdered By: Ishan Mckay on 07-13-2025 MCV (RBC) [Entitic vol] 83.9 fL 80-94 [facility] Mean corpuscular hemoglobin (MCH) determinationOrdered By: Ishan Mckay on 07-13-2025 MCH (RBC) [Entitic mass] 28.6 pg 27.0-32.0 [facility] Mean corpuscular hemoglobin concentration (MCHC) determinationOrdered By: Ishan Mckay on 07-13-2025 MCHC (RBC) [Mass/Vol] 34.1 g/dL 32-36 [facility] Mean platelet volume determi nationOrdered By: Ishan Mckay on 07-13-2025 Platelet mean volume (Bld) [Entitic vol] 10.1 fL 6.2-12.0 [facility] Monocyte percentageOrdered B y: Ishan Mckay on 07-13-2025 Monocytes/100 WBC (Bld) 6.4 % 0-10 [facility] Neutrophil percentageOrdered By: Ishan Mckay on 07-13-2025 Neutrophils/100 WBC (Bld) 76.0 % High 47-70 [facility] No Panel InformationOrdered By: Ishan Mckay on 07-13-2025 Urine Buprenorphine Qualitative Negative < 200 ng/mL [facility] Urine Oxycodone Screen Negative < 100 ng/mL [facility] Nucleated red blood cell per centageOrdered By: Ishan Mckay on 07-13-2025 Nucleated RBC/100 WBC (Bld) [Ratio] 0 % 0-5 [facility] Platelet countOrdered By: Fidel Mckay on 07-13-2025 Platelets (Bld) [#/Vol] 374 10*3/uL 150-450 [facility] Potassium measurement (mass/ volume)Ordered By: Ishan Mckay on 07-13-2025 Potassium (Unsp spec) [Mass/Vol] 4.2 mmol/L 3.3-5.1 [facility] Quantitative urine opiates m easurementOrdered By: Ishan Mckay on 07-13-2025 Opiates Ql (U) Negative < 300 ng/mL [facility] RBC Auto (Bld) [#/Vol]Ordere d By: Ishan Mckay on 07-13-2025 RBC (Bld) [#/Vol] 5.35 10*6/uL 4.6-6.2 [facility] Screening urine fentanyl casper surementOrdered By: Ishan Mckay on 07-13-2025 fentaNYL Screen Ql (U) Positive <5 ng/mL [facility] Comment on above: CONFIRMATORY TESTING FOR ALL POSITIVE URINE DRUG SCREENRESULTS WILL ONLY BE SENT OUT UPON PHYSICIAN ORDER. Marry Pro Urine Drug Screen methods provide only preliminaryanalytical test results. A more specific alternate chemicalmethod must be used in order to obtain a confirmedanalytical result. Gas chromatography/mass spectrometery(GC/MS) is the preferred confirmatory method. Clinicalconsideration and professional judgement should be appliedto any drug of abuse test result, particularly whenpreliminary positive results are used. Urine TCA testing must be ordered separately. Use test mnemonic: UTCA If confirmation testing is needed, a separate order will be required to send out testing to the reference laboratory. Serum creatinine measurement (mass/volume)Ordered By: Ishan Mckay on 07-13-2025 Creatinine [Mass/Vol] 0.86 mg/dL 0.70-1.20 [facility] Serum glucose measurement (m ass/volume)Ordered By: Ishan Mckay on 07-13-2025 Glucose [Mass/Vol] 93 mg/dL 70-99 [facility] Serum or plasma calcium joey urement (mass/volume)Ordered By: Ishan Mckay on 07-13-2025 Calcium [Mass/Vol] 9.7 mg/dL 7.6-11.0 [facility] Serum or plasma ethanol joey urement (mass/volume)Ordered By: Ishan Mckay on 07-13-2025 Ethanol [Mass/Vol] mg/dL <10.1 [facility] Comment on above: This test is for med ical purposes only. The legal definition of intoxication varies according to local law. Serum or plasma urea nitroge n measurement (mass/volume)Ordered By: Ishan Mckay on 07-13-2025 Urea nitrogen [Mass/Vol] 13 mg/dL 4-19 [facility] Sodium levelOrdered By: Germán Mckay on 07-13-2025 Sodium [Moles/Vol] 138 mmol/L 133-145 [facility] Urine benzodiazepine levelOr dered By: Ishan Mckay on 07-13-2025 Benzodiazepines Ql (U) Negative < 200 ng/mL [facility] Urine cocaine levelOrdered B y: Ishan Mckay on 07-13-2025 Cocaine Ql (U) Negative < 300 ng/mL [facility] Urine dovkr-5-vxvrnpxtsohckw abinol (THC) measurementOrdered By: Ishan Mckay on 07-13-2025 Cannabinoids Screen Ql (U) Positive < 50 ng/mL [facility] Comment on above: If confirmation test ing is needed, a separate order will be required to send out testing to the reference laboratory. Urine phencyclidine (PCP) de tectionOrdered By: Ishan Mckay on 07-13-2025 Phencyclidine Ql (U) Negative < 25 ng/mL [facility] White blood cell (WBC) count Ordered By: Ishan Mckay on 07-13-2025 WBC (Bld) [#/Vol] 9.6 10*3/uL 4.4-11.0 [facility] CBC (HEMOGRAM)on 07-11-2025 Erythrocyte distribution width (RBC) [Ratio] 14.0 % Normal 11.5-15.0 [facility] Comment on above: Performed By: #### L [id number] #### Yarn Finisher: MANISH CALVO ([id number]) [facility]) [address] [place] [address] Hematocrit (Bld) [Volume fraction] 45.0 % Normal 40.0-52.0 [facility] Comment on above: Performed By: #### L [id number] #### Yarn Finisher: MANISH CALVO ([id number]) [facility]) [address] [place] [address] Hemoglobin (Bld) [Mass/Vol] 14.9 g/dL Normal 13.0-18.0 [facility] Comment on above: Performed By: #### L [id number] #### Yarn Finisher: MANISH CALVO ([id number]) [facility] ([facility]) [address] [place] [address] MCH (RBC) [Entitic mass] 28.3 pg Normal 26.0-34.0 [facility] Comment on above: Performed By: #### L [id number] #### Yarn Finisher: MANISH CALVO ([id number]) [facility] ([facility]) [address] [place] [address] MCHC 33.1 % Normal 30.5-36.0 [facility] Comment on above: Performed By: #### L [id number] #### Yarn Finisher: MANISH CALVO ([id number]) [facility]) [address] [place] [address] MCV (RBC) [Entitic vol] 85.6 fL Normal 77.0-99.0 [facility] Comment on above: Performed By: #### L [id number] #### Yarn Finisher: MANISH CALVO ([id number]) [facility] ([facility]) [address] [place] [address] Platelet mean volume (Bld) [Entitic vol] 10.3 fL Normal 9.0-12.7 [facility] Comment on above: Performed By: #### L [id number] #### Yarn Finisher: MANISH CALVO ([id number]) [facility] ([facility]) [address] [place] [address] Platelets (Bld) [#/Vol] 293 10*3/uL Normal 140-440 [facility] Comment on above: Performed By: #### L [id number] #### Yarn Finisher: MANISH CALVO ([id number]) [facility] ([facility]) [address] [place] [address] RBC (Bld) [#/Vol] 5.26 10*6/uL Normal 4.40-5.90 [facility] Comment on above: Performed By: #### L [id number] #### Yarn Finisher: MANISH CALVO ([id number]) [facility] ([facility]) [address] [place] [address] WBC (Bld) [#/Vol] 9.8 10*3/uL Normal 3.6-10.7 [facility] Comment on above: Performed By: #### L [id number] #### Yarn Finisher: MANISH CALVO ([id number]) [facility]) [address] [place] [address] CBC panel Auto (Bld)on 07-11 Erythrocyte distribution width (RBC) [Ratio] 14 % 11.5 - 15.0 % [facility] Hematocrit (Bld) [Volume fraction] 45 % 40.0 - 52.0 % [facility] Hemoglobin (Bld) [Mass/Vol] 14.9 g/dL 13.0 - 18.0 g/dL [facility] Interpretation and review of laboratory results Normal [facility] MCH (RBC) [Entitic mass] 28.3 pg 26. 0 - 34.0 pg [facility] MCHC (RBC) [Mass/Vol] 33.1 % 30.5 - 36.0 % [facility] MCV (RBC) [Entitic vol] 85.6 fL 77.0 - 99.0 fL [facility] Platelet mean volume (Bld) [Entitic vol] 10.3 fL 9.0 - 12.7 fL [facility] Platelets (Bld) [#/Vol] 293 10*3/uL 140 - 440 10*3/uL [facility] RBC (Bld) [#/Vol] 5.26 10*6/uL 4.40 - 5.9 0 10*6/uL [facility] WBC (Bld) [#/Vol] 9.8 10*3/uL 3.6 - 10.7 10*3/uL [facility] COMPREHENSIVE METABOLIC PANE Reji 07-11-2025 Albumin [Mass/Vol] 4.3 g/dL Normal 3.5-5.0 [facility] Comment on above: Performed By: #### L AB46, [id number] #### Yarn Finisher: MANISH CALVO ([id number]) [facility]) [address] [place] [address] ALP [Catalytic activity/Vol] 70 U/L Normal 40-150 [facility] Comment on above: Performed By: #### L AB46, [id number] #### Yarn Finisher: MANISH CALVO ([id number]) [facility]) [address] [place] [address] ALT [Catalytic activity/Vol] 20 U/L Normal <40 [facility] Comment on above: Performed By: #### L [id number], [id number] #### Yarn Finisher: MANISH CALVO ([id number]) [facility]) [address] [place] [address] [place] Anion gap [Moles/Vol] 9 mmol/L Normal 3-13 [facility] Comment on above: Performed By: #### L AB46, [id number] #### Yarn Finisher: MANISH CALVO ([id number]) [facility] ([facility]) [address] [place] [address] AST [Catalytic activity/Vol] 18 U/L Normal <34 [facility] Comment on above: Performed By: #### L AB46, LAB17 #### Yarn Finisher: MANISH CALVO ([id number]) [facility] ([facility]) [address] [place] [address] Bilirubin [Mass/Vol] 0.5 mg/dL Normal <1.2 [facility] Comment on above: Performed By: #### L AB46, [id number] #### Yarn Finisher: MANISH CALVO ([id number]) [facility] ([facility]) [address] [place] [address] Calcium [Mass/Vol] 9.6 mg/dL Normal 8.4-10.2 [facility] Comment on above: Performed By: #### L 46, LAB17 #### Yarn Finisher: MANISH CALVO ([id number]) [facility] ([facility]) [address] [place] [address] Chloride [Moles/Vol] 103 mmol/L Normal 98-107 [facility] Comment on above: Performed By: #### L AB46, LAB17 #### Yarn Finisher: MANISH CALVO ([id number]) [facility] ([facility]) [address] [place] [address] [place] CO2 [Moles/Vol] 25 mmol/L Normal 22-29 [facility] Comment on above: Performed By: #### L AB46, LAB17 #### Yarn Finisher: MANISH CALVO ([id number]) [facility]) [address] [place] [address] Creatinine [Mass/Vol] 0.96 mg/dL Normal 0.72-1.25 [facility] Comment on above: Performed By: #### L AB46, LAB17 #### Yarn Finisher: MANISH CALVO ([id number]) [facility] [address] [place] [address] [place] GLOMERULAR FILTRATION RATE ML/MIN/1.73 SQ M.PREDICTED >90.0 Normal >60.0 [facility] Comment on above: Result Comment: Calc ulation based on the Chronic Kidney Disease Epidemiology Collaboration (CKD-EPI) equation refit without adjustment for race Performed By: #### L AB46, LAB17 #### Yarn Finisher: MANISH CALVO ([id number]) [facility] [address] [place] [address] [place] Glucose [Mass/Vol] 87 mg/dL Normal 74-100 [facility] Comment on above: Performed By: #### L AB46, LAB17 #### Yarn Finisher: MANISH CALVO ([id number]) [facility]) [address] [place] [address] [place] Potassium [Moles/Vol] 4.1 mmol/L Normal 3.5-5.1 [facility] Comment on above: Result Comment: [facility] potassium values may be up to 0.5 mmol/L lower than serum values. Performed By: #### L AB46, LAB17 #### Yarn Finisher: MANISH CALVO ([id number]) [facility] [address] [place] [address] [place] Protein [Mass/Vol] 7.6 g/dL Normal 6.4-8.3 [facility] Comment on above: Performed By: #### L AB46, LAB17 #### Yarn Finisher: MANISH CALVO ([id number]) [facility] [address] [place] [address] [place] Sodium [Moles/Vol] 137 mmol/L Normal 136-145 [facility] Comment on above: Performed By: #### L AB46, LAB17 #### Yarn Finisher: MANISH CALVO ([id number]) [facility] [address] [place] [address] [place] Urea nitrogen [Mass/Vol] 13 mg/dL Normal 8-21 [facility] Comment on above: Performed By: #### L AB46, LAB17 #### Yarn Finisher: MANISH CALVO ([id number]) [facility] ([facility]) [address] [place] [address] Comprehensive metabolic 1998 panelOrdered By: Jennie Jauregui on 07-11-2025 Albumin [Mass/Vol] 4.3 g/dL 3.5 - 5.0 g/dL [facility] ALP [Catalytic activity/Vol] 70 U/L 40 - 150 U/L [facility] ALT [Catalytic activity/Vol] 20 U/L NINF - 40 U/L [facility] Anion gap [Moles/Vol] 9 mmol/L 3 - 13 mmol/L [facility] AST [Catalytic activity/Vol] 18 U/[facility] U/L [facility] Bilirubin [Mass/Vol] 0.5 mg/dL NINF - 1.2 mg/dL [facility] Calcium [Mass/Vol] 9.6 mg/dL 8.4 - 10. 2 mg/dL [facility] Chloride [Moles/Vol] 103 mmol/L 98 - 10 7 mmol/L [facility] CO2 [Moles/Vol] 25 mmol/L 22 - 29 mmol/L [facility] Creatinine [Mass/Vol] 0.96 mg/dL 0.72 - 1.25 mg/dL [facility] GFR/1.73 sq M.predicted (S/P/Bld) [Vol rate/Area] - PINF [facility] Comment on above: Calculation based on the Chronic Kidney Disease Epidemiology Collaboration (CKD-EPI) equation refit without adjustment for race Glucose [Mass/Vol] 87 mg/dL 74 - 100 mg/dL [facility] Potassium [Moles/Vol] 4.1 mmol/L 3.5 - 5.1 mmol/L [facility] Comment on above: Plasma potassium maura ues may be up to 0.5 mmol/L lower than serum values. Protein [Mass/Vol] 7.6 g/dL 6.4 - 8.3 g/dL [facility] Sodium [Moles/Vol] 137 mmol/L 136 - 145 mmol/L [facility] Urea nitrogen [Mass/Vol] 13 mg/dL 8 - 21 mg/dL [facility] ED Nursing Noteon 07-11-2025 ED Nursing Note This RN made MD and bed coordinator aware that patient eloped. Normal [facility] ED Nursing Note Pt has been called three times in the last hour to be brought back for wanding/ belongings check to go to with no answer. Attempted to call patients phone with no answer. Normal [facility] ED Nursing Note Pt requesting detox from fentanyl, last used today. Normal [facility] ED Provider Noteon ED Provider Note Emergency Department Encounter [facility] EMERGENCY DEPT Patient: Eulalio Villafana : 1985 Date of Evaluation: 07/11/2025 ED Provider: Kenrick Bush MD COMBINED TRIAGE NOTE & ELYSE SUPERVISORY NOTE WITH SHARED ATTESTATION I independently examined and evaluated Eulalio Villafana. I independently saw & evaluated the patient as the Clinician in Triage and performed a history and physical exam, established acuity, and ordered appropriate tests to develop a plan of care. Patient was subsequently seen by an ELYSE and I assumed a shared supervisory role. I personally saw the patient and performed a substantive portion of the visit including all aspects of the Medical Decision Making. I managed the patient in a supervisory role and I personally saw the patient and made/approved the management plan and take responsibility for the patient management. Brief HPI: In brief, Eulalio Villafana is a 40 y.o. male that presents for requesting fentanyl detox uses 1/2 to 1 g a day snorts it last use earlier today occasionally uses meth but is not his drug of preference no other substance abuse.. Focused Physical exam: LUNGS: Breath sounds are equal, clear to auscultation, no wheeze retractions or cyanosis and no crackles present. HEART: Regular rate and rhythm no murmur or thrill or rub, strong heart tones Plan/MDM: Detox studies will be ordered if medically cleared addiction medicine consulted Workup showed normal white count normal H&H negative alcohol negative ethyl glucuronide positive amphetamine positive for fentanyl unremarkable chemistries. Patient was going to be admitted, but nursing staff states that he apparently had disappeared and is gone. All diagnostic, treatment, and disposition decisions were made by myself in conjunction with the ELYSE. For all further details of the patient's emergency department visit, please see the full medical record and documentation. Comment: Please note this report has been produced using speech recognition software and may contain errors related to that system including errors in grammar, punctuation, and spelling as well as words and phrases that may be inappropriate. If there are any questions or concerns please feel free to contact the dictating provider for clarification Kenrick Bush MD [employer] Kenrick Bush MD 07/11/25 1714 Kenrick Bush MD 07/11/252007 [facility] ED Provider Note EMERGENCY DEPARTMENT ENCOUNTER Pt Name: Eulalio Villafana Birthdate 1985 Date of evaluation: 07/11/2025 ED Provider: Lola Melchor APRN - [facility]care was supervised by Dr. Bush who independently examined and evaluated the patient. Please see their attestation note for further details. CHIEF COMPLAINT Chief Complaint Patient presents with Addiction Problem HISTORY OF PRESENT ILLNESS (Location/Symptom, Timing/Onset, Context/Setting, Quality, Duration, Modifying Factors, Severity) Note limiting factors. I wore appropriate PPE for the entirety of this encounter. HPI Eulalio Villafana is a 40 y.o. who presents to the emergency department requesting detox from fentanyl. Patient reports that he last went through detox about 6 months ago. Patient reports he had 4 months clean, but started using again in the last 2 months. Patient reports he was first using Percocets pressed and fentanyl. He reports that in the last month he has been using street fentanyl. Patient reports he has been using this intranasally. Patient denies injection. Denies alcohol use. Reports that he is recently obtained housing at a residential facility but they require him to go through detox prior to [place]. Patient reports last use earlier today. States that he typically uses up to 2 g a day. Reports using half a gram earlier today. Patient endorses some anxiety,nausea, body aches. Patient denies headache, lightheadedness, dizziness, fever, chills, visual disturbances, chest pain, palpitations, shortness of breath, cough, abdominal pain, vomiting, diarrhea, constipation. Denies dysuria, hematuria, or polyuria. Nursing Notes were reviewed. Limitations to history: None Outside historians: None REVIEW OF SYSTEMS Review of Systems Pertinent positives and negatives as per HPI. 13 systems reviewed as detailed above. PAST MEDICAL HISTORY Medical History[1] SURGICAL HISTORY Surgical History[2] CURRENT MEDICATIONS There are no discharge medications for this patient. ALLERGIES Bactrim [sulfamethoxazole-trime thoprim] FAMILY HISTORY Family History[3] SOCIAL HISTORY Social History[4] SCREENINGS PHYSICAL EXAM ED Triage Vitals [07/11/25 1434] Temp Heart Rate Resp BP 37 ?C (98.6 ?F) 71 18 (!) 140/86 SpO2 Temp Source Heart Rate Source Patient Position 98 % Temporal Monitor -- BP Location FiO2 (%) -- -- Physical Exam Vitals and nursing note reviewed. Constitutional: General: He is not in acute distress. Appearance: Normal appearance. He is well-developed. He is not ill-appearing, toxic-appearing or diaphoretic. HENT: Head: Normocephalic and atraumatic. Nose: Nose normal. Mouth/Throat: Mouth: Mucous membranes are dry. Pharynx: Oropharynx is clear. Eyes: Conjunctiva/sclera: Conjunctivae normal. Pupils: Pupils are equal, round, and reactive to light. Cardiovascular: Rate and Rhythm: Normal rate and regular rhythm. Pulses: Normal pulses. Heart sounds: Normal heart sounds. No murmur heard. Pulmonary: Effort: Pulmonary effort is normal. No respiratory distress. Breath sounds: Normal breath sounds. Abdominal: Palpations: Abdomen is soft. Tenderness: There is no abdominal tenderness. Musculoskeletal: General: No swelling. Normal range of motion. Cervical back: Neck supple. Skin: General: Skin is warm and dry. Capillary Refill: Capillary refill takes less than 2 seconds. Neurological: General: No focal deficit present. Mental Status: He is alert and oriented to person, place, and time. GCS: GCS eye subscore is 4. GCS verbal subscore is 5. GCS motor subscore is 6. Cranial Nerves: Cranial nerves 2-12 are intact. Sensory: Sensation is intact. Motor: Tremor present. Coordination: Coordination is intact. Gait: Gait is intact. Psychiatric: Mood and Affect: Mood normal. Behavior: Behavior normal. DIAGNOSTIC RESULTS RADIOLOGY (Per Emergency Physician): Interpretation per the Radiologist below, if available at the time of this note: No orders to display LABS: Labs Reviewed UNCONFIRMED DRUG SCREEN - Abnormal Result Value AMPHETAMINES Positive (*) BARBITURATES Negative BENZODIAZEPINES Negative COCAINE Negative METHADONE Negative OPIATES Negative OXYCODONE/OXYMORPHONE Negative PCP Negative Narrative: The expected value for the drugs listed above is Negative. The following drugs or drug groups have been screened for by Immunoassay at the following thresholds: Amphetamine class(1000 ng/mL) Barbiturates(200 ng/mL Benzodiazepines(200 ng/mL) Cocaine(300 ng/mL) Methadone(300 ng/mL) Opiates(300 ng/mL) Oxycodone(100 ng/mL) PCP(25 ng/mL) POSITIVE results are NOT confirmed by a more specific alternative method unless requested. If confirmation is needed, request confirmation under separate order. NOTE: These results are for medical treatment only. Analysis performed using non-forensic procedures. FENTANYL, (more content not included)... Normal [facility] ETHANOLon 07-11-2025 ETHANOL IN SER/PLAS- MELGAR <10 Normal <10 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 NOTE: This result is for medical treatment only. Analysis performed using non-forensic procedures. Performed By: #### L AB46, LAB17 #### Yarn Finisher: MANISH CALVO ([id number]) [address] ETHYL GLUCURONIDE SCREEN, UR INEon 07-11-2025 ETHYL GLUCURONIDE, URINE Negative Normal Negative [facility] Comment on above: Result Comment: DEE Pickett COMMENTS: Ethyl Glucuronide has been screened by Immunoassay at a 500 ng/mL threshold. POSITIVE results are not confirmed by a more specific alternative method unless requested. If confirmation is needed, request confirmation under separate order. NOTE: These results are for medical treatment only. Analysis performed using non-forensic procedures. This test has not been cleared by the [place] Food and Drug Administration (FDA). The FDA has determined that such clearance or approval is not necessary. The performance characteristics have been determined by the clinical laboratories of [facility]. Performed By: #### L [id number], [id number], [id number] #### Yarn Finisher: MANISH CALVO ([id number]) [facility] [address] [place] [address] Ethanol (Bld) [Mass/Vol]on 0 07-11-2025 Ethanol [Mass/Vol] mg/dL NINF - 10 mg/dL [facility] LETTERSET PRESS SET UP OPERATOR depression is se en >100 mg/dL. NOTE: This result is for medical treatment only. Analysis performed using non-forensic procedures. [facility] FENTANYL, URINEon 07-11-2025 FENTANYL SCREEN, URINE Positive Abnormal Negative [facility] Comment on above: Result Comment: DEE Pickett COMMENTS: Fentanyl has been screened for by Immunoassay at a 1 ng/ml threshold. POSITIVE results are not confirmed by a more specific alternative method unless requested. If confirmation is needed, request confirmation under separate order. NOTE: These results are for medical treatment only. Analysis performed using non-forensic procedures. Performed By: #### L [id number], [id number] #### Yarn Finisher: MANISH CALVO ([id number]) [facility] ([facility]) [address] [place] [address] Laboratory - Drug toxicology Ordered By: Miles Vergara on 07-11-2025 Amphetamines Ql (U) Positive Abnormal Negative [facility] Barbiturates screen method Nom (U) Negative Negative [facility] Benzodiazepines screen method Nom (U) Negative Negative [facility] Cocaine Ql (U) Negative Negative [facility] th Methadone Ql (U) Negative Negative [facility] alth Opiates Screen Ql (U) Negative Negative [facility] Laboratory - Microbiology an d Antimicrobial susceptibilityOrdered By: Valentina Ojeda on 07-11-2025 SARS-CoV-2 (COVID-19) Ag IA.rapid Ql (Resp) Negative Negative [facility] Comment on above: A negative result do es not rule out the possibility of SARS-CoV-2 infection. NAAT-based methods should be considered for symptomatic patients presenting greater than seven days after onset of symptoms. Method: Lateral flow immunoassay. Fact sheets for healthcare providers and patients can be found at the following sites: https://www.fda.gov/media/292500/download https://www.fda.gov/media/520935/download No Panel Informationon 07-11 ETHYL GLUCURONIDE, URINE Negative Negative [facility] FENTANYL SCREEN, URINE Positive Abnormal Negative [facility] Interpretation and review of laboratory results Abnormal [facility] Fentanyl has been screened for by Immunoassay at a 1 ng/ml threshold. POSITIVE results are not confirmed by a more specific alternative method unless requested. If confirmation is needed, request confirmation under separate order. NOTE: These results are for medical treatment only. Analysis performed using non-forensic procedures. [facility] Ethyl Glucuronide mckenzie s been screened by Immunoassay at a 500 ng/mL threshold. POSITIVE results are not confirmed by a more specific alternative method unless requested. If confirmation is needed, request confirmation under separate order. NOTE: These results are for medical treatment only. Analysis performed using non-forensic procedures. This test has not been cleared by the US Food and Drug Administration (FDA). The FDA has determined that such clearance or approval is not necessary. The performance characteristics have been determined by the clinical laboratories of [facility]. [facility] No Panel InformationOrdered By: Miles Vergara on 07-11-2025 OXYCODONE/OXYMORPHONE Negative Negative [facility] PCP Negative Negative [facility] The expected value for the drugs listed above is Negative. The following drugs or drug groups have been screened for by Immunoassay at the following thresholds: Amphetamine class(1000 ng/mL) Barbiturates(200 ng/mL Benzodiazepines(200 ng/mL) Cocaine(300 ng/mL) Methadone(300 ng/mL) Opiates(300 ng/mL) Oxycodone(100 ng/mL) PCP(25 ng/mL) POSITIVE results are NOT confirmed by a more specific alternative method unless requested. If confirmation is needed, request confirmation under separate order. NOTE: These results are for medical treatment only. Analysis performed using non-forensic procedures. [facility] No Panel InformationOrdered By: Jennie Jauregui on 07-11-2025 Interpretation and review of laboratory results Normal [facility] SARS-COV-2 ANTIGENon 025 SARS-COV-2 ANTIGEN SARS-COV-2 ANTIGEN -BINAX Reference Negative Negative A negative result does not rule out the possibility of SARS-CoV-2 infection. NAAT-based methods should be considered for symptomatic patients presenting greater than seven days after onset of symptoms. Method: Lateral flow immunoassay. Fact sheets for healthcare providers and patients can be found at the following sites: https://www.fda.gov/med ia/434249/download https://www.fda.gov/med ia/876805/download Normal [facility] Comment on above: Performed By: #### L [id number] ####Yarn Finisher: MANISH CALVO ([id number])[facility] ([facility])[address] [place] [address] SARS-CoV-2 (COVID-19) Ag IA. rapid Ql (Resp)Ordered By: Valentina Ojeda on 07-11-2025 Interpretation and review of laboratory results Normal [facility] UNCONFIRMED DRUG SCREENon Amphetamines Ql (U) Positive Abnormal Negative [facility] Comment on above: Performed By: #### L [id number], [id number], [id number] #### Yarn Finisher: MANISH CALVO ([id number]) [facility] ([facility]) [address] [place] [address] BARBITURATES Negative Normal Negative [facility] Comment on above: Performed By: #### L [id number], [id number], [id number] #### Yarn Finisher: MANISH CALVO ([id number]) [facility] ([facility]) [address] [place] [address] Benzodiazepines Ql (U) Negative Normal Negative [facility] Comment on above: Performed By: #### L [id number], [id number], [id number] #### Yarn Finisher: MANISH CALVO ([id number]) [facility] ([facility]) [address] [place] [address] Cocaine Ql (U) Negative Normal Negative [facility] Comment on above: Performed By: #### L [id number], [id number], [id number] #### Yarn Finisher: MANISH CALVO ([id number]) [facility] ([facility]) [address] [place] [address] Methadone Ql (U) Negative Normal Negative [facility] Comment on above: Performed By: #### L [id number], [id number], [id number] #### Yarn Finisher: MANISH CALVO ([id number]) [facility] ([facility]) [address] [place] [address] Opiates Ql (U) Negative Normal Negative [facility] Comment on above: Performed By: #### L [id number], [id number], [id number] #### Yarn Finisher: MANISH CALVO ([id number]) [facility] ([facility]) [address] [place] [address] OXYCODONE/OXYMORPHONE Negative Normal Negative [facility] Comment on above: Performed By: #### L [id number], [id number], [id number] #### Yarn Finisher: MANISH CALVO ([id number]) [facility] ([facility]) [address] [place] [address] PCP Negative Normal Negative [facility] Comment on above: Result Comment: ORDE R COMMENTS: The expected value for the drugs listed above is Negative. The following drugs or drug groups have been screened for by Immunoassay at the following thresholds: Amphetamine class(1000 ng/mL) Barbiturates(200 ng/mL Benzodiazepines(200 ng/mL) Cocaine(300 ng/mL) Methadone(300 ng/mL) Opiates(300 ng/mL) Oxycodone(100 ng/mL) PCP(25 ng/mL) POSITIVE results are NOT confirmed by a more specific alternative method unless requested. If confirmation is needed, request confirmation under separate order. NOTE: These results are for medical treatment only. Analysis performed using non-forensic procedures. Performed By: #### L [id number], [id number], [id number] #### Yarn Finisher: MANIHS CALVO ([id number]) [facility] ([facility]) [address] [place] [address] Discharge Instructionon 05-09 Discharge Instruction [facility] Medical Records Department [address] [place] [address] Instructions for Home/Discharge Instructions 05/20/25 1302 MR#: [id number] Acct: [id number] Name: EULALIO VILLAFANA Rep #: [id number] : 1985 39 From: Elaine Stout MD PCP: JULITO Hannah Status:ADM IN Discharge Instructions DC O2, CPAP, BIPAP needs Home O2 Discharge instructions: No Dressing / Incision Discharge Activity: Return to Normal Activity May resume sexual activity in: No Restrictions Weight Bearing Status: Weight bearing as tolerated Dressing / Incision Call your doctor if you observe: - (Recurrent concerning opiate withdrawal symptoms. Please contact your primary care physician.) Follow Up Care Test Results: Test results from this visit will be discussed in further detail at your follow-up appointment, if applicable. Discharge Plan Admission Admit Date/Time: 05/18/25 23:24 Primary Reason for Your Visit: Acute Opiate Withdrawal, Polysubstance abuse Attending Provider: Elaine Stout Primary Care Provider: Natty Isaac Consulting Providers: Adam Blanco Instructions Patient Instructions: Meth Abuse Addiction, Opioids Risks, ED Opiate Abuse Discharge Orders/Prescriptions Prescriptions: Continued pantoprazole 40 mg Tablet,Delayed Release (Dr/Ec) 40 mg PO DAILY Referrals / Follow Up: Natty Isaac PA [Primary Care Provider] - (Follow-up within 1-2 weeks to review admission. Call earlier if concerns arise.) Disposition Disposition (needs filled in before D/C Order can be placed): Home, Self Care 05/20/25 1303 Elaine Stout MD CC: Dr. Adam Blanco, DO; JULITO Hannah Signed Normal [facility] Absolute lymphocyte countOrd ered By: Adam Blanco on 05-18-2025 Lymphocytes Auto (Unsp spec) [#/Vol] 2.41 10*3/uL 0.83-4.51 [facility] Absolute neutrophil countOrd ered By: Adam Blanco on 05-18-2025 Neutrophils (Bld) [#/Vol] 6.6 10*3/uL 2.0-7.7 [facility] Alcohol, Blood (Medical)-Ser umon 05-18-2025 SERUM ETOH < 10.1 Normal <=10.0 [facility] Comment on above: Result Comment: This test is for medical purposes only. The legal definition of intoxication varies according to local law. Performed By: #### L 501.9100, L500.4050, L505.5000 #### [facility] [address] [place], [address] Amphetamine detection with 1 000 ng/mL as cutoffOrdered By: Jr Jeffery on 05-18-2025 Amphetamines Screen method >1000 ng/mL Ql (U) Positive <1000 ng/mL [facility] Comment on above: If confirmation test ing is needed, a separate order will be required to send out testing to the reference laboratory. Amphetamines Screen method >1000 ng/mL Ql (U) Negative < 200 ng/mL [facility] Anion gap in Serum or Plasma Ordered By: Jrxiomy Jeffery on 05-18-2025 Anion gap [Moles/Vol] 11 mmol/L 5- [facility] Automated lymphocyte count a s percentage of total leukocytesOrdered By: Adam Blanco on 05-18-2025 Lymphocytes/100 WBC Auto (Unsp spec) 24.2 % - [facility] BUN/creatinine ratioOrdered By: Jr Jeffery on 05-18-2025 Urea nitrogen/Creatinine [Mass ratio] 25.5 mg/mg High 10- [facility] Basophil percentageOrdered B y: Adam Blanco on 05-18-2025 Basophils/100 WBC (Bld) 0.4 % 0-1 [facility] Bilirubin, totalOrdered By: Jrxiomy Jeffery on 05-18-2025 Bilirubin [Mass/Vol] 0.18 mg/dL 0.00-1.30 [facility] CBC W/Diff, Automatedon 05-09 0-2024 Absolute Lymph 2.41 X10 3/uL Normal 0.83-4.51 [facility] Comment on above: Performed By: #### M 8200.2203 #### [facility] [address] [place], [address] Absolute Neut 6.6 X10 3/uL Normal 2.0-7.7 [facility] Comment on above: Performed By: #### Amisha [id number] #### [facility] [address] [place], [address] Basophils/100 WBC (Bld) 0.4 % Normal 0-1 [facility] Comment on above: Performed By: #### M [id number] #### [facility] [address] [place], [address] Eosinophils/100 WBC (Bld) 0.4 % Normal 0-5 [facility] Comment on above: Performed By: #### M 8200.2203 #### [facility] [address] [place], [address] Erythrocyte distribution width (RBC) [Ratio] 13.5 % Normal 11.6-14.6 [facility] Comment on above: Performed By: #### 8200.220 #### [facility] [address] [place], [address] Hematocrit (Bld) [Volume fraction] 41.1 % Normal 40-54 [facility] Comment on above: Performed By: #### 8200.220 #### [facility] [address] [place], [address] Hemoglobin (Bld) [Mass/Vol] 14.2 g/dL Normal 13.0-16.5 [facility] Comment on above: Performed By: #### 8200.2203 #### [facility] [address] [place], [address] IG% 0.400 Normal 0.0-0.9 [facility] Comment on above: Result Comment: IG% - Immature Granulocytes (promyelocytes, myelocytes and metamyelocytes) > 1% indicates that a LEFT SHIFT is Present. Performed By: #### 8200.2203 #### [facility] [address] [place], [address] Lymphocytes/100 WBC (Bld) 24.2 % Normal 19-41 [facility] Comment on above: Performed By: #### 8200.2203 #### [facility] [address] [place], [address] MCH (RBC) [Entitic mass] 29.2 pg Normal 27.0-32.0 [facility] Comment on above: Performed By: #### M 8200.220 #### [facility] [address] [place], [address] MCHC (RBC) [Mass/Vol] 34.5 g/dL Normal 32-36 [facility] Comment on above: Performed By: #### M 8200.220 #### [facility] [address] [place], [address] MCV (RBC) [Entitic vol] 84.4 fL Normal 80-94 [facility] Comment on above: Performed By: #### M 8200.2202 #### [facility] [address] [place], [address] Monocytes/100 WBC (Bld) 8.7 % Normal 0-10 [facility] Comment on above: Performed By: #### Amisha 8200.220 #### [facility] [address] [place], [address] Neutrophils/100 WBC (Bld) 65.9 % Normal 47-70 [facility] Comment on above: Performed By: #### 8200.2202 #### [facility] [address] [place], [address] Nucleated RBC (Bld) [#/Vol] 0 10*3/uL Normal 0-5 [facility] Comment on above: Performed By: #### 8200.2202 #### [facility] [address] [place], [address] Platelet mean volume (Bld) [Entitic vol] 9.8 fL Normal 6.2-12.0 [facility] Comment on above: Performed By: #### 8200.220 #### [facility] [address] [place], [address] Platelets (Bld) [#/Vol] 349 10*3/uL Normal 150-450 [facility] Comment on above: Performed By: #### M 8200.220 #### [facility] [address] [place], [address] RBC (Bld) [#/Vol] 4.87 10*6/uL Normal 4.6-6.2 [facility] Comment on above: Performed By: #### M 8200.2203 #### [facility] [address] [place], [address] RDW SD 41.8 fl Normal 35.1-43.9 [facility] Comment on above: Performed By: #### M 8200.2203 #### [facility] [address] [place], [address] WBC (Bld) [#/Vol] 10.0 10*3/uL Normal 4.4-11.0 [facility] Comment on above: Performed By: #### M 8200.2203 #### [facility] [address] [place], [address] Carbon dioxide, total [Moles /volume] in Central venous bloodOrdered By: Jr Jeffery on 05-18-2025 CO2 [Moles/Vol] 21.6 mmol/L 21.0-32.0 [facility] Chloride assayOrdered By: Alessandro Jeffery on 05-18-2025 Chloride [Moles/Vol] 107 mmol/L 98-108 [facility] Comprehensive Metabolic Prof ilon 05-18-2025 Albumin [Mass/Vol] 4.1 g/dL Normal 3.5-5.0 [facility] Comment on above: Performed By: #### L 501.9100, L500.4050, L505.5000 #### [facility] [address] [place], [address] Albumin/Globulin [Mass ratio] 1.7 {ratio} Normal 0.9-2.4 [facility] Comment on above: Performed By: #### L 501.9100, L500.4050, L505.5000 #### [facility] [address] [place], [address] ALK PHOS 69 U/L Normal 40-129 [facility] Comment on above: Performed By: #### L 501.9100, L500.4050, L505.5000 #### [facility] [address] [place], [address] ALT [Catalytic activity/Vol] 21 U/L Normal <=46 [facility] Comment on above: Performed By: #### L 501.9100, L500.4050, L505.5000 #### [facility] [address] [place], [address] AST [Catalytic activity/Vol] 17 U/L Normal <=37 [facility] Comment on above: Performed By: #### L 501.9100, L500.4050, L505.5000 #### [facility] [address] [place], [address] Bilirubin [Mass/Vol] 0.18 mg/dL Normal 0.00-1.30 [facility] Comment on above: Performed By: #### L 501.9100, L500.4050, L505.5000 #### [facility] [address] [place], [address] BUN/CRE 25.5 RATIO High 10-20 [facility] Comment on above: Performed By: #### L 501.9100, L500.4050, L505.5000 #### [facility] [address] [place], [address] Calcium [Mass/Vol] 9.4 mg/dL Normal 7.6-11.0 [facility] Comment on above: Performed By: #### L 501.9100, L500.4050, L505.5000 #### [facility] [address] [place], [address] Chloride [Moles/Vol] 107 mmol/L Normal 98-108 [facility] Comment on above: Performed By: #### L 501.9100, L500.4050, L505.5000 #### [facility] [address] [place], [address] CO2 [Moles/Vol] 21.6 mmol/L Normal 21.0-32.0 [facility] Comment on above: Performed By: #### L 501.9100, L500.4050, L505.5000 #### [facility] [address] [place], [address] Creatinine [Mass/Vol] 0.83 mg/dL Normal 0.70-1.20 [facility] Comment on above: Performed By: #### L 501.9100, L500.4050, L505.5000 #### [facility] [address] [place], [address] ECRCL 125.82 ml/min Normal 50-250 [facility] Comment on above: Performed By: #### L 501.9100, L500.4050, L505.5000 #### [facility] [address] [place], [address] GAP 11 Normal 5-15 [facility] Comment on above: Performed By: #### L 501.9100, L500.4050, L505.5000 #### [facility] [address] [place], [address] GFR/1.73 sq M.predicted among non-blacks MDRD (S/P/Bld) [Vol rate/Area] 115 mL/min/{1.73_m2} Normal >60 [facility] Comment on above: Result Comment: mL/m in/1.73m2 CKD-EPI Creatinine Equation (2020) Performed By: #### L 501.9100, L500.4050, L505.5000 #### [facility] [address] [place], [address] Globulin (S) [Mass/Vol] 2.5 g/dL Normal 2.2-4.2 [facility] Comment on above: Performed By: #### L 501.9100, L500.4050, L505.5000 #### [facility] [address] [place], [address] Glucose [Mass/Vol] 101 mg/dL High 70-99 [facility] Comment on above: Performed By: #### L 501.9100, L500.4050, L505.5000 #### [facility] [address] [place], [address] Potassium [Moles/Vol] 4.3 mmol/L Normal 3.3-5.1 [facility] Comment on above: Performed By: #### L 501.9100, L500.4050, L505.5000 #### [facility] [address] [place], [address] Sodium [Moles/Vol] 140 mmol/L Normal 133-145 [facility] Comment on above: Performed By: #### L 501.9100, L500.4050, L505.5000 #### [facility] [address] [place], [address] T PROT 6.6 g/dL Normal 5.9-8.4 [facility] Comment on above: Performed By: #### L 501.9100, L500.4050, L505.5000 #### [facility] [address] [place], [address] Urea nitrogen [Mass/Vol] 21 mg/dL High 4-19 [facility] Comment on above: Performed By: #### L 501.9100, L500.4050, L505.5000 #### [facility] [address] [place], [address] Emergency Department Summary on 05-18-2025 Emergency Department Summary [facility] Medical Records Department [address] [place] [address] Emergency Department Summary 05/18/25 MR#: [id number] Acct: [id number] Name: EULALIO VILLAFANA Rep #: [id number] : 1985 39 From: Jr Jeffery MD PCP: JULITO Hannah Status:REG ER Location: ED HPI History of Present Illness Chief Complaint: Substance Abuse Detail of Chief Complaint: Fentanyl and amphetamine use Informant: patient Onset/Context/Timing Onset: Month(s) Context: Sudden Onset Timing: Continuous Quality: Daily use of fentanyl and amphetamine Location: Snorts Current Severity: Patient has no symptoms of withdrawal presently Worsened by: Not applicable Relieved by: Nothing Associated Symptoms Associated Symptoms: Nausea and diarrhea Narrative Narrative: Patient is a 39-year-old male. He has history of drug dependency. He has been through the [employer] program.He underwent detox he underwent detox March 2023. He was treated at [facility] for fentanyl with drawal. Today he presents because of using fentanyl and amphetamine for the past several months. He snorts. He last snorted fentanyl and amphetamine this morning. He denies headache. He denies double vision blurred vision loss of vision. Nuys trouble with speech or swallowing. He denies paresthesia, anesthesia or motor weakness upper or lower extremity. He does endorse nausea and diarrhea. Prior similar symptoms: Yes Recent Illness/Hospitalization : No [facility] Medical History (Updated 05/18/25 @ 23:[address] Jr Jeffery MD) Methamphetamine abuse Opioid abuse Anxiety Diarrhea Nausea vomiting Acid reflux disease Abdominal pain Home Medications ???Medication ???Instructions ???Recorded ???Last Taken ???Type pantoprazole 40 mg tablet,delayed 40 mg PO DAILY GERD 06/12/2102/07 History release Allergy/AdvReac Type Severity Reaction Status Date / Time sulfamethoxazole (From Allergy Mild Unknown Verified 05/18/25 21:15 Bactrim) trimethoprim (From Bactrim) Allergy Mild Unknown Verified 05/18/25 21:15 Surgical History History of right inguinal hernia repair Status post right knee surgery Social History Smoking Status: Current every day smoker tobacco type: e-cigarettes alcohol intake: current alcohol intake frequency: a few times a week substance use type: does not use ROS ROS ED Constitutional Constitutional ED: Denies chills, fever(s), subjective, sweats or weight loss Eyes Eyes: Denies blurry vision or change in vision ENT ENT ED: Denies ear pain, rhinorrhea or sore throat Cardiovascular Cardiovascular: Denies chest pain or palpitations Respiratory/Chest Respiratory/Chest: Denies cough, dyspnea or dyspnea on exertion Gastrointestinal Gastrointestinal: Reports abdominal pain, diarrhea and nausea; Denies constipation, melena or vomiting Genitourinary Genitourinary ED: Denies dysuria, hematuria or urinary frequency Musculoskeletal Musculoskeletal: Denies arthralgias, back pain or myalgias Integumentary Denies abscess or rash Neurologic Neurologic: Denies headache(s) or paresthesias Hematologic/Lymphatic Hematologic/Lymphatic: Reports systems reviewed and no addt'l complaints, except as documented EXAM Physical Exam Const Vital Signs: 05/18/25 21:15 Temperature 97 F L Temperature Source Temporal Pulse Rate 75 Respiratory Rate 18 Blood Pressure 120/90 H Blood Pressure Mean 100 Pulse Ox 100 Oxygen Delivery Method Room Air Positive well nourished and well developed Constitutional Narrative: Vital signs are unremarkable. General Appearance ED: well developed and NAD; Negative for pallor HEENT Reports moist mucous membranes HEENT Narrative: Head is atraumatic and normocephalic. Ears are normal. Nares are patent. Posterior pharynx is normal. Eyes PERRL and EOMs intact bilaterally General Eye ED: Negative for pale conjunctiva or scleral icterus Neck no lymphadenopathy, supple and no JVD Chest Wall inspection of chest normal Resp normal respiratory effort and clear to auscultation bilaterally Cardio regular rate, regular rhythm, S1 normal heart sound, S2 normal heart sound and no murmurs GI normal to inspection, nondistended, normoactive bowel sounds, non-tender, non-distended and no masses; Negative for hepatosplenomegaly Back/Spine no CVA tenderness Extremity normal to inspection General Extremety ED: Negative for edema General Extremity: Negative for edema Neuro oriented x3 and CN's II-XII intact bilaterally Sensorium / Orientation: alert Psych mental status grossly normal Skin no rashes or lesions noted, no wounds and skin turgor normal General Skin Exam: elasticity normal; Negative for jaundi (more content not included)... Normal [facility] Eosinophil percentageOrdered By: Adam Blanco on 05-18-2025 Eosinophils/100 WBC (Bld) 0.4 % 0-5 [facility] Erythrocyte distribution wid th ratioOrdered By: Adam Blanco on 05-18-2025 Erythrocyte distribution width (RBC) [Ratio] 13.5 % 11.6-14.6 [facility] Erythrocyte distribution wid th standard deviationOrdered By: Adam Blanco on 05-18-2025 Erythrocyte distribution width (RBC) [Ratio] 41.8 fl 35.1-43.9 [facility] Glomerular filtration rate ( GFR) estimation/1.73 sq m using serum, plasma, or whole bOrdered By: Jr Jeffery on 05-18-2025 GFR/1.73 sq M.predicted among non-blacks MDRD (S/P/Bld) [Vol rate/Area] 115 mL/min/{1.73_m2} >60 [facility] Comment on above: mL/min/1.73m2 CKD-EP I Creatinine Equation (2020) H AND P Exam - Hospital[place] 05-18-2025 H&P Exam - Hospitalist [facility] Medical Records Department [address] [place] [address] H P Exam - Hospitalist 05/18/25 2324 MR#: [id number] Acct: [id number] Name: EULALIO VILLAFANA Rep #: [id number] : 1985 39 From: Adam Blanco DO PCP: JULITO Hannah Status:REG ER Location: ED HPI - General General Date of Admission: 05/18/25 Date of Service: 05/18/25 Chief Complaint: Opiate detox HPI Narrative EULALIO VILLAFANA, is a 39 M who presented to [facility] ED on 05/18/2025 for opiate detox. I saw the patient at bedside in the ED. Patient last went through opiate detox here back in March 2023. States he had been doing well until a few months ago when he hurt his shoulder and began using opiates again. He has been snorting fentanyl and amphetamines now on a regular basis. Last use was this morning. He is reporting some withdrawal symptoms currently. States he tolerated the Subutex taper well last time he was here. He denies any other pain or discomfort currently. Will be admitted for further management. [facility] Medical History (Updated 05/18/25 @ 23:[address] Jr Jeffery MD) Methamphetamine abuse Opioid abuse Anxiety Diarrhea Nausea vomiting Acid reflux disease Abdominal pain Home Medications ???Medication ???Instructions ???Recorded ???Last Taken ???Type pantoprazole 40 mg tablet,delayed 40 mg PO DAILY GERD 06/12/2102/07 History release Allergy/AdvReac Type Severity Reaction Status Date / Time sulfamethoxazole (From Allergy Mild Unknown Verified 05/18/25 21:15 Bactrim) trimethoprim (From Bactrim) Allergy Mild Unknown Verified 05/18/25 21:15 Surgical History History of right inguinal hernia repair Status post right knee surgery Social History Smoking Status: Current every day smoker tobacco type: e-cigarettes alcohol intake: current alcohol intake frequency: a few times a week substance use type: does not use ROS Constitutional Constitutional: Reports fatigue; Denies chills, fever(s) or weakness Eyes Eyes: Denies change in vision Cardiovascular Cardiovascular: Denies chest pain Respiratory/Chest Respiratory/Chest: Denies shortness of breath at rest Gastrointestinal Gastrointestinal: Reports nausea; Denies abdominal pain or vomiting Musculoskeletal Musculoskeletal: Reports myalgias; Denies arthralgias Vital Signs Vital Signs Vital Signs: 05/18/25 21:15 Temperature 97 F L Temperature Source Temporal Pulse Rate 75 Respiratory Rate 18 Blood Pressure 120/90 H Blood Pressure Mean 100 Pulse Ox 100 Oxygen Delivery Method Room Air Weight Weight: 80.6 kg Body Mass Index (BMI) 25.4 Physical Exam Const alert, oriented x3, no apparent distress, average body habitus, healthy appearing and well nourished Constitutional Narrative: Young middle-age male, mildly fatigued appearing but otherwise sitting back comfortably in bed, conversing normally, in no acute distress. General Appearance: cooperative, comfortable, well kempt and well developed HEENT normocephalic, head/scalp atraumatic, hearing grossly normal bilaterally, nasal mucous membranes and turbinates normal and moist oral mucous membranes Eyes PERRL, EOMs intact bilaterally and conjunctivae normal Neck full ROM Chest inspection of chest normal Resp normal respiratory effort, normal air movement, no use of accessory muscles and clear to auscultation bilaterally Cardio regular rate, regular rhythm, no murmurs and peripheral pulses 2+ throughout GI normal to inspection, nondistended, normoactive bowel sounds, soft to palpation, non-tender and non- distended Back/Spine normal ROM Extremity normal to inspection, full ROM and no pedal edema Skin no rashes or lesions noted Psych mental status grossly normal Mood Affect: anxious Results Lab / Micro Data 05/18/25 22:11 Labs: Laboratory Results - last 24 hr 05/18/25 21:32: Urine Opiates Screen NEGATIVE, U Buprenorphine Qual NEGATIVE, Ur Oxycodone Screen NEGATIVE, Urine Methadone Screen NEGATIVE, Urine Fentanyl Screen PRESUMPTIVE POSITIVE, Ur Barbiturates Screen NEGATIVE, Ur Phencyclidine Scrn NEGATIVE, Ur Amphetamines Screen PRESUMPTIVE POSITIVE, U Benzodiazepines Scrn NEGATIVE, Urine Cocaine Screen NEGATIVE, U Cannabinoids Screen PRESUMPTIVE POSITIVE 05/18/25 22:11: Sodium 140, Potassium 4.3, Chloride 107, Carbon Dioxide 21.6, Anion Gap 11, BUN 21 H , Creatinine 0.83, Estim Creat Clear Calc 125.82, Est GFR (MDRD) Non-Af 115, BUN/Creatinine Ratio 25.5 H, Glucose 101 H, Calcium 9.4, Total Bilirubin 0.18, AST 17, ALT 21, Alkaline Phosphatase 69, Total Protein 6.6, Albumin 4.1, Globulin 2.5, Albumin/Globulin Ratio 1.7, Ethyl Alcoh (more content not included)... Normal [facility] Hematocrit Auto (Bld) [Volum e fraction]Ordered By: Adam Blanco on 05-18-2025 Hematocrit (Bld) [Volume fraction] 41.1 % 40-54 [facility] Hemoglobin measurementOrdere d By: Adam Blanco on 05-18-2025 Hemoglobin (Bld) [Mass/Vol] 14.2 g/dL 13.0-16.5 [facility] Immature granulocytes/100 WB C Auto (Bld)Ordered By: Adam Blanco on 05-18-2025 Immature granulocytes/100 WBC (Bld) 0.400 % 0.0-0.9 [facility] Comment on above: IG% - Immature Granu locytes (promyelocytes, myelocytes and metamyelocytes) > 1% indicates that a LEFT SHIFT is Present. Laboratory - Chemistry and C hemistry - challengeOrdered By: Jr Jeffery on 05-18-2025 AST [Catalytic activity/Vol] 17 U/L <38 [facility] MCV (mean corpuscular volume ) determinationOrdered By: Adam Blanco on 05-18-2025 MCV (RBC) [Entitic vol] 84.4 fL 80-94 [facility] Mean corpuscular hemoglobin (MCH) determinationOrdered By: Adam Blanco on 05-18-2025 MCH (RBC) [Entitic mass] 29.2 pg 27.0-32.0 [facility] Mean corpuscular hemoglobin concentration (MCHC) determinationOrdered By: Adam Blanco on 05-18-2025 MCHC (RBC) [Mass/Vol] 34.5 g/dL 32-36 [facility] Mean platelet volume determi nationOrdered By: Adam Blanco on 05-18-2025 Platelet mean volume (Bld) [Entitic vol] 9.8 fL 6.2-12.0 [facility] Monocyte percentageOrdered B y: Adam Blanco on 05-18-2025 Monocytes/100 WBC (Bld) 8.7 % 0-10 [facility] Neutrophil percentageOrdered By: Adam Blanco on 05-18-2025 Neutrophils/100 WBC (Bld) 65.9 % 47-70 [facility] No Panel InformationOrdered By: Jr Jeffery on 05-18-2025 Urine Buprenorphine Qualitative Negative < 200 ng/mL [facility] Urine Oxycodone Screen Negative < 100 ng/mL [facility] Nucleated red blood cell per centageOrdered By: Adam Blanco on 05-18-2025 Nucleated RBC/100 WBC (Bld) [Ratio] 0 % 0-5 [facility] Platelet countOrdered By: Ramone Blanco on 05-18-2025 Platelets (Bld) [#/Vol] 349 10*3/uL 150-450 [facility] Potassium measurement (mass/ volume)Ordered By: Jr Jeffery on 05-18-2025 Potassium (Unsp spec) [Mass/Vol] 4.3 mmol/L 3.3-5.1 [facility] Quantitative urine opiates m easurementOrdered By: Jr Jeffery on 05-18-2025 Opiates Ql (U) Negative < 300 ng/mL [facility] RBC Auto (Bld) [#/Vol]Ordere d By: Adam Blanco on 05-18-2025 RBC (Bld) [#/Vol] 4.87 10*6/uL 4.6-6.2 [facility] Screening urine fentanyl casper surementOrdered By: Jr Jeffery on 05-18-2025 fentaNYL Screen Ql (U) Positive [facility] Comment on above: If confirmation test ing is needed, a separate order will be required to send out testing to the reference laboratory. Serum creatinine measurement (mass/volume)Ordered By: Jr Jeffery on 05-18-2025 Creatinine [Mass/Vol] 0.83 mg/dL 0.70-1.20 [facility] Serum globulin measurementOr dered By: Jr Jeffery on 05-18-2025 Globulin (S) [Mass/Vol] 2.5 g/dL 2.2-4.2 [facility] Serum glucose measurement (m ass/volume)Ordered By: Jr Jeffery on 05-18-2025 Glucose [Mass/Vol] 101 mg/dL High 70-99 [facility] Serum or plasma alanine monroe otransferase (ALT) measurementOrdered By: Jr Jeffery on 05-18-2025 ALT [Catalytic activity/Vol] 21 U/L <47 [facility] Serum or plasma albumin joey urement (mass/volume)Ordered By: Jr Jeffery on 05-18-2025 Albumin [Mass/Vol] 4.1 g/dL 3.5-5.0 [facility] Serum or plasma albumin/glob ulin mass ratioOrdered By: Jr Jeffery on 05-18-2025 Albumin/Globulin [Mass ratio] 1.7 {ratio} 0.9-2.4 [facility] Serum or plasma alkaline christie sphatase measurementOrdered By: Jrxiomy Jeffery on 05-18-2025 ALP [Catalytic activity/Vol] 69 U/L 40-129 [facility] Serum or plasma calcium joey urement (mass/volume)Ordered By: Jr Jeffery on 05-18-2025 Calcium [Mass/Vol] 9.4 mg/dL 7.6-11.0 [facility] Serum or plasma ethanol joey urement (mass/volume)Ordered By: Jr Jeffery on 05-18-2025 Ethanol [Mass/Vol] mg/dL <10.1 [facility] Comment on above: This test is for med ical purposes only. The legal definition of intoxication varies according to local law. Serum or plasma urea nitroge n measurement (mass/volume)Ordered By: Jrxiomy Jeffery on 05-18-2025 Urea nitrogen [Mass/Vol] 21 mg/dL High 4-19 [facility] Sodium levelOrdered By: Jrxiomy Jeffery on 05-18-2025 Sodium [Moles/Vol] 140 mmol/L 133-145 [facility] Total proteinOrdered By: Jr Jeffery on 05-18-2025 Protein [Mass/Vol] 6.6 g/dL 5.9-8.4 [facility] Urine Drug Screen (VISTA)on 05-18-2025 AMPHETAMINES Positive Normal <1000 ng/mL [facility] Comment on above: Result Comment: If c onfirmation testing is needed, a separate order will be required to send out testing to the reference laboratory. Performed By: #### L 501.9100, L500.4050, L505.5000 #### [facility] Laboratory [address] [place], [address] BARBITIURATES Negative Normal < 200 ng/mL [facility] Comment on above: Performed By: #### L 501.9100, L500.4050, L505.5000 #### [facility] [address] [place], [address] BENZODIAZIPINE Negative Normal < 200 ng/mL [facility] Comment on above: Performed By: #### L 501.9100, L500.4050, L505.5000 #### [facility] [address] [place], [address] BUP Ur Drug Scr Negative Normal < 200 ng/mL [facility] Comment on above: Performed By: #### L 501.9100, L500.4050, L505.5000 #### [facility] [address] [place], [address] COCAINE Negative Normal < 300 ng/mL [facility] Comment on above: Performed By: #### L 501.9100, L500.4050, L505.5000 #### [facility] [address] [place], [address] Fentanyl Positive Normal [facility] Comment on above: Result Comment: If c onfirmation testing is needed, a separate order will be required to send out testing to the reference laboratory. Performed By: #### L 501.9100, L500.4050, L505.5000 #### [facility] [address] [place], [address] METHADONE Negative Normal < 300 ng/mL [facility] Comment on above: Performed By: #### L 501.9100, L500.4050, L505.5000 #### [facility] [address] [facility] [address] OPIATES Negative Normal < 300 ng/mL [facility] Comment on above: Performed By: #### L 501.9100, L500.4050, L505.5000 #### [facility] [address] [place], [address] OXYCODONE Negative Normal < 100 ng/mL [facility] Comment on above: Performed By: #### L 501.9100, L500.4050, L505.5000 #### [facility] [address] [place], [address] PCP Negative Normal < 25 ng/mL [facility] Comment on above: Performed By: #### L 501.9100, L500.4050, L505.5000 #### [facility] [address] [place], [address] THC Positive Normal < 50 ng/mL [facility] Comment on above: Result Comment: If c onfirmation testing is needed, a separate order will be required to send out testing to the reference laboratory. Performed By: #### L 501.9100, L500.4050, L505.5000 #### [facility] [address] [place], [address] Urine benzodiazepine levelOr dered By: Jr Jeffery on 05-18-2025 Benzodiazepines Ql (U) Negative < 200 ng/mL [facility] Urine cocaine levelOrdered B y: Jr Jeffery on 05-18-2025 Cocaine Ql (U) Negative < 300 ng/mL [facility] Urine qyzdz-[id number] abinol (THC) measurementOrdered By: Jrxiomy Jeffery on 05-18-2025 Cannabinoids Screen Ql (U) Positive < 50 ng/mL [facility] Comment on above: If confirmation test ing is needed, a separate order will be required to send out testing to the reference laboratory. Urine phencyclidine (PCP) de tectionOrdered By: Jr Jeffery on 05-18-2025 Phencyclidine Ql (U) Negative < 25 ng/mL [facility] White blood cell (WBC) count Ordered By: Adam Blanco on 05-18-2025 WBC (Bld) [#/Vol] 10.0 10*3/uL 4.4-11.0 [facility] Urine Cultureon 02-05-2025 URC Culture exhibits no growth. Normal [facility] Comment on above: Performed By: #### M 100.2200 #### [facility] [address] [place], [address] Abdomen/Pelvis W IV Cont ONL Yon 02-04-2025 Abdomen/Pelvis W IV Cont ONLY [facility] Imaging Services [address] [place] [address] Abdomen/Pelvis W IV Cont ONLY MR#: [id number] Acct: [id number] Name: EULALIO VILLAFANA Rep #: [id number] : 1985 M 39 From: Edyta Gagnon MD PCP: JULITO Hannah Status: REG ER Study: Abdomen/Pelvis W IV Cont ONLY Date of Exam: Exam# [id number] Ordering Dr: Keenan Angel PROCEDURE: ABDOMEN/PELVIS W IV CONT ONLY 02/04/2025 [...] Spleen: Unremarkable. Adrenal glands: Unremarkable. Kidneys: Unremarkable. Gastrointestinal/perito neum: No acute abnormality.The appendix is unremarkable.No free air or free fluid. Vascular: Unremarkable. Lymph nodes: No enlarged lymph nodes by CT size criteria. Pelvic organs: Unremarkable. Bladder: The bladder is minimally distended, which limits evaluation. Bones: Unremarkable. Soft tissues: Unremarkable. CT/Abdomen/Pelvis W IV Cont ONLY IMPRESSION: No acute abnormality of the abdomen and pelvis. [facility] CC: LESLIE Angel; JULITO Hannah Manager [employer]: Signed Normal [facility] Absolute lymphocyte countOrd ered By: Keenan Angel on 02-04-2025 Lymphocytes Auto (Unsp spec) [#/Vol] 3.79 10*3/uL 0.83-4.51 [facility] Absolute neutrophil countOrd ered By: Keenan Angel on 02-04-2025 Neutrophils (Bld) [#/Vol] 6.7 10*3/uL 2.0-7.7 [facility] Anion gap in Serum or Plasma Ordered By: Keenan Angel on 02-04-2025 Anion gap [Moles/Vol] 12 mmol/L 5-15 [facility] Automated lymphocyte count a s percentage of total leukocytesOrdered By: Keenan Angel on 02-04-2025 Lymphocytes/100 WBC Auto (Unsp spec) 33.1 % 19-41 [facility] BUN/creatinine ratioOrdered By: Keenan Angel on 02-04-2025 Urea nitrogen/Creatinine [Mass ratio] 18.4 mg/mg 10-20 [facility] Bacteria LM.HPF (Urine sed) [#/Area]Ordered By: Keenan Camarenakaci on 02-04-2025 Urine Bacteria RARE /hpf None Seen [facility] Basophil percentageOrdered B y: Keenan Willettcristina on 02-04-2025 Basophils/100 WBC (Bld) 0.4 % 0-1 [facility] Bilirubin Test strip Ql (U)O rdered By: Keenan Jeanne on 02-04-2025 Bilirubin Ql (U) Negative Negative [facility] Bilirubin, totalOrdered By: Keenan Jeanne on 02-04-2025 Bilirubin [Mass/Vol] 0.18 mg/dL 0.00-1.30 [facility] CBC W/Diff, Automatedon 01-08 Absolute Lymph 3.79 X10 3/uL Normal 0.83-4.51 [facility] Comment on above: Performed By: #### L 500.4050, L100.0100 #### [facility] [address] [place], [address] Absolute Neut 6.7 X10 3/uL Normal 2.0-7.7 [facility] Comment on above: Performed By: #### L 500.4050, L100.0100 #### [facility] [address] [facility] [place] [place], [address] Basophils/100 WBC (Bld) 0.4 % Normal 0-1 [facility] Comment on above: Performed By: #### L 500.4050, L100.0100 #### [facility] [address] [place], [address] Eosinophils/100 WBC (Bld) 0.4 % Normal 0-5 [facility] Comment on above: Performed By: #### L 500.4050, L100.0100 #### [facility] [address] [place], [address] Erythrocyte distribution width (RBC) [Ratio] 13.5 % Normal 11.6-14.6 [facility] Comment on above: Performed By: #### L 500.4050, L100.0100 #### [facility] [address] [place], [address] Hematocrit (Bld) [Volume fraction] 44.2 % Normal 40-54 [facility] Comment on above: Performed By: #### L 500.4050, L100.0100 #### [facility] [address] [place], [address] Hemoglobin (Bld) [Mass/Vol] 15.0 g/dL Normal 13.0-16.5 [facility] Comment on above: Performed By: #### L 500.4050, L100.0100 #### [facility] [address] [place], [address] IG% 0.300 Normal 0.0-0.9 [facility] Comment on above: Result Comment: IG% - Immature Granulocytes (promyelocytes, myelocytes and metamyelocytes) > 1% indicates that a LEFT SHIFT is Present. Performed By: #### L 500.4050, L100.0100 #### [facility] [address] [place], [address] Lymphocytes/100 WBC (Bld) 33.1 % Normal 19-41 [facility] Comment on above: Performed By: #### L 500.4050, L100.0100 #### [facility] [address] [place], [address] MCH (RBC) [Entitic mass] 28.9 pg Normal 27.0-32.0 [facility] Comment on above: Performed By: #### L 500.4050, L100.0100 #### [facility] [address] [place], [address] MCHC (RBC) [Mass/Vol] 33.9 g/dL Normal 32-36 [facility] Comment on above: Performed By: #### L 500.4050, L100.0100 #### [facility] [address] [place], [address] MCV (RBC) [Entitic vol] 85.2 fL Normal 80-94 [facility] Comment on above: Performed By: #### L 500.4050, L100.0100 #### [facility] [address] [place], [address] Monocytes/100 WBC (Bld) 6.9 % Normal 0-10 [facility] Comment on above: Performed By: #### L 500.4050, L100.0100 #### [facility] [address] [place], [address] Neutrophils/100 WBC (Bld) 58.9 % Normal 47-70 [facility] Comment on above: Performed By: #### L 500.4050, L100.0100 #### [facility] [address] [place], [address] Nucleated RBC (Bld) [#/Vol] 0 10*3/uL Normal 0-5 [facility] Comment on above: Performed By: #### L 500.4050, L100.0100 #### [facility] [address] [place], [address] Platelet mean volume (Bld) [Entitic vol] 9.4 fL Normal 6.2-12.0 [facility] Comment on above: Performed By: #### L 500.4050, L100.0100 #### [facility] [address] [place], [address] Platelets (Bld) [#/Vol] 377 10*3/uL Normal 150-450 [facility] Comment on above: Performed By: #### L 500.4050, L100.0100 #### [facility] [address] [place], [address] RBC (Bld) [#/Vol] 5.19 10*6/uL Normal 4.6-6.2 [facility] Comment on above: Performed By: #### L 500.4050, L100.0100 #### [facility] [address] [place], [address] RDW SD 42.4 fl Normal 35.1-43.9 [facility] Comment on above: Performed By: #### L 500.4050, L100.0100 #### [facility] [address] [place], [address] WBC (Bld) [#/Vol] 11.5 10*3/uL High 4.4-11.0 [facility] Comment on above: Performed By: #### L 500.4050, L100.0100 #### [facility] [address] [place], [address] Carbon dioxide, total [Moles /volume] in Central venous bloodOrdered By: Keenan Angel on 02-04-2025 CO2 [Moles/Vol] 22.7 mmol/L 21.0-32.0 [facility] Chlamydia and Neisseria gono rrhoeae detection by PCROrdered By: Renan Fuentes on 02-04-2025 Chlamydia/Neisseria (PCR) [facility] Chloride assayOrdered By: Julito Angel on 02-04-2025 Chloride [Moles/Vol] 106 mmol/L 98-108 [facility] Comprehensive Metabolic Prof ilon 02-04-2025 Albumin [Mass/Vol] 4.4 g/dL Normal 3.5-5.0 [facility] Comment on above: Performed By: #### L 500.4050, L100.0100 #### [facility] [address] [place], [address] Albumin/Globulin [Mass ratio] 1.7 {ratio} Normal 0.9-2.4 [facility] Comment on above: Performed By: #### L 500.4050, L100.0100 #### [facility] [address] [place], [address] ALK PHOS 62 U/L Normal 40-129 [facility] Comment on above: Performed By: #### L 500.4050, L100.0100 #### [facility] [address] [place], [address] ALT [Catalytic activity/Vol] 15 U/L Normal <=46 [facility] Comment on above: Performed By: #### L 500.4050, L100.0100 #### [facility] [address] [place], [address] AST [Catalytic activity/Vol] 21 U/L Normal <=37 [facility] Comment on above: Performed By: #### L 500.4050, L100.0100 #### [facility] [address] [place], [address] Bilirubin [Mass/Vol] 0.18 mg/dL Normal 0.00-1.30 [facility] Comment on above: Performed By: #### L 500.4050, L100.0100 #### [facility] [address] [place], [address] BUN/CRE 18.4 RATIO Normal 10-20 [facility] Comment on above: Performed By: #### L 500.4050, L100.0100 #### [facility] [address] [place], [address] Calcium [Mass/Vol] 9.6 mg/dL Normal 7.6-11.0 [facility] [facility] Comment on above: Performed By: #### L 500.4050, L100.0100 #### [facility] [address] [place], [address] Chloride [Moles/Vol] 106 mmol/L Normal 98-108 [facility] Comment on above: Performed By: #### L 500.4050, L100.0100 #### [facility] [address] [place], [address] CO2 [Moles/Vol] 22.7 mmol/L Normal 21.0-32.0 [facility] Comment on above: Performed By: #### L 500.4050, L100.0100 #### [facility] [address] [place], [address] Creatinine [Mass/Vol] 0.96 mg/dL Normal 0.70-1.20 [facility] Comment on above: Performed By: #### L 500.4050, L100.0100 #### [facility] [address] [place], [address] ECRCL 108.78 ml/min Normal 50-250 [facility] Comment on above: Performed By: #### L 500.4050, L100.0100 #### [facility] [address] [place], [address] GAP 12 Normal 5-15 [facility] Comment on above: Performed By: #### L 500.4050, L100.0100 #### [facility] [address] [place], [address] GFR/1.73 sq M.predicted among non-blacks MDRD (S/P/Bld) [Vol rate/Area] 105 mL/min/{1.73_m2} Normal >60 [facility] Comment on above: Result Comment: mL/m in/1.73m2 CKD-EPI Creatinine Equation (2020) Performed By: #### L 500.4050, L100.0100 #### [facility] [address] [place], [address] Globulin (S) [Mass/Vol] 2.5 g/dL Normal 2.2-4.2 [facility] Comment on above: Performed By: #### L 500.4050, L100.0100 #### [facility] [address] [place], [address] Glucose [Mass/Vol] 90 mg/dL Normal 70-99 [facility] Comment on above: Performed By: #### L 500.4050, L100.0100 #### [facility] [address] [place], [address] Potassium [Moles/Vol] 4.0 mmol/L Normal 3.3-5.1 [facility] Comment on above: Performed By: #### L 500.4050, L100.0100 #### [facility] [address] [place], [address] Sodium [Moles/Vol] 141 mmol/L Normal 133-145 [facility] Comment on above: Performed By: #### L 500.4050, L100.0100 #### [facility] [address] [place], [address] T PROT 6.9 g/dL Normal 5.9-8.4 [facility] Comment on above: Performed By: #### L 500.4050, L100.0100 #### [facility] [address] [place], [address] Urea nitrogen [Mass/Vol] 18 mg/dL Normal 4-19 [facility] Comment on above: Performed By: #### L 500.4050, L100.0100 #### [facility] [address] [place], [address] Emergency Department Summary on 02-04-2025 Emergency Department Summary [facility] Medical Records Department [address] [place] [address] Emergency Department Summary 02/04/25 MR#: [id number] Acct: [id number] Name: EULALIO VILLAFANA Rep #: [id number] : 1985 39 From: Renan Franco PCP: [...] (Updated 02/04/25 @ 23:[address] Renan Fuentes, DO) Methamphetamine abuse Opioid abuse Anxiety Diarrhea [...] 02/04/25 18:30 02/04/25 20:10 Temperature 98 F [place] (more content not included)... Normal [facility] Eosinophil percentageOrdered By: Keenan Angel on 02-04-2025 Eosinophils/100 WBC (Bld) 0.4 % 0-5 [facility] Epithelial cells.squamous LM Ql (Urine sed)Ordered By: Keenan Angel on 02-04-2025 Epithelial cells.squamous LM.HPF (Urine sed) [#/Area] 0 /[HPF] 0-5 [facility] Erythrocyte distribution wid th ratioOrdered By: Keenan Angel on 02-04-2025 Erythrocyte distribution width (RBC) [Ratio] 13.5 % 11.6-14.6 [facility] Erythrocyte distribution wid th standard deviationOrdered By: Keenan Angel on 02-04-2025 Erythrocyte distribution width (RBC) [Entitic vol] 42.4 fL 35.1-43.9 [facility] Erythrocyte distribution width (RBC) [Ratio] 42.4 fl 35.1-43.9 [facility] Estimation of creatinine richar aranceOrdered By: Keenan Angel on 02-04-2025 Estimated Creatinine Clearance Calc 108.78 ml/min 50-250 [facility] GFR/1.73 sq M.predicted oksana g non-blacks MDRD (S/P/Bld) [Vol rate/Area]Ordered By: Keenan Angel on 02-04-2025 Estimated GFR (MDRD) Non-Af Amer 105 >60 [facility] Comment on above: mL/min/1.73m2 CKD-EP I Creatinine Equation (2020) Glomerular filtration rate ( GFR) estimation/1.73 sq m using serum, plasma, or whole bOrdered By: Keenan Angel on 02-04-2025 GFR/1.73 sq M.predicted among non-blacks MDRD (S/P/Bld) [Vol rate/Area] 105 mL/min/{1.73_m2} >60 [facility] Comment on above: mL/min/1.73m2 CKD-EP I Creatinine Equation (2020) Glucose Ql (U)Ordered By: Julito Angel on 02-04-2025 Urine Glucose (UA) Normal mg/dl Normal [facility] Hematocrit Auto (Bld) [Volum e fraction]Ordered By: Keenan Angel on 02-04-2025 Hematocrit (Bld) [Volume fraction] 44.2 % 40-54 [facility] Hemoglobin measurementOrdere d By: Keenan Angel on 02-04-2025 Hemoglobin (Bld) [Mass/Vol] 15.0 g/dL 13.0-16.5 [facility] Immature granulocytes/100 WB C Auto (Bld)Ordered By: Keenan Angel on 02-04-2025 Immature granulocytes/100 WBC (Bld) 0.300 % 0.0-0.9 [facility] Comment on above: IG% - Immature Granu locytes (promyelocytes, myelocytes and metamyelocytes) > 1% indicates that a LEFT SHIFT is Present. Ketones Test strip Ql (U)Ord ered By: Keenan Angel on 02-04-2025 Ketones Ql (U) Negative Negative [facility] - Chemistry and C hemistry - challengeOrdered By: Keenan Angel on 02-04-2025 AST [Catalytic activity/Vol] 21 U/L <38 [facility] Lymphocytes Auto (Unsp spec) [#/Vol]Ordered By: Keenan Angel on 02-04-2025 Lymphocytes (Bld) [#/Vol] 3.79 10*3/uL 0.83-4.51 [facility] Lymphocytes/100 WBC Auto (Un sp spec)Ordered By: Keenan Angel on 02-04-2025 Lymphocytes/100 WBC (Bld) 33.1 % 19-41 [facility] M8200.2203on 02-04-2025 M8200.2203 Pending Chlamydia Trachomatis PCR NEGATIVE for Chlamydia trachomatis N. gonorrhoeae PCR Negative for N. gonorrhoeae Normal [facility] Comment on above: Performed By: #### M 8200.2203 #### [facility] [place] [address], [address] MCV (mean corpuscular volume ) determinationOrdered By: Keenan Angel on 02-04-2025 MCV (RBC) [Entitic vol] 85.2 fL 80-94 [facility] Mean corpuscular hemoglobin (MCH) determinationOrdered By: Keenan Angel on 02-04-2025 MCH (RBC) [Entitic mass] 28.9 pg 27.0-32.0 [facility] Mean corpuscular hemoglobin concentration (MCHC) determinationOrdered By: Keenan Angel on 02-04-2025 MCHC (RBC) [Mass/Vol] 33.9 g/dL 32-36 [facility] Mean platelet volume determi nationOrdered By: Keenan Angel on 02-04-2025 Platelet mean volume (Bld) [Entitic vol] 9.4 fL 6.2-12.0 [facility] Microscopic analysis of urin e for red blood cells (RBC)Ordered By: Keenan Angel on 02-04-2025 Microscopic analysis of urine for red blood cells (RBC) 0-5 SEEN /hpf 0-5 [facility] Urine RBC 0-5 SEEN /hpf 0-5 [facility] Monocyte percentageOrdered B y: Keenan Angel on 02-04-2025 Monocytes/100 WBC (Bld) 6.9 % 0-10 [facility] Mucus LM Ql (Urine sed)Order ed By: Keenan Angel on 02-04-2025 Mucus Ql (Urine sed) 0 SEEN /hpf [facility] Neutrophil percentageOrdered By: Keenan Angel on 02-04-2025 Neutrophils/100 WBC (Bld) 58.9 % 47-70 [facility] Nitrite Test strip Ql (U)Ord ered By: Keenan Angel on 02-04-2025 Nitrite Ql (U) Negative Negative [facility] Nucleated red blood cell per centageOrdered By: Keenan Angel on 02-04-2025 Nucleated RBC/100 WBC (Bld) [Ratio] 0 % 0-5 [facility] Platelet countOrdered By: Julito ul Jeanne on 02-04-2025 Platelets (Bld) [#/Vol] 377 10*3/uL 150-450 [facility] Potassium (Unsp spec) [Mass/ Vol]Ordered By: Keenan Angel on 02-04-2025 Potassium [Moles/Vol] 4.0 mmol/L 3.3-5.1 [facility] Potassium measurement (mass/ volume)Ordered By: Keenan Angel on 02-04-2025 Potassium (Unsp spec) [Mass/Vol] 4.0 mmol/L 3.3-5.1 [facility] Protein Test strip Ql (U)Ord ered By: Keenan Angel on 02-04-2025 Protein Ql (U) 30 mg/dl High Negative [facility] RBC Auto (Bld) [#/Vol]Ordere d By: Keenan Angel on 02-04-2025 RBC (Bld) [#/Vol] 5.19 10*6/uL 4.6-6.2 [facility] Serum creatinine measurement (mass/volume)Ordered By: Keenan Angel on 02-04-2025 Creatinine [Mass/Vol] 0.96 mg/dL 0.70-1.20 [facility] Serum globulin measurementOr dered By: Keenan Angel on 02-04-2025 Globulin (S) [Mass/Vol] 2.5 g/dL 2.2-4.2 [facility] Serum glucose measurement (m ass/volume)Ordered By: Keenan Angel on 02-04-2025 Glucose [Mass/Vol] 90 mg/dL 70-99 [facility] Serum or plasma alanine monroe otransferase (ALT) measurementOrdered By: Keenan Angel on 02-04-2025 ALT [Catalytic activity/Vol] 15 U/L <47 [facility] Serum or plasma albumin joey urement (mass/volume)Ordered By: Keenan Angel on 02-04-2025 Albumin [Mass/Vol] 4.4 g/dL 3.5-5.0 [facility] Serum or plasma albumin/glob ulin mass ratioOrdered By: Keenan Angel on 02-04-2025 Albumin/Globulin [Mass ratio] 1.7 {ratio} 0.9-2.4 [facility] Serum or plasma alkaline christie sphatase measurementOrdered By: Keenan Angel on 02-04-2025 ALP [Catalytic activity/Vol] 62 U/L 40-129 [facility] Serum or plasma calcium joey urement (mass/volume)Ordered By: Keenan Angel on 02-04-2025 Calcium [Mass/Vol] 9.6 mg/dL 7.6-11.0 [facility] Serum or plasma urea nitroge n measurement (mass/volume)Ordered By: Keenan Angel on 02-04-2025 Urea nitrogen [Mass/Vol] 18 mg/dL 4-19 [facility] Sodium levelOrdered By: Keenan Angel on 02-04-2025 Sodium [Moles/Vol] 141 mmol/L 133-145 [facility] Squamous epithelial cells de tection in urine sediment by light microscopyOrdered By: Keenan Angel on 02-04-2025 Epithelial cells.squamous LM Ql (Urine sed) 0 SEEN /hpf 0-5 [facility] Testicular with Arterial Dylan won 02-04-2025 Testicular with Arterial Flow [facility] Imaging Services [address] [place], [place] [address] Testicular with Arterial Flow MR#: [id number] Acct: [id number] Name: EULALIO VILLAFANA Rep #: [id number] : 1985 M 39 From: Edyta Gagnon MD PCP: JULITO Hannah Status: REG ER Study: Testicular with Arterial Flow Date of Exam: Exam# [id number] Ordering Dr: Renan Fuentes DO PROCEDURE: TESTICULAR [...] Flow IMPRESSION: NORMAL SCROTAL ULTRASOUND. [facility]: Dr. Renan Fuentes DO; JULITO Hannah Manager [employer]: Signed Normal [facility] Total proteinOrdered By: Radha Angel on 02-04-2025 Protein [Mass/Vol] 6.9 g/dL 5.9-8.4 [facility] Urinalysis, Completeon 02-04 BACTERIA RARE Normal None Seen [facility] Comment on above: Order Comment: CLEAN CATCH Performed By: #### M 8200.2203 #### [facility] [address] [place], [address] RBC 0-5 SEEN Normal 0-5 [facility] Comment on above: Order Comment: CLEAN CATCH Performed By: #### M 8200.2203 #### [facility] [address] [place], [address] WBC 10-25 SEEN Normal 0-5 [facility] Comment on above: Order Comment: CLEAN CATCH Performed By: #### M 8200.2203 #### [facility] [address] [place], [address] EPI,SQUAMOUS 0 SEEN Normal 0-5 [facility] Comment on above: Order Comment: CLEAN CATCH Performed By: #### M 8200.2203 #### [facility] [address] [place], [address] Mucus Ql (Urine sed) 0 SEEN Normal [facility] Comment on above: Order Comment: CLEAN CATCH Performed By: #### M 8200.2203 #### [facility] [address] [place], [address] Urine blood detectionOrdered By: Keenan Angel on 02-04-2025 Urine Occult Blood Negative Negative [facility] Urine clarityOrdered By: Radha Angel on 02-04-2025 Clarity (U) Clear Clear [facility] Urine color determinationOrd ered By: Keenan Angel on 02-04-2025 Color (U) Yellow Yellow [facility] Urine cultureOrdered By: Jamison Fuentes on 02-04-2025 Bacteria identified Cx Nom (U) Culture exhibits no growth. [facility] Urine glucose detectionOrder ed By: Keenan Angel on 02-04-2025 Glucose Ql (U) Normal mg/dl Normal [facility] Urine leukocyte esterase det ection by dipstickOrdered By: Keenan Angel on 02-04-2025 Leukocyte esterase Test strip Ql (U) 100 /ul High Negative [facility] Urine pHOrdered By: Keenan clemons on 02-04-2025 pH (U) 6.0 [pH] 5.0 - 8.0 [facility] Urine sediment bacteria coun t by microscopy (number/high power field)Ordered By: Keenan Angel on 02-04-2025 Bacteria LM.HPF (Urine sed) [#/Area] RARE /hpf None Seen [facility] Urine specific gravity measu rementOrdered By: Keenan Angel on 02-04-2025 Specific gravity (U) [Rel density] 1.020 1.002-1.030 [facility] Urine urobilinogen measureme ntOrdered By: Keenan Angel on 02-04-2025 Urobilinogen Ql (U) Normal mg/dl Normal [facility] Urobilinogen Ql (U)Ordered B y: Keenan Angel on 02-04-2025 Urine Urobilinogen Normal mg/dl Normal [facility] White blood cell (WBC) count Ordered By: Keenan Angel on 02-04-2025 WBC (Bld) [#/Vol] 11.5 10*3/uL High 4.4-11.0 [facility] White blood cell countOrdere d By: Keenan Angel on 02-04-2025 Urine WBC 10-25 SEEN /hpf 0-5 [facility] White blood cell count 10-25 SEEN /hpf 0-5 [facility] CNOVon 10-21-2023 CNOV Office Visit (UCWSTR ) EULALIO VILLAFANA ([id number]) 1985 M Date Time Provider Department 10/21/23 1:30 PM RENETTA GONZALEZ [facility] During your visit today, we recorded the following information about you: Temperature Pulse Respiration Blood pressure 98.9 degrees 88/minute 16/minute 122/80 Weight 98 kg Renetta GonzalezVASQUEZ.FINANCIAL ACCOUNTANT 10/21/2023 2:06 PM Signed Subjective HPI HPI Eulalio Villafana is a 38 year old male who [...] No past surgical history on file. ALLERGIES Sulfamethoxazole-Trimet hoprim, Sulfamethoxazole, and Trimethoprim MEDICATIONS FLUoxetine (PROZAC) 10 [...] change Smoking cessation discussed Renetta Gonzalez APRN.FINANCIAL ACCOUNTANT Allergies As of Date: 10/21/2023 Noted Allergy Reaction SULFAMETHOXAZOLE-TRIMET HOPRIM 04/15/2019 8 - GI Upset SULFAMETHOXAZOLE 04/06/2019 16 - Unknown TRIMETHOPRIM 04/06/2019 16 - Unknown Date Reviewed: 10/21/2023 Reviewed by: Renetta Gonzalez APRN.[facility] - Fully Assessed Reason for Visit: Sinus Problem [99] Cmt: sinus pressure, drainage, ear pressure and cough x 3 weeks Primary Visit Diagnosis:Sinobronchiti s [J32.9, J40] Other Visit Diagnosis:Dysfunction of left [...] for 3 (more content not included)... Normal [facility] CNOVon 07-20-2023 CNOV Office Visit (UCWSTR ) EULALIO VILLAFANA ([id number]) 1985 M Date Time Provider Department 07/20/23 12:45 PM RENETTA GONZALEZ [facility] During your visit today, we recorded [...] assessed by LIP pre and post procedure CINTHYA Berkowitz Jonathan, APRN.CNP 07/20/2023 1:39 PM Signed Subjective HPI HPI Eulalio Villafana is a 38 year old male who [...] No past surgical history on file. ALLERGIES Sulfamethoxazole-Trimet hoprim, Sulfamethoxazole, and Trimethoprim MEDICATIONS FLUoxetine (PROZAC) 10 [...] - AMBULATORY EAR LAVAGE/IRRIGATION Renetta Gonzalez APRN.FINANCIAL ACCOUNTANT Allergies As of Date: 07/20/2023 Noted Allergy Reaction SULFAMETHOXAZOLE-TRIMET HOPRIM 04/15/2019 8 - GI Upset SULFAMETHOXAZOLE 04/06/2019 16 - Unknown TRIMETHOPRIM 04/06/2019 16 - Unknown Date Reviewed: 07/20/2023 Reviewed by: Kelley Calix MA - Fully Assessed Reason for Visit: Earwax [1178] Cmt: Left ear build up Primary Visit Diagnosis:Impacted cerumen of left ear [H61.22] Order(s):AMBULATORY EAR LAVAGE/IRRIGATION [36077EVV] Order #: [id number] Prescriptions as of 07/20/2023 - FLUoxetine (PROZAC) 10 mg capsule - QUEtiapine (SEROQUEL) 200 mg tablet - propranolol (INDERAL) 10 mg tablet Problem List As Of Date: 07/20/2023 (None) Visit Notes: >> CalixKelley MA Mon Jul 20, 2023 1:04 PM Status: Signed Ambulatory Ear Lavage Pre-treatment: Warm water Treatment: Left ear Equipment and Irrigation solution and Volume used: Single use syringe with single use irrigation tip Water Return flow appearance: Brown Patient tolerated procedure: yes Tympanic membrane assessment: Tympanic membrane assessed by LIP pre and post procedure Renetta Gonzalez APRN.[facility] Encounter Status:Closed by RENETTA GONZALEZ on 07/20/23 Normal [facility] XR FOREARM LEFT 2 VIEWSon XR FOREARM [...] abnormality, recommend repeat exam in 7-10 days. /[facility] Workstation ID: [id number] Dictated by: YAEL HAWKINS on ThuJun 14, 2020 6:52:45 PM EDT Transcribed by: LEANDRO COMBS on ThuJun 14, 2020 6:55:50 PM EDT Finalized by: YAEL HAWKINS on ThuJun 14, 2020 8:19:42 PM EDT Normal [facility] Comment on above: Order Comment: Injur y/Trauma [...] present. IMPRESSION: No acute fracture. Workstation ID: [id number] Dictated by: KARINA STILES on ThuJun 14, 2020 6:53:26 PM EDT Transcribed by: KARINA STILES on ThuJun 14, 2020 6:53:26 PM EDT Finalized by: KARINA STILES on ThuJun 14, 2020 6:53:26 PM EDT Normal [facility] Comment on above: Order Comment: Injur y/Trauma [...] Emptying Scintigraphy: A Joint Report of the [place] [employer] of Nuclear Medicine. [...] Date: 09/13/2019 4:30:02 PM Ordering Provider:Koby Neal [facility] ([place]) .Auto Diffon 03-24-2019 Ammonia (P) [Mass/Vol] 0.50 10 3/mcL Normal 0.15-1.00 [facility] ([place]) Comment on above: Performed By: #### C SON CHU, ANEU #### [place] [address] #### CMP, GFR #### [address] [address] Basophils (Bld) [#/Vol] 0.00 10 3/mcL Normal 0.00-0.19 [facility] ([place]) Comment on above: Performed By: #### C SON CHU, ANEU #### [place] [address] #### CMP, GFR #### [address] [address] Basophils/100 WBC (Bld) 0.3 % Normal 0.0-2.5 [facility] ([place]) Comment on above: Performed By: #### C BCSHINEIFF, ANEU #### [place] [address] #### CMP, GFR #### [address] [address] Eosinophils (Bld) [#/Vol] 0.00 10 3/mcL Normal 0.00-0.40 [facility] ([place]) Comment on above: Performed By: #### C BCSON, ANEU #### [place] [address] #### CMP, GFR #### [address] [address] Eosinophils/100 WBC (Bld) 0.3 % Normal 0.0-7.0 [facility] ([place]) Comment on above: Performed By: #### C BC, ADIFF, ANEU #### [address] [address] #### CMP, GFR #### [address] [address] Lymphocytes (Bld) [#/Vol] 1.70 10 3/mcL Normal 0.77-3.85 [facility] ([place]) Comment on above: Performed By: #### C BC, ADIFF, ANEU #### [address] [address] #### CMP, GFR #### [address] [address] Lymphocytes/100 WBC (Bld) 26.3 % Normal 10.0-50.0 [facility] ([place]) Comment on above: Performed By: #### C BC, ADIFF, ANEU #### [address] [address] #### CMP, GFR #### [address] [address] Monocytes/100 WBC (Bld) 7.4 % Normal 1.7-13.0 A [facility] ([place]) Comment on above: Performed By: #### C BC, ADIFF, ANEU #### [place] [id number] #### CMP, GFR #### [address] [address] Neutrophils/100 WBC (Bld) 65.7 % Normal 37.0-80.0 [facility] ([place]) Comment on above: Performed By: #### C BC, ADIFF, ANEU #### [address] [address] #### CMP, GFR #### [address] [address] .GFRon 03-24-2019 GFR Non- 81 ml/min/1.73sqm Normal [facility] ([place]) Comment on above: Result Comment: GFR Population [...] mL/min/1.73 square meters Performed By: #### C BCSON, ANEU #### [address] [address] #### CMP, GFR #### [address] [address] GFR 98 ml/min/1.73sqm Normal [facility] ([place]) Comment on above: Result Comment: GFR Population [...] mL/min/1.73 square meters Performed By: #### C BCSON, ANEU #### [address] [address] #### CMP, GFR #### [address] [address] .NEUABSon 03-24-2019 Neutrophils (Bld) [#/Vol] 4.20 10 3/mcL Normal 2.85-6.16 [facility] ([place]) Comment on above: Performed By: #### C SON CHU, ANEU #### [address] [address] #### CMP, GFR #### [address] [address] CBCon 03-24-2019 Erythrocyte distribution width (RBC) [Ratio] 14.2 % Normal 11.5-14.5 [facility] ([place]) Comment on above: Performed By: #### C SON CHU, ANEU #### [address] [address] #### CMP, GFR #### [place] [address] Hematocrit (Bld) [Volume fraction] 44.1 % Normal 42.0-52.0 [facility] ([place]) Comment on above: Performed By: #### C SON CHU, ANEU #### [place] [address] #### CMP, GFR #### [place] [address] Hemoglobin (Bld) [Mass/Vol] 14.6 G/dL Normal 14.0-18.0 [facility] ([place]) Comment on above: Performed By: #### C SHINE CHUIFF, ANEU #### [place] [address] #### CMP, GFR #### [place] [address] MCH (RBC) [Entitic mass] 28.5 pg Normal 27.0-31.2 [facility] ([place]) Comment on above: Performed By: #### C KIMBERLEY, ADIFF, ANEU #### [place] [id number] #### CMP, GFR #### [address] [address] MCHC (RBC) [Mass/Vol] 33.1 G/dL Normal 31.8-35.4 [facility] ([place]) Comment on above: Performed By: #### C BC, ADIFF, ANEU #### [address] [address] #### CMP, GFR #### [address] [address] MCV (RBC) [Entitic vol] 86.1 fL Normal 80.0-94.0 A [facility] ([place]) Comment on above: Performed By: #### C BC, ADIFF, ANEU #### [address] [address] #### CMP, GFR #### [address] [address] Platelet mean volume (Bld) [Entitic vol] 7.8 fL Normal 7.4-10.4 [facility] ([place]) Comment on above: Performed By: #### C BC, ADIFF, ANEU #### [place] [address] #### CMP, GFR #### [address] [address] Platelets (Bld) [#/Vol] 267 10 3/mcL Normal 130-400 [facility] ([place]) Comment on above: Performed By: #### C BC, ADIFF, ANEU #### [address] [address] #### CMP, GFR #### [address] [address] RBC (Bld) [#/Vol] 5.12 10 6/mcL Normal 4.04-6.13 [facility] ([place]) Comment on above: Performed By: #### C BC, ADIFF, ANEU #### [address] [address] #### CMP, GFR #### [address] [address] WBC (Bld) [#/Vol] 6.40 10 3/mcL Normal 4.60-10.80 [facility] ([place]) Comment on above: Performed By: #### C BC, ADIFF, ANEU #### [address] [address] #### CMP, GFR #### [address] [address] CMPon 03-24-2019 Albumin [Mass/Vol] 4.2 G/dL Normal 3.5-5.0 [facility] ([place]) Comment on above: Performed By: #### C BC, ADIFF, ANEU #### [address] [address] #### CMP, GFR #### [address] [address] Albumin/Globulin [Mass ratio] 1.4 {ratio} Normal 1.1-2.5 [facility] ([place]) Comment on above: Performed By: #### C BC, ADIFF, ANEU #### [address] [address] #### CMP, GFR #### [address] [address] ALP [Catalytic activity/Vol] 55 U/L Normal 40-135 [facility] ([place]) Comment on above: Performed By: #### C BC, ADIFF, ANEU #### [address] [address] #### CMP, GFR #### [address] [address] ALT [Catalytic activity/Vol] 42 U/L High 10-35 [facility] ([place]) Comment on above: Performed By: #### C BC, ADIFF, ANEU #### [address] [address] #### CMP, GFR #### [address] [address] AST [Catalytic activity/Vol] 16 U/L Normal 10-40 [facility] ([place]) Comment on above: Performed By: #### C BC, ADIFF, ANEU #### [address] [address] #### CMP, GFR #### [address] [address] Bili Total 0.7 mg/dL Normal 0.2-1.0 [facility] ([place]) Comment on above: Performed By: #### C BC, ADIFF, ANEU #### [address] [address] #### CMP, GFR #### [address] [address] Calcium [Mass/Vol] 9.2 mg/dL Normal 8.4-10.2 [facility] ([place]) Comment on above: Performed By: #### C BC, ADIFF, ANEU #### [address] [address] #### CMP, GFR #### [address] [address] Chloride [Moles/Vol] 106 mmol/L Normal 98-107 [facility] ([place]) Comment on above: Performed By: #### C BC, ADIFF, ANEU #### [place] [address] #### CMP, GFR #### [address] [address] CO2 [Moles/Vol] 27 mmol/L Normal 22-29 [facility] ([place]) Comment on above: Performed By: #### C BC, ADIFF, ANEU #### [address] [address] #### CMP, GFR #### [address] [address] Creatinine [Mass/Vol] 1.07 mg/dL Normal 0.70-1.30 [facility] ([place]) Comment on above: Performed By: #### C BC, ADIFF, ANEU #### [address] [address] #### CMP, GFR #### [address] [address] Electrolyte Balance 10.0 mEq/L Normal [facility] ([place]) Comment on above: Performed By: #### C BC, ADIFF, ANEU #### [address] [address] #### CMP, GFR #### [address] [address] Globulin (S) [Mass/Vol] 2.9 G/dL Normal A [facility] ([place]) Comment on above: Performed By: #### C BC, ADIFF, ANEU #### [address] [address] #### CMP, GFR #### [address] [address] Glucose [Mass/Vol] 124 mg/dL High 70-105 [facility] ([place]) Comment on above: Performed By: #### C BC, ADIFF, ANEU #### [address] [address] #### CMP, GFR #### [address] [address] Potassium [Moles/Vol] 3.9 mmol/L Normal 3.5-5.1 [facility] ([place]) Comment on above: Performed By: #### C KIMBERLEY, ADIFF, ANEU #### [address] [address] #### CMP, GFR #### [address] [address] Protein [Mass/Vol] 7.1 G/dL Normal 6.4-8.2 [facility] ([place]) Comment on above: Performed By: #### C BC, ADIFF, ANEU #### Jose [address] [address] #### CMP, GFR #### [address] [address] Sodium [Moles/Vol] 143 mmol/L Normal 136-145 [facility] ([place]) Comment on above: Performed By: #### C BC, ADIFF, ANEU #### [address] [address] #### CMP, GFR #### [address] [address] Urea nitrogen [Mass/Vol] 16 mg/dL Normal 7-18 [facility] ([place]) Comment on above: Performed By: #### C KIMBERLEY, SON, ANEU #### [address] [place] [address] [place], [place] [address] #### CMP, GFR #### [facility] [address] [place] [address] Urea nitrogen/Creatinine [Mass ratio] 15 ratio Normal 7-27 [facility] ([place]) Comment on above: Performed By: #### C BC, ADIFF, ANEU #### Jose [place] [address] [place], [place] [address] #### CMP, GFR #### [facility] [address] [place] [address] OVA & PARASITE PERMANENT SME Milo 03-11-2018 OVA & PARASITE PERMANENT SMEAR Normal [facility] Comment on above: Result Comment: _OVA AND PARASITE, PERMANENT STAIN_OVA AND PARASITES, CONCENTRATE AND PERMANENT SMEARReported: 03/11/2018 16:15 Status=F TEST RESULT FLAG RANGE UNITS OVA AND PARASITES, see below 03/11/18.1628.rfl.COMPLETE.AMRR .[id number] ANDPERMANENT SMEAROVA AND PARASITES, CONCENTRATE AND PERMANENT SMEAREXAMINATION FOR OVA AND PARASITESSOURCE : STOOL RESULT/COMMENT:NO OVA AND PARASITES SEEN.Reference Range: No Ova and Parasites seenRoutine Ova and Parasite Exam may not detect someparasites that occasionally cause diarrheal illness.Test code(s) 05807Z[18580](Cryptosporidium Ag, DFA)and/or 99464J[52688] (Cyclospora and Isospora Exam)may be ordered to detect these parasites. One negativesample does not necessarily rule out the presence ofa parasitic infection.Assay performed by wet mount after concentration.PARASITE EXAM, TRICHROME STAINSOURCE : STOOL RESULT/COMMENT:NO OVA AND PARASITES SEEN.Routine Ova and Parasite Exam may not detect someparasites that occasionally cause diarrheal illness.Test code(s) 85122P[29181](Cryptosporidium Ag, DFA)and/or 01152K[47973] (Cyclospora and Isospora Exam)may be ordered to detect these parasites. One negativesample does not necessarily rule out the presence ofa parasitic infection.Test Performed by [employer],[facility],[address] [place] [id number] luis Evangelista M.D., Ph.D., Director of [phone], [facility] [id number] Performed By: #### 2 [address]32[address] ####[facility],[address] [place] [address] EMERGENCY REPORTon 8 EMERGENCY REPORT [facility] EMERGENCY ROOM REPORT NAME ACCOUNT SEX AGE ADMIT DISCHARGE PT MED. RECORD# NUMBER DATE DATE TYPE JACOB [id number] M 32 02/28/18 02/28/18 3 EULALIO [id number] ROOM: ER DATE OF : 1985 DICTATING PHYSICIAN: Roger Mon HISTORY OF PRESENT ILLNESS: The patient came [...] AND TREATMENT: I will write him for [facility] and also ordered stool cultures, Clostridium difficile, fecal leukocytes. I also gave him referral to Dr. Card for Surgery. He can also follow up with Natty Isaac. DIAGNOSIS: 1. Abdominal pain, cause not clear. 2. Dehydration, mildly improved. Page 1 of 2 EULALIO VILLAFANA Emergency Room Report Dictated By: Roger Mon DO TD: 02/28/18 15:58 JOB #: [id number] Transcribed by: mateus Electronically signed by: AMEENA Mon D.O. 03/02/18 01:40 Page 2 of 2 EULALIO VILLAFANA Emergency Room Report Normal [facility] C DIFF COMPLETEon 03-01-2018 C DIFF COMPLETE C-DIFF TOXINNEGATIVEC-DIFF AGNEGATIVEINTERNAL NEG QCPASSINTERNAL POS QCPASSEXTERNAL QC DONE?YESINTERPRETATION: POSITIVE Ag,POSITIVE Tox = C. Diff is present & producing toxinsPOSITIVE Ag,NEGATIVE Tox = C. Diff is presentNEGATICE Ag,NEGATICE Tox = C. Diff is not presentA low percentage of specimens may test negative for antigen but positivefor toxin. A fresh specimen should be resumbitted for retesting. Normal [facility] Comment on above: Performed By: #### 2 36875 ####[facility],[address] [place] [address] CULTURE STOOLon 03-01-2018 CULTURE STOOL CULTURE STOOL _STOOL CULTURE_ M I C R O B I O L O G Y R E P O R T FINAL Antimicrobial Susceptibility and Organism Identification Report Specimen Number : [id number] Requested : 03/01/18 Specimen Source : STOOL Collected : 03/01/18 15:30 Carlson of Isolation : OUTPATIENT Received : 03/01/18 15:30 Requesting Physician : JEVON --- Patient/Specimen Tests and Comments Specimen Comments FINAL REPORT: SALMONELLA:NEGATIVE SHIGELLA:NEGATIVE YERSINIA:NEGATIVE CAMPYLOBACTER:NEGATIVE- Tech : ___ Source : STOOL ID # : [id number] FINAL Report Date : / / : Collected : 03/01/18 15:30 03/04/18.1355.KLS. 03/03/18.1305.BKO. 03/02/18.1356.BKO. 03/04/18.1355.KLS.COMPL ETE Normal [facility] Comment on above: Performed By: #### 2 61985 ####[facility],[address] [place], [place] [id number] LACTOFERRIN, QUALITATIVE, ST OOLon 03-01-2018 LACTOFERRIN, QUALITATIVE, STOOL LACTOFERRIN, QUALITATIVE, STOOL{ LEUKO EZ JEREMY NEGATIVE [NEGATIVEINTERNAL CONTROLPASSExternal Ctrl done?YESA negative or normal test result is consistent with a noninflammatory diseasesuch as IBS. A positive or elevated result indicates the presence of intestinalinflammation; such inflammation is consistent with IBD. Normal [facility] Comment on above: Performed By: #### 2 28775 ####[facility],[address] [place] [address] US RUQ (GB/PANCREAS)on 03-01 US RUQ (GB/PANCREAS) [facility] [address] [place] [address] Patient: EULALIO VILLAFANA Phone#: : 1985 Age: 32 Gender: M Pt. Type: Out Account: [id number] Location: [facility] Ordering: NATTY ISAAC Exam Date: 03/01/2018/15:03 Family Phys: Charge Code: [id number] Physician: Barrow Order #: [id number] DLP Dose#: PROCEDURE: RUQ (GB) ULTRASOUND COMPARISON: [...] right upper quadrant ultrasound. DICTATED BY: MONTSE CABELLO MD ON 03/01/2018 AT 15:56 APPROVED BY: MONTSE CABELLO MD ON 03/01/2018 AT 15:56 Normal [facility] CBCon 02-28-2018 Basophils Auto #/vol (Bld) 0.00 x10EE3/UL Normal 0.00 - 0.10 [facility] Comment on above: Performed By: #### 2 [address] ####[place] [address] Basophils/100 WBC Auto (Bld) 0.7 % Normal 0.0 - 2.0 [facility] Comment on above: Performed By: #### 2 80798 ####[facility],[address] [place] [address] Blood morphology N/A Normal [facility] Comment on above: Result Comment: {CD] Performed By: #### 2 44724 ####[facility],[address] [place] [address] CBC Normal [facility] Comment on above: Result Comment: CBC- COMPLETE BLOOD COUNT Performed By: #### 2 18549 ####[facility],[address] [place], [place] [id number] Eosinophils 0.00 x10EE3/UL Normal 0.00 - 0.50 [facility] Comment on above: Performed By: #### 2 60188 ####[facility],[address] [place] [place] [address] Eosinophils/100 leukocytes 0.8 % Normal 0.0 - 7.0 [facility] Comment on above: Performed By: #### 2 22321 ####[facility],[address] [place] [address] Erythrocyte distribution width Auto Ratio (RBC) 14.0 % Normal 12.0 - 15.6 [facility] Comment on above: Performed By: #### 2 15612 ####[facility],[address] [place] [address] Erythrocytes (RBC) 4.90 x 10EE6/UL Normal 4.50 - 6.00 [facility] Comment on above: Performed By: #### 2 63796 ####[facility],[address] [place] [address] Hematocrit (HCT) 42.6 % Normal 40.0 - 52.0 [facility] Comment on above: Performed By: #### 2 26837 ####[facility],[address] [place] [address] Hemoglobin mass conc (Bld) 14.4 g/dL Normal 13.0 - 17.5 [facility] Comment on above: Performed By: #### 2 83938 ####[facility],[address] [place] [address] Lymphocytes 1.30 x10EE3/UL Normal 0.80 - 2.80 [facility] Comment on above: Performed By: #### 2 47362 ####[facility],[address] [place], [place] [address] Lymphocytes/100 leukocytes 21.9 % Normal 20.0 - 45.0 [facility] Comment on above: Performed By: #### 2 29740 ####[facility],[address] [place], [place] [id number] MANUAL DIFF N/A Normal [facility] Comment on above: Performed By: #### 2 72847 ####[facility],[address] [place] [address] MCH 29 pg Normal 27 - 33 [facility] Comment on above: Performed By: #### 2 95833 ####[facility],[address] [place] [address] MCHC mass conc (RBC) 34 X10 3 Normal 32 - 36 [facility] Comment on above: Performed By: #### 2 87807 ####[facility],[address] [place] [address] MCV 87 fL Normal 81 - 98 [facility] Comment on above: Performed By: #### 2 87294 ####[facility],[address] [place], [place] [address] Monocytes 0.70 x10EE3/UL Normal 0.20 - 1.00 [facility] Comment on above: Performed By: #### 2 15907 ####[place] [address] MONOS % 12.9 % High 0.0 - 10.0 [facility] Comment on above: Performed By: #### 2 14273 ####[place] [address] Neutrophils 3.70 x10EE3/UL Normal 1.50 - 7.10 [facility] Comment on above: Performed By: #### 2 33080 ####[place] [address] Neutrophils/100 WBC Auto (Bld) 63.7 % Normal 46.0 - 76.0 [facility] Comment on above: Performed By: #### 2 15177 ####[facility],[address] [place] [address] Platelet mean volume (PMV) 8.8 fL Normal 6.4 - 10.5 [facility] Comment on above: Result Comment: AUTO MATED DIFFERENTIAL Performed By: #### 2 89089 ####[place] [address] Platelets 246 x10EE3/UL Normal 150 - 450 [facility] Comment on above: Performed By: #### 2 46081 ####[place] [address] WBC (Leukocytes) 5.8 x 10EE3/UL Normal 4.5 - 10.8 [facility] Comment on above: Performed By: #### 2 09710 ####[facility],[address] [place] [address] CMP with eGFRon 02-28-2018 Age 32 years Normal [facility] Comment on above: Performed By: #### 2 77996 ####[facility],[address] [place] [address] Albumin 4.3 g/dL Normal 3.4 - 4.8 [facility] Comment on above: Performed By: #### 2 22801 ####[facility],[address] [place] [address] Albumin/Globulin Ratio 1.9 {ratio} High 0.9 - 1.6 [facility] Comment on above: Performed By: #### 2 40900 ####[facility],[address] [place] [address] ALK PHOS 47 U/L Normal 38 - 126 [facility] Comment on above: Performed By: #### 2 84702 ####[facility],[address] [place] [address] ALT/SGPT 25 U/L Normal 10 - 40 [facility] Comment on above: Performed By: #### 2 59441 ####[facility],[address] [place] [address] Anion gap 11 mmol/L Normal 10 - 20 [facility] Comment on above: Performed By: #### 2 20777 ####[facility],[address] [place] [address] AST/SGOT 19 U/L Normal 13 - 39 [facility] Comment on above: Performed By: #### 2 62538 ####[facility],[address] [place] [address] B/C RATIO 13 ratio Normal 0 - 30 [facility] Comment on above: Performed By: #### 2 29904 ####[facility],[address] [place], [place] [id number] Bilirubin (total) 0.4 mg/dL Normal 0.0 - 1.5 [facility] Comment on above: Performed By: #### 2 72923 ####[facility],[address] [place], [place] [address] Calcium 9.1 mg/dL Normal 8.6 - 10.2 [facility] Comment on above: Performed By: #### 2 14773 ####[facility],[address] [place] [address] Chloride 105 mmol/L Normal 98 - 107 [facility] Comment on above: Performed By: #### 2 76188 ####[facility],[address] [place] [address] CO2 22.4 mmol/L Normal 21.0 - 31.0 [facility] Comment on above: Performed By: #### 2 55630 ####[facility],[address] [place] [address] Creatinine 0.9 mg/dL Normal 0.7 - 1.3 [facility] Comment on above: Performed By: #### 2 55386 ####[facility],[address] [place], [place] [address] eGFR (non-black) mL/min/{1.73_m2} Normal 60 - 999 [facility] Comment on above: Performed By: #### 2 16016 ####[facility],[address] [place] [address] Result Comment: ACCO RDING TO THE NATIONAL KIDNEY DISEASE EDUCATION PROGRAM(NKDE), A NORMAL eGFRIS A VALUE GREATER THAN OR EQUAL TO 60 ML/MIN/1.73 SQ METERS.CHRONIC KIDNEY DISEASE: <60mL/MIN/1.73 SQ METERSKIDNEY FAILURE: <15mL/MIN/1.73 SQ METERSTHIS TEST SHOULD ONLY BE USED FOR PATIENTS 18 YEARS OF AGE AND OLDER. eGFR (non-black) Normal [facility] Comment on above: Result Comment: COMP REHENSIVE METABOLIC PANEL Performed By: #### 2 98846 ####[facility],[address] [place] [address] Globulin 2.3 g/dL Normal 1.5 - 3.8 [facility] Comment on above: Performed By: #### 2 79654 ####[facility],[address] [place] [address] Glucose mass conc 98 mg/dL Normal 74 - 106 [facility] Comment on above: Performed By: #### 2 83336 ####[facility],[address] [place] [address] Potassium molar conc 4.1 mmol/L Normal 3.5 - 5.1 [facility] Comment on above: Performed By: #### 2 22804 ####[facility],[address] [place] [address] Protein 6.6 g/dL Normal 6.4 - 8.3 [facility] Comment on above: Performed By: #### 2 67587 ####[facility],[address] [place] [address] Sodium 134 mmol/L Low 136 - 145 [facility] Comment on above: Performed By: #### 2 13765 ####[facility],[address] [place] [address] Urea nitrogen 12 mg/dL Normal 6 - 20 [facility] Comment on above: Performed By: #### 2 02631 ####[facility],[address] [place] [address] ABDOMEN/PELVIS Won 2017 CT ABDOMEN/PELVIS [place] [address] Patient: EULALIO VILLAFANA Phone#: : 1985 Age: 32 Gender: M Pt. Type: ER Account: [id number] Location: 052 Ordering: ROGER MON Exam Date: 02/28/2018/8:07 Family Phys: NATTY ISAAC Charge Code: [id number] Physician: Barrow Order #: [id number] DLP Dose#: PROCEDURE: CT ABDOMEN/PELVIS WITH CONTRAST [...] Report - Page 2 of 2 Patient: BREEULALIO PATELXochitl Phone#: : 1985 Age: 32 Gender: M Pt. Type: ER Account: [id number] Location: 052 Ordering: ROGER GONZALEZER Exam Date: 02/28/2018/8:07 Family Phys: NATTY ISAAC Charge Code: [id number] Physician: Barrow Order #: [id number] DLP Dose#: PELVIC NODES: Normal. No adenopathy. PELVIC ORGANS: Unremarkable BONES: Normal. No bony lesion or fracture. LUNG BASES: Normal. No visible pulmonary or pleural disease. OTHER: Negative. CONCLUSION: 1. Diffusely fluid filled colon without distention. There are multiple loops of fluid-filled small bowel. Correlate for symptoms of enterocolitis. Dictated by: Montse Cabello MD on 03/01/2018 at 15:46 Approved by: Montse Cabello MD on 03/01/2018 at 15:46 Normal [facility] LIPASEon 02-28-2018 Lipase 21.0 U/L Normal 18.0 - 51.0 [facility] Comment on above: Performed By: #### 2 31659 ####[facility],[address] [place] [address] URINALYSISon 02-28-2018 Bilirubin (total) Negative Normal NORMAL: NEGATIVE [facility] Comment on above: Performed By: #### 2 52529 ####[facility],[address] [place] [address] Blood Negative Normal NORMAL: NEGATIVE [facility] Comment on above: Performed By: #### 2 84503 ####[facility],[address] [place] [address] Glucose mass conc NORM Normal NORMAL: NORMAL [facility] Comment on above: Performed By: #### 2 44013 ####[facility],[address] [place] [address] Ketone 5 Abnormal NORMAL: NEGATIVE [facility] Comment on above: Performed By: #### 2 40795 ####[facility],[address] [place] [address] Microscopic NOT INDICATED Normal [facility] Comment on above: Performed By: #### 2 17528 ####[facility],[address] [place] [address] pH of blood 6.5 [pH] Normal NORMAL: 5.0-8.0 [facility] Comment on above: Performed By: #### 2 61722 ####[facility],[address] [place] [address] Protein 30 g/dL Abnormal NORMAL: NEGATIVE [facility] Comment on above: Performed By: #### 2 37848 ####[facility],[address] [place] [address] Sp [place] 1.010 Normal NORMAL: 1.010-1.030 [facility] Comment on above: Performed By: #### 2 48143 ####[facility],[address] [place] [address] Specimen Type Void Normal [facility] Comment on above: Performed By: #### 2 03036 ####[facility],[address] [place] [address] URINALYSIS Normal [facility] Comment on above: Result Comment: URIN ALYSIS Performed By: #### 2 57642 ####[facility],[address] [place] [address] Urine, clarity clear Normal NORMAL: CLEAR [facility] Comment on above: Performed By: #### 2 24343 ####[facility],[address] [place], [place] [id number] Urine, color yellow Normal NORMAL: YELLOW [facility] Comment on above: Performed By: #### 2 81341 ####[facility],[address] [place], [place] [address] Urine, nitrite presence Negative Normal NORM AL: NEGATIVE [facility] Comment on above: Performed By: #### 2 80928 ####[facility],[address] [place], [place] [address] Urobilinog NORM Normal NORMAL: NORMAL [facility] Comment on above: Performed By: #### 2 81443 ####[facility],[address] [place] [address] WBC (Leukocytes) Negative Normal NORMAL: NEGATIVE [facility] Comment on above: Performed By: #### 2 87479 ####[facility],[address] [place] [address] CHEST PA/LATon 09-23-2017 [place] [address] Patient: EULALIO VILLAFANA Phone#: : 1985 Age: 32 Gender: M Pt. Type: Out Account: [id number] Location: Ordering: NATTY ISAAC Exam Date: 09/23/2017/11:18 Family Phys: Charge Code: [id number] Physician: Barrow Order #: [id number] DLP Dose#: PROCEDURE: X-RAY CHEST PA/LAT 2 [...] CONCLUSION: No acute disease. Dictated by: Montse Cabello MD on 09/23/2017 at 12:39 Approved by: Montse Cabello MD on 09/23/2017 at 12:39 Normal [facility] Vital Signs Date Time Vital Sign Value Performing Clinician Facility 07-13-2025 17:00-0400 Respiratory rate 16 /min Natty Isaac PA Work Phone: [facility] 07-13-2025 17:00-0400 SaO2% (BldA) [Mass fraction] 100 % Natty Isaac PA Work Phone: [facility] 07-13-2025 15:32-0400 Body temperature 97.8 [degF] Natty Isaac PA Work Phone: [facility] 07-13-2025 15:32-0400 Diastolic blood pressure 78 mm[Hg] Natty Isaac PA Work Phone: [facility] 07-13-2025 15:32-0400 Heart rate 75 /min Natty Isaac PA Work Phone: [facility] 07-13-2025 15:32-0400 Systolic blood pressure 141 mm[Hg] Natty Isaac PA Work Phone: [facility] 07-13-2025 13:25-0400 Body height 177.8 cm Natty Isaac PA Work Phone: [facility] 07-13-2025 13:25-0400 Body mass index (BMI) [Ratio] 25.4 kg/m2 Natty Isaac PA Work Phone: [facility] 07-13-2025 13:25-0400 Body weight 80.33 kg Natty Isaac PA Work Phone: [facility] 07-11-2025 14:34-0400 Body temperature 98.6 [degF] Kenrick [place] MD Work Phone: [facility] 07-11-2025 14:34-0400 Diastolic blood pressure 86 mm[Hg] Kenrick [place] MD Work Phone: [facility] 07-11-2025 14:34-0400 Heart rate 71 /min Kenrick [place] MD Work Phone: [facility] 07-11-2025 14:34-0400 Respiratory rate 18 /min Kenrick [place] MD Work Phone: [facility] 07-11-2025 14:34-0400 SaO2% (BldA) [Mass fraction] 98 % Kenrick [place] MD Work Phone: [facility] 07-11-2025 14:34-0400 Systolic blood pressure 140 mm[Hg] Kenrick [place] MD Work Phone: [facility] 07-11-2025 14:14-0400 Body height 177.8 cm Kenrick [place] MD Work Phone: [facility] 07-11-2025 14:14-0400 Body mass index (BMI) [Ratio] 25.83 kg/m2 Kenrick [place] MD Work Phone: [facility] 07-11-2025 14:14-0400 Body weight 81.65 kg Kenrick [place] MD Work Phone: [facility] 05-22-2025 08:08-0400 SaO2% (BldA) [Mass fraction] 94 % Natty Isaac PA Work Phone: [facility] 05-22-2025 06:44-0400 Body temperature 97.7 [degF] Natty Isaac PA Work Phone: [facility] 05-22-2025 06:44-0400 Diastolic blood pressure 62 mm[Hg] Natty Isaac PA Work Phone: [facility] 05-22-2025 06:44-0400 Heart rate 57 /min Natty Isaac PA Work Phone: [facility] 05-22-2025 06:44-0400 Respiratory rate 16 /min Natty Siaac PA Work Phone: [facility] 05-22-2025 06:44-0400 Systolic blood pressure 107 mm[Hg] Natty Isaac PA Work Phone: [facility] 05-19-2025 10:24-0400 Body height 177.8 cm Natty Isaac PA Work Phone: [facility] 05-19-2025 10:24-0400 Body weight 77.56 kg Natty Isaac PA Work Phone: [facility] 05-19-2025 00:52-0400 Body mass index (BMI) [Ratio] 24.5 kg/m2 Natty Isaac PA Work Phone: [facility] 05-18-2025 23:39-0400 Body temperature 95.2 [degF] Natty Isaac PA Work Phone: [facility] 05-18-2025 23:39-0400 Diastolic blood pressure 69 mm[Hg] Natty Isaac PA Work Phone: [facility] 05-18-2025 23:39-0400 Heart rate 61 /min Natty Isaac PA Work Phone: [facility] 05-18-2025 23:39-0400 Respiratory rate 16 /min Natty Isaac PA Work Phone: [facility] 05-18-2025 23:39-0400 SaO2% (BldA) [Mass fraction] 97 % Natty Isaac PA Work Phone: [facility] 05-18-2025 23:39-0400 Systolic blood pressure 119 mm[Hg] Natty Isaac PA Work Phone: [facility] 05-18-2025 21:15-0400 Body height 177.8 cm Natty Isaac PA Work Phone: [facility] 05-18-2025 21:15-0400 Body mass index (BMI) [Ratio] 25.4 kg/m2 Natty Isaac PA Work Phone: 6(666)[phone] [place] [address] 05-18-2025 21:15-0400 Body weight 80.6 kg Natty Isaac PA Work Phone: 4(903)[phone] [place] [address] 02-04-2025 20:51-0400 Body temperature 98.1 [degF] Natty Isaac PA Work Phone: 1(386)[phone] [place] [address] 02-04-2025 20:51-0400 Diastolic blood pressure 60 mm[Hg] Natty Isaac PA Work Phone: [facility] 02-04-2025 20:51-0400 Heart rate 56 /min Natty Isaac PA Work Phone: [facility] 02-04-2025 20:51-0400 Respiratory rate 18 /min Natty Siaac PA Work Phone: [facility] 02-04-2025 20:51-0400 SaO2% (BldA) [Mass fraction] 100 % Natty Isaac PA Work Phone: [facility] 02-04-2025 20:51-0400 Systolic blood pressure 107 mm[Hg] Natty Isaac PA Work Phone: [facility] 02-04-2025 18:25-0400 Body height 177.8 cm Natty Isaac PA Work Phone: [facility] 02-04-2025 18:25-0400 Body mass index (BMI) [Ratio] 26.4 kg/m2 Natty Isaac PA Work Phone: [facility] 02-04-2025 18:25-0400 Body weight 83.41 kg Natty Isaac PA Work Phone: [facility] 10-21-2023 13:42-0500 Body temperature 98.91 [degF] Renetta Carlos AUTOMOBILE GLASS TECHNICIAN.FINANCIAL ACCOUNTANT Work Phone: [facility] 10-21-2023 13:42-0500 Body weight 97.98 kg Renetta Carlos AUTOMOBILE GLASS TECHNICIAN.FINANCIAL ACCOUNTANT Work Phone: [facility] 10-21-2023 13:42-0500 Diastolic blood pressure 80 mm[Hg] Renetta Carlos AUTOMOBILE GLASS TECHNICIAN.FINANCIAL ACCOUNTANT Work Phone: [facility] 10-21-2023 13:42-0500 Heart rate 88 /min Renetta Carlos AUTOMOBILE GLASS TECHNICIAN.FINANCIAL ACCOUNTANT Work Phone: [facility] 10-21-2023 13:42-0500 Respiratory rate 16 /min Renetta Carlos AUTOMOBILE GLASS TECHNICIAN.FINANCIAL ACCOUNTANT Work Phone: [facility] 10-21-2023 13:42-0500 SaO2% (BldA) [Mass fraction] 97 % Renetta Carlos AUTOMOBILE GLASS TECHNICIAN.FINANCIAL ACCOUNTANT Work Phone: [facility] 10-21-2023 13:42-0500 Systolic blood pressure 122 mm[Hg] Renetta Carlos AUTOMOBILE GLASS TECHNICIAN.FINANCIAL ACCOUNTANT Work Phone: [facility] 07-20-2023 12:53-0400 Body temperature 97.9 [degF] Renetta Carlos AUTOMOBILE GLASS TECHNICIAN.FINANCIAL ACCOUNTANT Work Phone: [facility] 07-20-2023 12:53-0400 Body weight 99.43 kg Renetta Carlos AUTOMOBILE GLASS TECHNICIAN.FINANCIAL ACCOUNTANT Work Phone: [facility] 07-20-2023 12:53-0400 Diastolic blood pressure 78 mm[Hg] Renetta Carlos AUTOMOBILE GLASS TECHNICIAN.FINANCIAL ACCOUNTANT Work Phone: [facility] 07-20-2023 12:53-0400 Heart rate 67 /min Renetta Gonzalez AUTOMOBILE GLASS TECHNICIAN.FINANCIAL ACCOUNTANT Work Phone: [facility] 07-20-2023 12:53-0400 Respiratory rate 21 /min Renetta Gonzalez AUTOMOBILE GLASS TECHNICIAN.FINANCIAL ACCOUNTANT Work Phone: [facility] 07-20-2023 12:53-0400 SaO2% (BldA) [Mass fraction] 98 % Renetta Gonzalez AUTOMOBILE GLASS TECHNICIAN.FINANCIAL ACCOUNTANT Work Phone: [facility] 07-20-2023 12:53-0400 Systolic blood pressure 120 mm[Hg] Renetta Gonzalez AUTOMOBILE GLASS TECHNICIAN.FINANCIAL ACCOUNTANT Work Phone: [facility] 02-18-2023 23:32-0400 Body height 177.8 cm [facility] 02-18-2023 23:32-0400 Body mass index (BMI) [Ratio] 28.3 kg/m2 [facility] 02-18-2023 23:32-0400 Body temperature 97.6 [degF] [facility] 02-18-2023 23:32-0400 Body weight 89.7 kg [facility] 02-18-2023 23:32-0400 Diastolic blood pressure 95 mm[Hg] [facility] 02-18-2023 23:32-0400 Heart rate 80 /min [facility] 02-18-2023 23:32-0400 Respiratory rate 16 /min [facility] 02-18-2023 23:32-0400 SaO2% (BldA) [Mass fraction] 99 % [facility] 02-18-2023 23:32-0400 Systolic blood pressure 138 mm[Hg] [facility] 02-17-2023 13:36-0400 Body height 177.8 cm [facility] 02-17-2023 13:36-0400 Body mass index (BMI) [Ratio] 27.8 kg/m2 [facility] 02-17-2023 13:36-0400 Body temperature 98 [degF] [facility] 02-17-2023 13:36-0400 Body weight 87.99 kg [facility] 02-17-2023 13:36-0400 Diastolic blood pressure 76 mm[Hg] [facility] 02-17-2023 13:36-0400 Heart rate 86 /min [facility] 02-17-2023 13:36-0400 Respiratory rate 18 /min [facility] 02-17-2023 13:36-0400 SaO2% (BldA) [Mass fraction] 98 % [facility] 02-17-2023 13:36-0400 Systolic blood pressure 145 mm[Hg] [facility] 06-02-2022 19:59-0400 Body height 177.8 cm [facility] Work Phone: 06-02-2022 19:59-0400 Body mass index (BMI) [Ratio] 25.8 kg/m2 [facility] Work Phone: 06-02-2022 19:59-0400 Body temperature 96.8 [degF] [facility] Work Phone: 06-02-2022 19:59-0400 Body weight 81.64 kg [facility] Work Phone: 06-02-2022 19:59-0400 Diastolic blood pressure 62 mm[Hg] [facility] Work Phone: 06-02-2022 19:59-0400 Heart rate 100 /min [facility] Work Phone: 06-02-2022 19:59-0400 Respiratory rate 16 /min [facility] Work Phone: 06-02-2022 19:59-0400 SaO2% (BldA) [Mass fraction] 100 % [facility] Work Phone: 06-02-2022 19:59-0400 Systolic blood pressure 124 mm[Hg] [facility] Work Phone: Encounters Encounter Date Encounter Type Care Provider Facility Start: 07-13-2025 Evaluation and manag ement of inpatient Dr. Claudette Villa MD -[facility] Work Phone: Start: 07-11-2025 End: 07-11-2025 Evaluation and management of inpatient Kenrick Bush MD Work Phone: [facility] Comment on above: Acute opioid withdra wal (HCC) (Primary Dx); Fentanyl dependence (HCC); Fentanyl use disorder, severe (HCC) Start: 05-22-2025 Non-patient / Non-visit Dr. Caty tyler MD -[facility] Work Phone: Start: 05-21-2025 Non-patient / Non-visit Dr. Elaine Stout MD [facility] Work Phone: Start: 05-20-2025 Non-patient / Non-visit Dr. Elaine Stout MD [facility] Work Phone: Start: 05-19-2025 Non-patient / Non-visit Dr. Elaine Stout MD [facility] Work Phone: Start: 05-18-2025 ambulatory Natty VILA Facil ity:[facility] Start: 05-18-2025 End: 05-22-2025 Evaluation and management [facility]: Start: 02-04-2025 End: 02-04-2025 Emergency department patient visit Natty VILA Work Phone: -Emergency Department Work Phone: Start: 10-21-2023 End: 10-21-2023 ambulatory KENAN CANAS Facility:[facility] Start: 10-21-2023 End: 10-21-2023 Patient encounter procedure Renetta Gonzalez APRN.FINANCIAL ACCOUNTANT Work Phone: [facility] Comment on above: Sinobronchitis (Prim sly Dx); Dysfunction of left eustachian tube Start: 07-20-2023 End: 07-20-2023 ambulatory KENAN CANAS Facility:[facility] Start: 07-20-2023 End: 07-20-2023 Patient encounter procedure Renetta Gonzalez APRN.FINANCIAL ACCOUNTANT Work Phone: [facility] Comment on above: Impacted cerumen of left ear (Primary Dx) Start: 02-18-2023 End: 02-19-2023 Emergency department patient visit [facility] Start: 02-17-2023 End: 02-17-2023 Emergency department patient visit [facility] Start: 06-02-2022 End: 06-02-2022 Emergency department patient visit [facility] Start: 02-14-2021 End: 02-14-2021 Telephone encounter Natty (Fernie) Gloria Work Phone: [facility] Start: 06-14-2020 End: 06-14-2020 Emergency department patient visit CATY BIRD [facility] Start: 03-01-2018 End: 03-01-2018 Ambulatory [facility] Start: 02-28-2018 End: 02-28-2018 Emergency department patient visit [facility] Start: 09-23-2017 End: 09-23-2017 Ambulatory NATTY Preet [facility] Procedures Date Procedure Procedure Detail Performing Clinician Start: 07-13-2025 Estimated creatinine clearance Natty VILA Work Phone: Start: 07-13-2025 Methadone measuremen t, urine Natty VILA Work Phone: Start: 07-11-2025 ETHYL GLUCURONIDE SC REEN, URINE Lola Melchor AUTOMOBILE GLASS TECHNICIAN - FINANCIAL ACCOUNTANT Work Phone: Start: 07-11-2025 UNCONFIRMED DRUG SCREEN Lola Melchor AUTOMOBILE GLASS TECHNICIAN - FINANCIAL ACCOUNTANT Work Phone: Start: 07-11-2025 Comprehensive metabo lic panel Lola Melchor AUTOMOBILE GLASS TECHNICIAN - FINANCIAL ACCOUNTANT Work Phone: Start: 07-11-2025 End: 07-11-2025 Drug test def 1-7 classes Lola pina AUTOMOBILE GLASS TECHNICIAN - FINANCIAL ACCOUNTANT Work Phone: Start: 07-11-2025 SARS-CoV-2 (COVID-19 ) Ag [Presence] in Respiratory specimen by Rapid immunoassay Lola Melchor AUTOMOBILE GLASS TECHNICIAN - FINANCIAL ACCOUNTANT Work Phone: Start: 05-18-2025 Estimated creatinine clearance Natty Isaac JULITO Work Phone: Start: 05-18-2025 Methadone measuremen t, urine Natty Isaac JULITO Work Phone: Start: 02-04-2025 Estimated creatinine clearance Natty Isaac JULITO Work Phone: Start: 02-04-2025 Urnls dip stick/tabl et reagent auto microscopy Natty Isaac JULITO Work Phone: Start: 02-04-2025 Ultrasound of scrotu m with Doppler and color flow imaging Natty Isaac JULITO Work Phone: Start: 02-04-2025 Computed tomography of abdomen and pelvis with intravenous contrast Natty Isaac JULITO Work Phone: Start: 02-04-2025 End: 02-04-2025 Polymerase chain reaction analysis Natty Isaac JULITO Work Phone: Start: 02-04-2025 Urine culture Natty Hanks duong VILA Work Phone: Start: 02-17-2023 Diagnostic radiograp hy of facial bones Start: 02-17-2023 Plain x-ray of hand Start: 06-02-2022 X-ray of both feet Plan of Treatment Date Care Activity Detail Author Start: 2062 RSV Immunization for Adults (1 - 1-dose 75+ series) RSV Immunization for Adults (1 - 1-dose 75+ series) [facility] Start: 2037 Zoster Vaccines (1 of 2) Zoste r Vaccines (1 of 2) [facility] Start: 07-13-2025 Verification routine [facility] Start: 07-13-2025 Admission procedure [facility] Start: 07-13-2025 Hospital admission, emergency, from emergency room, medical nature [facility] Start: 07-10-2025 COVID-19 Vaccine ( season) COVID-19 Vaccine ( season) [facility] Start: 07-10-2025 Influenza vaccination Influenza Vacc ine (#1) [facility] Start: 05-22-2025 Patient discharge [facility] Start: 05-21-2025 [facility] Start: 05-19-2025 Assessment using assessment scale [facility] Start: 05-19-2025 [facility] Start: 05-19-2025 Ambulation without limitation [facility] Start: 05-19-2025 Assessment of risk o f venous thromboembolism [facility] Start: 05-19-2025 Insertion of cathete r into peripheral vein [facility] Start: 05-19-2025 Providing care accor ding to standard [facility] Start: 05-19-2025 Referral to service [facility] Start: 05-19-2025 [facility] Start: 05-19-2025 Following clinical pathway protocol [facility] Start: 05-19-2025 Patient referral to dietitian [facility] Start: 05-18-2025 Hospital admission, emergency, from emergency room, medical nature [facility] Start: 05-18-2025 Admission procedure [facility] Start: 05-18-2025 Verification routine [facility] Start: 05-18-2025 [facility] Start: 02-04-2025 [facility] Start: 02-04-2025 [facility] Start: 02-04-2025 Bacteria identified in Urine by Culture Urine Culture [facility] Start: 07-10-2023 Covid-19 Vaccine ( season) Covid-19 Vaccine ( season) [facility] Start: 07-10-2023 Influenza vaccination [facility] Start: 11-09-2022 DEPRESSION ASSESSMENT DEPRESSION ASS ESSMENT [facility] Start: 2022 Lipid panel Lipid Screening [facility] Start: 2022 LIPID SCREEN LIPID SCREEN [facility] Start: 07-10-2021 Influenza vaccination INFLUENZ A (Season Ended) [facility] Start: 05-24-2021 COVID-19 VACCINE (3 - Pfizer series) COVID-19 VACCINE (3 - Pfizer series) [facility] Start: 02-14-2021 End: 02-28-2021 2019 CORONAVIRUS 2019 CORONAVIRUS Microbiology Routine Suspected COVID-19 virus infection Expected: 02/14/2021, Expires: 02/28/2021 [facility] Comment on above: Expected: 02/14/2021 , Expires: 02/28/2021 Start: 2006 DTaP/Tdap/Td Vaccine s (1 - Tdap) DTaP/Tdap/Td Vaccines (1 - Tdap) [facility] Start: 2006 Hepatitis B Vaccines (1 of 3 - 19+ 3-dose series) Hepatitis B Vaccines (1 of 3 - 19+ 3-dose series) [facility] Start: 2006 Urine microalbumin profile [facility] Start: 2005 HEPATITIS C SCREENING HEPATITIS C [facility] Start: 2005 Hepatitis C screening Hepatitis C [facility] Start: 2005 HIV SCREENING HIV SCREENING [facility] Start: 2005 HIV screening HIV Screening [facility] Start: 2000 Varicella vaccination Varicell a Vaccines (1 of 2 - 13+ 2-dose series) [facility] Start: 1999 Adult depression screening assessment DEPRESSION SCREENING [facility] Start: 1993 PNEUMOCOCCAL (1 - PCV) PNEUMOCOCCAL (1 - PCV) [facility] Start: 1993 Pneumococcal vaccination Pneum ococcal Vaccine (1 - PCV) [facility] Start: 1988 MMR Vaccines (1 of 1 - Standard series) MMR Vaccines (1 of 1 - Standard series) [facility] Start: 1987 HEPATITIS B (1 of 3 - 3-dose series) HEPATITIS B (1 of 3 - 3-dose series) [facility] Start: 1987 HIV screening HIV Screening [facility] Start: 1987 Lipid panel Lipid Panel [facility] Patient Education [facility] Work Phone: Patient referral [facility] Work Phone: Removal impacted cer umen irrigation/lvg unilat AMBULATORY EAR LAVAGE/IRRIGATION Procedures Routine Impacted cerumen of left ear Ordered: 07/20/2023 [facility] Work Phone: Comment on above: Ordered: 07/20/2023 Urine culture [facility] Immunizations Immunization Date Immunization Notes Care Provider Pauline sahu 11-12-2023 influenza, injectabl e, quadrivalent, preservative free Natty Isaac PA Work Phone: [facility] 09-12-2021 Seasonal, quadrivale nt, recombinant, injectable influenza vaccine, preservative free Natty Isaac PA Work Phone: [facility] 09-12-2021 influenza virus vaccine, unspecified formulation Renetta Gonzalez APRN.CNP Work Phone: [facility] 03-29-2021 Covid (Pfizer) Natty Palme r PA Work Phone: [facility] 03-08-2021 Covid (Pfizer) Natty Palme r PA Work Phone: [facility] 10-01-2020 influenza, injectabl e, quadrivalent, preservative free Natty Isaac PA Work Phone: [facility] 08-19-2002 tetanus toxoid, adsorbed Natty Isaac PA Work Phone: [facility] 10-15-2001 hepatitis B vaccine, pediatric or pediatric/adolescent dosage Natty Isaac PA Work Phone: [facility] 05-24-2001 hepatitis B vaccine, pediatric or pediatric/adolescent dosage Natty Isaac PA Work Phone: [facility] 04-13-2001 hepatitis B vaccine, pediatric or pediatric/adolescent dosage Natty Isaac PA Work Phone: [facility] 2000 measles, mumps and rubella virus vaccine Natty Isaac PA Work Phone: [facility] Payers Date Payer Category Payer Unknown [id number] 2025 Self-pay [id number] 2023 Medicaid [id number] 2023 Private Health Insurance HUMANA [employer] [place] [id number] 2023-Present [address] [address] [place] [address] Medicaid [id number] 2020 Unknown [id number] 1987 Unknown [id number] Private Health Insurance [facility] [id number] Unknown [id number] Unknown [id number] Unknown [id number] 62 Unknown [id number] 62 Unknown [id number] 62 Unknown [id number] 62 Unknown [id number] 62 Unknown [id number] 62 Unknown [id number] 62 Social History Date Type Detail Facility [facility] Start: 1985 Sex Assigned At Not on file [facility] Start: 06-02-2022 End: 02-18-2023 Tobacco smoking status NHIS Unknown if ever smoked [facility] Start: 07-04-2019 None [facility] Start: 09-26-2019 With Family [facility] Start: 09-26-2019 Vapor [facility] Start: 1985 Sex Assigned At Male [facility] Start: 07-20-2023 End: 07-13-2025 Tobacco smoking status NHIS Smokes tobacco daily [facility] History of tobacco use Pipe Smoker [facility] History of tobacco use Passive smoker [facility] Start: 07-20-2023 Tobacco use and exposure Smokeless tobacco non-user [facility] Start: 02-15-2021 End: 07-20-2023 History of Social function [facility] Start: 02-15-2021 End: 07-20-2023 Tobacco use panel [facility] National Score (1-100), lower number is lower risk Not on file [facility] Start: 06-09-2022 End: 02-04-2025 Sex Male (finding) [facility] Medical Equipment Procedure Code Equipment Code Equipment Origin al Text Equipment Identifier Dates MESH,SELF FIX [id number] FDA Start: 06-02-2019 MESH,SELF FIX [id number] FDA Start: 06-02-2019 MESH,SELF FIX [id number] FDA Start: 06-02-2019 MESH,SELF FIX [id number] FDA Start: 06-02-2019 MESH,SELF FIX [id number] FDA Start: 06-02-2019 MESH,SELF FIX [id number] FDA Start: 06-02-2019 MESH,SELF FIX [id number] FDA Start: 06-02-2019 MESH,SELF FIX [id number] FDA Start: 06-02-2019 MESH,SELF FIX [id number] FDA Start: 06-02-2019 MESH,SELF FIX [id number] FDA Start: 06-02-2019 MESH,SELF FIX [id number] FDA Start: 06-02-2019 MESH,SELF FIX [id number] FDA Start: 06-02-2019 MESH,SELF FIX [id number] FDA Start: 06-02-2019 MESH,SELF FIX [id number] FDA Start: 06-02-2019 Goals Date Patient Goal Desired Activity /State Functional Status Date Assessment Result Facility 05-22-2025 Functional status Ambulates;Up ad teja [facility] Work Phone: Mental Status Date Assessment Result Facility 05-22-2025 Cognitive function Voice/Name [facility] Work Phone: Clinical Notes 02-17-2023 to 07-13-2025 Note Date & Type Note Facility 07-13-2025 History and physical note [facility] 07-13-2025 Discharge summary [facility] 07-13-2025 Discharge summary Note Date/Time July 13, 2025 3:40pm [facility] Medical Records Department [address] [place] [address] Emergency Department Summary 07/13/25 MR#: [id number] Acct: [id number] Name: EULALIO VILLAFANA Rep #:[id number] : 1985 40 From: Ishan Mckay DO PCP: JULITO Hannah Status:REG ER Location: ED HPI History of Present Illness Chief Complaint: Substance Abuse Narrative Narrative: Patient is a 32-year-old male with past medical history of polysubstance abuse who presented to the emergency department wanting detox. He states that he lastused fentanyl around 10 AM yesterday and notes that he uses approximately half agram per day. He states that he intent to wean himself from the fentanyl and use methamphetamine. Patient denies recent IV drug use states that he has not done this for many years. He states that he wants to go through detox and go tothe treatment afterwards as well. [facility] Medical History (Updated 07/13/25 @ 15:[address] Ishan Mckay DO) Methamphetamine abuse Opioid abuse Anxiety Diarrhea Nausea & vomiting Acid reflux disease Abdominal pain Home Medications ?Medication ?Instructions ?Recorded ?Last Taken ?Type omeprazole 20 mg capsule,delayed 20 mg PO DAILY Unknown History release Allergy/AdvReac Type Severity Reaction Status Date / Time sulfamethoxazole (From Allergy Mild Unknown Verified 07/13/25 13:26 Bactrim) trimethoprim (From Bactrim) Allergy Mild Unknown Verified 07/13/25 13:26 Surgical History History of right inguinal hernia repair Status post right knee surgery Social History Smoking Status: Current every day smoker tobacco type: e-cigarettes alcohol intake: current alcohol intake frequency: a few times a week substance use type: does not use ROS ROS ED ROS Narrative Constitutional: Denies fever, chills, headaches Cardiovascular: Denies chest pain Respiratory: Denies shortness of breath Abdomen: Denies nausea vomit diarrhea : Denies urinary symptoms Neurological: Denies numbness, wheeze, tingling Musculoskeletal: Denies back pain Skin: Denies any rashes or lesions EXAM Physical Exam Narrative Exam Narrative: General: Patient was lying in bed rest comfortably did not appear to be in acutedistress Head: Atraumatic, normocephalic Eyes: PERRL bilaterally, EOMI bilateral, no conjunctival injection noted Neck: Soft, supple, trachea midline Cardiovascular: Regular rate and rhythm no murmurs gallops rubs are noted Respiratory: Clear to auscultation bilaterally no rales rhonchi or wheeze noted Abdomen: Soft, nondistended, no tenderness to palpation Extremities: +5/5 strength noted in the bilateral upper and lower extremities, radial pulses +2/4 in the bilateral extremities, no pedal edema on exam Neurological: Patient following commands knew that he was at [facility] year is 2024 Skin: Warm, dry, tact no rashes or lesions noted Const Vital Signs: 07/13/25 13:25 07/13/25 15:25 07/13/25 15:32 Temperature 97.8 F 97.8 F Temperature Source Oral Pulse Rate 78 75 75 Respiratory Rate 16 16 16 Blood Pressure 136/76 H 141/78 H 141/78 H Blood Pressure Mean 96 99 99 Pulse Ox 100 100 100 Oxygen Delivery Method Room Air Room Air MDM MDM MDM Narrative Medical decision making narrative: Patient is a 40-year-old male who presents to the emergency department the chiefcomplaint of wanting detox. On the differential diagnosis includes but not limited to fentanyl use, methamphetamine use, polysubstance abuse. Patient is CBC reviewed and showed no evidence leukocytosis white blood count normal at 9.6, he was 15.3, platelet count 374. Patient sodium was 130, potassium normal at 4.2, creatinine normal at 0.86. Patient drug screen was presumptive positive for fentanyl as well as amphetamines and cannabis. Alcohollevel less than 10. Discussed case with hospitalist Dr. Villa for admission for detox. She will except the patient for admission patient is notified is agreeable to plan all question concerns answered. Lab Data Labs: Laboratory Results - last 24 hr 07/13/25 14:08 WBC 9.6 RBC 5.35 Hgb 15.3 Hct 44.9 MCV 83.9 MCH 28.6 MCHC 34.1 RDW Std Deviation 43.0 RDW Coeff of Giana 14.0 Plt Count 374 MPV 10.1 Immature Gran % (Auto) 0.200 Neut % (Auto) 76.0 H Lymph % (Auto) 16.9 L [place] % (Auto) 6.4 Eos % (Auto) 0.2 Baso % (Auto) 0.3 Absolute Neuts (auto) 7.3 Absolute Lymphs (auto) 1.63 Nucleated RBC % 0 Sodium 138 Potassium 4.2 Chloride 106 Carbon Dioxide 18.9 L Anion Gap 14 BUN 13 Creatinine 0.86 Estim Creat Clear Calc 120.25 Est GFR (MDRD) Non-Af 114 BUN/Creatinine Ratio 15.1 Glucose 93 Calcium 9.7 Urine Opiates Screen NEGATIVE U Buprenorphine Qual NEGATIVE Ur Oxycodone Screen NEGATIVE Urine Methadone Screen NEGATIVE Urine Fentanyl Screen PRESUMPTIVE POSITIVE Ur Barbiturates Screen NEGATIVE Ur Phencyclidine Scrn NEGATIVE Ur Amphetamines Screen PRESUMPTIVE POSITIVE U Benzodiazepines Scrn NEGATIVE Urine Cocaine Screen NEGATIVE U Cannabinoids Screen PRESUMPTIVE POSITIVE Ethyl Alcohol < 10.1 Discharge Plan Triage Chief Complaint: Substance Abuse ED Provider: Ishan Mckay Dx/Rx/DC Orders Clinical Impression: GERD (gastroesophageal reflux disease), Fentanyl use disorder, mild, abuse, Amphetamine use Prescriptions: No Action omeprazole 20 mg capsule,delayed release(DR/EC) 20 mg PO DAILY Primary Care Provider: Natty Isaac Referrals: Natty Isaac PA [Primary Care Provider] - Print Language: Albanian Disposition Disposition: Acute Care Hospital [facility] What to do if you have Problems For any increased pain, shortness of breath, bleeding, nausea or vomiting, chestpain, or any unexpected problems, contact your Primary Care Provider. Call [facility] ([phone]) or report to the closest Emergency Room. Call 911 if necessary. 07/13/25 1540 <Electronically signed by Ishan Mckay DO> Cosigner Signature (if applicable): CC: JULITO Hannah ~ Signed [facility] Work Phone: 1(461) 417-343209-02-2025 Emergency department Note* Jonathan Motley RN - 07/11/2025 7:46 PM EDT This RN made MD and bed coordinator aware that patient eloped. [id number] Note* Jonathan Motley RN - 07/11/2025 7:46 PM EDT This RN made MD and bed coordinator aware that patient eloped. * Jonathan Motley RN - 07/11/2025 7:43 PM EDT Pt has been called three times in the last hour to be brought back for wanding/ belongings check togo to 4E with no answer. Attempted to call patients phone with no answer. * Kenrick Bush MD - 07/11/2025 2:12 PM EDT Emergency Department Encounter [facility] EMERGENCY DEPT Patient: Eulalio Villafana : 1985 Date of Evaluation: 07/11/2025 ED Provider: Kenrick Bush MD COMBINED TRIAGE NOTE & ELYSE SUPERVISORY NOTE WITH SHARED ATTESTATION I independently examined and evaluated Eulalio Villafana. I independently saw & evaluated the patient as the Clinician in Triage and performed a history and physical exam, established acuity, and ordered appropriate tests to develop a plan of care. Patient was subsequently seen by an ELYSE and I assumed a shared supervisory role. I personally saw the patient and performed a substantive portion of the visit including all aspectsof the Medical Decision Making. I managed the patient in a supervisory role and I personally saw the patient and made/approved the management plan and take responsibility for the patient management. Brief HPI: In brief, Eulalio Villafana is a 40 y.o. male that presents for requesting fentanyl detox uses 1/2 to 1 g a day snorts it last use earlier today occasionally uses meth but is not his drug of preference no other substance abuse.. Focused Physical exam: LUNGS: Breath sounds are equal, clear to auscultation, no wheeze retractions or cyanosis and no crackles present. HEART: Regular rate and rhythm no murmur or thrill or rub, strong heart tones Plan/MDM: Detox studies will be ordered if medically cleared addiction medicine consulted Workup showed normal white count normal H&H negative alcohol negative ethyl glucuronide positive amphetamine positive for fentanyl unremarkable chemistries. Patient was going to be admitted, but nursing staff states that he apparently had disappeared and is gone. All diagnostic, treatment, and disposition decisions were made by myself in conjunction with the ELYSE. For all further details of the patient's emergency department visit, please see the full medical record and documentation. Comment: Please note this report has been produced using speech recognition software and may contain errors related to that system including errors in grammar, punctuation, and spelling as well as words and phrases that may be inappropriate. If there are any questions or concerns please feel free to contact the dictating provider for clarification Kenrick Bush MD Acute Care [facility] Kenrick Bush MD 07/11/25 1714 Kenrick Bush MD 07/11/252007 * Sarah Levi RN - 07/11/2025 2:12 PM EDT Pt requesting detox from fentanyl, last used today. documented in this [facility]09-02-2025 Emergency department Note* Jonathan Motley RN - 07/11/2025 7:43 PM EDT Pt has been called three times in the last hour to be brought back for wanding/ belongings check togo to 4E with no answer. Attempted to call patients phone with no answer. [id number] Emergency department Triage note* Sarah Levi RN - 07/11/2025 2:12 PM EDT Pt requesting detox from fentanyl, last used today. [id number] Physician Emergency department Note* Kenrick Bush MD - 07/11/2025 2:12 PM EDT Emergency Department Encounter [facility] EMERGENCY DEPT Patient: Eulalio Villafana : 1985 Date of Evaluation: 07/11/2025 ED Provider: Kenrick Bush MD COMBINED TRIAGE NOTE & ELYSE SUPERVISORY NOTE WITH SHARED ATTESTATION I independently examined and evaluated Eulalio Villafana. I independently saw & evaluated the patient as the Clinician in Triage and performed a history and physical exam, established acuity, and ordered appropriate tests to develop a plan of care. Patient was subsequently seen by an ELYSE and I assumed a shared supervisory role. I personally saw the patient and performed a substantive portion of the visit including all aspectsof the Medical Decision Making. I managed the patient in a supervisory role and I personally saw the patient and made/approved the management plan and take responsibility for the patient management. Brief HPI: In brief, Eulalio Villafana is a 40 y.o. male that presents for requesting fentanyl detox uses 1/2 to 1 g a day snorts it last use earlier today occasionally uses meth but is not his drug of preference no other substance abuse.. Focused Physical exam: LUNGS: Breath sounds are equal, clear to auscultation, no wheeze retractions or cyanosis and no crackles present. HEART: Regular rate and rhythm no murmur or thrill or rub, strong heart tones Plan/MDM: Detox studies will be ordered if medically cleared addiction medicine consulted Workup showed normal white count normal H&H negative alcohol negative ethyl glucuronide positive amphetamine positive for fentanyl unremarkable chemistries. Patient was going to be admitted, but nursing staff states that he apparently had disappeared and is gone. All diagnostic, treatment, and disposition decisions were made by myself in conjunction with the ELYSE. For all further details of the patient's emergency department visit, please see the full medical record and documentation. Comment: Please note this report has been produced using speech recognition software and may contain errors related to that system including errors in grammar, punctuation, and spelling as well as words and phrases that may be inappropriate. If there are any questions or concerns please feel free to contact the dictating provider for clarification Kenrick Bush MD Acute Care [facility] Kenrick Bush MD 07/11/25 1714 Kenrick Bush MD 07/11/252007 [employer] Phone: 1(591) 806-971107-14-2025 Discharge summary Author Caty Neville [facility] Note Date/Time May 22, 2025 8:38 am [facility] Medical Records Department [address] [place] [address] Discharge Summary 05/22/25 0835 MR#: [id number] Acct: [id number] Name: EULALIO VILLAFANA Rep #:[id number] : 1985 39 From: Caty Neville MD PCP: JULITO Hannah Status:ADM IN Location: [facility] [id number] Providers Date of Admission: 05/18/25 Date of Discharge: 05/22/25 Primary Care Physician: JULITO Hannah Reason For Visit: OPIATE DETOX Diagnosis Discharge Diagnosis (1) Opiate dependence: Status: Acute Code(s): F11.20 - Opioid dependence, uncomplicated (2) Desire for detoxification: Status: Acute Medications at Discharge Home Medications pantoprazole 40 mg tablet,delayed release 40 mg PO DAILY GERD 06/12/21 Hospital Course Summary of Care Provided Minutes Spent on Discharge: 32 Hospital Course: Patient is a 39-year-old gentleman admitted with acute opioid withdrawal 1. 1. Acute opioid withdrawal - Patient has been admitted to regular nursing floor, managed buprenorphine taper along with other adjunctive medications for medical stabilization 2. Depression with anxiety ? Patient to follow-up with primary care physician for subsequent management 3. Tobacco dependence ? Counseled on cessation, offered nicotine patch for tobacco cravings 4. GERD ? On PPI 5.Severe protein calorie malnutrition ? As evidenced by suboptimal energy intake and weight loss. Patient was seen inconsultation by dietitian 6. DVT prophylaxis ? Subcu Lovenox Physical Exam Narrative GENERAL: cooperative HEENT: Atraumatic; normocephalic EYES; Anicteric, Normal Conjunctiva NECK; supple, normal thyroid, RESPIRATORY: Diminished to auscultation CARDIOVASCULAR: Regular S1 S2, GI: soft, normoactive bowel sounds, : No Renal angle tenderness; EXTREMITIES: No edema, no clubbing, MUSCULOSKELETAL: no muscle wasting NEURO: Awake; no lateralizing signs. SKIN: No Rash PSYCH; Flat affect Medical Records Data Medical Nutrition Assessment Dietitian: Malnutrition Criteria Met Start: 05/19/25 10:31 Freq: Status: Active Protocol: Document 05/19/25 10:31 JESSIE (Rec: 05/19/25 10:31 [facility] [id number]) Nutrition Malnutrition Evidence of Yes Malnutrition Exists Malnutrition (severe Social/Behavioral/Environmental ): Evidenced By Suboptimal Energy Intake (Severe),Weight Loss (Severe) Clinical Problem Chronic Disease or Condition Related Malnutrition Etiology related to relapse into drug use and inadequate energy intake Signs/Symptoms as evidenced by 9.9% unintended wt loss and po intake meeting <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 Weight / BMI Weight Weight: 77.564 kg Body Mass Index (BMI) 24.5 ABG / Lab / Microbiology Data 05/18/25 22:11 05/18/25 22:11 D/C Instructions Discharge Activity: Return to Normal Activity May resume sexual activity in: No Restrictions Weight Bearing Status: Weight bearing as tolerated Call your doctor if you observe: - (Recurrent concerning opiate withdrawal symptoms. Please contact your primary care physician.) DC O2, CPAP, BIPAP Needs Home O2 Discharge instructions: No Meaningful Use Info Meaningful Use Meaningful Use Diagnoses (Choose all that apply): None applicable Discharge Plan Admission Admit Date/Time: 05/18/25 23:24 Primary Reason for Your Visit: Acute Opiate Withdrawal, Polysubstance abuse Attending Provider: Caty Neville Primary Care Provider: Natty Isaac Consulting Providers: Adam Blanco; Elaine Stout Instructions Patient Instructions: Meth Abuse Addiction, Opioids Risks, ED Opiate Abuse Discharge Orders/Prescriptions Prescriptions: Continued pantoprazole 40 mg Tablet,Delayed Release (Dr/Ec) 40 mg PO DAILY Referrals / Follow Up: Natty Isaac PA [Primary Care Provider] - (Follow-up within 1-2 weeks to review admission. Call earlier if concerns arise.) Disposition Disposition (needs filled in before D/C Order can be placed): Home, Self Care Charges/Coding Visit Charges Inpatient E&M: 17192 Disch Hosp >30min 05/22/25 0838 <Electronically signed by Caty Neville MD> Cosigner Signature (if applicable): CC: Dr. Caty Neville MD; JULITO Hannah~ Signed [facility] Work Phone: 1(988) 505-227107-14-2025 Discharge summary [facility] Medical Records Department [address] [place] [address] Discharge Summary 05/22/25 0835 MR#: [id number] Acct: [id number] Name: EULALIO VILLAFANA Rep #:[id number] : 1985 39 From: Caty Neville MD PCP: JULITO Hannah Status:ADM IN Location: [place] [id number] Providers Date of Admission: 05/18/25 Date of Discharge: 05/22/25 Primary Care Physician: JULITO Hannah Reason For Visit: OPIATE DETOX Diagnosis Discharge Diagnosis (1) Opiate dependence: Status: Acute Code(s): F11.20 - Opioid dependence, uncomplicated (2) Desire for detoxification: Status: Acute Medications at Discharge Home Medications pantoprazole 40 mg tablet,delayed release 40 mg PO DAILY GERD 06/12/21 Hospital Course Summary of Care Provided Minutes Spent on Discharge: 32 Hospital Course: Patient is a 39-year-old gentleman admitted with acute opioid withdrawal 1. 1. Acute opioid withdrawal - Patient has been admitted to regular nursing floor, managed buprenorphine taper along with other adjunctive medications for medical stabilization 2. Depression with anxiety ? Patient to follow-up with primary care physician for subsequent management 3. Tobacco dependence ? Counseled on cessation, offered nicotine patch for tobacco cravings 4. GERD ? On PPI 5.Severe protein calorie malnutrition ? As evidenced by suboptimal energy intake and weight loss. Patient was seen inconsultation by dietitian 6. DVT prophylaxis ? Subcu Lovenox Physical Exam Narrative GENERAL: cooperative HEENT: Atraumatic; normocephalic EYES; Anicteric, Normal Conjunctiva NECK; supple, normal thyroid, RESPIRATORY: Diminished to auscultation CARDIOVASCULAR: Regular S1 S2, GI: soft, normoactive bowel sounds, : No Renal angle tenderness; EXTREMITIES: No edema, no clubbing, MUSCULOSKELETAL: no muscle wasting NEURO: Awake; no lateralizing signs. SKIN: No Rash PSYCH; Flat affect Medical Records Data Medical Nutrition Assessment Dietitian: Malnutrition Criteria Met Start: 05/19/25 10:31 Freq: Status: Active Protocol: Document 05/19/25 10:31 [facility] (Rec: 05/19/25 10:31 [facility] [id number]) Nutrition Malnutrition Evidence of Yes Malnutrition Exists Malnutrition (severe Social/Behavioral/Environmental ): Evidenced By Suboptimal Energy Intake (Severe),Weight Loss (Severe) Clinical Problem Chronic Disease or Condition Related Malnutrition Etiology related to relapse into drug use and inadequate energy intake Signs/Symptoms as evidenced by 9.9% unintended wt loss and po intake meeting <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 Weight / BMI Weight Weight: 77.564 kg Body Mass Index (BMI) 24.5 ABG / Lab / Microbiology Data 05/18/25 22:11 05/18/25 22:11 D/C Instructions Discharge Activity: Return to Normal Activity May resume sexual activity in: No Restrictions Weight Bearing Status: Weight bearing as tolerated Call your doctor if you observe: - (Recurrent concerning opiate withdrawal symptoms. Please contactyour primary care physician.) DC O2, CPAP, BIPAP Needs Home O2 Discharge instructions: No Meaningful Use Info Meaningful Use Meaningful Use Diagnoses (Choose all that apply): None applicable Discharge Plan Admission Admit Date/Time: 05/18/25 23:24 Primary Reason for Your Visit: Acute Opiate Withdrawal, Polysubstance abuse Attending Provider: Caty Neville Primary Care Provider: Natty Isaac Consulting Providers: Adam Blanco; Elaine Stout Instructions Patient Instructions: Meth Abuse Addiction, Opioids Risks, ED Opiate Abuse Discharge Orders/Prescriptions Prescriptions: Continued pantoprazole 40 mg Tablet,Delayed Release (Dr/Ec) 40 mg PO DAILY Referrals / Follow Up: Natty Isaac PA [Primary Care Provider] - (Follow-up within 1-2 weeks to review admission. Call earlier if concerns arise.) Disposition Disposition (needs filled in before D/C Order can be placed): Home, Self Care Charges/Coding Visit Charges Inpatient E&M: 62060 Disch Hosp >30min 05/22/25 0838 Cosigner Signature (if applicable): CC: Dr. Caty Neville MD; JULITO Hannah~ Signed [facility]07-14-2025 [facility] Medical Records Department [address] [place] [address] Discharge Summary 05/22/25 0835 MR#: [id number] Acct: [id number] Name: EULALIO VILLAFANA Rep #: [id number] : 1985 39 From: Caty Neville MD PCP: JULITO Hannah Status:ADM IN Location: [facility] [id number] Providers Date of Admission: 05/18/25 Date of Discharge: 05/22/25 Primary Care Physician: JULITO Hannah Reason For Visit: OPIATE DETOX Diagnosis Discharge Diagnosis (1) Opiate dependence: Status: Acute Code(s): F11.20 - Opioid dependence, uncomplicated (2) Desire for detoxification: Status: Acute Medications at Discharge Home Medications pantoprazole 40 mg tablet,delayed release 40 mg PO DAILY GERD 06/12/21 Hospital Course Summary of Care Provided Minutes Spent on Discharge: 32 Hospital Course: Patient is a 39-year-old gentleman admitted with acute opioid withdrawal 1. 1. Acute opioid withdrawal - Patient has been admitted to regular nursing floor, managed buprenorphine taper along with other adjunctive medications for medical stabilization 2. Depression with anxiety ??? Patient to follow-up with primary care physician for subsequent management 3. Tobacco dependence ??? Counseled on cessation, offered nicotine patch for tobacco cravings 4. GERD ??? On PPI 5.Severe protein calorie malnutrition ??? As evidenced by suboptimal energy intake and weight loss. Patient was seen in consultation by dietitian 6. DVT prophylaxis ??? Subcu Lovenox Physical Exam Narrative GENERAL: cooperative HEENT: Atraumatic; normocephalic EYES; Anicteric, Normal Conjunctiva NECK; supple, normal thyroid, RESPIRATORY: Diminished to auscultation CARDIOVASCULAR: Regular S1 S2, GI: soft, normoactive bowel sounds, : No Renal angle tenderness; EXTREMITIES: No edema, no clubbing, MUSCULOSKELETAL: no muscle wasting NEURO: Awake; no lateralizing signs. SKIN: No Rash PSYCH; Flat affect Medical Records Data Medical Nutrition Assessment Dietitian: Malnutrition Criteria Met Start: 05/19/25 10:31 Freq: Status: Active Protocol: Document 05/19/25 10:31 [facility] (Rec: 05/19/25 10:31 [facility] [id number]) Nutrition Malnutrition Evidence of Yes Malnutrition Exists Malnutrition (severe Social/Behavioral/Environmental ): Evidenced By Suboptimal Energy Intake (Severe),Weight Loss (Severe) Clinical Problem Chronic Disease or Condition Related Malnutrition Etiology related to relapse into drug use and inadequate energy intake Signs/Symptoms as evidenced by 9.9% unintended wt loss and po intake meeting <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 Weight / BMI Weight Weight: 77.564 kg Body Mass Index (BMI) 24.5 ABG / Lab / Microbiology Data 05/18/25 22:11 05/18/25 22:11 D/C Instructions Discharge Activity: Return to Normal Activity May resume sexual activity in: No Restrictions Weight Bearing Status: Weight bearing as tolerated Call your doctor if you observe: - (Recurrent concerning opiate withdrawal symptoms. Please contact your primary care physician.) DC O2, CPAP, BIPAP Needs Home O2 Discharge instructions: No Meaningful Use Info Meaningful Use Meaningful Use Diagnoses (Choose all that apply): None applicable Discharge Plan Admission Admit Date/Time: 05/18/25 23:24 Primary Reason for Your Visit: Acute Opiate Withdrawal, Polysubstance abuse Attending Provider: Caty Neville Primary Care Provider: Natty Isaac Consulting Providers: Adam Blanco; Elaine Stout Instructions Patient Instructions: Meth Abuse Addiction, Opioids Risks, ED Opiate Abuse Discharge Orders/Prescriptions Prescriptions: Continued pantoprazole 40 mg Tablet,Delayed Release (Dr/Ec) 40 mg PO DAILY Referrals / Follow Up: Natty Isaac PA [Primary Care Provider] - (Follow-up within 1-2 weeks to review admission. Call earlier if concerns arise.) Disposition Disposition (needs filled in before D/C Order can be placed): Home, Self Care Charges/Coding Visit Charges Inpatient E M: 18635 Disch Hosp >30min 05/22/25 0838 Cosigner Signature (if applicable): CC: Dr. Caty Neville MD; JULITO [facility] Progress note Author Elaine Stout [facility] Note Date/Time May 21, 2025 11:5 1am [facility] Medical Records Department [address] [place] [address] Progress Note - Hospitalist 05/21/25710 MR#: [id number] Acct: [id number] Name: EULALIO VILLAFANA Rep #:[id number] : 1985 39 From: Elaine Stout MD PCP: JULITO Hannah Status:[id number] Reason for Visit Reason for Visit: Diagnoses Opioid dependence, uncomplicated (05/18/25) Subjective Subjective Patient with no acute events overnight per self and per nursing report. He notes with Bentyl dose x 1 and scheduled simethicone he has less abdominal cramping and notes he feels as though he is back to his baseline. He denies anywithdrawal symptoms. Discussed plan of care with transition out to more long-term withdrawal treatment protocol/program 05/22/2025 with last dose early in themorning noted. Patient denies fevers, chills, nausea, emesis, abdominal pain, chest pain or dyspnea. Objective Data Objective Data Vital Signs: Vital Signs Temp Pulse Resp BP Pulse Ox O2 Del Method 97.4 F L 53 L 16 98/63 98 Room Air 05/21/25 04:05/21/25 04:05/21/25 04:05/21/25 04:05/21/25 04:05/21/25 04:25 Oxygen Delivery Method Room Air Weight: 171 lb Body Mass Index (BMI) 24.5 Intake & Output: Intake and Output for Last 24 Hours 05/19/25 05/20/25 05/21/25 23:59 23:59 23:59 Intake Total 500 / 500 800 / 800 500 / 500 Balance 500 / 500 800 / 800 500 / 500 Medical Nutrition Assessment Dietitian: Malnutrition Criteria Met Start: 05/19/25 10:31 Freq: Status: Active Protocol: Document 05/19/25 10:31 JESSIE (Rec: 05/19/25 10:31 JESSIE [id number]) Nutrition Malnutrition Evidence of Yes Malnutrition Exists Malnutrition (severe Social/Behavioral/Environmental ): Evidenced By Suboptimal Energy Intake (Severe),Weight Loss (Severe) Clinical Problem Chronic Disease or Condition Related Malnutrition Etiology related to relapse into drug use and inadequate energy intake Signs/Symptoms as evidenced by 9.9% unintended wt loss and po intake meeting <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 Lab / Micro Data 05/18/25 22:11 05/18/25 22:11 Physical Exam Narrative Physical Examination: General: Awake, alert, oriented x 3 and cooperative, laying in MS bed, notes improved, no abdominal complaints. Skin: Normal color, normal turgor, no icterus, no cyanosis except occasional abrasion, ecchymoses, several tattoos. HEENT: AT/NC, EOMI, PERRLA, MMM. Lungs: CTA bilaterally, moderate effort, mild decrease BL bases, no rales, ronchi or wheezing. Heart: Mildly bradycardic with regular rhythm; no gallop, rub audible. Abdomen: Soft, NTTP, ND, normal BS. Extremities: No cyanosis, clubbing, or edema. Neurological: Patient awake, alert, oriented as noted,cognitive function intact; pupils equally reactive to light and accommodation, cranial nerves grossly normal, moving all 4 extremities, no focal deficits, strength preserved. Psychiatric: Affect appears normal, no acute evidence of depressive or anxiety feelings. Assessment & Plan Assessment/Plan (1) Opiate dependence: (2) Desire for detoxification: PLAN: Plan The patient is a 39 y/o M w/ PMHx: Polysubstance abuse (amphetamine, opiate, fentanyl), GERD, Anxiety and Depression, Vaping Tobacco use who presents to the [facility] ED on 05/18/2025 with history of unfortunate recent history of being sober since March 2023 until a few months prior hurting his shoulder at which point he began using opiates again eventually transition is starting fentanyl and amphetamine regularly with last use a.m. on day of presentation requesting detoxification. #1. Acute Opiate Withdrawal with polysubstance abuse history: Admitted to medical surgical floor, initiated and maintained on tapering course of Subutex, as needed tylenol, ibuprofen, bowel regimen, gabapentin, Bentyl, Vistaril, methocarbamol, clonidine, PRN nightly trazodone for insomnia, IV fluids, IV antiemetics. Case management consulted for transition to next level of rehabilitation care. 05/20/2025 added scheduled simethicone, Bentyl dose x 1 with continued as needed Bentyl, resolution of abdominal cramping/bloating sensation. 05/21/2025 discussed plan of care for completion of tapering protocol05/22/2020 5 AM and discharged to more long- term withdrawal treatment program/protocol already arranged per CM/180. #2. Anxiety and depression: Likely contributing greatly also to polysubstance abuse, not on regimen per current list, encourage continued outpatient follow-up, case management consulted as noted. #3. Tobacco Abuse: Encouraged cessation, inpatient consultation per RT, NR if desired. #4. GERD: Will continue PPI. #5. DVT prophylaxis: Low risk, encourage ambulation. Charges/Coding Visit Charges Inpatient E&M: 69270 Subs Hosp L2 05/21/25 1151 <Electronically signed by Elaine Stout MD> Cosigner Signature (if applicable): CC: ~ Signed [facility] Work Phone: 1(523) 800-941807-13-2025 Progress note [facility] Medical Records Department [address] [place] [address] Progress Note - Hospitalist 05/21/25 0711 MR#: [id number] Acct: [id number] Name: EULALIO VILLAFANA Rep #:[id number] : 1985 39 From: Elaine Stout MD PCP: JULITO Hannah Status:ADM IN Location: [place] [id number] Reason for Visit Reason for Visit: Diagnoses Opioid dependence, uncomplicated (05/18/25) Subjective Subjective Patient with no acute events overnight per self and per nursing report. He notes with Bentyl dose x1 and scheduled simethicone he has less abdominal cramping and notes he feels as though he is back to his baseline. He denies anywithdrawal symptoms. Discussed plan of care with transition out to more long-term withdrawal treatment protocol/program 05/22/2025 with last dose early in themorning noted. Patient denies fevers, chills, nausea, emesis, abdominal pain, chest pain or dyspnea. Objective Data Objective Data Vital Signs: Vital Signs Temp Pulse Resp BP Pulse Ox O2 Del Method 97.4 F L 53 L 16 98/63 98 Room Air 05/21/25 04:05/21/25 04:05/21/25 04:05/21/25 04:05/21/25 04:05/21/25 04:25 Oxygen Delivery Method Room Air Weight: 171 lb Body Mass Index (BMI) 24.5 Intake & Output: Intake and Output for Last 24 Hours 05/19/25 05/20/25 05/21/25 23:59 23:59 23:59 Intake Total 500 / 500 800 / 800 500 / 500 Balance 500 / 500 800 / 800 500 / 500 Medical Nutrition Assessment Dietitian: Malnutrition Criteria Met Start: 05/19/25 10:31 Freq: Status: Active Protocol: Document 05/19/25 10:31 JESSIE (Rec: 05/19/25 10:31 JESSIE [id number]) Nutrition Malnutrition Evidence of Yes Malnutrition Exists Malnutrition (severe Social/Behavioral/Environmental ): Evidenced By Suboptimal Energy Intake (Severe),Weight Loss (Severe) Clinical Problem Chronic Disease or Condition Related Malnutrition Etiology related to relapse into drug use and inadequate energy intake Signs/Symptoms as evidenced by 9.9% unintended wt loss and po intake meeting <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 Lab / Micro Data 05/18/25 22:11 05/18/25 22:11 Physical Exam Narrative Physical Examination: General: Awake, alert, oriented x 3 and cooperative, laying in MS bed, notes improved, no abdominalcomplaints. Skin: Normal color, normal turgor, no icterus, no cyanosis except occasional abrasion, ecchymoses, several tattoos. HEENT: AT/NC, EOMI, PERRLA, MMM. Lungs: CTA bilaterally, moderate effort, mild decrease BL bases, no rales, ronchi or wheezing. Heart: Mildly bradycardic with regular rhythm; no gallop, rub audible. Abdomen: Soft, NTTP, ND, normal BS. Extremities: No cyanosis, clubbing, or edema. Neurological: Patient awake, alert, oriented as noted,cognitive function intact; pupils equally reactive to light and accommodation, cranial nerves grossly normal, moving all 4 extremities, no focal deficits, strength preserved. Psychiatric: Affect appears normal, no acute evidence of depressive or anxiety feelings. Assessment & Plan Assessment/Plan (1) Opiate dependence: (2) Desire for detoxification: PLAN: Plan The patient is a 39 y/o M w/ PMHx: Polysubstance abuse (amphetamine, opiate, fentanyl), GERD, Anxiety and Depression, Vaping Tobacco use who presents to the [facility] ED on 05/18/2025 with history of unfortunate recent history of being sober since March 2023 until a few months prior hurting his shoulder at which point he began using opiates again eventually transition is starting fentanyl and amphetamine regularly with last use a.m. on day of presentation requesting detoxification. #1. Acute Opiate Withdrawal with polysubstance abuse history: Admitted to medical surgical floor, initiated and maintained on tapering course of Subutex, as needed tylenol, ibuprofen, bowel regimen, gabapentin, Bentyl, Vistaril, methocarbamol, clonidine, PRN nightly trazodone for insomnia, IV fluids, IV antiemetics. Case management consulted for transition to next level of rehabilitation care. 05/20/2025 added scheduled simethicone, Bentyl dose x 1 with continued as needed Bentyl, resolution of abdominal cramping/bloating sensation. 05/21/2025 discussed plan of care for completion of tapering protocol05/22/2020 5 AM and discharged to more long-term withdrawal treatment program/protocol alreadyarranged per CM/180. #2. Anxiety and depression: Likely contributing greatly also to polysubstance abuse, not on regimenper current list, encourage continued outpatient follow-up, case management consulted as noted. #3. Tobacco Abuse: Encouraged cessation, inpatient consultation per RT, NR if desired. #4. GERD: Will continue PPI. #5. DVT prophylaxis: Low risk, encourage ambulation. Charges/Coding Visit Charges Inpatient E&M: 76766 Subs Hosp L2 05/21/25 1151 Cosigner Signature (if applicable): CC: ~ Signed [facility]07-12-2025 Discharge summary Author Elaine Stout [facility] Note Date/Time May 20, 2025 1:03 pm [facility] Medical Records Department [address] [place] [address] Instructions for Home/Discharge Instructions 05/20/25 1302 MR#: [id number] Acct: [id number] Name: EULALIO VILLAFANA Rep #:[id number] : 1985 39 From: Elaine Stout MD PCP: JULITO Hannah Status:ADM IN Discharge Instructions DC O2, CPAP, BIPAP needs Home O2 Discharge instructions: No Dressing / Incision Discharge Activity: Return to Normal Activity May resume sexual activity in: No Restrictions Weight Bearing Status: Weight bearing as tolerated Dressing / Incision Call your doctor if you observe: - (Recurrent concerning opiate withdrawal symptoms. Please contact your primary care physician.) Follow Up Care Test Results: Test results from this visit will be discussed in further detail at your follow- up appointment, if applicable. Discharge Plan Admission Admit Date/Time: 05/18/25 23:24 Primary Reason for Your Visit: Acute Opiate Withdrawal, Polysubstance abuse Attending Provider: Elaine Stout Primary Care Provider: Natty Isaac Consulting Providers: Adam Blanco Instructions Patient Instructions: Meth Abuse Addiction, Opioids Risks, ED Opiate Abuse Discharge Orders/Prescriptions Prescriptions: Continued pantoprazole 40 mg Tablet,Delayed Release (Dr/Ec) 40 mg PO DAILY Referrals / Follow Up: Natty Isaac PA [Primary Care Provider] - (Follow-up within 1-2 weeks to review admission. Call earlier if concerns arise.) Disposition Disposition (needs filled in before D/C Order can be placed): Home, Self Care 05/20/25 1303<Electronically signed by Elaine Stout MD>Elaine Stout MD CC: Dr. Adam Blanco DO; JULITO Hannah ~ Signed [facility] Work Phone: 1(522) 314-760307-12-2025 Discharge summary [facility] Medical Records Department [address] [place] [address] Instructions for Home/Discharge Instructions 05/20/25 1302 MR#: [id number] Acct: [id number] Name: EULALIO VILLAFANA Rep #:[id number] : 1985 39 From: Elaine Stout MD PCP: JULITO Hannah Status:ADM IN Discharge Instructions DC O2, CPAP, BIPAP needs Home O2 Discharge instructions: No Dressing / Incision Discharge Activity: Return to Normal Activity May resume sexual activity in: No Restrictions Weight Bearing Status: Weight bearing as tolerated Dressing / Incision Call your doctor if you observe: - (Recurrent concerning opiate withdrawal symptoms. Please contactyour primary care physician.) Follow Up Care Test Results: Test results from this visit will be discussed in further detail at your follow- up appointment, if applicable. Discharge Plan Admission Admit Date/Time: 05/18/25 23:24 Primary Reason for Your Visit: Acute Opiate Withdrawal, Polysubstance abuse Attending Provider: Elaine Stout Primary Care Provider: Natty Isaac Consulting Providers: Adam Blanco Patient Instructions: Meth Abuse Addiction, Opioids Risks, ED Opiate Abuse Discharge Orders/Prescriptions Prescriptions: Continued pantoprazole 40 mg Tablet,Delayed Release (Dr/Ec) 40 mg PO DAILY Referrals / Follow Up: Natty Isaac PA [Primary Care Provider] - (Follow-up within 1-2 weeks to review admission. Call earlier if concerns arise.) Disposition Disposition (needs filled in before D/C Order can be placed): Home, Self Care 05/20/25 1303Aelisa Stout MD CC: Dr. Adam Blanco, DO; JULITO Hannah ~ Signed [facility]07-12-2025 Progress note Author Elaine Stout [facility] Note Date/Time May 20, 2025 10:1 0am [facility] Medical Records Department [address] [place] [address] Progress Note - Hospitalist 05/20/25 0714 MR#: [id number] Acct: [id number] Name: EULALIO VILLAFANA Rep #:[id number] : 1985 39 From: Elaine Stout MD PCP: JULITO Hannah Status:ADM IN Location: [facility]-4 Reason for Visit Reason for Visit: Diagnoses Opioid dependence, uncomplicated (05/18/25) Subjective Subjective Patient with no acute events overnight per self and per nursing report. He notes withdrawal symptoms have significantly abated and are nearly resolved except he still does have abdominal cramping and occasional bloating sensation. Discussed usage of Bentyl which is as needed and will give him a dose now. Alsonoted intention to add scheduled simethicone to which he is amenable. Patient denies fevers, chills, nausea, emesis, chest pain or dyspnea. Objective Data Objective Data Vital Signs: Vital Signs Temp Pulse Resp BP Pulse Ox O2 Del Method 97.5 F L 94 16 101/71 97 Room Air 05/20/25 04:51 05/20/25 04:51 05/20/25 04:51 05/20/25 04:51 05/20/25 04:51 05/20/25 04:51 Oxygen Delivery Method Room Air Weight: 171 lb Body Mass Index (BMI) 24.5 Intake & Output: Intake and Output for Last 24 Hours 05/18/25 05/19/25 05/20/25 23:59 23:59 23:59 Intake Total 500 / 500 Balance 500 / 500 Medical Nutrition Assessment Dietitian: Malnutrition Criteria Met Start: 05/19/25 10:31 Freq: Status: Active Protocol: Document 05/19/25 10:31 JESSIE (Rec: 05/19/25 10:31 JESSIE [id number]) Nutrition Malnutrition Evidence of Yes Malnutrition Exists Malnutrition (severe Social/Behavioral/Environmental ): Evidenced By Suboptimal Energy Intake (Severe),Weight Loss (Severe) Clinical Problem Chronic Disease or Condition Related Malnutrition Etiology related to relapse into drug use and inadequate energy intake Signs/Symptoms as evidenced by 9.9% unintended wt loss and po intake meeting <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 Lab / Micro Data 05/18/25 22:11 05/18/25 22:11 Physical Exam Narrative Physical Examination: General: Awake, alert, oriented x 3 and cooperative, laying in MS bed, denies any marked withdrawal symptoms aside from abdominal cramping/bloating sensation. Skin: Normal color, normal turgor, no icterus, no cyanosis except occasional abrasion, ecchymoses, several tattoos. HEENT: AT/NC, EOMI, PERRLA, MMM. Lungs: CTA bilaterally, moderate effort, mild decrease BL bases, no rales, ronchi or wheezing. Heart: Mildly bradycardic with regular rhythm; no gallop, rub audible. Abdomen: Soft, improved, no marked distention, no tympany, continued hyperactiveBS. Extremities: No cyanosis, clubbing, or edema. Neurological: Patient awake, alert, oriented as noted,cognitive function intact; pupils equally reactive to light and accommodation, cranial nerves grossly normal, moving all 4 extremities, no focal deficits, strength improved, preserved Psychiatric: Affect appears normal, no acute evidence of depressive or anxiety feelings. Assessment & Plan Assessment/Plan (1) Opiate dependence: (2) Desire for detoxification: PLAN: Plan The patient is a 39 y/o M w/ PMHx: Polysubstance abuse (amphetamine, opiate, fentanyl), GERD, Anxiety and Depression, Vaping Tobacco use who presents to the [facility] ED on 05/18/2025 with history of unfortunate recent history of being sober since March 2023 until a few months prior hurting his shoulder at which point he began using opiates again eventually transition is starting fentanyl and amphetamine regularly with last use a.m. on day of presentation requesting detoxification. #1. Acute Opiate Withdrawal with polysubstance abuse history: Admitted to medical surgical floor, initiated and maintained on tapering course of Subutex, as needed tylenol, ibuprofen, bowel regimen, gabapentin, Bentyl, Vistaril, methocarbamol, clonidine, PRN nightly trazodone for insomnia, IV fluids, IV antiemetics. Case management consulted for transition to next level of rehabilitation care. 05/20/2025 will add scheduled simethicone and will give a x1 dose of Bentyl now in addition to reminding patient that he has as needed Bentyl available given abdominal cramping/bloating sensation. #2. Anxiety and depression: Likely contributing greatly also to polysubstance abuse, not on regimen per current list, encourage continued outpatient follow-up, case management consulted as noted. #3. Tobacco Abuse: Encouraged cessation, inpatient consultation per RT, NR if desired. #4. GERD: Will continue PPI. #5. DVT prophylaxis: Low risk, encourage ambulation. Charges/Coding Visit Charges Inpatient E&M: 46028 Subs Hosp L2 05/20/25 1010 <Electronically signed by Elaine Stout MD> Cosigner Signature (if applicable): CC: ~ Signed [facility] Work Phone: 1(908) 957-740507-12-2025 Progress note [facility] Medical Records Department [address] [place] [address] Progress Note - Hospitalist 05/20/25713 MR#: [id number] Acct: [id number] Name: EULALIO VILLAFANA Rep #:[id number] : 1985 39 From: Elaine Stout MD PCP: JULITO Hannah Status:ADM IN Location: [place] [id number] Reason for Visit Reason for Visit: Diagnoses Opioid dependence, uncomplicated (05/18/25) Subjective Subjective Patient with no acute events overnight per self and per nursing report. He notes withdrawal symptoms have significantly abated and are nearly resolved except he still does have abdominal cramping andoccasional bloating sensation. Discussed usage of Bentyl which is as needed and will give him a dose now. Alsonoted intention to add scheduled simethicone to which he is amenable. Patient denies fevers, chills, nausea, emesis, chest pain or dyspnea. Objective Data Objective Data Vital Signs: Vital Signs Temp Pulse Resp BP Pulse Ox O2 Del Method 97.5 F L 94 16 101/71 97 Room Air 05/20/25 04:51 05/20/25 04:51 05/20/25 04:51 05/20/25 04:51 05/20/25 04:51 05/20/25 04:51 Oxygen Delivery Method Room Air Weight: 171 lb Body Mass Index (BMI) 24.5 Intake & Output: Intake and Output for Last 24 Hours 05/18/25 05/19/25 05/20/25 23:59 23:59 23:59 Intake Total 500 / 500 Balance 500 / 500 Medical Nutrition Assessment Dietitian: Malnutrition Criteria Met Start: 05/19/25 10:31 Freq: Status: Active Protocol: Document 05/19/25 10:31 JESSIE (Rec: 05/19/25 10:31 [facility] [id number]) Nutrition Malnutrition Evidence of Yes Malnutrition Exists Malnutrition (severe Social/Behavioral/Environmental ): Evidenced By Suboptimal Energy Intake (Severe),Weight Loss (Severe) Clinical Problem Chronic Disease or Condition Related Malnutrition Etiology related to relapse into drug use and inadequate energy intake Signs/Symptoms as evidenced by 9.9% unintended wt loss and po intake meeting <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 Lab / Micro Data 05/18/25 22:11 05/18/25 22:11 Physical Exam Narrative Physical Examination: General: Awake, alert, oriented x 3 and cooperative, laying in MS bed, denies any marked withdrawalsymptoms aside from abdominal cramping/bloating sensation. Skin: Normal color, normal turgor, no icterus, no cyanosis except occasional abrasion, ecchymoses, several tattoos. HEENT: AT/NC, EOMI, PERRLA, MMM. Lungs: CTA bilaterally, moderate effort, mild decrease BL bases, no rales, ronchi or wheezing. Heart: Mildly bradycardic with regular rhythm; no gallop, rub audible. Abdomen: Soft, improved, no marked distention, no tympany, continued hyperactiveBS. Extremities: No cyanosis, clubbing, or edema. Neurological: Patient awake, alert, oriented as noted,cognitive function intact; pupils equally reactive to light and accommodation, cranial nerves grossly normal, moving all 4 extremities, no focal deficits, strength improved, preserved Psychiatric: Affect appears normal, no acute evidence of depressive or anxiety feelings. Assessment & Plan Assessment/Plan (1) Opiate dependence: (2) Desire for detoxification: PLAN: Plan The patient is a 39 y/o M w/ PMHx: Polysubstance abuse (amphetamine, opiate, fentanyl), GERD, Anxiety and Depression, Vaping Tobacco use who presents to the [facility] ED on 05/18/2025 with history of unfortunate recent history of being sober since March 2023 until a few months prior hurting his shoulder at which point he began using opiates again eventually transition is starting fentanyl and amphetamine regularly with last use a.m. on day of presentation requesting detoxification. #1. Acute Opiate Withdrawal with polysubstance abuse history: Admitted to medical surgical floor, initiated and maintained on tapering course of Subutex, as needed tylenol, ibuprofen, bowel regimen, gabapentin, Bentyl, Vistaril, methocarbamol, clonidine, PRN nightly trazodone for insomnia, IV fluids, IV antiemetics. Case management consulted for transition to next level of rehabilitation care. 05/20/2025 will add scheduled simethicone and will give a x1 dose of Bentyl now in addition to reminding patient that he has as needed Bentyl available given abdominal cramping/bloating sensation. #2. Anxiety and depression: Likely contributing greatly also to polysubstance abuse, not on regimenper current list, encourage continued outpatient follow-up, case management consulted as noted. #3. Tobacco Abuse: Encouraged cessation, inpatient consultation per RT, NR if desired. #4. GERD: Will continue PPI. #5. DVT prophylaxis: Low risk, encourage ambulation. Charges/Coding Visit Charges Inpatient E&M: 11447 Subs Hosp L2 05/20/25 1010 Cosigner Signature (if applicable): CC: ~ Signed [facility]07-11-2025 Progress note Author Elaine Stout [facility] Note Date/Time May 19, 2025 1:11 pm [facility] Medical Records Department [address] [place] [address] Progress Note - Hospitalist 05/19/25 0704 MR#: [id number] Acct: [id number] Name: EULALIO VILLAFANA Rep #:[id number] : 1985 39 From: Elaine Stout MD PCP: JULITO Hannah Status:ADM [id number] Reason for Visit Reason for Visit: Diagnoses Opioid dependence, uncomplicated (05/18/25) Subjective Subjective Patient's with no acute events overnight per self and per nursing report. He notes feeling significantly improved since initial ED arrival although does state he still has some mild abdominal cramping but was able to tolerate breakfast without issue. He notes withdrawal symptoms have significantly improved. Patient denies fevers, chills, nausea, emesis, chest pain or dyspnea. Objective Data Objective Data Vital Signs: Vital Signs Temp Pulse Resp BP Pulse Ox O2 Del Method 97.8 F 58 L 16 124/62 H 97 Room Air 05/19/25 02:31 05/19/25 02:31 05/19/25 02:31 05/19/25 02:31 05/19/25 02:31 05/19/25 02:31 Oxygen Delivery Method Room Air Weight: 171 lb Body Mass Index (BMI) 24.5 Lab / Micro Data 05/18/25 22:11 05/18/25 22:11 Labs: Laboratory Results - last 24 hr 05/18/25 21:32: Urine Opiates Screen NEGATIVE, U Buprenorphine Qual NEGATIVE, UrOxycodone Screen NEGATIVE, Urine Methadone Screen NEGATIVE, Urine Fentanyl Screen PRESUMPTIVE POSITIVE, Ur Barbiturates Screen NEGATIVE, Ur Phencyclidine Scrn NEGATIVE, Ur Amphetamines Screen PRESUMPTIVE POSITIVE, U Benzodiazepines Scrn NEGATIVE, Urine Cocaine Screen NEGATIVE, U Cannabinoids Screen PRESUMPTIVE POSITIVE 05/18/25 22:11: WBC 10.0, RBC 4.87, Hgb 14.2, Hct 41.1, MCV 84.4, MCH 29.2, MCHC34.5, RDW Std Deviation 41.8, RDW Coeff of Giana 13.5, Plt Count 349, MPV 9.8, Immature Gran % (Auto) 0.400, Neut % (Auto) 65.9, Lymph % (Auto) 24.2, [place] % (Auto) 8.7, Eos % (Auto) 0.4, Baso % (Auto) 0.4, Absolute Neuts (auto) 6.6, Absolute Lymphs (auto) 2.41, Nucleated RBC % 0, Sodium 140, Potassium 4.3, Chloride 107, Carbon Dioxide 21.6, Anion Gap 11, BUN 21 H, Creatinine 0.83, Estim Creat Clear Calc 125.82, Est GFR (MDRD) Non-Af 115, BUN/Creatinine Ratio 25.5 H, Glucose 101 H, Calcium 9.4, Total Bilirubin 0.18, AST 17, ALT 21, Alkaline Phosphatase 69, Total Protein 6.6, Albumin 4.1, Globulin 2.5, Albumin/Globulin Ratio 1.7, Ethyl Alcohol < 10.1 Physical Exam Narrative Physical Examination: General: Awake, alert, oriented x 3 and cooperative, laying in MS bed, notes improved withdrawal symptoms since initial ED arrival. Skin: Normal color, normal turgor, no icterus, no cyanosis except occasional abrasion, ecchymoses, several tattoos. HEENT: AT/NC, EOMI, PERRLA, MMM. Lungs: CTA bilaterally, moderate effort, mild decrease BL bases, no rales, ronchi or wheezing. Heart: Mildly bradycardic with regular rhythm; no gallop, rub audible. Abdomen: Soft, mild generalized discomfort but no rebound or guarding, no markeddistention, mildly hyperactive BS. Extremities: No cyanosis, clubbing, or edema. Neurological: Patient awake, alert, oriented as noted,cognitive function intact; pupils equally reactive to light and accommodation, cranial nerves grossly normal, moving all 4 extremities, no focal deficits, strength mildly globally decreased. Psychiatric: Affect appears fatigued otherwise normal, no acute evidence of depressive or anxiety feelings. Assessment & Plan Assessment/Plan (1) Opiate dependence: (2) Desire for detoxification: PLAN: Plan The patient is a 39 y/o M w/ PMHx: Polysubstance abuse (amphetamine, opiate, fentanyl), GERD, Anxiety and Depression, Vaping Tobacco use who presents to the [facility] ED on 05/18/2025 with history of unfortunate recent history of being sober since March 2023 until a few months prior hurting his shoulder at which point he began using opiates again eventually transition is starting fentanyl and amphetamine regularly with last use a.m. on day of presentation requesting detoxification. #1. Acute Opiate Withdrawal with polysubstance abuse history: Admitted to medical surgical floor, initiated and maintained on tapering course of Subutex, as needed tylenol, ibuprofen, bowel regimen, gabapentin, Bentyl, Vistaril, methocarbamol, clonidine, PRN nightly trazodone for insomnia, IV fluids, IV antiemetics. Case management consulted for transition to next level of rehabilitation care. #2. Anxiety and depression: Likely contributing greatly also to polysubstance abuse, not on regimen per current list, encourage continued outpatient follow-up, case management consulted as noted. #3. Tobacco Abuse: Encouraged cessation, inpatient consultation per RT, NR if desired. #4. GERD: Will continue PPI. #5. DVT prophylaxis: Low risk, encourage ambulation. Charges/Coding Visit Charges Inpatient E&M: 01800 Subs Hosp L2 05/19/25 1311 <Electronically signed by Elaine Stout MD> Cosigner Signature (if applicable): CC: ~ Signed [facility] Work Phone: 1(233) 634-284507-11-2025 Progress note [facility] Medical Records Department [address] [place] [address] Progress Note - Hospitalist 05/19/25 0704 MR#: [id number] Acct: [id number] Name: EULALIO VILLAFANA Rep #:[id number] : 1985 39 From: Elaine Stout MD PCP: JULITO Hannah Status:ADM IN Location: [facility] [id number] Reason for Visit Reason for Visit: Diagnoses Opioid dependence, uncomplicated (05/18/25) Subjective Subjective Patient's with no acute events overnight per self and per nursing report. He notes feeling significantly improved since initial ED arrival although does state he still has some mild abdominal cramping but was able to tolerate breakfast without issue. He notes withdrawal symptoms have significantly i mproved. Patient denies fevers, chills, nausea, emesis, chest pain or dyspnea. Objective Data Objective Data Vital Signs: Vital Signs Temp Pulse Resp BP Pulse Ox O2 Del Method 97.8 F 58 L 16 124/62 H 97 Room Air 05/19/25 02:31 05/19/25 02:31 05/19/25 02:31 05/19/25 02:31 05/19/25 02:31 05/19/25 02:31 Oxygen Delivery Method Room Air Weight: 171 lb Body Mass Index (BMI) 24.5 Lab / Micro Data 05/18/25 22:11 05/18/25 22:11 Labs: Laboratory Results - last 24 hr 05/18/25 21:32: Urine Opiates Screen NEGATIVE, U Buprenorphine Qual NEGATIVE, UrOxycodone Screen NEGATIVE, Urine Methadone Screen NEGATIVE, Urine Fentanyl Screen PRESUMPTIVE POSITIVE, Ur BarbituratesScreen NEGATIVE, Ur Phencyclidine Scrn NEGATIVE, Ur Amphetamines Screen PRESUMPTIVE POSITIVE, U Benzodiazepines Scrn NEGATIVE, Urine Cocaine Screen NEGATIVE, U Cannabinoids Screen PRESUMPTIVE POSITIVE 05/18/25 22:11: WBC 10.0, RBC 4.87, Hgb 14.2, Hct 41.1, MCV 84.4, MCH 29.2, MCHC34.5, RDW Std Deviation 41.8, RDW Coeff of Giana 13.5, Plt Count 349, MPV 9.8, Immature Gran % (Auto) 0.400, Neut % (Auto) 65.9, Lymph % (Auto) 24.2, [place] % (Auto) 8.7, Eos % (Auto) 0.4, Baso % (Auto) 0.4, Absolute Neuts (auto) 6.6, Absolute Lymphs (auto) 2.41, Nucleated RBC % 0, Sodium 140, Potassium 4.3, Chloride 107,Carbon Dioxide 21.6, Anion Gap 11, BUN 21 H, Creatinine 0.83, Estim Creat Clear Calc 125.82, Est GFR (MDRD) Non-Af 115, BUN/Creatinine Ratio 25.5 H, Glucose 101 H, Calcium 9.4, Total Bilirubin 0.18, AST 17, ALT 21, Alkaline Phosphatase 69, Total Protein 6.6, Albumin 4.1, Globulin 2.5, Albumin/Globulin Ratio 1.7, Ethyl Alcohol < 10.1 Physical Exam Narrative Physical Examination: General: Awake, alert, oriented x 3 and cooperative, laying in MS bed, notes improved withdrawal symptoms since initial ED arrival. Skin: Normal color, normal turgor, no icterus, no cyanosis except occasional abrasion, ecchymoses, several tattoos. HEENT: AT/NC, EOMI, PERRLA, MMM. Lungs: CTA bilaterally, moderate effort, mild decrease BL bases, no rales, ronchi or wheezing. Heart: Mildly bradycardic with regular rhythm; no gallop, rub audible. Abdomen: Soft, mild generalized discomfort but no rebound or guarding, no markeddistention, mildly hyperactive BS. Extremities: No cyanosis, clubbing, or edema. Neurological: Patient awake, alert, oriented as noted,cognitive function intact; pupils equally reactive to light and accommodation, cranial nerves grossly normal, moving all 4 extremities, no focal deficits, strength mildly globally decreased. Psychiatric: Affect appears fatigued otherwise normal, no acute evidence of depressive or anxiety feelings. Assessment & Plan Assessment/Plan (1) Opiate dependence: (2) Desire for detoxification: PLAN: Plan The patient is a 39 y/o M w/ PMHx: Polysubstance abuse (amphetamine, opiate, fentanyl), GERD, Anxiety and Depression, Vaping Tobacco use who presents to the [facility] ED on 05/18/2025 with history of unfortunate recent history of being sober since March 2023 until a few months prior hurting his shoulder at which point he began using opiates again eventually transition is starting fentanyl and amphetamine regularly with last use a.m. on day of presentation requesting detoxification. #1. Acute Opiate Withdrawal with polysubstance abuse history: Admitted to medical surgical floor, initiated and maintained on tapering course of Subutex, as needed tylenol, ibuprofen, bowel regimen, gabapentin, Bentyl, Vistaril, methocarbamol, clonidine, PRN nightly trazodone for insomnia, IV fluids, IV antiemetics. Case management consulted for transition to next level of rehabilitation care. #2. Anxiety and depression: Likely contributing greatly also to polysubstance abuse, not on regimenper current list, encourage continued outpatient follow-up, case management consulted as noted. #3. Tobacco Abuse: Encouraged cessation, inpatient consultation per RT, NR if desired. #4. GERD: Will continue PPI. #5. DVT prophylaxis: Low risk, encourage ambulation. Charges/Coding Visit Charges Inpatient E&M: 23310 Subs Hosp L2 05/19/25 1311 Cosigner Signature (if applicable): CC: ~ Signed [facility]07-11-2025 History and physical note Author Adam Blanco [facility] Note Date/Time May 18, 2025 11:3 7pm [facility] Medical Records Department [address] [place] [address] H&P Exam - Hospitalist 05/18/25 3637 MR#: [id number] Acct: [id number] Name: EULALIO VILLAFANA Rep #:[id number] : 1985 39 From: Adam moore DO PCP: JULITO Hannah Status:REG ER Location: ED HPI - General General Date of Admission: 05/18/25 Date of Service: 05/18/25 Chief Complaint: Opiate detox HPI Narrative EULALIO VILLAFANA, is a 39 M who presented to [facility] ED on 05/18/2025 for opiate detox. I saw the patient at bedside in the ED. Patient last went through opiate detox here back in March 2023. States he had been doing well until a few months ago when he hurt his shoulder and began using opiates again. He has been snorting fentanyl and amphetamines now on a regular basis. Last use was this morning. He is reporting some withdrawal symptoms currently. States he tolerated the Subutex taper well last time he was here. He denies anyother pain or discomfort currently. Will be admitted for further management. [facility] Medical History (Updated 05/18/25 @ 23:[address] Jr Jeffery MD) Methamphetamine abuse Opioid abuse Anxiety Diarrhea Nausea & vomiting Acid reflux disease Abdominal pain Home Medications ?Medication ?Instructions ?Recorded ?Last Taken ?Type pantoprazole 40 mg tablet,delayed 40 mg PO DAILY GERD 06/12/21 02/17/23 History release Allergy/AdvReac Type Severity Reaction Status Date / Time sulfamethoxazole (From Allergy Mild Unknown Verified 05/18/25 21:15 Bactrim) trimethoprim (From Bactrim) Allergy Mild Unknown Verified 05/18/25 21:15 Surgical History History of right inguinal hernia repair Status post right knee surgery Social History Smoking Status: Current every day smoker tobacco type: e-cigarettes alcohol intake: current alcohol intake frequency: a few times a week substance use type: does not use ROS Constitutional Constitutional: Reports fatigue; Denies chills, fever(s) or weakness Eyes Eyes: Denies change in vision Cardiovascular Cardiovascular: Denies chest pain Respiratory/Chest Respiratory/Chest: Denies shortness of breath at rest Gastrointestinal Gastrointestinal: Reports nausea; Denies abdominal pain or vomiting Musculoskeletal Musculoskeletal: Reports myalgias; Denies arthralgias Vital Signs Vital Signs Vital Signs: 05/18/25 21:15 Temperature 97 F L Temperature Source Temporal Pulse Rate 75 Respiratory Rate 18 Blood Pressure 120/90 H Blood Pressure Mean 100 Pulse Ox 100 Oxygen Delivery Method Room Air Weight Weight: 80.6 kg Body Mass Index (BMI) 25.4 Physical Exam Const alert, oriented x3, no apparent distress, average body habitus, healthy appearing and well nourished Constitutional Narrative: Young middle-age male, mildly fatigued appearing but otherwise sitting back comfortably in bed, conversing normally, in no acute distress. General Appearance: cooperative, comfortable, well kempt and well developed HEENT normocephalic, head/scalp atraumatic, hearing grossly normal bilaterally, nasal mucous membranes and turbinates normal and moist oral mucous membranes Eyes PERRL, EOMs intact bilaterally and conjunctivae normal Neck full ROM Chest inspection of chest normal Resp normal respiratory effort, normal air movement, no use of accessory muscles and clear to auscultation bilaterally Cardio regular rate, regular rhythm, no murmurs and peripheral pulses 2+ throughout GI normal to inspection, nondistended, normoactive bowel sounds, soft to palpation,non-tender and non-distended Back/Spine normal ROM Extremity normal to inspection, full ROM and no pedal edema Skin no rashes or lesions noted Psych mental status grossly normal Mood & Affect: anxious Results Lab / Micro Data 05/18/25 22:11 Labs: Laboratory Results - last 24 hr 05/18/25 21:32: Urine Opiates Screen NEGATIVE, U Buprenorphine Qual NEGATIVE, UrOxycodone Screen NEGATIVE, Urine Methadone Screen NEGATIVE, Urine Fentanyl Screen PRESUMPTIVE POSITIVE, Ur Barbiturates Screen NEGATIVE, Ur Phencyclidine Scrn NEGATIVE, Ur Amphetamines Screen PRESUMPTIVE POSITIVE, U Benzodiazepines Scrn NEGATIVE, Urine Cocaine Screen NEGATIVE, U Cannabinoids Screen PRESUMPTIVE POSITIVE 05/18/25 22:11: Sodium 140, Potassium 4.3, Chloride 107, Carbon Dioxide 21.6, Anion Gap 11, BUN 21 H, Creatinine 0.83, Estim Creat Clear Calc 125.82, Est GFR (MDRD) Non-Af 115, BUN/Creatinine Ratio 25.5 H, Glucose 101 H, Calcium 9.4, Total Bilirubin 0.18, AST 17, ALT 21, Alkaline Phosphatase 69, Total Protein 6.6, Albumin 4.1, Globulin 2.5, Albumin/Globulin Ratio 1.7, Ethyl Alcohol < 10.1 Assessment & Plan Assessment/Plan (1) Opiate dependence: (2) Desire for detoxification: PLAN: Plan Patient is a 39-year-old male who presented to [facility] ED on 05/18/2025 for opiate detox. 1. Opiate abuse with withdrawal and desire for detox, polysubstance abuse ? Admit under inpatient status to [facility]. Case management consulted. Urine drug screen positive for opiates, fentanyl and amphetamines. Has been snorting fentanyl and amphetamines, last use on morning of admission. Will treat with Subutex taper and other as needed medications per opiate withdrawal order set. 2. GERD ? Continue home PPI. DVT prophylaxis: Low risk, ambulate CODE STATUS: Full code, unverified Expected disposition: TBD Total clinical time spent by myself addressing the patient's medical issues, reviewing all the data, and collaborating with patient's care team: 55 minutes. Charges/Coding Visit Charges Inpatient E&M: 97715 Init Hosp L2 05/18/25 2337 <Electronically signed by Adam Blanco DO> Cosigner Signature (if applicable): CC: Dr. Adam Blanco DO; JULITO Hannah~ Signed [facility] Work Phone: 1(538) 212-138207-11-2025 Discharge summary Author Jr Jeffery [facility] Note Date/Time May 18, 2025 11:2 6pm [facility] Medical Records Department [address] [place] [address] Emergency Department Summary 05/18/25 MR#: [id number] Acct: [id number] Name: EULALIO VILLAFANA Rep #:[id number] : 1985 39 From: Jr Jeffery MD PCP: JULITO Hannah Status:REG ER Location: ED HPI History of Present Illness Chief Complaint: Substance Abuse Detail of Chief Complaint: Fentanyl and amphetamine use Informant: patient Onset/Context/Timing Onset: Month(s) Context: Sudden Onset Timing: Continuous Quality: Daily use of fentanyl and amphetamine Location: Snorts Current Severity: Patient has no symptoms of withdrawal presently Worsened by: Not applicable Relieved by: Nothing Associated Symptoms Associated Symptoms: Nausea and diarrhea Narrative Narrative: Patient is a 39-year-old male. He has history of drug dependency. He has been through the [facility] program.He underwent detox he underwent detox March 2023. He was treated at [facility] for fentanyl withdrawal. Today he presents because of using fentanyl and amphetamine for the past several months. He snorts. He last snorted fentanyl and amphetamine this morning. He denies headache. He denies double vision blurred vision loss of vision. Nuys trouble with speech or swallowing. He denies paresthesia, anesthesia or motor weakness upper or lower extremity. He does endorse nausea and diarrhea. Prior similar symptoms: Yes Recent Illness/Hospitalization: No PFSH PFSH Medical History (Updated 05/18/25 @ 23:[address] Jr eJffery MD) Methamphetamine abuse Opioid abuse Anxiety Diarrhea Nausea & vomiting Acid reflux disease Abdominal pain Home Medications ?Medication ?Instructions ?Recorded ?Last Taken ?Type pantoprazole 40 mg tablet,delayed 40 mg PO DAILY GERD 06/12/21 02/17/23 History release Allergy/AdvReac Type Severity Reaction Status Date / Time sulfamethoxazole (From Allergy Mild Unknown Verified 05/18/25 21:15 Bactrim) trimethoprim (From Bactrim) Allergy Mild Unknown Verified 05/18/25 21:15 Surgical History History of right inguinal hernia repair Status post right knee surgery Social History Smoking Status: Current every day smoker tobacco type: e-cigarettes alcohol intake: current alcohol intake frequency: a few times a week substance use type: does not use ROS ROS ED Constitutional Constitutional ED: Denies chills, fever(s), subjective, sweats or weight loss Eyes Eyes: Denies blurry vision or change in vision ENT ENT ED: Denies ear pain, rhinorrhea or sore throat Cardiovascular Cardiovascular: Denies chest pain or palpitations Respiratory/Chest Respiratory/Chest: Denies cough, dyspnea or dyspnea on exertion Gastrointestinal Gastrointestinal: Reports abdominal pain, diarrhea and nausea; Denies constipation, melena or vomiting Genitourinary Genitourinary ED: Denies dysuria, hematuria or urinary frequency Musculoskeletal Musculoskeletal: Denies arthralgias, back pain or myalgias Integumentary Denies abscess or rash Neurologic Neurologic: Denies headache(s) or paresthesias Hematologic/Lymphatic Hematologic/Lymphatic: Reports systems reviewed and no addt'l complaints, exceptas documented EXAM Physical Exam Const Vital Signs: 05/18/25 21:15 Temperature 97 F L Temperature Source Temporal Pulse Rate 75 Respiratory Rate 18 Blood Pressure 120/90 H Blood Pressure Mean 100 Pulse Ox 100 Oxygen Delivery Method Room Air Positive well nourished and well developed Constitutional Narrative: Vital signs are unremarkable. General Appearance ED: well developed and NAD; Negative for pallor HEENT Reports moist mucous membranes HEENT Narrative: Head is atraumatic and normocephalic. Ears are normal. Nares are patent. Posterior pharynx is normal. Eyes PERRL and EOMs intact bilaterally General Eye ED: Negative for pale conjunctiva or scleral icterus Neck no lymphadenopathy, supple and no JVD Chest Wall inspection of chest normal Resp normal respiratory effort and clear to auscultation bilaterally Cardio regular rate, regular rhythm, S1 normal heart sound, S2 normal heart sound and no murmurs GI normal to inspection, nondistended, normoactive bowel sounds, non-tender, non-distended and no masses; Negative for hepatosplenomegaly Back/Spine no CVA tenderness Extremity normal to inspection General Extremety ED: Negative for edema General Extremity: Negative for edema Neuro oriented x3 and CN's II-XII intact bilaterally Sensorium / Orientation: alert Psych mental status grossly normal Skin no rashes or lesions noted, no wounds and skin turgor normal General Skin Exam: elasticity normal; Negative for jaundice or pallor MDM MDM MDM Narrative Medical decision making narrative: Patient states he does speedball this morning. He uses fentanyl and amphetamine. He was through detox program. He started using that several months ago. He presents to detox from opiates specifically fentanyl and amphetamine. He has no history of hepatitis C. He has no history of HIV. Order set for ED addiction medicine was initiated. CBC was obtained to assess white count differential as well as H&H. Comprehensive metabolic panel to assess renal function electrolytes. Talk screen was obtained as well. Lab Data Attestation: I reviewed the patient's lab results. Lab results narrative: Comprehensive metabolic panel is remarkable slight elevated glucose of 101 otherwise normal. Tox screen was positive presumptively for fentanyl, amphetamines and cannabis. Alcohol was nondetected. Labs: Laboratory Results - last 24 hr 05/18/25 05/18/25 21:32 22:11 Sodium 140 Potassium 4.3 Chloride 107 Carbon Dioxide 21.6 Anion Gap 11 BUN 21 H Creatinine 0.83 Estim Creat Clear Calc 125.82 Est GFR (MDRD) Non-Af 115 BUN/Creatinine Ratio 25.5 H Glucose 101 H Calcium 9.4 Total Bilirubin 0.18 AST 17 ALT 21 Alkaline Phosphatase 69 Total Protein 6.6 Albumin 4.1 Globulin 2.5 Albumin/Globulin Ratio 1.7 Urine Opiates Screen NEGATIVE U Buprenorphine Qual NEGATIVE Ur Oxycodone Screen NEGATIVE Urine Methadone Screen NEGATIVE Urine Fentanyl Screen PRESUMPTIVE POSITIVE Ur Barbiturates Screen NEGATIVE Ur Phencyclidine Scrn NEGATIVE Ur Amphetamines Screen PRESUMPTIVE POSITIVE U Benzodiazepines Scrn NEGATIVE Urine Cocaine Screen NEGATIVE U Cannabinoids Screen PRESUMPTIVE POSITIVE Ethyl Alcohol < 10.1 Management Discussion w/another healthcare provider: Hospitalist (Dr. Blanco was paged for admission to [facility] for detox. Will discuss case and inform of patient's history physical and laboratory results.) Discharge Plan Dx/Rx/DC Orders Clinical Impression: Fentanyl use disorder, mild, abuse, Opiate dependence, Amphetamine use, Cannabis use disorder Disposition Disposition: Acute Care Hospital [facility] What to do if you have Problems For any increased pain, shortness of breath, bleeding, nausea or vomiting, chestpain, or any unexpected problems, contact your Primary Care Provider. Call [facility] ([phone]) or report to the closest Emergency Room. Call 911 if necessary. 05/18/252325 <Electronically signed by Jr Jeffery MD> Cosigner Signature (if applicable): CC: JULITO Hannah ~ Signed [facility] Work Phone: 1(131) 861-662607-11-2025 Evaluation note* Diagnosis Onset Date Resolution Status Admit Date Desire for detoxification acute May 18, 2025 11:24pm Opiate dependence acute May 182024 11:24pm [facility] Work Phone: 1(745) 149-275507-11-2025 Evaluation note* Diagnosis Onset Date Resolution Status Admit Date Opiate dependence acute May 182024 11:24pm Desire for detoxification resolved May 18, 2025 11:24pm Opiate dependence acute er 2024 4:01pm [facility] Work Phone: 1(608) 539-332207-10-2025 History and physical note [facility] Medical Records Department [address] [place] [address] H&P Exam - Hospitalist 05/18/252323 MR#: [id number] Acct: [id number] Name: EULALIO VILLAFANA Rep #:[id number] : 1985 39 From: Adam moore DO PCP: JULITO Hannah Status:REG ER Location: ED HPI - General General Date of Admission: 05/18/25 Date of Service: 05/18/25 Chief Complaint: Opiate detox HPI Narrative EULLAIO VILLAFANA, is a 39 M who presented to [facility] ED on 05/18/2025 for opiate detox. I saw the patient at bedside in the ED. Patient last went through opiate detox here back in March 2023. States he had been doing well until a few months ago when he hurt his shoulder and began usingopiates again. He has been snorting fentanyl and amphetamines now on a regular basis. Last use was this morning. He is reporting some withdrawal symptoms currently. States he tolerated the Subutex taper well last time he was here. He denies anyother pain or discomfort currently. Will be admitted for further management. [facility] Medical History (Updated 05/18/25 @ 23:[address] Jr Jeffery MD) Methamphetamine abuse Opioid abuse Anxiety Diarrhea Nausea & vomiting Acid reflux disease Abdominal pain Home Medications ?Medication ?Instructions ?Recorded ?Last Taken ?Type pantoprazole 40 mg tablet,delayed 40 mg PO DAILY GERD 06/12/21 02/17/23 History release Allergy/AdvReac Type Severity Reaction Status Date / Time sulfamethoxazole (From Allergy Mild Unknown Verified 05/18/25 21:15 Bactrim) trimethoprim (From Bactrim) Allergy Mild Unknown Verified 05/18/25 21:15 Surgical History History of right inguinal hernia repair Status post right knee surgery Social History Smoking Status: Current every day smoker tobacco type: e-cigarettes alcohol intake: current alcohol intake frequency: a few times a week substance use type: does not use ROS Constitutional Constitutional: Reports fatigue; Denies chills, fever(s) or weakness Eyes Eyes: Denies change in vision Cardiovascular Cardiovascular: Denies chest pain Respiratory/Chest Respiratory/Chest: Denies shortness of breath at rest Gastrointestinal Gastrointestinal: Reports nausea; Denies abdominal pain or vomiting Musculoskeletal Musculoskeletal: Reports myalgias; Denies arthralgias Vital Signs Vital Signs Vital Signs: 05/18/25 21:15 Temperature 97 F L Temperature Source Temporal Pulse Rate 75 Respiratory Rate 18 Blood Pressure 120/90 H Blood Pressure Mean 100 Pulse Ox 100 Oxygen Delivery Method Room Air Weight Weight: 80.6 kg Body Mass Index (BMI) 25.4 Physical Exam Const alert, oriented x3, no apparent distress, average body habitus, healthy appearing and well nourished Constitutional Narrative: Young middle-age male, mildly fatigued appearing but otherwise sitting back comfortably in bed, conversing normally, in no acute distress. General Appearance: cooperative, comfortable, well kempt and well developed HEENT normocephalic, head/scalp atraumatic, hearing grossly normal bilaterally, nasal mucous membranes and turbinates normal and moist oral mucous membranes Eyes PERRL, EOMs intact bilaterally and conjunctivae normal Neck full ROM Chest inspection of chest normal Resp normal respiratory effort, normal air movement, no use of accessory muscles and clear to auscultation bilaterally Cardio regular rate, regular rhythm, no murmurs and peripheral pulses 2+ throughout GI normal to inspection, nondistended, normoactive bowel sounds, soft to palpation,non-tender and non-distended Back/Spine normal ROM Extremity normal to inspection, full ROM and no pedal edema Skin no rashes or lesions noted Psych mental status grossly normal Mood & Affect: anxious Results Lab / Micro Data 05/18/25 22:11 Labs: Laboratory Results - last 24 hr 05/18/25 21:32: Urine Opiates Screen NEGATIVE, U Buprenorphine Qual NEGATIVE, UrOxycodone Screen NEGATIVE, Urine Methadone Screen NEGATIVE, Urine Fentanyl Screen PRESUMPTIVE POSITIVE, Ur BarbituratesScreen NEGATIVE, Ur Phencyclidine Scrn NEGATIVE, Ur Amphetamines Screen PRESUMPTIVE POSITIVE, U Benzodiazepines Scrn NEGATIVE, Urine Cocaine Screen NEGATIVE, U Cannabinoids Screen PRESUMPTIVE POSITIVE 05/18/25 22:11: Sodium 140, Potassium 4.3, Chloride 107, Carbon Dioxide 21.6, Anion Gap 11, BUN 21 H, Creatinine 0.83, Estim Creat Clear Calc 125.82, Est GFR (MDRD) Non-Af 115, BUN/Creatinine Ratio 25.5 H, Glucose 101 H, Calcium 9.4, Total Bilirubin 0.18, AST 17, ALT 21, Alkaline Phosphatase 69, Total Protein 6.6, Albumin 4.1, Globulin 2.5, Albumin/Globulin Ratio 1.7, Ethyl Alcohol < 10.1 Assessment & Plan Assessment/Plan (1) Opiate dependence: (2) Desire for detoxification: PLAN: Plan Patient is a 39-year-old male who presented to [facility] ED on 05/18/2025 for opiate detox. 1. Opiate abuse with withdrawal and desire for detox, polysubstance abuse ? Admit under inpatient status to [facility]. Case management consulted. Urine drug screen positive for opiates, fentanyl and amphetamines. Has been snorting fentanyl and amphetamines, last use on morning of admission. Will treat with Subutex taper and other as needed medications per opiate withdrawalorder set. 2. GERD ? Continue home PPI. DVT prophylaxis: Low risk, ambulate CODE STATUS: Full code, unverified Expected disposition: TBD Total clinical time spent by myself addressing the patient's medical issues, reviewing all the data, and collaborating with patient's care team: 55 minutes. Charges/Coding Visit Charges Inpatient E&M: 53252 Init Hosp L2 05/18/25 8078 Cosigner Signature (if applicable): CC: Dr. Adam Blanco, DO; JULITO Hannah~ Signed [facility]07-10-2025 Discharge summary [facility] Medical Records Department [address] [place] [address] Emergency Department Summary 05/18/25 MR#: [id number] Acct: [id number] Name: EULALIO VILLAFANA Rep #:[id number] : 1985 39 From: Jr Jeffery MD PCP: JULITO Hannah Status:REG ER Location: ED HPI History of Present Illness Chief Complaint: Substance Abuse Detail of Chief Complaint: Fentanyl and amphetamine use Informant: patient Onset/Context/Timing Onset: Month(s) Context: Sudden Onset Timing: Continuous Quality: Daily use of fentanyl and amphetamine Location: Snorts Current Severity: Patient has no symptoms of withdrawal presently Worsened by: Not applicable Relieved by: Nothing Associated Symptoms Associated Symptoms: Nausea and diarrhea Narrative Narrative: Patient is a 39-year-old male. He has history of drug dependency. He has been through the [facility] program.He underwent detox he underwent detox March 2023. He was treated at [facility] for fentanyl withdrawal. Today he presents because of using fentanyl and amphetamine for the past several months. He snorts. He last snorted fentanyl and amphetamine this morning. He denies headache. He denies double visionblurred vision loss of vision. Nu[place] trouble with speech or swallowing. He denies paresthesia, anesthesia or motor weakness upper or lower extremity. He does endorse nausea and diarrhea. Prior similar symptoms: Yes Recent Illness/Hospitalization: No PFSH PFS Medical History (Updated 05/18/25 @ 23:[address] Jr Jeffery MD) Methamphetamine abuse Opioid abuse Anxiety Diarrhea Nausea & vomiting Acid reflux disease Abdominal pain Home Medications ?Medication ?Instructions ?Recorded ?Last Taken ?Type pantoprazole 40 mg tablet,delayed 40 mg PO DAILY GERD 06/12/21 02/17/23 History release Allergy/AdvReac Type Severity Reaction Status Date / Time sulfamethoxazole (From Allergy Mild Unknown Verified 05/18/25 21:15 Bactrim) trimethoprim (From Bactrim) Allergy Mild Unknown Verified 05/18/25 21:15 Surgical History History of right inguinal hernia repair Status post right knee surgery Social History Smoking Status: Current every day smoker tobacco type: e-cigarettes alcohol intake: current alcohol intake frequency: a few times a week substance use type: does not use ROS ROS ED Constitutional Constitutional ED: Denies chills, fever(s), subjective, sweats or weight loss Eyes Eyes: Denies blurry vision or change in vision ENT ENT ED: Denies ear pain, rhinorrhea or sore throat Cardiovascular Cardiovascular: Denies chest pain or palpitations Respiratory/Chest Respiratory/Chest: Denies cough, dyspnea or dyspnea on exertion Gastrointestinal Gastrointestinal: Reports abdominal pain, diarrhea and nausea; Denies constipation, melena or vomiting Genitourinary Genitourinary ED: Denies dysuria, hematuria or urinary frequency Musculoskeletal Musculoskeletal: Denies arthralgias, back pain or myalgias Integumentary Denies abscess or rash Neurologic Neurologic: Denies headache(s) or paresthesias Hematologic/Lymphatic Hematologic/Lymphatic: Reports systems reviewed and no addt'l complaints, exceptas documented EXAM Physical Exam Const Vital Signs: 05/18/25 21:15 Temperature 97 F L Temperature Source Temporal Pulse Rate 75 Respiratory Rate 18 Blood Pressure 120/90 H Blood Pressure Mean 100 Pulse Ox 100 Oxygen Delivery Method Room Air Positive well nourished and well developed Constitutional Narrative: Vital signs are unremarkable. General Appearance ED: well developed and NAD; Negative for pallor HEENT Reports moist mucous membranes HEENT Narrative: Head is atraumatic and normocephalic. Ears are normal. Nares are patent. Posterior pharynx is normal. Eyes PERRL and EOMs intact bilaterally General Eye ED: Negative for pale conjunctiva or scleral icterus Neck no lymphadenopathy, supple and no JVD Chest Wall inspection of chest normal Resp normal respiratory effort and clear to auscultation bilaterally Cardio regular rate, regular rhythm, S1 normal heart sound, S2 normal heart sound and no murmurs GI normal to inspection, nondistended, normoactive bowel sounds, non-tender, non- distended and no masses; Negative for hepatosplenomegaly Back/Spine no CVA tenderness Extremity normal to inspection General Extremety ED: Negative for edema General Extremity: Negative for edema Neuro oriented x3 and CN's II-XII intact bilaterally Sensorium / Orientation: alert Psych mental status grossly normal Skin no rashes or lesions noted, no wounds and skin turgor normal General Skin Exam: elasticity normal; Negative for jaundice or pallor MDM MDM MDM Narrative Medical decision making narrative: Patient states he does speedball this morning. He uses fentanyl and amphetamine. He was through detox program. He started using that several months ago. He presents to detox from opiates specificallyfentanyl and amphetamine. He has no history of hepatitis C. He has no history of HIV. Order set forED addiction medicine was initiated. CBC was obtained to assess white count differential as well Alan&H. Comprehensive metabolic panel to assess renal function electrolytes. Talk screen was obtained as well. Lab Data Attestation: I reviewed the patient's lab results. Lab results narrative: Comprehensive metabolic panel is remarkable slight elevated glucose of 101 otherwise normal. Tox screen was positive presumptively for fentanyl, amphetamines and cannabis. Alcohol was nondetected. Labs: Laboratory Results - last 24 hr 05/18/25 05/18/25 21:32 22:11 Sodium 140 Potassium 4.3 Chloride 107 Carbon Dioxide 21.6 Anion Gap 11 BUN 21 H Creatinine 0.83 Estim Creat Clear Calc 125.82 Est GFR (MDRD) Non-Af 115 BUN/Creatinine Ratio 25.5 H Glucose 101 H Calcium 9.4 Total Bilirubin 0.18 AST 17 ALT 21 Alkaline Phosphatase 69 Total Protein 6.6 Albumin 4.1 Globulin 2.5 Albumin/Globulin Ratio 1.7 Urine Opiates Screen NEGATIVE U Buprenorphine Qual NEGATIVE Ur Oxycodone Screen NEGATIVE Urine Methadone Screen NEGATIVE Urine Fentanyl Screen PRESUMPTIVE POSITIVE Ur Barbiturates Screen NEGATIVE Ur Phencyclidine Scrn NEGATIVE Ur Amphetamines Screen PRESUMPTIVE POSITIVE U Benzodiazepines Scrn NEGATIVE Urine Cocaine Screen NEGATIVE U Cannabinoids Screen PRESUMPTIVE POSITIVE Ethyl Alcohol < 10.1 Management Discussion w/another healthcare provider: Hospitalist (Dr. Blanco was paged for admission to [facility] for detox. Will discuss case and inform of patient's history physical and laboratory results.) Discharge Plan Dx/Rx/DC Orders Clinical Impression: Fentanyl use disorder, mild, abuse, Opiate dependence, Amphetamine use, Cannabis use disorder Disposition Disposition: Acute Care Hospital [facility] What to do if you have Problems For any increased pain, shortness of breath, bleeding, nausea or vomiting, chestpain, or any unexpected problems, contact your Primary Care Provider. Call [facility] ([phone]) or report tothe closest Emergency Room. Call 911 if necessary. 05/18/25 5868 Cosigner Signature (if applicable): CC: JULITO Hannah ~ Signed [facility]03-29-2025 Radiology Diagnostic study note [facility] Imaging Services [address] [place] [address] Testicular with Arterial Flow MR#: [id number] Acct: [id number] Name: EULALIO VILLAFANA Rep #: [id number] : 1985 M 39 From: Monica Gagnon MD PCP: JULITO Hannah Status: REG ER Study:Testicular with Arterial Flow Date of E xam: 02/04/25 Exam# [id number] Ordering Dr: Renan Fuentes DO PROCEDURE: TESTICULAR [...] NORMAL SCROTAL ULTRASOUND. Reading Location: [facility] CC: Dr. Renan Fuentes DO; JULITO Hannah ~ Manager Real Estate: Signed [facility]03-29-2025 Radiology Diagnostic study note [facility] Imaging Services [address] [place], [place] [address] Abdomen/Pelvis W IV Cont ONLY MR#: [id number] Acct: [id number] Name: EULALIO VILLAFANA Rep #: [id number] : 1985 M 39 From: Monica Gagnon MD PCP: JULITO Hannah Status: REG ER Study:Abdomen/Pelvis W IV Cont ONLY Date of E xam: 02/04/25 Exam# [id number] Ordering Dr: Keenan Cifuentes PROCEDURE: ABDOMEN/PELVIS W IV CONT ONLY 02/04/2025 [...] of the abdomen and pelvis. Reading Location: [facility] CC: LESLIE Angel; JULITO Hannah ~ Manager Real Estate: Signed [facility]12-13-2023 NoteHNO ID: [id number] Author: Renetta Gonzalez APRN.FINANCIAL ACCOUNTANT Service: ? Author Type: Nurse Practitioner Type: Progress Notes Filed: 10/21/2023 2:06 PM Note Text: Subjective HPI HPI Eulalio Villafana is a 38 year old male who [...] worsen, change Smoking cessation discussed Renetta Gonzalez APRN.[facility]12-13-2023 History of Present illness Narrative* Renetta Gonzalez APRN.[facility] - 10/21/2023 1:46 PM EST Subjective HPI HPI Eulalio Villafana is a 38 year old male who presents today for CC of sinus pressure, cough, left ear popping. This started 3 weeks ago. Has tried otc medication for relief. Symptoms are worsened bynothing. Risk factors smoker. .Patient presents with: Sinus [...] resp. rate 16, weight 98 kg (216 lb),SpO2 97%. Physical Exam Constitutional: General: He is [...] change Smoking cessation discussed Renetta Gonzalez APRN.FINANCIAL ACCOUNTANT [facility] NoteHNO ID: [id number] Author: Renetta Gonzalez APRN.FINANCIAL ACCOUNTANT Service: ? Author Type: Nurse Practitioner Type: Progress Notes Filed: 07/20/2023 1:39 PM Note Text: Subjective HPI HPI Eulalio Villafana is a 38 year old male who [...] s/s. - AMBULATORY EAR LAVAGE/IRRIGATION Renetta Gonzalez APRN.[facility]09-11-2023 History of Present illness Narrative* Renetta Gonzalez APRN.[facility] - 07/20/2023 1:31 PM EDT Subjective HPI HPI Eulalio Villafana is a 38 year old male who [...] resp. rate 21, weight 99.4 kg (219 lb3.2 oz), SpO2 98 %. Physical Exam Constitutional: [...] - AMBULATORY EAR LAVAGE/IRRIGATION Renetta Gonzalez APRN.FINANCIAL ACCOUNTANT [facility] Nurse Note* Kelley Calix MA - 07/20/2023 1:04 PM EDT Ambulatory Ear Lavage Pre-treatment: Warm water Treatment: Left ear Equipment and Irrigation solution and Volume used: Single use syringe with single use irrigation tip Water Return flow appearance: Brown Patient tolerated procedure: yes Tympanic membrane assessment: Tympanic membrane assessed by LIP pre and post procedure Renetta Gonzalez APRN.FINANCIAL ACCOUNTANT [facility] Jeffery [facility] February 17, 2023 2:25pm Note Date/Time February 17, 2023 2:0 1pm [facility] Medical Records Department [address] [place] [address] [place] [address] Emergency Department Summary 02/17/23 MR#: [id number] Acct: [id number] Name: EULALIO VILLAFANA Rep #:[id number] : 1985 37 From: Keenan NELSON PCP: [...] Patient is currently on a anticoagulation medicine. [facility] <LESLIE Mancera - Last Filed: 02/17/23 14:20> [facility] Medical History (Updated 02/17/23 @ 14:25 [...] well developed General Appearance ED: well developed [facility] <LESLIE Mancera - Last Filed: 02/17/23 14:20> [facility] Treatment and Re-Evaluation Narrative: All radiologic [...] - Last Filed: 02/17/23 14:25> [facility] Narrative Medical decision making narrative: I have [...] ice and elevate. Take anti- inflammatories as needed. Disposition Disposition: Home, Self Care What to do if you have Problems For any increased pain, shortness of breath, bleeding, nausea or vomiting, chestpain, or any unexpected problems, contact your Primary Care Provider. Call [facility] ([phone]) or report to the closest Emergency Room. Call 911 if necessary. 02/17/23 1420 <Electronically signed by Keenan NELSON> Cosigner Signature (if applicable): 02/17/23 1425 <Electronically signed by Jade SANDERS> CC: JULITO Isaac ~ Signed [facility] Work Phone: Discharge summary Author Dr. Nunez [facility] February 19, 2023 12:58am Note Date/Time February 19, 2023 12: 58am [facility] Medical Records Department [address] [place] [address] Emergency Department Summary 02/19/23 MR#: [id number] Acct: [id number] Name: EULALIO VILLAFANA Rep #:[id number] : 1985 37 From: Gabriele Nunez DO [...] anything else that would cause an erection. [facility] Medical History Abdominal pain Acid reflux disease [...] your Primary Care Provider. Call [facility] ([phone]) or report to the closest Emergency Room. Call 911 if necessary. 02/19/23 0058 <Electronically signed by Gabriele Nunez DO> Cosigner Signature (if applicable): CC: JULITO Isaac ~ Signed [facility] Work Phone: Evaluation noteNo assessment information available [facility] Work Phone: Evaluation note* Diagnosis Impacted cerumen of left ear- Primary Impacted cerumen documented in this encounter [facility] note* Diagnosis Sinobronchitis- Primary Unspecified sinusitis (chronic) Dysfunction of left eustachian tube Dysfunction of Eustachian tube documented in this encounter [facility] note* Diagnosis Onset Date Resolution Status Admit Date Desire for detoxification acute May 18, 2025 11:24pm Opiate dependence acute May 182024 11:24pm [facility] Work Phone: Evaluation note* Diagnosis Fentanyl dependence (HCC)- Primary Fentanyl dependence (HCC) Fentanyl use disorder, severe (HCC) Acute opioid withdrawal (HCC) Acute opioid withdrawal (HCC) [facility] Note Date/Time May 18, 2025 11:3 7pm [facility] Medical Records Department [address] [place] [address] H&P Exam - Hospitalist 05/18/25 2324 MR#: [id number] Acct: [id number] Name: EULALIO VILLAFANA Rep #:[id number] : 1985 39 From: Adam moore DO PCP: JULITO Hannah Status:REG ER Location: ED HPI - General General Date of Admission: 05/18/25 Date of Service: 05/18/25 Chief Complaint: Opiate detox HPI Narrative EULALIO VILLAFANA, is a 39 M who presented to [facility] ED on 05/18/2025 for opiate detox. I saw the patient at bedside in the ED. Patient last went through opiate detox here back in March 2023. States he had been doing well until a few months ago when he hurt his shoulder and began using opiates again. He has been snorting fentanyl and amphetamines now on a regular basis. Last use was this morning. He is reporting some withdrawal symptoms currently. States he tolerated the Subutex taper well last time he was here. He denies anyother pain or discomfort currently. Will be admitted for further management. [facility] Medical History (Updated 05/18/25 @ 23:[address] Jr Jeffery MD) Methamphetamine abuse Opioid abuse Anxiety Diarrhea Nausea & vomiting Acid reflux disease Abdominal pain Home Medications ?Medication ?Instructions ?Recorded ?Last Taken ?Type pantoprazole 40 mg tablet,delayed 40 mg PO DAILY GERD 06/12/21 02/17/23 History release Allergy/AdvReac Type Severity Reaction Status Date / Time sulfamethoxazole (From Allergy Mild Unknown Verified 05/18/25 21:15 Bactrim) trimethoprim (From Bactrim) Allergy Mild Unknown Verified 05/18/25 21:15 Surgical History History of right inguinal hernia repair Status post right knee surgery Social History Smoking Status: Current every day smoker tobacco type: e-cigarettes alcohol intake: current alcohol intake frequency: a few times a week substance use type: does not use ROS Constitutional Constitutional: Reports fatigue; Denies chills, fever(s) or weakness Eyes Eyes: Denies change in vision Cardiovascular Cardiovascular: Denies chest pain Respiratory/Chest Respiratory/Chest: Denies shortness of breath at rest Gastrointestinal Gastrointestinal: Reports nausea; Denies abdominal pain or vomiting Musculoskeletal Musculoskeletal: Reports myalgias; Denies arthralgias Vital Signs Vital Signs Vital Signs: 05/18/25 21:15 Temperature 97 F L Temperature Source Temporal Pulse Rate 75 Respiratory Rate 18 Blood Pressure 120/90 H Blood Pressure Mean 100 Pulse Ox 100 Oxygen Delivery Method Room Air Weight Weight: 80.6 kg Body Mass Index (BMI) 25.4 Physical Exam Const alert, oriented x3, no apparent distress, average body habitus, healthy appearing and well nourished Constitutional Narrative: Young middle-age male, mildly fatigued appearing but otherwise sitting back comfortably in bed, conversing normally, in no acute distress. General Appearance: cooperative, comfortable, well kempt and well developed HEENT normocephalic, head/scalp atraumatic, hearing grossly normal bilaterally, nasal mucous membranes and turbinates normal and moist oral mucous membranes Eyes PERRL, EOMs intact bilaterally and conjunctivae normal Neck full ROM Chest inspection of chest normal Resp normal respiratory effort, normal air movement, no use of accessory muscles and clear to auscultation bilaterally Cardio regular rate, regular rhythm, no murmurs and peripheral pulses 2+ throughout GI normal to inspection, nondistended, normoactive bowel sounds, soft to palpation,non-tender and non-distended Back/Spine normal ROM Extremity normal to inspection, full ROM and no pedal edema Skin no rashes or lesions noted Psych mental status grossly normal Mood & Affect: anxious Results Lab / Micro Data 05/18/25 22:11 Labs: Laboratory Results - last 24 hr 05/18/25 21:32: Urine Opiates Screen NEGATIVE, U Buprenorphine Qual NEGATIVE, UrOxycodone Screen NEGATIVE, Urine Methadone Screen NEGATIVE, Urine Fentanyl Screen PRESUMPTIVE POSITIVE, Ur Barbiturates Screen NEGATIVE, Ur Phencyclidine Scrn NEGATIVE, Ur Amphetamines Screen PRESUMPTIVE POSITIVE, U Benzodiazepines Scrn NEGATIVE, Urine Cocaine Screen NEGATIVE, U Cannabinoids Screen PRESUMPTIVE POSITIVE 05/18/25 22:11: Sodium 140, Potassium 4.3, Chloride 107, Carbon Dioxide 21.6, Anion Gap 11, BUN 21 H, Creatinine 0.83, Estim Creat Clear Calc 125.82, Est GFR (MDRD) Non-Af 115, BUN/Creatinine Ratio 25.5 H, Glucose 101 H, Calcium 9.4, Total Bilirubin 0.18, AST 17, ALT 21, Alkaline Phosphatase 69, Total Protein 6.6, Albumin 4.1, Globulin 2.5, Albumin/Globulin Ratio 1.7, Ethyl Alcohol < 10.1 Assessment & Plan Assessment/Plan (1) Opiate dependence: (2) Desire for detoxification: PLAN: Plan Patient is a 39-year-old male who presented to [facility] ED on 05/18/2025 for opiate detox. 1. Opiate abuse with withdrawal and desire for detox, polysubstance abuse ? Admit under inpatient status to [facility]. Case management consulted. Urine drug screen positive for opiates, fentanyl and amphetamines. Has been snorting fentanyl and amphetamines, last use on morning of admission. Will treat with Subutex taper and other as needed medications per opiate withdrawal order set. 2. GERD ? Continue home PPI. DVT prophylaxis: Low risk, ambulate CODE STATUS: Full code, unverified Expected disposition: TBD Total clinical time spent by myself addressing the patient's medical issues, reviewing all the data, and collaborating with patient's care team: 55 minutes. Charges/Coding Visit Charges Inpatient E&M: 91228 Init Hosp L2 05/18/25 2337 <Electronically signed by Adam Blanco DO> Cosigner Signature (if applicable): CC: Dr. Adam Blanco DO; JULITO Hannah~ Signed [facility] Work Phone: History and physical note Author Claudette Vilal [facility] Note Date/Time July 13, 2025 4:08pm [facility] Medical Records Department [address] [place] [address] H&P Exam - Hospitalist 07/13/25 1601 MR#: [id number] Acct: [id number] Name: EULALIO VILLAFANA Rep #:[id number] : 1985 40 From: Claudette Villa MD PCP: JULITO Hannah Status:[facility]M [facility] - General General Date of Admission: 07/13/25 Date of Service: 07/13/25 Chief Complaint: Opioid detox HPI Narrative EULALIO VILLAFANA, is a 40 M with a history of tobacco use, fentanyl use, amphetamine use, GERD presented [facility] ED 08/03 requesting detox from fentanyl. Patient snorts fentanyl with last use yesterday at 10 AM, uses about half a gram a day. Used meth yesterday try to help to detox but reports it did not help, today he feels he is withdrawing and feels unwell so hecame to the ED. In the ED BP 141/78, respiratory rate 16 pulse ox 100% on room air, patient afebrile. Hemoglobin white blood cell count and platelets within normal limits, kidney function within normal limits, UDS positive for amphetamines, benzos, cannabinoids. Hospitalist contacted for admission. Patient evaluated at bedside, reports history as above. Presently having bodyaches, headache, lacrimation, nasal congestion, sweats and chills with abdominal pain and diarrhea. [facility] Medical History (Updated 07/13/25 @ 15:[address] Ishan Mckay DO) Abdominal pain Acid reflux disease Anxiety Diarrhea Methamphetamine abuse Nausea & vomiting Opioid abuse Home Medications ?Medication ?Instructions ?Recorded ?Last Taken ?Type omeprazole 20 mg capsule,delayed 20 mg PO DAILY Unknown History release Allergy/AdvReac Type Severity Reaction Status Date / Time sulfamethoxazole (From Allergy Mild Unknown Verified 07/13/25 13:26 Bactrim) trimethoprim (From Bactrim) Allergy Mild Unknown Verified 07/13/25 13:26 Surgical History History of right inguinal hernia repair Status post right knee surgery Social History Smoking Status: Current every day smoker tobacco type: e-cigarettes alcohol intake: current alcohol intake frequency: a few times a week substance use type: does not use ROS ROS Narrative General: Denies fever, some chills and sweats HENT: Does have a headache and stuffy nose denies sore throat EYES: Denies changes in vision Resp: Denies cough, denies shortness of breath Cardiac: Denies chest pain GI: Some abdominal upset with diarrhea : Denies changes in urination Extremity: Denies swelling MSK: Denies weakness, has diffuse body aches Neuro: Denies any numbness/tingling Heme: Denies any bleeding or bruising Skin: Denies rashes Psychiatric: No complaints voiced, just feels unwell Vital Signs Vital Signs Vital Signs: 07/13/25 13:25 07/13/25 15:25 07/13/25 15:32 Temperature 97.8 F 97.8 F Temperature Source Oral Pulse Rate 78 75 75 Respiratory Rate 16 16 16 Blood Pressure 136/76 H 141/78 H 141/78 H Blood Pressure Mean 96 99 99 Pulse Ox 100 100 100 Oxygen Delivery Method Room Air Room Air Weight Weight: 80.331 kg Body Mass Index (BMI) 25.4 Physical Exam Narrative General: Alert, oriented, appears uncomfortable HEENT: Atraumatic, normocephalic Eyes: Anicteric, normal conjunctiva, extraocular movements grossly intact Neck: Supple Respiratory: Clear to auscultation bilaterally, normal respiratory effort Cardiovascular: Regular rate and rhythm GI: Soft, nontender, nondistended Extremities: No edema, does have visible goosebumps Musculoskeletal: Moving all extremities Neuro: No overt focal neurological deficits Skin: No rashes appreciated Psych: Cooperative Results Lab / Micro Data 07/13/25 14:08 07/13/25 14:08 Labs: Laboratory Results - last 24 hr 07/13/25 14:08: WBC 9.6, RBC 5.35, Hgb 15.3, Hct 44.9, MCV 83.9, MCH 28.6, MCHC 34.1, RDW Std Deviation 43.0, RDW Coeff of Giana 14.0, Plt Count 374, MPV 10.1, Immature Gran % (Auto) 0.200, Neut % (Auto) 76.0 H, Lymph % (Auto) 16.9 L, [place] % (Auto) 6.4, Eos % (Auto) 0.2, Baso % (Auto) 0.3, Absolute Neuts (auto) 7.3, Absolute Lymphs (auto) 1.63, Nucleated RBC % 0, Sodium 138, Potassium 4.2, Chloride 106, Carbon Dioxide 18.9 L, Anion Gap 14, BUN 13, Creatinine 0.86, Estim Creat Clear Calc 120.25, Est GFR (MDRD) Non-Af 114, BUN/Creatinine Ratio 15.1, Glucose 93, Calcium 9.7, Urine Opiates Screen NEGATIVE, U Buprenorphine Qual NEGATIVE, Ur Oxycodone Screen NEGATIVE, Urine Methadone Screen NEGATIVE, Urine Fentanyl Screen PRESUMPTIVE POSITIVE, Ur Barbiturates Screen NEGATIVE, Ur Phencyclidine Scrn NEGATIVE, Ur Amphetamines Screen PRESUMPTIVE POSITIVE, U Benzodiazepines Scrn NEGATIVE, Urine Cocaine Screen NEGATIVE, U Cannabinoids Screen PRESUMPTIVE POSITIVE, Ethyl Alcohol < 10.1 Assessment & Plan Assessment/Plan (1) Opiate dependence: PLAN: Plan #Acute opiate withdrawal - Subutex taper initiated - As needed Tylenol, ibuprofen, bowel regimen, gabapentin, Bentyl, Vistaril, methocarbamol, clonidine - As needed trazodone nightly - As needed antiemetics -Once patient begins to clinically improve will discuss further discharge planning # Amphetamine use - Advise cessation #Tobacco use -Advise cessation -Nicotine replacement available if desired #GERD -Continue PPI #DVT ppx: Low risk, ambulatory Claudette Villa MD Charges/Coding Visit Charges Inpatient E&M: 23138 Init Hosp L1 07/13/25 1190 <Electronically signed by Caludette Villa MD> Cosigner Signature (if applicable): CC: Dr. Claudette Villa MD; JULITO Hannah~ Signed [facility] Work Phone: Hospital Discharge instructions Additional Instructions Use the thumb spica as needed. Ensure to ice and elevate. Take anti- inflammatories as needed.[facility] Work Phone: Hospital Discharge instructions Additional Instructions Please take the antibiotics until finished.[facility] Work Phone: Hospital Discharge instructionsAdditional Instructions [facility]: [facility] Reason for referral (narrative)No reason for referral information availableWCommunity [facility] Work Phone: Summary Purpose Family History No Family History Records FoundNo Family History Records FoundNo Family History Records FoundNo Family History Records FoundNo Family History Records FoundNo Family History Records Found Advance Directives Advance Directive Response Recorded Date/ Time Living Will No June 02, 2022 8:53pm Power of Network Engineer Administrator No June 02 8:53pm Advance Directive Response Recorded Date/ Time Living Will No February 17, 2023 2:24pm Power of Network Engineer Administrator No February 17 2:24pm Advance Directive Response Recorded Date/ Time Living Will No February 18, 2023 11:36pm Power of Network Engineer Administrator No February 18 11:36pm Advance Directive Response Recorded Date/ Time Living Will No February 04, 2025 6:34pm Do you have a Healthcare Power of Network Engineer Administrator? No February 04, 2025 6:34pm Advance Directive Response Recorded Date/ Time Living Will No February 04, 2025 6:34pm Do you have a Healthcare Power of Network Engineer Administrator? No February 04, 2025 6:34pm Do you have a Healthcare Power of Network Engineer Administrator? No May 18, 2025 9:37pm Advance Directive Response Recorded Date/ Time Living Will No February 04, 2025 6:34pm Do you have a Healthcare Power of Network Engineer Administrator? No February 04, 2025 6:34pm Do you have a Healthcare Power of Network Engineer Administrator? No May 19, 2025 12:52am Date Activated Date Inactivated Comments 07/11/2025 6:39 PM 07/11/2025 10:26 PM Advance Directive Response Recorded Date/ Time Do you have a Healthcare Power of Network Engineer Administrator? No July 13, 2025 2:01pm Do you have a Healthcare Power of Network Engineer Administrator? No May 19, 2025 12:52am Assessments Diagnosis Suspected COVID-19 virus infection- Primary Chief Complaint and Reason for Visit Chief Complaint RIGHT GREAT TOE/FOOT INJURY Chief Complaint RIGHT ARM INJURY Chief Complaint RIGHT ARM INJURY ERECTION PROBLEMS Chief Complaint Admit Date RIGHT GROIN PAIN February 04, 2025 6:2 5pm Chief Complaint Admit Date RIGHT GROIN PAIN February 04, 2025 6:2 5pm OPIATE DETOX May 18, 2025 11:2 4pm Reason for Visit Admit Date Desire for detoxification May 18 11:24pm Opiate dependence May 18, 2025 11:2 4pm Chief Complaint Admit Date RIGHT GROIN PAIN February 04, 2025 6:2 5pm OPIATE DETOX May 18, 2025 11:2 4pm OPIATE DETOX May 19, 2025 7:04 am OPIATE DETOX May 20, 2025 7:14 am OPIATE DETOX May 21, 2025 7:11 am OPIATE DETOX May 22, 2025 8:35 am Chief Complaint Admit Date OPIATE DETOX May 18, 2025 11:2 4pm OPIATE DETOX May 19, 2025 7:04 am OPIATE DETOX May 20, 2025 7:14 am OPIATE DETOX May 21, 2025 7:11 am OPIATE DETOX May 22, 2025 8:35 am DETOX FROM FENTANYL July 13, 2025 4:01pm Reason for Visit Admit Date Opiate dependence May 18, 2025 11:2 4pm Desire for detoxification May 18 11:24pm Opiate dependence July 13, 2025 4:01pm Additional Source Comments (unrecognized sect ion and content) No Status Records FoundNo Status Records FoundNo Status Records FoundNo Status Records FoundNo Status Records FoundNo Status Records Found INFORMATION SOURCE (unrecogn ized section and content) DATE CREATED AUTHOR [facility]/28/2018 [facility] DATE CREATED AUTHOR AUTHOR'S ORGANIZ ATION 09/14/2019 [facility] ([place]) DATE CREATED AUTHOR AUTHOR'S ORGANIZ ATION 06/20/2020 [facility] DATE CREATED AUTHOR AUTHOR'S ORGANIZ ATION 10/24/2023 [facility] DATE CREATED AUTHOR AUTHOR'S ORGANIZ ATION 06/10/2025 [facility] DATE CREATED AUTHOR AUTHOR'S ORGANIZ ATION 07/13/2025 [facility] Source Comments (unrecognize d section and content) In the event this informatio n is protected by the Federal Confidentiality of Alcohol and Drug Abuse Patient Records regulations: The Federal rules restrict any use of the information to criminally investigate or prosecute any alcohol or drug abuse patient.[facility] the event this information is protected by the Federal Confidentiality of Alcohol and Drug Abuse Patient Records regulations: The Federal rules restrict any use of the information to criminally investigate or prosecute any alcohol or drug abuse patient.[facility] Hospital[facility] the event this information is protected by the Federal Confidentiality of Alcohol and Drug Abuse Patient Records regulations: The Federal rules restrict any use of the information to criminally investigate or prosecute any alcohol or drug abuse patient.[facility] Reason for Visit (unrecogniz ed section and content) Reason Comments [facility] COVID Outreach Reason Comments Earwax Left ear build up Reason Comments Sinus Problem sinus pressure, drai nage, ear pressure and cough x 3 weeks Reason Comments Addiction Problem Telephone Encounter - Natty Castro (Picture Framer), AUTOMOBILE GLASS TECHNICIAN.FINANCIAL ACCOUNTANT - 02/14/2021 2:05 PM EDT Miscellaneous Notes [...] from the CDC regarding isolation precautions: Kenan Canas MD has been cc'd to receive Eulalio's [...] clean your hands with an alcohol-based hand housekeeping and laundry team leader that contains at least 60% alcohol. Wash your hands often with soap and water for at least 20 seconds, especially after blowing your nose, coughing, or sneezing; going to the bathroom; and before eating or preparing food. If soap and water are not readily available, use an alcohol- based hand housekeeping and laundry team leader with at least 60% alcohol, covering all [...] isolation precautions should be made on a [id number] basis, in consultation with healthcare providers and [...] 20 seconds or use an alcohol-based hand housekeeping and laundry team leader that contains 60 to 95% alcohol, covering [...] with soap and water or alcohol-based hand housekeeping and laundry team leader. Next, remove and dispose of facemask, and immediately clean your hands again with soap and water or alcohol-based hand housekeeping and laundry team leader. Avoid sharing household items with the patient. [...] soap and water or an alcohol-based hand housekeeping and laundry team leader) immediately after removing your gloves. o Read [...] soap and water or an alcohol-based hand housekeeping and laundry team leader) immediately after handling these items. Soap and [...] Dr. Gabriele Nunez DO Emergency Provider Active Mail Sorter And Delivery Relationship Specialty Start Date End Date Kenan Canas [address] [place] [address] PCP - General 11/27/03 Mail Sorter And Delivery Relationship Specialty Start Date End Date Kenan Canas [address] [place] [address] PCP - General 11/27/03 Team Status: Active Member Role Status Dates JULITO Martinez Primary Care Provider Active Team Status: Inactive Member Role Status Dates Natty Isaac PA, PA Primary Care Provider Active Start: February 04, 2025 End: February 04, 2025 Dr. Renan Fuentes DO Emergency Provider Active Start : February 04, 2025 End: February 04, 2025 Team Status: Active Member Role/Relationship Status Dates Natty Isaac PA, PA Primary Care Provider Active Team Status: Inactive Member Role/Relationship Status Dates Natty Isaac PA, PA Primary Care Provider Active Start: February 04, 2025 End: February 04, 2025 Dr. Renan Fuentes DO Attending Provider Active Start : February 04, 2025 End: February 04, 2025 Dr. Renan Fuentes DO Emergency Provider Active Start : February 04, 2025 End: February 04, 2025 Team Status: Active Member Role/Relationship Status Dates Natty Isaac PA, PA Primary Care Provider Active Start: May 18, 2025 Dr. Jr Jeffery MD Emergency Provider Active Sta rt: May 18, 2025 Dr. Adam Blanco DO Admit Provider Active Start: May 18, 2025 Dr. Adam Blanco DO Attending Provider Active Start: May 18, 2025 Dr. Adam Blanco DO Other Provider Active Start: May 18, 2025 Team Status: Inactive Member Role/Relationship Status Dates Natty Isaac PA, PA Primary Care Provider Active Start: May 18, 2025 End: May 22, 2025 Dr. Jr Jeffery MD Emergency Provider Active Sta rt: May 18, 2025 End: May 22, 2025 Dr. Adam Blanco DO Admit Provider Active Start: May 18, 2025 End: May 22, 2025 Dr. Adam Blanco DO Other Provider Active Start: May 18, 2025 End: May 22, 2025 Dr. Caty Neville MD Attending Provider Active Start: May 18, 2025 End: May 22, 2025 Dr. Elaine Stout MD Other Provider Active St art: May 18, 2025 End: May 22, 2025 Team Status: Active Member Role/Relationship Status Dates Natty Isaac PA, PA Primary Care Provider Active Start: May 19, 2025 Dr. Jr Jeffery MD Emergency Provider Active Sta rt: May 19, 2025 Dr. Adam Blanco DO Admit Provider Active Start: May 19, 2025 Dr. Adam Blanco DO Other Provider Active Start: May 19, 2025 Dr. Elaine Stout MD Attending Provider Active Start: May 19, 2025 Dr. Elaine Stout MD Other Provider Active St art: May 19, 2025 Team Status: Active Member Role/Relationship Status Dates Natty VILA PA Primary Care Provider Active Start: May 20, 2025 Dr. Jr Jeffery MD Emergency Provider Active Sta rt: May 20, 2025 Dr. Adam Blanco DO Admit Provider Active Start: May 20, 2025 Dr. Adam Blanco DO Other Provider Active Start: May 20, 2025 Dr. Elaine Stout MD Attending Provider Active Start: May 20, 2025 Dr. Elaine Stout MD Other Provider Active St art: May 20, 2025 Team Status: Active Member Role/Relationship Status Dates Natty VILA PA Primary Care Provider Active Start: May 21, 2025 Dr. Jr Jeffery MD Emergency Provider Active Sta rt: May 21, 2025 Dr. Adam Blanco DO Admit Provider Active Start: May 21, 2025 Dr. Adam Blanco DO Other Provider Active Start: May 21, 2025 Dr. Elaine Stout MD Attending Provider Active Start: May 21, 2025 Dr. Elaine Stout MD Other Provider Active St art: May 21, 2025 Team Status: Active Member Role/Relationship Status Dates Natty VILA PA Primary Care Provider Active Start: May 22, 2025 Dr. Jr Jeffery MD Emergency Provider Active Sta rt: May 22, 2025 Dr. Adam Blanco DO Admit Provider Active Start: May 22, 2025 Dr. Adam Blanco DO Other Provider Active Start: May 22, 2025 Dr. Caty Neville MD Attending Provider Active Start: May 22, 2025 Dr. Caty Neville MD Other Provider Active Star t: May 22, 2025 Dr. Elaine Stout MD Other Provider Active St art: May 22, 2025 Team Status: Inactive Member Role/Relationship Status Dates JULITO Martinez Primary Care Provider Active Start: May 18, 2025 End: May 22, 2025 Dr. Jr Jeffery MD Emergency Provider Active Sta rt: May 18, 2025 End: May 22, 2025 Dr. Adam Blanco DO Admit Provider Active Start: May 18, 2025 End: May 22, 2025 Dr. Adam Blanco DO Other Provider Active Start: May 18, 2025 End: May 22, 2025 Dr. Caty Neville MD Attending Provider Active Start: May 18, 2025 End: May 22, 2025 Dr. Elaine Stout MD Other Provider Active St art: May 18, 2025 End: May 22, 2025 Team Status: Active Member Role/Relationship Status Dates JULITO Martinez Primary Care Provider Active Start: May 19, 2025 Dr. Jr Jeffery MD Emergency Provider Active Sta rt: May 19, 2025 Dr. Adam Blanco DO Admit Provider Active Start: May 19, 2025 Dr. Adam Blanco DO Other Provider Active Start: May 19, 2025 Dr. Elaine Stout MD Attending Provider Active Start: May 19, 2025 Dr. Elaine Stout MD Other Provider Active St art: May 19, 2025 Team Status: Active Member Role/Relationship Status Dates JULITO Martinez Primary Care Provider Active Start: May 20, 2025 Dr. Jr Jeffery MD Emergency Provider Active Sta rt: May 20, 2025 Dr. Adam Blanco DO Admit Provider Active Start: May 20, 2025 Dr. Adam Blanco DO Other Provider Active Start: May 20, 2025 Dr. Elaine Stout MD Attending Provider Active Start: May 20, 2025 Dr. Elaine Stout MD Other Provider Active St art: May 20, 2025 Team Status: Active Member Role/Relationship Status Dates JULITO Martinez Primary Care Provider Active Start: May 21, 2025 Dr. Jr Jeffery MD Emergency Provider Active Sta rt: May 21, 2025 Dr. Adam Blanco DO Admit Provider Active Start: May 21, 2025 Dr. Adam Blanco DO Other Provider Active Start: May 21, 2025 Dr. Elaine Stout MD Attending Provider Active Start: May 21, 2025 Dr. Elaine Stout MD Other Provider Active St art: May 21, 2025 Team Status: Active Member Role/Relationship Status Dates JULITO Martinez Primary Care Provider Active Start: May 22, 2025 Dr. Jr Jeffery MD Emergency Provider Active Sta rt: May 22, 2025 Dr. Adam Blanco DO Admit Provider Active Start: May 22, 2025 Dr. Adam Blanco DO Other Provider Active Start: May 22, 2025 Dr. Caty Neville MD Attending Provider Active Start: May 22, 2025 Dr. Caty Neville MD Other Provider Active Star t: May 22, 2025 Dr. Elaine Stout MD Other Provider Active St art: May 22, 2025 Team Status: Active Member Role/Relationship Status Dates Natty VILA PA Primary Care Provider Active Start: July 13, 2025 Dr. Ishan Mckay DO Emergency Provider Active Start: July 13, 2025 Dr. Claudette Villa MD Admit Provider Active Star t: July 13, 2025 Dr. Claudette Villa MD Attending Provider Active Start: July 13, 2025 Dr. Claudette Villa MD Other Provider Active Star t: July 13, 2025 Scheduled Active and Recently Administ ered Medications (unrecognized section and content) Medication Order 07/09/2025 07/10/2025 07/11/2025 baclofen (Lioresal) tablet 10 mg 10 mg, Oral, Every 8 hours, First dose on Thu07/11/25 at 1840 1840 (Canceled Entry - Provider: Automatic Discharge Provider - Comment: Automatically canceled at discontinue of medication order) cloNIDine (Catapres) tablet 0.1 mg 0.1 mg, Oral, Every 8 hours, First dose on Thu07/11/25 at 1840, HOLD if SBP < 100 or DBP < 60 or HR < 50 1839 (Canceled Entry - Provider: Automatic Discharge Provider - Comment: Automatically canceled at discontinue of medication order) traMADol (Ultram) tablet 100 mg(Linked Group 1) 100 mg, Oral, Every 4 hours, First dose on Thu07/11/25 at 1840, For 6 doses 1840 (Canceled Entry - Provider: Automatic Discharge Provider - Comment: Automatically canceled at discontinue of medication order) traMADol (Ultram) tablet 100 mg(Linked Group 1) 100 mg, Oral, Every 6 hours, First dose on Thu07/12/25 at 1840, For 4 doses traMADol (Ultram) tablet 100 mg(Linked Group 1) 100 mg, Oral, Every 8 hours, First dose on Lary 07/13/25 at 1840, For 3 doses PRN Medication Order 07/09/2025 07/10/2025 07/11/2025 acetaminophen (Tylenol) tablet 650 mg 650 mg, Oral, Every 6 hours PRN, mild pain (1-3), moderate pain (4-6), headaches, fever, severe pain (7-10), Starting on Thu07/11/25 at 1838 aluminum & magnesium hydroxide-simethicone (Mylanta) 200-200-20 MG/5ML oral suspension 10 mL 10 mL, Oral, 3 times daily PRN, indigestion, Starting on Thu07/11/25 at 1838 dicyclomine (Bentyl) capsule 20 mg 20 mg, Oral, 3 times daily PRN, abdominal cramps, Starting on Thu07/11/25 at 1838 hydrOXYzine pamoate (Vistaril) capsule 50 mg 50 mg, Oral, Every 6 hours PRN, anxiety, allergies, Starting on Thu07/11/25 at 1838 ketorolac (Toradol) injection 30 mg 30 mg, IntraMUSCular, Once PRN, moderate pain (4-6), mild pain (1-3), Starting on Thu07/11/25 at 1438, For 1 dose magnesium hydroxide (Milk of Magnesia) 400 MG/5ML suspension 30 mL 30 mL, Oral, 2 times daily PRN, constipation, Starting on Thu07/11/25 at 1838 ondansetron ODT (Zofran-ODT) disintegrating tablet 4 mg 4 mg, Oral, Once PRN, nausea, vomiting, Starting on Thu07/11/25 at 1438, For 1 dose ondansetron ODT (Zofran-ODT) disintegrating tablet 4 mg 4 mg, Oral, Every 8 hours PRN, nausea, vomiting, Starting on Thu07/11/25 at 1838 traZODone (Desyrel) tablet 100 mg 100 mg, Oral, Nightly PRN, sleep, Starting on Thu07/11/25 at 1838 Linked Groups Order Group 1: traMADol (Ultram) tablet 100 mgJump to med 100 mg, Oral, Every 4 hours, First dose on Thu07/11/25 at 1840, For 6 doses Followed by traMADol (Ultram) tablet 100 mgJump to med 100 mg, Oral, Every 6 hours, First dose on 07/12/25 at 1840, For 4 doses Followed by traMADol (Ultram) tablet 100 mgJump to med 100 mg, Oral, Every 8 hours, First dose on Lary 07/13/25 at 1840, For 3 doses FOR RECORDS PERTAINING TO PATIENTS WHO ARE [...] BE BASED ON THE PRIMARY CLINICAL RECORDS. [facility] [facility]. provides no warranty or guarantee of the accuracy or completeness of information in this document.
[2025-07-14 02:36] VITALS: BP 112/73; PULSE 55; RESP 16; TEMP 36.6; O2SAT 99
[2025-07-14 09:00] VITALS: BP 108/68; PULSE 64; RESP 16; TEMP 36.5; O2SAT 99
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
[2025-07-14] MEDS: hydrOXYzine PAM 25 MG Capsule 50 MG PO (10:36)
[2025-07-14] MEDS: MENTHOL 226.8 GM JAR 1 APPLIC TOPICAL ×2 (10:39→15:35)
--- NOTE | 2025-07-14 10:46 | ADDICTION ---
This poem writer met with PT to conduct ASAM, MSE, DUDIT assessments and to plan for d/c. PT A+Ox4 and participated actively. All assessments completed. Pt reports he relapsed due to shoulder pain. Clinician spoke with him about readiness and relapse justifications. Pt appears to be minimizing his role in his own addiction. PT plans to f[facility]u with [facility] for inpatient treatment services, pending Medicaid approval. He may need to discharge prior to admission at [facility]. He has their number as well as the number for medicaid numbers to call and check on the status post d/c.
--- NOTE | 2025-07-14 14:34 | PCM.PN.HOSP ---
Reason for Visit Chief Complaint: Opioid detox Subjective Subjective Patient was seen and examined today, I talked briefly with addiction licensed clinical social worker about his care, he has been in the program here before for detox and at one time checked himself out AMA. Patient told me today he would like to do an inpatient detox program when he is released from the hospital this time. Patient does not appear nervous or anxious, he voices some complaints of shoulder discomfort that is chronic in nature, I have written for analgesic cream for the patient. Objective Data Objective Data Vital Signs: Vital Signs Temp Pulse Resp BP Pulse Ox O2 Del Method 97.7 F L 64 16 108/68 99 Room Air 07/14/25 09:00 07/14/25 09:00 07/14/25 09:00 07/14/25 09:00 07/14/25 09:00 07/14/25 09:00 Oxygen Delivery Method Room Air Weight: 80.331 kg Body Mass Index (BMI) 25.4 Lab / Micro Data 07/13/25 14:08 07/13/25 14:08 Labs: Laboratory Results - last 24 hr 07/13/25 14:08: Sodium 138, Potassium 4.2, Chloride 106, Carbon Dioxide 18.9 L, Anion Gap 14, BUN 13, Creatinine 0.86, Estim Creat Clear Calc 120.25, Est GFR (MDRD) Non-Af 114, BUN/Creatinine Ratio 15.1, Glucose 93, Calcium 9.7, Urine Opiates Screen NEGATIVE, U Buprenorphine Qual NEGATIVE, Ur Oxycodone Screen NEGATIVE, Urine Methadone Screen NEGATIVE, Urine Fentanyl Screen PRESUMPTIVE POSITIVE, Ur Barbiturates Screen NEGATIVE, Ur Phencyclidine Scrn NEGATIVE, Ur Amphetamines Screen PRESUMPTIVE POSITIVE, U Benzodiazepines Scrn NEGATIVE, Urine Cocaine Screen NEGATIVE, U Cannabinoids Screen PRESUMPTIVE POSITIVE, Ethyl Alcohol < 10.1 Physical Exam Const alert, oriented x3, no apparent distress and healthy appearing General Appearance: cooperative, well kempt and well developed Orientation / Consciousness: awake, oriented to person, oriented to place and oriented to time HEENT normocephalic and moist oral mucous membranes Eyes PERRL, EOMs intact bilaterally and conjunctivae normal Neck supple, no JVD, thyroid normal and no carotid bruits General: trachea midline Resp normal respiratory effort Resp Narrative: Some faint expiratory wheezes are noted bilaterally which are not severe Auscultation: wheezes; Negative for rales or rhonchi Cardio regular rate, regular rhythm, S1 normal heart sound, S2 normal heart sound, no murmurs, no rub and no gallops GI normal to inspection, nondistended, normoactive bowel sounds, soft to palpation, non-tender and non-distended Extremity no clubbing, cyanosis or edema Skin no rashes or lesions noted General Skin Exam: no breakdown Neuro oriented x3, CN's II-XII intact bilaterally, moves all extremities, no focal motor deficits and no sensory deficits noted Sensorium / Orientation: awake and alert Speech: speech normal Psych affect normal Assessment & Plan Assessment/Plan (1) Opiate dependence: PLAN: Plan 1. Polysubstance use disorder-fentanyl and amphetamines-patient will continue on his present medications, he will be seen by addiction licensed clinical social worker. #2 GERD-patient takes omeprazole daily-he is on Protonix here #3 history of noncompliance with medical regimen-complicates care, management, recovery, and prognosis Total clinical time spent by myself addressing the patient's medical issues, reviewing all of his data, and collaborating with patient's care team: 35 minutes Charges/Coding Visit Charges Inpatient E&M: 25017 Subs Hosp L2
--- NOTE | 2025-07-14 14:57 | CHAPLAIN ---
Type of Pastoral Visit _x__ Initial Visit ___ Follow-up Visit ___ On-call Visit ___ General Patient Visit ___ Spiritual Assessment ___ Family Conference ___ Bereavement ___ Rapid Response ___ Code Blue ___ Other (describe below) Pastoral Care Referral From _x__ Patient ___ Family ___ Nurse ___ Physician ___ Digital Publishing Specialist ___ Potter Or Ceramic Artist ___ Other (describe below) Sacrament/Intervention _x__ Active listening ___ Anointing ___ Mosque ___ Bereavement ___ Communion _x__ Becka exploration ___ _x__ Life review _x__ Prayer ___ Reconciliation ___ Sacrament of Sick _x__ Supportive presence ___ Wedding ___ Other (describe below) Pastoral Comments patient had been walking in the hallway; introduced self and offer of presence and support welcomed; pt gives reasons for recent relapse after three years of being clean; [place] to his mother having cancer and 'not doing well'; pt asks questions of spiritual nature and requests prayers for himself and for his mother; pt gives some life review and consideration of what is the future
[2025-07-14] MEDS: Nicotine (PBKC) 21 MG Patch TD (15:34)
[2025-07-14 15:37] VITALS: BP 96/74; PULSE 64; RESP 16; TEMP 36.4; O2SAT 100
[2025-07-14 20:08] VITALS: BP 119/64; PULSE 90; RESP 16; TEMP 36.6; O2SAT 96
--- NOTE | 2025-07-14 23:31 | PCM.HOSP.N ---
Hospitalist Note Pt reports complaints of indigestion/heartburn while taking pantoprazole 20mg PO daily. Considering medications prescribed for acute opioid withdrawal, I do not want to risk malabsorption of these medications by providing calcium carbonate. Added famotidine 20mg PO QHS, first dose now.
[2025-07-14 23:42] VITALS: BP 126/62; PULSE 59; RESP 18; TEMP 36.4; O2SAT 100
[2025-07-15 02:59] VITALS: BP 120/61; PULSE 70; RESP 16; TEMP 36.4; O2SAT 99
[2025-07-15 09:00] VITALS: BP 110/69; PULSE 64; RESP 18; TEMP 36.6; O2SAT 99
[2025-07-15] MEDS: Nicotine (PBKC) 21 MG Patch TD (09:07)
[2025-07-15] MEDS: MENTHOL 226.8 GM JAR 1 APPLIC TOPICAL ×2 (09:07→22:36)
--- NOTE | 2025-07-15 14:00 | PN.HOSP_ITS ---
Reason for Visit Chief Complaint: Opioid detox Objective Data Objective Data Vital Signs: Vital Signs Temp Pulse Resp BP Pulse Ox O2 Del Method 97.8 F 64 18 110/69 99 Room Air 07/15/25 09:00 07/15/25 09:00 07/15/25 09:00 07/15/25 09:00 07/15/25 09:00 07/15/25 10:48 Oxygen Delivery Method Room Air Weight: 177 lb 1.6 oz Body Mass Index (BMI) 25.4 Intake & Output: Intake and Output for Last 24 Hours 07/13/25 07/14/25 07/15/25 23:59 23:59 23:59 Intake Total 200 / 200 Balance 200 / 200 Lab / Micro Data 07/13/25 14:08 07/13/25 14:08 Physical Exam Narrative Seen and examined. Patient is feeling back. He stated his appetite came back. No acute withdrawal symptoms. He said he was snorting half a gram of fentanyl. He also snorted methamphetamine. Had history of IV use once in the past. Physical exam General: Alert, Oriented x3, Cooperative HEENT: Atraumatic, PERRLA, EOMI, Normocephalic. Oral: No Gingival or Mucosal Lesions/ Ulcerations Neck: Supple, No JVD, Negative Carotid Bruits Chest wall/Lungs: Air entry equal in bilateral lung bases. No crepitation/rhonchi Cardiovascular: Regular rate and rhythm, Normal S1,S2, No M/G/R Abdomen: Bowel Sounds Present, Soft, Non Tender, Non-Distended : No dysuria. No renal angle tenderness. No suprapubic tenderness. Extremities: No edema, Capillary Refill Less than 3 Seconds Skin: No rashes, No breakdown Musculoskeletal: No Tenderness to Palpation of Joints or Extremities Neurological: Cranial nerves II-XII grossly intact, DTR 2+/4. No acute focal neurological deficit. Psych/Mental Status: Normal Affect, Appropriate. Assessment & Plan Assessment/Plan (1) Opiate dependence: PLAN: Plan This is a 40-year-old gentleman being admitted for acute opioid withdrawal syndrome 1. Acute opioid withdrawal syndrome with dependence and tolerance with history of chronic opioid use disorder: Patient is being admitted on [facility] floor. The patient is started on buprenorphine along with other adjunctive medications as needed for medical stabilization as per order set of opioid withdrawal syndrome.Patient also on trazodone, hydroxyzine, gabapentin as needed ordered. Advised quitting opioid use. strategic sourcing manager consult. Patient also had methamphetamine use #2 GERD-patient takes omeprazole daily-he is on Protonix here #3 history of noncompliance with medical regimen-complicates care, management, recovery, and prognosis Charges/Coding Visit Charges Inpatient E&M: 87766 Subs Hosp L2
--- NOTE | 2025-07-15 14:35 | ADDICTION ---
Pt was met with to discuss his DC plan and tx options. Pt states that he is interested in going to [facility], but he is not interested in doing a direct admission from [facility]. Pt states he is still waiting on his Medicaid to go through and he'd prefer to go home before admitting to [facility]. Pt was provided psychoeducation on his relapse risk and the progressive/fatal nature of addiction, and pt was provided resources. Pt is choosing to DC home and then f/u with [facility].
[2025-07-15 15:00] VITALS: BP 122/77; PULSE 80; RESP 18; TEMP 36.4; O2SAT 99
[2025-07-15] MEDS: hydrOXYzine PAM 25 MG Capsule 50 MG PO (15:20)
[2025-07-15 21:00] VITALS: BP 132/64; PULSE 70; RESP 18; TEMP 36.4; O2SAT 98
[2025-07-16 03:00] VITALS: BP 109/69; PULSE 68; RESP 18; TEMP 36.7; O2SAT 99
[2025-07-16] MEDS: Nicotine (PBKC) 21 MG Patch TD (05:01)
[2025-07-16 08:20] VITALS: BP 100/67; PULSE 66; RESP 18; TEMP 36.6; O2SAT 98
[2025-07-16] MEDS: MENTHOL 226.8 GM JAR 1 APPLIC TOPICAL (08:22)
--- NOTE | 2025-07-16 10:35 | DCINST_ITS ---
Discharge Instructions DC O2, CPAP, BIPAP needs Home O2 Discharge instructions: No Dressing / Incision Discharge Activity: Return to Normal Activity Weight Bearing Status: Weight bearing as tolerated Dressing / Incision Call your doctor if you observe: Fever of 101 or Higher, Coldness, Increased Pain, Numbness or Tingling, Change in Color, Inability to urinate, Inability to have a bowel movement, Shortness of breath, Dizziness, Fainting spells, Swelling in the ankles, Chest pain, Prolonged hiccupping, Increased palpitations (irregular heartbeat) and Calf discomfort Follow Up Care When: IN 2 WEEKS Test Results: Test results from this visit will be discussed in further detail at your follow- up appointment, if applicable. Discharge Plan Admission Admit Date/Time: 07/13/25 16:01 Primary Reason for Your Visit: Acute opioid withdrawal syndrome Attending Provider: David Perry Primary Care Provider: Natty Isaac Consulting Providers: Claudette Villa; Adam Sam Discharge Orders/Prescriptions Prescriptions: Continued omeprazole 20 mg capsule,delayed release(DR/EC) 20 mg PO DAILY Referrals / Follow Up: Natty Isaac, PA [Primary Care Provider] - Disposition Disposition (needs filled in before D/C Order can be placed): Home, Self Care
--- NOTE | 2025-07-16 10:36 | PCM.DC.SUM ---
Providers Date of Admission: 07/13/25 Date of Discharge: 07/16/25 Primary Care Physician: JULITO Hannah Reason For Visit: DETOX FROM [facility] Diagnosis Discharge Diagnosis (1) Opiate dependence: Status: Acute Code(s): F11.20 - Opioid dependence, uncomplicated Plan This is a 40-year-old gentleman being admitted for acute opioid withdrawal syndrome. He said he was snorting half a gram of fentanyl. He also snorted methamphetamine. Had history of IV use once in the past. 1. Acute opioid withdrawal syndrome with dependence and tolerance with history of chronic opioid use disorder: Patient is being admitted on [facility] floor. The patient is started on buprenorphine along with other adjunctive medications as needed for medical stabilization as per order set of opioid withdrawal syndrome.Patient also on trazodone, hydroxyzine, gabapentin as needed ordered. Advised quitting opioid use. care center manager consult. Patient also had methamphetamine use 07/16: Patient is doing well. Wants to go home. Discharge. He said he has plan for going to some inpatient substance use rehab on Thursday and he will go admitted there. Follow-up 180. #2 GERD-patient takes omeprazole daily-he is on Protonix here #3 history of noncompliance with medical regimen-complicates care, management, recovery, and prognosis Discharge medication reconciliation done. Discharge follow-up instructions completed. Discharge process discussed with the patient and all questions were answered to patient's satisfaction. Follow with PCP in 1 to 2 weeks Total time spent, exact 35 minutes on discharge meds reconciliation, examination, coordination of care with nurses and ancillary staff, review of imaging and blood test and discussion with the patient on follow-up instructions. Medications at Discharge Home Medications omeprazole 20 mg capsule,delayed release 20 mg PO DAILY 07/13/25 Physical Exam Narrative Seen and examined. The patient is doing very good. No acute withdrawal symptoms. He wants to go home Physical exam General: Alert, Oriented x3, Cooperative HEENT: Atraumatic, PERRLA, EOMI, Normocephalic. Oral: No Gingival or Mucosal Lesions/ Ulcerations Neck: Supple, No JVD, Negative Carotid Bruits Chest wall/Lungs: Air entry equal in bilateral lung bases. No crepitation/rhonchi Cardiovascular: Regular rate and rhythm, Normal S1,S2, No M/G/R Abdomen: Bowel Sounds Present, Soft, Non Tender, Non-Distended : No dysuria. No renal angle tenderness. No suprapubic tenderness. Extremities: No edema, Capillary Refill Less than 3 Seconds Skin: No rashes, No breakdown Musculoskeletal: No Tenderness to Palpation of Joints or Extremities Neurological: Cranial nerves II-XII grossly intact, DTR 2+/4. No acute focal neurological deficit. Psych/Mental Status: Normal Affect, Appropriate. Weight / BMI Weight Weight: 177 lb 1.6 oz Body Mass Index (BMI) 25.4 ABG / Lab / Microbiology Data 07/13/25 14:08 07/13/25 14:08 D/C Instructions Weight Bearing Status: Weight bearing as tolerated Call your doctor if you observe: Fever of 101 or Higher, Coldness, Increased Pain, Numbness or Tingling, Change in Color, Inability to urinate, Inability to have a bowel movement, Shortness of breath, Dizziness, Fainting spells, Swelling in the ankles, Chest pain, Prolonged hiccupping, Increased palpitations (irregular heartbeat) and Calf discomfort DC O2, CPAP, BIPAP Needs Home O2 Discharge instructions: No When: IN 2 WEEKS Meaningful Use Info Meaningful Use Meaningful Use Diagnoses (Choose all that apply): None applicable Discharge Plan Admission Admit Date/Time: 07/13/25 16:01 Primary Reason for Your Visit: Acute opioid withdrawal syndrome Attending Provider: David Perry Primary Care Provider: Natty Isaac Consulting Providers: Claudette Villa; Adam Sam Discharge Orders/Prescriptions Prescriptions: Continued omeprazole 20 mg capsule,delayed release(DR/EC) 20 mg PO DAILY Referrals / Follow Up: Natty Isaac PA [Primary Care Provider] - Disposition Disposition (needs filled in before D/C Order can be placed): Home, Self Care Charges/Coding Visit Charges Inpatient E&M: 50960 Disch Hosp >30min
== END 2025-07-16 11:15 | disposition home or self-care (01) | DRG 897 ==
LOC: ED 15:40 → MS3 16:24
PROVIDERS: Admitting Provider Internal Medicine; Emergency Provider Emergency Medicine; PCP Physician Assistant; Visit Provider Internal Medicine
DX: F11.23 Opioid dependence with withdrawal (principal); F15.90 Other stimulant use, unspecified, uncomplicated; K21.9 Gastro-esophageal reflux disease without esophagitis; F17.290 Nicotine dependence, other tobacco product, uncomplicated; Z79.899 Other long term (current) drug therapy; Z91.199 Patient's noncompliance with other medical treatment and regimen due to unspecified reason
CPT/HCPCS: 80048; 80307; 82077; 85025; 99283

== ENCOUNTER 2025-07-21 13:34 | Emergency (ER) | payer MEDICAID, SELFPAY ==
[2025-07-21 13:35] VITALS: BP 131/64; PULSE 71; RESP 19; TEMP 36.6; O2SAT 98
[2025-07-21 14:34] VITALS: BP 134/78; PULSE 64; RESP 18; O2SAT 65
--- NOTE | 2025-07-21 14:48 | EX.ED.DYSGE1 ---
HPI History of Present Illness Chief Complaint: Substance Abuse Narrative Narrative: Patient is a 40-year-old male with past medical history of opiate abuse, GERD who presents to the emergency department chief complaint of overdose. According to patient and he was on his way to rehab. Per nursing staff a friend was picking up somebody else here and he was in the vehicle and went unresponsive nursing staff went outside and gave him Narcan and he immediately woke up. They then brought him here to be further observed until going back to the rehab place which she is already excepted. [facility] Medical History (Updated 07/21/25 @ 15:[address] Ishan Mckay, DO) Methamphetamine abuse Opioid abuse Anxiety Diarrhea Nausea & vomiting Acid reflux disease Abdominal pain Home Medications ?Medication ?Instructions ?Recorded ?Last Taken ?Type omeprazole 20 mg capsule,delayed 20 mg PO DAILY 07/13/25 Unknown History release Allergy/AdvReac Type Severity Reaction Status Date / Time sulfamethoxazole (From Allergy Mild Unknown Verified 07/21/25 13:38 Bactrim) trimethoprim (From Bactrim) Allergy Mild Unknown Verified 07/21/25 13:38 Surgical History History of right inguinal hernia repair Status post right knee surgery Social History household members: other Smoking Status: Current every day smoker tobacco type: e-cigarettes alcohol intake: current alcohol intake frequency: a few times a week substance use type: does not use ROS ROS ED ROS Narrative Constitutional: Denies any fevers, chills, headache Eyes: Denies double vision Cardiovascular: Denies chest pain Respiratory: Denies shortness of breath Abdomen: Denies abdominal pain nausea vomit diarrhea : Denies urinary symptoms Neurological: Denies any numbness, weakness, tingling Musculoskeletal: Denies back pain Skin: Denies any rashes or lesions EXAM Physical Exam Narrative Exam Narrative: General: Patient was lying in bed rest comfortably did not appear to be acute distress Head: Atraumatic, normocephalic Eyes: PERRL bilateral, EOMI bilaterally, no conjunctival injection noted Neck: Soft, supple, trachea midline Cardiovascular: Regular rate and rhythm Respiratory: Clear to auscultation bilaterally Abdomen: Soft, nondistended, no tenderness to palpation Extremities: +5/5 strength noted in the bilateral lower extremity, radial pulses +2/4 in the bilateral extremities, no pedal edema exam Neurological: Patient is following commands knew that he was at [facility] year is 2024 Skin: Warm, dry, intact no rashes or lesions noted Const Vital Signs: 07/21/25 13:35 07/21/25 14:34 07/21/25 15:00 Temperature 97.8 F Temperature Source Oral Pulse Rate 71 64 64 Respiratory Rate 19 H 18 18 Blood Pressure 131/64 H 134/78 H 95/56 L Blood Pressure Mean 86 96 69 Pulse Ox 98 65 98 Oxygen Delivery Method Room Air Room Air Room Air MDM MDM MDM Narrative Medical decision making narrative: Patient is a 40-year-old male who presented to the emergency department with a chief complaint of overdose. Once again the patient was given Narcan and immediately woke up and was brought here to the emergency department to be observed until he is cleared to go back to rehab. On the differential diagnose includes but limited to opiate overdose, overdose on other substance although feel less less likely. Patient was observed in the emergency department and had no repeat overdose he will be discharged to his detox program. All question concerns answered. Discharge Plan Triage Chief Complaint: Substance Abuse ED Provider: Ishan Mckay Dx/Rx/DC Orders Clinical Impression: Opiate dependence, Overdose, History of anxiety Prescriptions: No Action omeprazole 20 mg capsule,delayed release(DR/EC) 20 mg PO DAILY Primary Care Provider: Natty Isaac Referrals: Natty Isaac, JULITO [Primary Care Provider] - Activity Restrictions/Additional Instructions: Follow-up your doctor in outpatient heading. Go directly to detox/your treatment program Print Language: Scottish Disposition Disposition: Home, Self Care
[2025-07-21 15:00] VITALS: BP 95/56; PULSE 64; RESP 18; O2SAT 98
--- NOTE | 2025-07-21 15:17 | CHAPLAIN ---
Type of Pastoral Visit _x__ Initial Visit ___ Follow-up Visit ___ On-call Visit ___ General Patient Visit ___ Spiritual Assessment ___ Family Conference ___ Bereavement ___ Rapid Response ___ Code Blue ___ Other (describe below) Pastoral Care Referral From _x__ Patient ___ Family ___ Nurse ___ Physician ___ Visitor Services Technician ___ Enlisted Aircrew/Aerial Observer/Gunner ___ Other (describe below) Sacrament/Intervention _x__ Active listening ___ Anointing ___ Yarsanism ___ Bereavement ___ Communion _x__ Becka exploration ___ _x__ Life review _x__ Prayer ___ Reconciliation ___ Sacrament of Sick _x__ Supportive presence ___ Wedding ___ Other (describe below) Pastoral Comments while this speech lang path was doing rounds in ED he noticed that this patient was being moved to room 10; this patient was seen last week by this speech lang path in the hospital [facility] program; after consultation with security and SW it was decided to offer support to patient; patient was to go to rehab facility today but choose to make myself feel good before I left, but I took too much; pt needed Narcan to be revived earlier this afternoon; pt is willing to have visit and to talk; pt is tearful but fights back the tears saying I got my ass beat if I ever cried as a child; pt admits to distress about maybe not getting to the rehab now and I don't have any worth; lots of listening, supportive presence, and asking patient to consider what thoughts are really true and what is a lie; pt claims to have belief in the Adventism becka; mother of patient walks into room at this time and the atmosphere changes; pt is disturbed that his mother came and tells her I didn't want you to know that I was here and that this happened; mother is very vocal with support but talks over the patient and refutes his comments; mother asks that speech lang path pray; speech lang path asked permission of the patient and he accepts prayer; at this time this speech lang path asked mother to step outside the room for a more private conversation to continue and she does so willingly; pt is more talkative again and shares his feelings and thoughts about this experience and his overall feelings of lack of self worth; pt is adamant that he loves his mother and that she means well but he doesn't want to be in a place that overwhelms him with quaker pressure although again he claims he has personal becka in [place] and wants spiritual support; left the room and asked mother to return which she did, as she was saying I will only stay a couple more minutes with him; informed SW of this conversation without all the details of a personal nature
--- NOTE | 2025-07-21 15:30 | CM.ED ---
Social work Reason for referral: support Referral source: case find Rapid response was called to the front entrance of [facility] today for patient. Reportedly, patient was going to [facility] and passed out in the car from a fentanyl overdose. Reportedly, patient's mother had been contacted and presented to [facility] ED which patient reportedly appeared unhappy about. SW entered patient's room to provide support, introducing self and role at [facility]. Patient welcomed SW visit and patient's mother was bedside. Patient denied having needs at this time and thanked SW for stopping in. Tisha Parisi, DIRECTOR HEALTH, COMMUNICATIONS SUPERINTENDENT
[2025-07-21 16:04] VITALS: BP 112/68; PULSE 71; RESP 15; O2SAT 100
[2025-07-21 17:00] VITALS: BP 115/71; PULSE 78; RESP 14; O2SAT 99
[2025-07-21 17:40] VITALS: BP 109/75; PULSE 74; RESP 18; TEMP 36.8; O2SAT 98
== END 2025-07-21 17:42 | disposition home or self-care (01) ==
PROVIDERS: Emergency Provider Emergency Medicine; PCP Physician Assistant; Visit Provider Emergency Medicine
DX: T40.2X4A Poisoning by other opioids, undetermined, initial encounter (principal); F11.20 Opioid dependence, uncomplicated; F41.9 Anxiety disorder, unspecified; K21.9 Gastro-esophageal reflux disease without esophagitis; F17.290 Nicotine dependence, other tobacco product, uncomplicated; Z79.899 Other long term (current) drug therapy
CPT/HCPCS: 99282